=== PATIENT | male | born 1950 | race Caucasian/White ===

== ENCOUNTER → 2016-08-30 | Outpatient (CLI) | payer MEDICARE, BC ==
--- NOTE | 2016-08-30 14:46 | US ---
EXAMINATION TYPE: US carotid duplex BILAT DATE OF EXAM: 08/30/2016 2:21 PM COMPARISON: US CLINICAL HISTORY: G45.9 TIA. TIA, pt states seizures EXAM MEASUREMENTS: RIGHT: Peak Systolic Velocity (PSV) cm/sec ----- Right CCA: 63.4 ----- Right ICA: 47.5 ----- Right ECA: 84.4 ICA/CCA ratio: 0.7 RIGHT: End Diastole cm/sec ----- Right CCA: 14.5 ----- Right ICA: 8.3 ----- Right ECA: 11.7 LEFT: Peak Systolic Velocity (PSV) cm/sec ----- Left CCA: 91.2 ----- Left ICA: 30.9 ----- Left ECA: 70.4 ICA/CCA ratio: 0.3 LEFT: End Diastole cm/sec ----- Left CCA: 12.2 ----- Left ICA: 8.6 ----- Left ECA: 11.0 VERTEBRALS (direction of flow): Right Vertebral: Antegrade Left Vertebral: Antegrade Abnormally low velocities within bilat ICA's No significant stenosis seen IMPRESSION: Mild scattered plaque without hemodynamically significant stenosis. Criteria for Assigning % of Stenosis / Diameter reduction (Estimation based on the indirect measurements of the internal carotid artery velocities (ICA PSV). 1. Normal (no stenosis)=ICA PSV < 125 cm/s: ratio < 2.0: ICA EDV<40 cm/s. 2. Less than 50% stenosis=ICA PSV < 125 cm/s: ratio < 2.0: ICA EDV<40 cm/s. 3. 50 to 69% stenosis=ICA PSV of 125 to 230 cm/s: ration 2.0 ? 4.0: ICA EDV 40-100 cm/s. 4. Greater than 70% stenosis to near occlusion= ICA PSV > 230 cm/s: ratio > 4.0: ICA EDV > 100 cm/s. 5. Near occlusion= ICA PSV velocities may be low or undetectable: variable ratio and ICA EDV. 6. Total occlusion=unable to detect flow.
== END | disposition home or self-care (01) ==
LOC: RADUSWWP 13:59
PROVIDERS: ATTEND Psychiatry & Neurology Neurology
DX: I65.29 Occlusion and stenosis of unspecified carotid artery (principal)
CPT/HCPCS: 93880

== ENCOUNTER → 2016-09-11 | Outpatient (CLI) | payer MEDICARE, BC ==
--- NOTE | 2016-09-13 08:14 | MR ---
EXAMINATION TYPE: MR brain wo con DATE OF EXAM: 09/11/2016 12:48 PM COMPARISON: 09/08/2011 HISTORY: Poss TIA, some headaches and Dizzy Spells CONTRAST: Performed utilizing 0 mL intravenous MultiHance gadolinium contrast. TECHNIQUE: Multiplanar, multiecho imaging on a 3.0 Jing magnet is performed through the brain. Stud y is performed within 24 hours of arrival to the hospital. The craniovertebral junction is normal. The pituitary is normal. Diffusion-weighted imaging is performed. No abnormal hyperintensity is present to suggest an acute i ntracranial infarct or acute ischemic change. There are scattered punctate areas of hyperintensity on T2 and Inversion Recovery weighted sequences which are non-specific but can be related to microvascular ischemic changes. Ventricles and sulci are prominent for the patient age. Small amount fluid is within the right mastoid air cells. Correlate for right mastoiditis. Mild mucos al thickening is within the maxillary sinuses. IMPRESSIONS: 1. Chronic white matter changes, stable from 2011. 2. No acute ischemic area evident.
== END | disposition home or self-care (01) ==
LOC: RADMRIMAIN 08:16
PROVIDERS: ATTEND Nurse Practitioner Acute Care
DX: R51 Headache (principal); R42 Dizziness and giddiness
CPT/HCPCS: 70551

== ENCOUNTER 2017-11-25 00:42 | Emergency (ER) | payer BC, MEDICARE ==
--- NOTE | 2017-11-25 00:52 | ED ---
General Adult HPI - General Chief complaint: Fall Stated complaint: Fall Time Seen by Provider: 11/25/17 00:52 Source: patient, EMS Mode of arrival: EMS Limitations: no limitations - History of Present Illness Initial comments: Aston is a 67-year-old gentleman with a past medical history of Parkinson's disease who is brought to the emergency department today by his daughter for evaluation of generalized weakness and gait instability. Per his daughter he's been complaining of generalized weakness for the past week, he's become less active and has been sleeping more. She states that this evening he was walking out of his bedroom when he lost his balance falling to the left. He felt too weak to get up and required assistance. Daughter reports that this happened so the patient intermittently. She states that his 2 months ago and that she was the primary caregiver, she was also most up-to-date on the patient' s medical history some the daughter states that she is just learning how to care for her father. She states that she been concerned about his weakness so she brought him to the ER for evaluation. - Related Data Home Medications Medication Instructions Recorded Confirmed Albuterol Nebulized [Ventolin 2.5 mg INHALATION RT-QID PRN 06/27/14 02/20/17 Nebulized] Cholecalciferol [Vitamin D3] 2,000 unit PO DAILY 06/27/14 02/20/17 Clopidogrel Bisulfate [Plavix] 75 mg PO DAILY 06/27/14 02/20/17 Deplin 15 mg PO HS 06/27/14 02/20/17 Divalproex [Depakote] 500 mg PO TID 06/27/14 02/20/17 Levothyroxine Sodium [Synthroid] 125 mcg PO DAILY 06/27/14 02/20/17 Multivitamins, Thera [Multivitamin 1 tab PO DAILY 06/27/14 02/20/17 (formulary)] traZODone HCL [Desyrel] 50 mg PO HS 06/27/14 02/20/17 Neupro Patch 1 patch TOPICAL HS 01/01/15 02/20/17 Carbidopa-Levodopa 10-100 mg 1 tab PO TID 12/18/15 02/20/17 [Sinemet 10-100 mg] cloZAPine [Clozaril] 450 mg PO HS 12/22/15 02/20/17 Aspirin 81 mg PO DAILY 02/20/17 02/20/17 Atorvastatin Calcium [Lipitor] 40 mg PO HS 02/20/17 02/20/17 Furosemide [Lasix] 20 mg PO Q48H 02/20/17 02/20/17 Primidone [Mysoline] 50 mg PO HS 02/20/17 02/20/17 Allergies Allergy/AdvReac Type Severity Reaction Status Date / Time Iodinated Contrast- Oral and Allergy Unknown Verified 11/25/17 00:47 IV Dye iohexol Allergy Nausea & Verified 11/25/17 00:47 Vomiting levofloxacin [From Levaquin] Allergy Unknown Verified 11/25/17 00:47 morphine Allergy Confusion Verified 11/25/17 00:47 tromethamine Allergy Nausea & Verified 11/25/17 00:47 Vomiting codeine AdvReac Hallucinati Verified 11/25/17 00:47 ons Review of Systems ROS Statement: Those systems with pertinent positive or pertinent negative responses have been documented in the HPI. ROS Other: All systems not noted in ROS Statement are negative. Past Medical History Past Medical History: CVA/TIA, Deep Vein Thrombosis (DVT), Hypertension, Pneumonia, Prostate Disorder, Seizure Disorder, Thyroid Disorder Additional Past Medical History / Comment(s): Parkinson's, several tia's, past hx. of arrythmia, respiratory failure with pneumonia 8 yrs. ago. DVT years ago, Past Hx. of HEAD INJURY (WAS [employer]/PART OF BLDG COLLAPSED ON HIM, SCIATICA, DDD. ?seizure disorder, SOB w/exertion, lethargy, see Dr Loza H & P History of Any Multi-Drug Resistant Organisms: MRSA Date of last positivie culture/infection: 09/30/2014 MDRO Source:: Blood Past Surgical History: Adenoidectomy, Prostate Surgery, Tonsillectomy Additional Past Surgical History / Comment(s): BRONCHOSCOPY, SX FOR PROLAPSED RECTUM, TURP, Peg insertion & then removed, osteophytes removed from throat, RECENTLY HAD SOME TEETH EXTRACTED AND WAS ON AN ABX. 12-22-15 MIKE. Past Anesthesia/Blood Transfusion Reactions: Motion Sickness Past Psychological History: Anxiety, Depression, PTSD Smoking Status: Former smoker Past Alcohol Use History: None Reported Past Drug Use History: None Reported - Past Family History Father Family Medical History: Myocardial Infarction ([place]) Mother Family Medical History: CVA/TIA, Hypertension, Myocardial Infarction ([place]) General Exam Limitations: no limitations General appearance: alert, other (Resting comfortably but wakes to voice and is appropriately interactive) Head exam: Present: atraumatic, normocephalic Eye exam: Present: normal appearance, PERRL ENT exam: Present: mucous membranes dry Neck exam: Present: normal inspection. Absent: tenderness Respiratory exam: Present: normal lung sounds bilaterally. Absent: respiratory distress Cardiovascular Exam: Present: regular rate, normal rhythm GI/Abdominal exam: Present: soft. Absent: distended Rectal exam: Present: deferred Neurological exam: Present: alert, oriented X3, other (Tremor) Psychiatric exam: Present: normal affect Skin exam: Present: warm, dry Course Vital Signs 11/25/17 11/25/17 00:43 05:42 Temperature 97.4 F L 97.7 F Pulse Rate 91 81 Respiratory 18 16 Rate Blood Pressure 147/71 117/67 O2 Sat by Pulse 96 97 Oximetry Medical Decision Making - Medical Decision Making The patient was seen and evaluated, history was obtained from the patient and his daughter bedside with a history of Parkinson's and episodes of weakness which have been evaluated multiple times in the hospital and attributed to possible TIAs versus seizures. Patient has been feeling weak for approximately 1-2 weeks, he's had some decreased oral intake, daughter is concerned because she has not been his primary caregiver until recently after the untimely of her mother. She will have patient evaluated. Patient with no obvious signs of injury. Does appear mildly dehydrated. Labs and imaging were ordered Labs no significant abnormalities EKG sinus rhythm no acute ST elevations or depressions no evidence of acute ischemia or infarction Were discussed with the patient and daughter, daughter expresses relief and patient is eager for discharge home. Patient and daughter were advised to follow up with PCP and neurologist for re- evaluation - Lab Data Result diagrams: 11/25/17 00:47 11/25/17 00:47 Lab Results 11/25/17 11/25/17 11/25/17 Range/Units 00:47 00:47 00:47 WBC 7.6 (3.8-10.6) k/uL RBC 4.45 (4.30-5.90) m/uL Hgb 13.8 (13.0-17.5) gm/dL Hct 42.0 (39.0-53.0) % MCV 94.4 (80.0-100.0) fL MCH 30.9 (25.0-35.0) pg MCHC 32.8 (31.0-37.0) g/dL RDW 14.6 (11.5-15.5) % Plt Count 191 (150-450) k/uL Neutrophils % 60 % Lymphocytes % 28 % Monocytes % 9 % Eosinophils % 0 % Basophils % 0 % Neutrophils # 4.5 (1.3-7.7) k/uL Lymphocytes # 2.1 (1.0-4.8) k/uL Monocytes # 0.7 (0-1.0) k/uL Eosinophils # 0.0 (0-0.7) k/uL Basophils # 0.0 (0-0.2) k/uL PT 10.5 (9.0-12.0) sec INR 1.1 (<1.2) APTT 28.3 (22.0-30.0) sec Sodium 138 (137-145) mmol/L Potassium 4.0 (3.5-5.1) mmol/L Chloride 108 H (98-107) mmol/L Carbon Dioxide 23 (22-30) mmol/L Anion Gap 7 mmol/L BUN 18 (9-20) mg/dL Creatinine 0.80 (0.66-1.25) mg/dL Est GFR (CKD-EPI)AfAm >90 (>60 ml/min/1.73 sqM) Est GFR (CKD-EPI)NonAf >90 (>60 ml/min/1.73 sqM) Glucose 130 H (74-99) mg/dL Plasma Lactic Acid Catarino (0.7-2.0) mmol/L Calcium 8.6 (8.4-10.2) mg/dL Total Bilirubin 0.3 (0.2-1.3) mg/dL AST 19 (17-59) U/L ALT 22 (21-72) U/L Alkaline Phosphatase 73 (38-126) U/L Total Creatine Kinase (55-170) U/L CK-MB (CK-2) (0.0-2.4) ng/mL CK-MB (CK-2) Rel Index Troponin I (0.000-0.034) ng/mL Total Protein 5.3 L (6.3-8.2) g/dL Albumin 3.2 L (3.5-5.0) g/dL Urine Color Urine Appearance (Clear) Urine pH (5.0-8.0) Ur Specific [place] (1.001-1.035) Urine Protein (Negative) Urine Glucose (UA) (Negative) Urine Ketones (Negative) Urine Blood (Negative) Urine Nitrite (Negative) Urine Bilirubin (Negative) Urine Urobilinogen (<2.0) mg/dL Ur Leukocyte Esterase (Negative) Urine RBC (0-5) /hpf Urine WBC (0-5) /hpf Ur Squamous Epith Cells (0-4) /hpf 11/25/17 11/25/17 11/25/17 Range/Units 00:47 01:30 02:58 WBC (3.8-10.6) k/uL RBC (4.30-5.90) m/uL Hgb (13.0-17.5) gm/dL Hct (39.0-53.0) % MCV (80.0-100.0) fL MCH (25.0-35.0) pg MCHC (31.0-37.0) g/dL RDW (11.5-15.5) % Plt Count (150-450) k/uL Neutrophils % % Lymphocytes % % Monocytes % % Eosinophils % % Basophils % % Neutrophils # (1.3-7.7) k/uL Lymphocytes # (1.0-4.8) k/uL Monocytes # (0-1.0) k/uL Eosinophils # (0-0.7) k/uL Basophils # (0-0.2) k/uL PT (9.0-12.0) sec INR (<1.2) APTT (22.0-30.0) sec Sodium (137-145) mmol/L Potassium (3.5-5.1) mmol/L Chloride (98-107) mmol/L Carbon Dioxide (22-30) mmol/L Anion Gap mmol/L BUN (9-20) mg/dL Creatinine (0.66-1.25) mg/dL Est GFR (CKD-EPI)AfAm (>60 ml/min/1.73 sqM) Est GFR (CKD-EPI)NonAf (>60 ml/min/1.73 sqM) Glucose (74-99) mg/dL Plasma Lactic Acid Catarino 1.5 (0.7-2.0) mmol/L Calcium (8.4-10.2) mg/dL Total Bilirubin (0.2-1.3) mg/dL AST (17-59) U/L ALT (21-72) U/L Alkaline Phosphatase (38-126) U/L Total Creatine Kinase 38 L (55-170) U/L CK-MB (CK-2) 0.6 (0.0-2.4) ng/mL CK-MB (CK-2) Rel Index 1.6 Troponin I <0.012 (0.000-0.034) ng/mL Total Protein (6.3-8.2) g/dL Albumin (3.5-5.0) g/dL Urine Color Yellow Urine Appearance Cloudy (Clear) Urine pH 7.5 (5.0-8.0) Ur Specific [place] 1.014 (1.001-1.035) Urine Protein Negative (Negative) Urine Glucose (UA) Negative (Negative) Urine Ketones Negative (Negative) Urine Blood Moderate H (Negative) Urine Nitrite Negative (Negative) Urine Bilirubin Negative (Negative) Urine Urobilinogen 4.0 (<2.0) mg/dL Ur Leukocyte Esterase Negative (Negative) Urine RBC <1 (0-5) /hpf Urine WBC 1 (0-5) /hpf Ur Squamous Epith Cells 1 (0-4) /hpf Disposition Clinical Impression: Fall Disposition: HOME SELF-CARE Instructions: Fall Prevention for Older Adults (ED) Is patient prescribed a controlled substance at d/c from ED?: No Referrals: Cheng Kendrick DO [Primary Care Provider] - 1-2 days Time of Disposition: 04:07
[2017-11-25 01:25] LABS: Basophils % (A) 0 %; Eosinophils % (A) 0 %; HGB 13.8 gm/dL (13.0-17.5); Lymphocytes # (A) 2.1 k/uL (1.0-4.8); Lymphocytes % (A) 28 %; MCH 30.9 pg (25.0-35.0); MCHC 32.8 g/dL (31.0-37.0); MCV 94.4 fL (80.0-100.0); Mean Platelet Volume 7.1; Monocytes # (A) 0.7 k/uL (0-1.0); Monocytes % (A) 9 %; Neutrophils # (A) 4.5 k/uL (1.3-7.7); Neutrophils % (A) 60 %; Platelet Count 191 k/uL (150-450); RBC 4.45 m/uL (4.30-5.90); RDW 14.6 % (11.5-15.5); WBC 7.6 k/uL (3.8-10.6)
[2017-11-25] MEDS: SODIUM CHLORIDE 0.9% 500 ML IV SCH ×4 (01:28→04:00)
[2017-11-25 01:33] LABS: ALT 22 U/L (21-72); AST 19 U/L (17-59); Albumin 3.2 g/dL (3.5-5.0); Alkaline Phosphatase 73 U/L (38-126); Anion Gap 7 mmol/L; Blood Urea Nitrogen 18 mg/dL (9-20); Calcium 8.6 mg/dL (8.4-10.2); Carbon Dioxide 23 mmol/L (22-30); Chloride 108 mmol/L (98-107); Glucose 130 mg/dL (74-99); INR 1.1 (<1.2); Partial Thromboplastin Time 28.3 sec (22.0-30.0); Prothrombin Time 10.5 sec (9.0-12.0); Sodium 138 mmol/L (137-145); Total Bilirubin 0.3 mg/dL (0.2-1.3); Total Protein 5.3 g/dL (6.3-8.2)
[2017-11-25 01:44] LABS: Creatine Kinase 38 U/L (55-170)
--- NOTE | 2017-11-25 01:54 | XR ---
EXAMINATION TYPE: XR chest 2V DATE OF EXAM: 11/25/2017 COMPARISON: 01/12/2016 HISTORY: Weakness and fever TECHNIQUE: Frontal and lateral views of the chest are obtained. FINDINGS: Heart and mediastinum are normal. There is a mild infiltrate at the left lung base. The ot her lung pink are clear. There is no heart failure. There are chest leads. IMPRESSION: Mild chronic infiltrate at the left lung base similar to old exam. Normal heart.
[2017-11-25 01:57] LABS: Creatine Kinase MB 0.6 ng/mL (0.0-2.4); Troponin I <0.012 ng/mL (0.000-0.034)
--- NOTE | 2017-11-25 02:24 | CT ---
EXAMINATION TYPE: CT brain [place] [place] con DATE OF EXAM: 11/25/2017 COMPARISON: CT brain 12/31/2012 HISTORY: Fall;weakness CT DLP: 1342.40 mGycm Automated exposure control for dose reduction was used. TECHNIQUE: CT scan of the head and cervical spine are performed without contrast. FINDINGS: There is cerebral cortical atrophy. There is no mass effect nor midline shift. There is n o sign of intracranial hemorrhage. The calvarium is intact. The cervical vertebra show normal alignment. There is hypertrophic anterior spurring from C3 to C7. F acet joints are intact. There is mild hypertrophic facet arthropathy. Skull base is intact. IMPRESSION: Cerebral atrophy. No acute intracranial abnormality. No significant change compared to old exam. Spondylotic changes in the cervical spine. No fracture.
[2017-11-25 03:20] LABS: Appearance,Urine Cloudy (Clear); Bilirubin,Urine Negative (Negative); Blood,Urine Moderate (Negative); Color,Urine Yellow; Glucose,Urine (UA) Negative (Negative); Ketones,Urine Negative (Negative); Leukocyte Esterase,Urine Negative (Negative); Nitrite,Urine Negative (Negative); PH, Urine 7.5 (5.0-8.0); Protein,Urine Negative (Negative); RBC,Urine <1 /hpf (0-5); Specific Gravity,Urine 1.014 (1.001-1.035); Squamous Epithelial Cell,Urine 1 /hpf (0-4); WBC,Urine 1 /hpf (0-5)
[2017-11-25 05:43] VITALS: BP 117/67; PULSE 81; RESP 16; TEMP 97.7
== END 2017-11-25 04:30 | disposition home or self-care (01) ==
LOC: EC 00:42
DX: E86.0 Dehydration (principal); R53.1 Weakness; R26.89 Other abnormalities of gait and mobility; I10 Essential (primary) hypertension; G20 Parkinson's disease; E07.9 Disorder of thyroid, unspecified; G40.909 Epilepsy, unspecified, not intractable, without status epilepticus; F32.9 Major depressive disorder, single episode, unspecified; F41.9 Anxiety disorder, unspecified; Z87.891 Personal history of nicotine dependence; Z79.02 Long term (current) use of antithrombotics/antiplatelets; Z79.82 Long term (current) use of aspirin; Z79.899 Other long term (current) drug therapy; Z88.1 Allergy status to other antibiotic agents; Z88.5 Allergy status to narcotic agent; Z88.8 Allergy status to other drugs, medicaments and biological substances; Z91.041 Radiographic dye allergy status; Z86.14 Personal history of Methicillin resistant Staphylococcus aureus infection; Z86.718 Personal history of other venous thrombosis and embolism; Z86.73 Personal history of transient ischemic attack (TIA), and cerebral infarction without residual deficits; W18.09XA Striking against other object with subsequent fall, initial encounter; Y93.01 Activity, walking, marching and hiking; Y92.009 Unspecified place in unspecified non-institutional (private) residence as the place of occurrence of the external cause
CPT/HCPCS: 36415; 70450; 71046; 72125; 80053; 81001; 82550; 82553; 83605; 84484; 85025; 85610; 85730; 87040; 87086; 93005; 96360; 96361; 99285

== ENCOUNTER 2018-01-03 18:25 | Emergency (ER) | payer MEDICARE ==
--- NOTE | 2018-01-03 18:42 | ED ---
General Adult HPI - General Chief complaint: Fall Stated complaint: poss TIA Time Seen by Provider: 01/03/18 18:26 Source: patient, family, RN notes reviewed, old records reviewed - History of Present Illness Initial comments: 67-year-old male history of TIA, CVA presents by EMS status post fall. Patient is currently undergoing physical therapy for recurrent falls and recurrent TIA and CVA. His family member states he's had approximately 30 minute strokes as well as stroke with some residual left-sided deficit. Patient underwent physical therapy today which he may have overexerted himself and fall while walking with his walker. He denies any pain complaints the time my evaluation. According to EMS he did have some left-sided weakness on initial presentation , this resolved during transport. Patient denies any new focal weakness at the time my evaluation. His family member states this is very typical that he typically has these symptoms after overexertion. He has had multiple workups in the past for both TIA and CVA. Patient also has history of traumatic brain injury. Additional past medical history of Parkinson's and seizure disorder. - Related Data Home Medications Medication Instructions Recorded Confirmed Albuterol Nebulized [Ventolin 2.5 mg INHALATION RT-QID PRN 06/27/14 01/03/18 Nebulized] Clopidogrel Bisulfate [Plavix] 75 mg PO DAILY 06/27/14 01/03/18 Deplin 15 mg PO HS 06/27/14 01/03/18 Divalproex [Depakote] 500 mg PO TID 06/27/14 01/03/18 Levothyroxine Sodium [Synthroid] 125 mcg PO DAILY 06/27/14 01/03/18 traZODone HCL [Desyrel] 50 mg PO HS 06/27/14 01/03/18 Neupro Patch 1 patch TOPICAL HS 01/01/15 01/03/18 Carbidopa-Levodopa 10-100 mg 1 tab PO TID 12/18/15 01/03/18 [Sinemet 10-100 mg] cloZAPine [Clozaril] 450 mg PO HS 12/22/15 01/03/18 Atorvastatin Calcium [Lipitor] 40 mg PO HS 02/20/17 01/03/18 Primidone [Mysoline] 50 mg PO HS 02/20/17 01/03/18 Allergies Allergy/AdvReac Type Severity Reaction Status Date / Time Iodinated Contrast- Oral and Allergy Unknown Verified 01/03/18 18:59 IV Dye iohexol Allergy Nausea & Verified 01/03/18 18:59 Vomiting levofloxacin [From Levaquin] Allergy Unknown Verified 01/03/18 18:59 morphine Allergy Confusion Verified 01/03/18 18:59 tromethamine Allergy Nausea & Verified 01/03/18 18:59 Vomiting codeine AdvReac Hallucinati Verified 01/03/18 18:59 ons Review of Systems ROS Statement: Those systems with pertinent positive or pertinent negative responses have been documented in the HPI. ROS Other: All systems not noted in ROS Statement are negative. Past Medical History Past Medical History: CVA/TIA, Deep Vein Thrombosis (DVT), Hypertension, Pneumonia, Prostate Disorder, Seizure Disorder, Thyroid Disorder Additional Past Medical History / Comment(s): Parkinson's, several tia's, past hx. of arrythmia, respiratory failure with pneumonia 8 yrs. ago. DVT years ago, Past Hx. of HEAD INJURY (WAS [employer] SU[employer]/PART OF BLDG COLLAPSED ON HIM, SCIATICA, DDD. ?seizure disorder, SOB w/exertion, lethargy, see Dr Loza H & P History of Any Multi-Drug Resistant Organisms: MRSA Date of last positivie culture/infection: 09/30/2014 MDRO Source:: Blood Past Surgical History: Adenoidectomy, Prostate Surgery, Tonsillectomy Additional Past Surgical History / Comment(s): BRONCHOSCOPY, SX FOR PROLAPSED RECTUM, TURP, Peg insertion & then removed, osteophytes removed from throat, RECENTLY HAD SOME TEETH EXTRACTED AND WAS ON AN ABX. 12-22-15 MIKE. Past Anesthesia/Blood Transfusion Reactions: Motion Sickness Past Psychological History: Anxiety, Depression, PTSD Smoking Status: Former smoker Past Alcohol Use History: None Reported Past Drug Use History: None Reported - Past Family History Father Family Medical History: Myocardial Infarction ([place]) Mother Family Medical History: CVA/TIA, Hypertension, Myocardial Infarction ([place]) General Exam General appearance: alert, in no apparent distress Head exam: Present: atraumatic, normocephalic Eye exam: Present: normal appearance, PERRL, EOMI Neck exam: Present: normal inspection, full ROM. Absent: tenderness, meningismus Respiratory exam: Present: normal lung sounds bilaterally, respiratory distress Cardiovascular Exam: Present: regular rate, normal rhythm GI/Abdominal exam: Present: soft. Absent: distended, tenderness, guarding Extremities exam: Present: normal inspection, normal capillary refill. Absent: pedal edema Neurological exam: Present: alert, oriented X3, CN II-XII intact. Absent: motor sensory deficit (Bilateral upper extremities, 5 out of 5, lower extremities have 4 out of 5 strength however it is symmetric between right and left.) Psychiatric exam: Present: normal affect, normal mood Skin exam: Present: warm, dry, intact. Absent: cyanosis, diaphoretic Course Vital Signs 01/03/18 01/03/18 18:48 20:03 Temperature 97.8 F 98.0 F Pulse Rate 94 94 Respiratory 18 18 Rate Blood Pressure 121/63 110/59 O2 Sat by Pulse 100 95 Oximetry EKG Findings - EKG Comments: EKG Findings:: EKG: Normal sinus rhythm with sinus arrhythmia, right bundle branch block, rate of 98, QRS duration 1:30, W[place] interval 132, QTC 370. No ST segment elevation. Medical Decision Making - Medical Decision Making 67-year-old male presenting with fall and left-sided weakness reported by family. This is not atypical for this patient, he's had multiple episodes of this nature in the past. He does follow with neurology on a regular basis for history of CVA, TIA, and Parkinson's. At the time of my evaluation, patient has a nonfocal neurologic exam. He is moving both extremities symmetrically, no facial asymmetry. Head CT is obtained, negative for any acute intracranial hemorrhage or mass effect. Chest x-ray does show concern for left lower lobe pneumonia however this is chronic in nature. On reevaluation, patient has no pain complaints. He has unchanged neurologic exam. Initial plan is for admission for neurology evaluation. After discussion with the family it is decided that this patient will be sent home with outpatient follow-up. He does have an appointment with neurology in the next 1-2 weeks. He'll also follow up with his primary care physician. - Lab Data Result diagrams: 01/03/18 18:39 01/03/18 18:39 Lab Results 01/03/18 01/03/18 01/03/18 Range/Units 18:39 18:39 18:39 WBC 11.9 H (3.8-10.6) k/uL RBC 4.74 (4.30-5.90) m/uL Hgb 14.7 (13.0-17.5) gm/dL Hct 45.5 (39.0-53.0) % MCV 95.9 (80.0-100.0) fL MCH 31.1 (25.0-35.0) pg MCHC 32.4 (31.0-37.0) g/dL RDW 14.8 (11.5-15.5) % Plt Count 211 (150-450) k/uL Neutrophils % 84 % Lymphocytes % 7 % Monocytes % 7 % Eosinophils % 1 % Basophils % 0 % Neutrophils # 10.0 H (1.3-7.7) k/uL Lymphocytes # 0.8 L (1.0-4.8) k/uL Monocytes # 0.8 (0-1.0) k/uL Eosinophils # 0.1 (0-0.7) k/uL Basophils # 0.0 (0-0.2) k/uL PT (9.0-12.0) sec INR (<1.2) APTT (22.0-30.0) sec Sodium 138 (137-145) mmol/L Potassium 4.5 (3.5-5.1) mmol/L Chloride 108 H (98-107) mmol/L Carbon Dioxide 19 L (22-30) mmol/L Anion Gap 11 mmol/L BUN 25 H (9-20) mg/dL Creatinine 0.96 (0.66-1.25) mg/dL Est GFR (CKD-EPI)AfAm >90 (>60 ml/min/1.73 sqM) Est GFR (CKD-EPI)NonAf 82 (>60 ml/min/1.73 sqM) Glucose 122 H (74-99) mg/dL Calcium 8.7 (8.4-10.2) mg/dL Total Bilirubin 0.7 (0.2-1.3) mg/dL AST 21 (17-59) U/L ALT 27 (21-72) U/L Alkaline Phosphatase 70 (38-126) U/L Total Creatine Kinase 29 L (55-170) U/L CK-MB (CK-2) 0.9 (0.0-2.4) ng/mL CK-MB (CK-2) Rel Index 3.1 Troponin I <0.012 (0.000-0.034) ng/mL Total Protein 5.8 L (6.3-8.2) g/dL Albumin 3.3 L (3.5-5.0) g/dL 01/03/18 Range/Units 18:39 WBC (3.8-10.6) k/uL RBC (4.30-5.90) m/uL Hgb (13.0-17.5) gm/dL Hct (39.0-53.0) % MCV (80.0-100.0) fL MCH (25.0-35.0) pg MCHC (31.0-37.0) g/dL RDW (11.5-15.5) % Plt Count (150-450) k/uL Neutrophils % % Lymphocytes % % Monocytes % % Eosinophils % % Basophils % % Neutrophils # (1.3-7.7) k/uL Lymphocytes # (1.0-4.8) k/uL Monocytes # (0-1.0) k/uL Eosinophils # (0-0.7) k/uL Basophils # (0-0.2) k/uL PT 10.8 (9.0-12.0) sec INR 1.1 (<1.2) APTT 25.3 (22.0-30.0) sec Sodium (137-145) mmol/L Potassium (3.5-5.1) mmol/L Chloride (98-107) mmol/L Carbon Dioxide (22-30) mmol/L Anion Gap mmol/L BUN (9-20) mg/dL Creatinine (0.66-1.25) mg/dL Est GFR (CKD-EPI)AfAm (>60 ml/min/1.73 sqM) Est GFR (CKD-EPI)NonAf (>60 ml/min/1.73 sqM) Glucose (74-99) mg/dL Calcium (8.4-10.2) mg/dL Total Bilirubin (0.2-1.3) mg/dL AST (17-59) U/L ALT (21-72) U/L Alkaline Phosphatase (38-126) U/L Total Creatine Kinase (55-170) U/L CK-MB (CK-2) (0.0-2.4) ng/mL CK-MB (CK-2) Rel Index Troponin I (0.000-0.034) ng/mL Total Protein (6.3-8.2) g/dL Albumin (3.5-5.0) g/dL Disposition Clinical Impression: Fall, TIA (transient ischemic attack) Disposition: HOME SELF-CARE Condition: Good Is patient prescribed a controlled substance at d/c from ED?: No Referrals: Cheng Kendrick DO [Primary Care Provider] - 1-2 days Sharla Fatima MD [STAFF PHYSICIAN] - 1-2 days Time of Disposition: 20:26
[2018-01-03 18:50] LABS: Basophils % (A) 0 %; Eosinophils # (A) 0.1 k/uL (0-0.7); Eosinophils % (A) 1 %; HCT 45.5 % (39.0-53.0); HGB 14.7 gm/dL (13.0-17.5); Lymphocytes # (A) 0.8 k/uL (1.0-4.8); Lymphocytes % (A) 7 %; MCH 31.1 pg (25.0-35.0); MCHC 32.4 g/dL (31.0-37.0); MCV 95.9 fL (80.0-100.0); Monocytes # (A) 0.8 k/uL (0-1.0); Monocytes % (A) 7 %; Neutrophils % (A) 84 %; Platelet Count 211 k/uL (150-450); RBC 4.74 m/uL (4.30-5.90); RDW 14.8 % (11.5-15.5); WBC 11.9 k/uL (3.8-10.6)
[2018-01-03 18:51] VITALS: PULSE 94; RESP 18
[2018-01-03 19:18] LABS: INR 1.1 (<1.2); Partial Thromboplastin Time 25.3 sec (22.0-30.0); Prothrombin Time 10.8 sec (9.0-12.0)
[2018-01-03 19:22] LABS: ALT 27 U/L (21-72); AST 21 U/L (17-59); Albumin 3.3 g/dL (3.5-5.0); Alkaline Phosphatase 70 U/L (38-126); Anion Gap 11 mmol/L; Blood Urea Nitrogen 25 mg/dL (9-20); Calcium 8.7 mg/dL (8.4-10.2); Carbon Dioxide 19 mmol/L (22-30); Chloride 108 mmol/L (98-107); Creatine Kinase 29 U/L (55-170); Glucose 122 mg/dL (74-99); Potassium 4.5 mmol/L (3.5-5.1); Sodium 138 mmol/L (137-145); Total Bilirubin 0.7 mg/dL (0.2-1.3); Total Protein 5.8 g/dL (6.3-8.2)
[2018-01-03 19:34] LABS: Creatine Kinase MB 0.9 ng/mL (0.0-2.4); Troponin I <0.012 ng/mL (0.000-0.034)
--- NOTE | 2018-01-03 19:35 | CT ---
EXAMINATION: CT brain wo con for TPA DATE AND TIME: 01/03/2018 7:18 PM CLINICAL INDICATION: Neuro Deficits TECHNIQUE: Standard departmental protocol. COMPARISON: 11/25/2017 FINDINGS: The calvarium is intact. There is no intracranial hemorrhage. There is no intracranial mass or mass effect. No definite new intra-axial or extra-axial attenuation defect. The paranasal sinuses, middle ear cavities, and mastoid sinus air cells are clear. The orbits are unremarkable. IMPRESSION: NO ACUTE PROCESS.
--- NOTE | 2018-01-03 19:43 | XR ---
EXAMINATION: XR chest 2V DATE AND TIME: 01/03/2018 7:25 PM CLINICAL INDICATION: altered mental status TECHNIQUE: PA and lateral COMPARISON: 11/25/2017 FINDINGS: The partial left lung base added opacity is redemonstrated. Otherwise, the lungs are clear and well e xpanded bilaterally. The pleural spaces are negative. The cardiac silhouette is not enlarged. The remainder of the mediastinal silhouette is unremarkable. The skeletal structures and soft tissues are negative for acute findings. IMPRESSION: STABLE CHEST FINDINGS. PARTIAL LEFT LUNG BASE AIRLESSNESS CONSISTENT WITH ATELECTASIS VS. PNEUMONIA; CLINICAL DISTINCTION.
[2018-01-03 20:04] VITALS: BP 110/59; TEMP 98
== END 2018-01-03 20:46 | disposition home or self-care (01) ==
LOC: EC 18:25
DX: G45.9 Transient cerebral ischemic attack, unspecified (principal); I10 Essential (primary) hypertension; G20 Parkinson's disease; G40.909 Epilepsy, unspecified, not intractable, without status epilepticus; E07.9 Disorder of thyroid, unspecified; F32.9 Major depressive disorder, single episode, unspecified; F41.9 Anxiety disorder, unspecified; F43.10 Post-traumatic stress disorder, unspecified; R29.6 Repeated falls; Z86.14 Personal history of Methicillin resistant Staphylococcus aureus infection; Z86.718 Personal history of other venous thrombosis and embolism; Z87.820 Personal history of traumatic brain injury; Z87.891 Personal history of nicotine dependence; Z79.01 Long term (current) use of anticoagulants; Z79.899 Other long term (current) drug therapy; Z88.5 Allergy status to narcotic agent; Z91.041 Radiographic dye allergy status; Z88.1 Allergy status to other antibiotic agents; Z88.8 Allergy status to other drugs, medicaments and biological substances; W19.XXXA Unspecified fall, initial encounter
CPT/HCPCS: 36415; 70450; 71046; 80053; 82550; 82553; 84484; 85025; 85610; 85730; 93005; 99285

== ENCOUNTER 2018-02-18 23:53 | Inpatient (IN) | payer MEDICARE ==
[2018-02-19] MEDS ORDERED: ACETAMINOPHEN TAB 500 MG TAB PO STA (00:10)
[2018-02-19 00:25] LABS: Basophils % (A) 0 %; Eosinophils # (A) 0.2 k/uL (0-0.7); Eosinophils % (A) 1 %; HGB 13.5 gm/dL (13.0-17.5); Lymphocytes # (A) 1.3 k/uL (1.0-4.8); Lymphocytes % (A) 7 %; MCH 31.1 pg (25.0-35.0); MCHC 32.9 g/dL (31.0-37.0); MCV 94.5 fL (80.0-100.0); Monocytes # (A) 1.2 k/uL (0-1.0); Monocytes % (A) 6 %; Neutrophils % (A) 85 %; Platelet Count 185 k/uL (150-450); RBC 4.34 m/uL (4.30-5.90); RDW 14.6 % (11.5-15.5); WBC 18.8 k/uL (3.8-10.6)
--- NOTE | 2018-02-19 00:26 | ED ---
General Adult HPI - General Chief complaint: Fall Stated complaint: Fall Time Seen by Provider: 02/18/18 23:56 Source: EMS Mode of arrival: EMS - History of Present Illness Initial comments: 68-year-old male patient with past medical history significant for Parkinson's disease presents to the emergency department today via EMS for evaluation of weakness with 2 falls today. Patient denies hitting his head or losing consciousness during the falls. He denies any injuries from the falls. He denies headache, neck pain, back pain, blurred, or double vision. Daughter reports when helping him up from the second fall patient was short of breath and his breathing sounded coarse. Patient was found to have elevated temperature 100.4 axillary in EMS. Patient did see his primary care physician this morning to have an abscess to the left buttock incised and drained. He was started on Bactrim for this by mouth. Daughter reports the patient has also had a cough for the last couple of days and does frequently get pneumonia. Patient denies any sputum production with the cough. States he has been wheezing. He denies any chest pain or shortness of breath. Denies abdominal pain, nausea, vomiting, constipation, or diarrhea. Patient denies any recent rash, back pain, numbness, tingling, dizziness, weakness, hematuria, dysuria, urinary urgency, urinary frequency, headache, visual changes, or any other complaints. - Related Data Home Medications Medication Instructions Recorded Confirmed Albuterol Nebulized [Ventolin 2.5 mg INHALATION RT-QID PRN 06/27/14 01/03/18 Nebulized] Clopidogrel Bisulfate [Plavix] 75 mg PO DAILY 06/27/14 01/03/18 Deplin 15 mg PO 06/27/14 01/03/18 Divalproex [Depakote] 500 mg PO TID 06/27/14 01/03/18 Levothyroxine Sodium [Synthroid] 125 mcg PO DAILY 06/27/14 01/03/18 traZODone HCL [Desyrel] 50 mg PO 06/27/14 01/03/18 Neupro Patch 1 patch TOPICAL 01/01/15 01/03/18 Carbidopa-Levodopa 10-100 mg 1 tab PO TID 12/18/15 01/03/18 [Sinemet 10-100 mg] cloZAPine [Clozaril] 450 mg PO HS 12/22/15 01/03/18 Atorvastatin Calcium [Lipitor] 40 mg PO HS 02/20/17 01/03/18 Primidone [Mysoline] 50 mg PO HS 02/20/17 01/03/18 Allergies Allergy/AdvReac Type Severity Reaction Status Date / Time Iodinated Contrast- Oral and Allergy Unknown Verified 01/03/18 18:59 IV Dye iohexol Allergy Nausea & Verified 01/03/18 18:59 Vomiting levofloxacin [From Levaquin] Allergy Unknown Verified 01/03/18 18:59 morphine Allergy Confusion Verified 01/03/18 18:59 tromethamine Allergy Nausea & Verified 01/03/18 18:59 Vomiting codeine AdvReac Hallucinati Verified 01/03/18 18:59 ons Review of Systems ROS Statement: Those systems with pertinent positive or pertinent negative responses have been documented in the HPI. ROS Other: All systems not noted in ROS Statement are negative. Past Medical History Past Medical History: CVA/TIA, Deep Vein Thrombosis (DVT), Hypertension, Pneumonia, Prostate Disorder, Seizure Disorder, Thyroid Disorder Additional Past Medical History / Comment(s): Parkinson's, several tia's, past hx. of arrythmia, respiratory failure with pneumonia 8 yrs. ago. DVT years ago, Past Hx. 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 ?seizure disorder, SOB w/exertion, lethargy, see Dr Loza H & P History of Any Multi-Drug Resistant Organisms: MRSA Date of last positivie culture/infection: 09/30/2014 MDRO Source:: Blood Past Surgical History: Adenoidectomy, Prostate Surgery, Tonsillectomy Additional Past Surgical History / Comment(s): BRONCHOSCOPY, SX FOR PROLAPSED RECTUM, TURP, Peg insertion & then removed, osteophytes removed from throat, RECENTLY HAD SOME TEETH EXTRACTED AND WAS ON AN ABX. 12-22-15 MIKE. Past Anesthesia/Blood Transfusion Reactions: Motion Sickness Past Psychological History: Anxiety, Depression, PTSD Smoking Status: Former smoker Past Alcohol Use History: None Reported Past Drug Use History: None Reported - Past Family History Father Family Medical History: Myocardial Infarction ([place]) Mother Family Medical History: CVA/TIA, Hypertension, Myocardial Infarction ([place]) General Exam General appearance: in no apparent distress, other (This is a well-developed, thin appearing elderly male patient in no acute distress. Vital signs upon presentation are temperature 98.1F axillary, pulse 109, respirations 16, blood pressure 118/75, pulse ox 89% on room air.) Eye exam: Present: normal appearance, PERRL, EOMI, other (Pupils 1 mm). Absent : scleral icterus, conjunctival injection, periorbital swelling ENT exam: Present: normal exam, normal oropharynx, mucous membranes moist, TM's normal bilaterally Neck exam: Present: normal inspection, full ROM, other (Nontender, no step-off, no deformity to firm midline palpation of the posterior cervical spine. Full range of motion without pain or limitation.). Absent: tenderness, meningismus, lymphadenopathy Respiratory exam: Present: wheezes (scattered expiratory wheezing posteriorly). Absent: normal lung sounds bilaterally, respiratory distress, rales, rhonchi, stridor, chest wall tenderness (No rib tenderness) Cardiovascular Exam: Present: normal rhythm, tachycardia, normal heart sounds. Absent: systolic murmur, diastolic murmur, rubs, gallop, clicks GI/Abdominal exam: Present: soft, normal bowel sounds. Absent: distended, tenderness, guarding, rebound, rigid Neurological exam: Present: alert, oriented X3, CN II-XII intact Psychiatric exam: Present: normal affect, normal mood Skin exam: Present: warm, dry, intact, normal color, other (Patient has abscess to the left lower buttock. This has been incised and drained. Minimal surrounding erythema, no induration, no current drainage.). Absent: rash Course Vital Signs 02/18/18 02/19/18 02/19/18 23:57 00:06 00:36 Temperature 98.1 F Pulse Rate 109 H 106 H 101 H Respiratory 16 16 16 Rate Blood Pressure 118/75 101/73 O2 Sat by Pulse 89 L 93 L 93 L Oximetry - Reevaluation(s) Reevaluation #1: 02/19/18 01:18 Sepsis diagnosed at 0118. EKG Findings - EKG Comments: EKG Findings:: EKG obtained at 2358 shows sinus tachycardia with a right bundle branch block, ventricular rate is 105, DC interval 136, QRS duration 136, QT 382 , QTc 504. No evidence of ST elevation or depression. Medical Decision Making - Medical Decision Making 68-year-old male patient presented to the emergency department today for evaluation of weakness and shortness of breath. Physical examination did reveal coarse expiratory breath sounds with scattered expiratory wheezes. Patient oxygen saturation was 89% on room air. Patient was febrile and EMS at 100.4F axillary. Labs reviewed and did reveal white blood cell count of 18.8, neutrophil count of 16.0, lactic acid was 3.0, influenza testing negative. Urine has yet to be collected. A chest x-ray showed bilateral lower lobe infiltrates which are new compared to last exam. Patient also does have a abscess to the left buttock that has been incised and drained, there is minimal surrounding erythema and no induration. No drainage at this time. Patient will be admitted to the hospital and treated for sepsis. We'll start Rocephin and azithromycin for community-acquired pneumonia. - Lab Data Result diagrams: 02/19/18 00:05 02/19/18 00:05 Lab Results 02/19/18 02/19/18 02/19/18 Range/Units 00:05 00:05 00:05 WBC 18.8 H (3.8-10.6) k/uL RBC 4.34 (4.30-5.90) m/uL Hgb 13.5 (13.0-17.5) gm/dL Hct 41.0 (39.0-53.0) % MCV 94.5 (80.0-100.0) fL MCH 31.1 (25.0-35.0) pg MCHC 32.9 (31.0-37.0) g/dL RDW 14.6 (11.5-15.5) % Plt Count 185 (150-450) k/uL Neutrophils % 85 % Lymphocytes % 7 % Monocytes % 6 % Eosinophils % 1 % Basophils % 0 % Neutrophils # 16.0 H (1.3-7.7) k/uL Lymphocytes # 1.3 (1.0-4.8) k/uL Monocytes # 1.2 H (0-1.0) k/uL Eosinophils # 0.2 (0-0.7) k/uL Basophils # 0.0 (0-0.2) k/uL PT (9.0-12.0) sec INR (<1.2) APTT (22.0-30.0) sec Sodium 139 (137-145) mmol/L Potassium 3.8 (3.5-5.1) mmol/L Chloride 110 H (98-107) mmol/L Carbon Dioxide 19 L (22-30) mmol/L Anion Gap 10 mmol/L BUN 20 (9-20) mg/dL Creatinine 0.93 (0.66-1.25) mg/dL Est GFR (CKD-EPI)AfAm >90 (>60 ml/min/1.73 sqM) Est GFR (CKD-EPI)NonAf 84 (>60 ml/min/1.73 sqM) Glucose 123 H (74-99) mg/dL Plasma Lactic Acid Catarino (0.7-2.0) mmol/L Calcium 8.8 (8.4-10.2) mg/dL Total Bilirubin 0.6 (0.2-1.3) mg/dL AST 26 (17-59) U/L ALT 15 L (21-72) U/L Alkaline Phosphatase 61 (38-126) U/L Total Creatine Kinase 44 L (55-170) U/L CK-MB (CK-2) 0.6 (0.0-2.4) ng/mL CK-MB (CK-2) Rel Index 1.4 Troponin I <0.012 (0.000-0.034) ng/mL Total Protein 6.2 L (6.3-8.2) g/dL Albumin 3.5 (3.5-5.0) g/dL Influenza Type A RNA (Not Detectd) Influenza Type B (PCR) (Not Detectd) 02/19/18 02/19/18 02/19/18 Range/Units 00:05 00:05 00:20 WBC (3.8-10.6) k/uL RBC (4.30-5.90) m/uL Hgb (13.0-17.5) gm/dL Hct (39.0-53.0) % MCV (80.0-100.0) fL MCH (25.0-35.0) pg MCHC (31.0-37.0) g/dL RDW (11.5-15.5) % Plt Count (150-450) k/uL Neutrophils % % Lymphocytes % % Monocytes % % Eosinophils % % Basophils % % Neutrophils # (1.3-7.7) k/uL Lymphocytes # (1.0-4.8) k/uL Monocytes # (0-1.0) k/uL Eosinophils # (0-0.7) k/uL Basophils # (0-0.2) k/uL PT 10.6 (9.0-12.0) sec INR 1.1 (<1.2) APTT 24.6 (22.0-30.0) sec Sodium (137-145) mmol/L Potassium (3.5-5.1) mmol/L Chloride (98-107) mmol/L Carbon Dioxide (22-30) mmol/L Anion Gap mmol/L BUN (9-20) mg/dL Creatinine (0.66-1.25) mg/dL Est GFR (CKD-EPI)AfAm (>60 ml/min/1.73 sqM) Est GFR (CKD-EPI)NonAf (>60 ml/min/1.73 sqM) Glucose (74-99) mg/dL Plasma Lactic Acid Catarino 3.0 H* (0.7-2.0) mmol/L Calcium (8.4-10.2) mg/dL Total Bilirubin (0.2-1.3) mg/dL AST (17-59) U/L ALT (21-72) U/L Alkaline Phosphatase (38-126) U/L Total Creatine Kinase (55-170) U/L CK-MB (CK-2) (0.0-2.4) ng/mL CK-MB (CK-2) Rel Index Troponin I (0.000-0.034) ng/mL Total Protein (6.3-8.2) g/dL Albumin (3.5-5.0) g/dL Influenza Type A RNA Not Detected (Not Detectd) Influenza Type B (PCR) Not Detected (Not Detectd) - Radiology Data Radiology results: report reviewed, image reviewed Two-view x-ray of the chest is obtained. There is poor inspiration. There is bilateral lower lobe mild infiltrate and atelectasis. There is no heart failure. There are chest leads. Heart size is normal. The bony thorax appears intact. Impression by Dr. Estrella shows new bilateral lower lobe pulmonary infiltrate and atelectasis compared to last exam. Disposition Clinical Impression: Sepsis, Pneumonia of both lower lobes, Left buttock abscess Disposition: ADMITTED IP TO THIS HOSP Condition: Serious Referrals: Cheng Kendrick DO [Primary Care Provider] - 1-2 days Decision to Admit Reason: Admit from EC Decision Date: 02/19/18 Decision Time: 01:34
[2018-02-19] MEDS: SODIUM CHLORIDE 0.9% 500 ML 500 ML IV SCH ×2 (00:32→00:35)
[2018-02-19 00:34] LABS: INR 1.1 (<1.2); Partial Thromboplastin Time 24.6 sec (22.0-30.0); Prothrombin Time 10.6 sec (9.0-12.0)
[2018-02-19 00:40] LABS: Albumin 3.5 g/dL (3.5-5.0); Anion Gap 10 mmol/L; Calcium 8.8 mg/dL (8.4-10.2); Carbon Dioxide 19 mmol/L (22-30); Chloride 110 mmol/L (98-107); Glucose 123 mg/dL (74-99); Sodium 139 mmol/L (137-145); Total Bilirubin 0.6 mg/dL (0.2-1.3); Total Protein 6.2 g/dL (6.3-8.2)
[2018-02-19 00:41] LABS: ALT 15 U/L (21-72); AST 26 U/L (17-59); Alkaline Phosphatase 61 U/L (38-126); Blood Urea Nitrogen 20 mg/dL (9-20); Potassium 3.8 mmol/L (3.5-5.1)
[2018-02-19 00:43] LABS: Creatine Kinase 44 U/L (55-170)
--- NOTE | 2018-02-19 00:46 | XR ---
EXAMINATION TYPE: XR chest 2V DATE OF EXAM: 02/19/2018 COMPARISON: 01/03/2018 HISTORY: Fall. Pain. Fever TECHNIQUE: Frontal and lateral views of the chest are obtained. FINDINGS: There is poor inspiration. There is bilateral lower lobe mild infiltrate and atelectasis. There is no heart failure. There are chest leads. Heart size is normal. The bony thorax appears intac t. IMPRESSION: There is new bilateral lower lobe pulmonary infiltrate and atelectasis compared to last exam.
[2018-02-19 00:56] LABS: Creatine Kinase MB 0.6 ng/mL (0.0-2.4); Troponin I <0.012 ng/mL (0.000-0.034)
[2018-02-19] MEDS ORDERED: AZITHROMYCIN 500 MG in SODIUM CHLORIDE 0.9% 250 ML IVPB STA (01:17)
[2018-02-19] MEDS ORDERED: PNEUMONIA PROTOCOL UTILIZED 1 EACH MISC PO PRN (01:28)
[2018-02-19] MEDS ORDERED: ALBUTEROL NEBULIZED 2.5 MG/3 ML INHALATION PRN ×2 (01:28→07:52)
[2018-02-19 03:25] VITALS: BMI 25.9
[2018-02-19] MEDS: SODIUM CHLORIDE 0.9% 1,000 ML IV SCH ×3 (03:36→20:10)
[2018-02-19] MEDS: ALBUTEROL NEBULIZED 2.5 MG/3 ML INHALATION SCH ×4 (07:32→19:32)
[2018-02-19] MEDS: CARBIDOPA-LEVODOPA 10-100 MG 1 EACH TAB PO SCH ×3 (08:34→21:09)
[2018-02-19] MEDS: CLOPIDOGREL 75 MG TAB PO SCH (08:34)
[2018-02-19] MEDS: LEVOTHYROXINE 125 MCG TAB PO SCH (08:34)
[2018-02-19 09:39] LABS: Appearance,Urine Clear (Clear); Bilirubin,Urine Negative (Negative); Blood,Urine Negative (Negative); Color,Urine Yellow; Glucose,Urine (UA) Negative (Negative); Ketones,Urine Negative (Negative); Leukocyte Esterase,Urine Negative (Negative); Nitrite,Urine Negative (Negative); PH, Urine 6.5 (5.0-8.0); Protein,Urine Trace (Negative); Specific Gravity,Urine 1.021 (1.001-1.035)
--- NOTE | 2018-02-19 12:03 | P.HPIM ---
History of Present Illness This is a pleasant 68 years old male with past medical history of CVA/TIA, DVT, hypertension, seizure disorder pneumonia, Parkinson disease, who presents because of dyspnea. Patient was complaining of difficulty breathing for about 2 weeks without cough or phlegm. No chest pain. And he came because he fell yesterday while he was getting out of his. Without losing consciousness as per patient however he could not get up and he needed the help of the family will call the embolus and send him to the emergency room. On admission his chest x- ray shows bilateral lower lobe infiltrate suspicious for pneumonia. And he was sent to the medical general floors with IV antibiotics. And with IV fluids. However this morning patient has urinary retention and difficulty of urination. On admission his vital stable. WBC is high at 18.8 K. Risks of CBC and BMP were unremarkable. Creatinine is 0.9 and she is at baseline. On admission he patient has had lactic acid 3.0 came back to normal at 1.0. LFT was unremarkable. Troponin is negative. UA is negative for infection. Inflow was that is negative Review of Systems CONSTITUTIONAL: No fever, no malaise, no fatigue. HEENT: No recent visual problems or hearing problems. Denied any sore throat. CARDIOVASCULAR: No orthopnea, PND, no palpitations, no syncope. PULMONARY: No shortness of breath, no cough, no hemoptysis. GASTROINTESTINAL: No diarrhea, no nausea, no vomiting, no abdominal pain. Normoactive bowel sounds. NEUROLOGICAL: No headaches, no weakness, no numbness. HEMATOLOGICAL: Denies any bleeding or petechiae. GENITOURINARY: Denies any burning micturition, frequency, or urgency. MUSCULOSKELETAL/RHEUMATOLOGICAL: Denies any joint pain, swelling, or any muscle pain. ENDOCRINE: Denies any polyuria or polydipsia. Past Medical History Past Medical History: CVA/TIA, Deep Vein Thrombosis (DVT), Hypertension, Pneumonia, Prostate Disorder, Seizure Disorder, Thyroid Disorder Additional Past Medical History / Comment(s): Parkinson's, several tia's, past hx. of arrythmia, respiratory failure with pneumonia 8 yrs. ago. DVT years ago, Past Hx. 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 ?seizure disorder, SOB w/exertion, lethargy, see Dr Loza H & P History of Any Multi-Drug Resistant Organisms: MRSA Date of last positivie culture/infection: 09/30/2014 MDRO Source:: Blood Past Surgical History: Adenoidectomy, Prostate Surgery, Tonsillectomy Additional Past Surgical History / Comment(s): BRONCHOSCOPY, SX FOR PROLAPSED RECTUM, TURP, Peg insertion & then removed, osteophytes removed from throat, RECENTLY HAD SOME TEETH EXTRACTED AND WAS ON AN ABX. 12-22-15 MIKE. 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 PER FAMILY STATED PT WAS HEAVY DRINKER IN PAST BUT NONE X 25 YEARS. Past Drug Use History: None Reported - Past Family History Father Family Medical History: Myocardial Infarction ([place]) Mother Family Medical History: CVA/TIA, Hypertension, Myocardial Infarction ([place]) Medications and Allergies Home Medications Medication Instructions Recorded Confirmed Type Albuterol Nebulized [Ventolin 2.5 mg INHALATION RT-QID PRN 06/27/14 02/19/18 History Nebulized] Clopidogrel Bisulfate [Plavix] 75 mg PO DAILY 06/27/14 02/19/18 History Deplin 15 mg PO HS 06/27/14 02/19/18 History Levothyroxine Sodium [Synthroid] 125 mcg PO DAILY 06/27/14 02/19/18 History traZODone HCL [Desyrel] 50 mg PO HS 06/27/14 02/19/18 History Neupro Patch 1 patch TOPICAL HS 01/01/15 02/19/18 History Carbidopa-Levodopa 10-100 mg 1 tab PO TID 12/18/15 02/19/18 History [Sinemet 10-100 mg] cloZAPine [Clozaril] 450 mg PO HS 12/22/15 02/19/18 History Atorvastatin Calcium [Lipitor] 40 mg PO HS 02/20/17 02/19/18 History Primidone [Mysoline] 50 mg PO HS 02/20/17 02/19/18 History Allergies Allergy/AdvReac Type Severity Reaction Status Date / Time Iodinated Contrast- Oral and Allergy Unknown Verified 01/03/18 18:59 IV Dye iohexol Allergy Nausea & Verified 01/03/18 18:59 Vomiting levofloxacin [From Levaquin] Allergy Unknown Verified 01/03/18 18:59 morphine Allergy Confusion Verified 01/03/18 18:59 tromethamine Allergy Nausea & Verified 01/03/18 18:59 Vomiting codeine AdvReac Hallucinati Verified 01/03/18 18:59 ons Physical Exam Vitals: Vital Signs Temp Pulse Pulse Resp BP BP Pulse Ox 02/19/18 11:27 70 02/19/18 11:20 72 02/19/18 07:49 78 02/19/18 07:34 78 02/19/18 06:05 98.8 F 101 H 16 115/59 94 L 02/19/18 02:57 98.0 F 99 16 107/74 93 L 02/19/18 01:38 97.5 F L 93 16 95 02/19/18 00:36 101 H 16 101/73 93 L 02/19/18 00:06 106 H 16 93 L 02/18/18 23:57 98.1 F 109 H 16 118/75 89 L Intake and Output 02/18/18 02/19/18 02/19/18 22:59 06:59 14:59 Output Total 650 Balance -650 Output: Urine 650 Straight 650 Other: # Voids 0 Weight 75 kg GENERAL: The patient is alert and oriented x3, not in any acute distress. Well developed, well nourished. HEENT: Pupils are round and equally reacting to light. EOMI. No scleral icterus. No conjunctival pallor. Normocephalic, atraumatic. No pharyngeal erythema. No thyromegaly. CARDIOVASCULAR: S1 and S2 present. No murmurs, rubs, or gallops. -PULMONARY: Chest is clear to auscultation, no wheezing or crackles. Decreased breath sounds on the lower zone bilaterally. -ABDOMEN: Soft, nontender, nondistended, normoactive bowel sounds. No palpable organomegaly. Right buttocks abscess looks drained with the opening is patent with no discharge. No surrounding signs and symptoms of cellulitis MUSCULOSKELETAL: No joint swelling or deformity. EXTREMITIES: No cyanosis, clubbing, or pedal edema. NEUROLOGICAL: Gross neurological examination did not reveal any focal deficits. SKIN: No rashes. Results CBC & Chem 7: 02/19/18 00:05 02/19/18 00:05 Labs: Abnormal Lab Results - Last 24 Hours (Table) 02/19/18 02/19/18 02/19/18 Range/Units 00:05 00:05 00:05 WBC 18.8 H (3.8-10.6) k/uL Neutrophils # 16.0 H (1.3-7.7) k/uL Monocytes # 1.2 H (0-1.0) k/uL Chloride 110 H (98-107) mmol/L Carbon Dioxide 19 L (22-30) mmol/L Glucose 123 H (74-99) mg/dL Plasma Lactic Acid Catarino (0.7-2.0) mmol/L ALT 15 L (21-72) U/L Total Creatine Kinase 44 L (55-170) U/L Total Protein 6.2 L (6.3-8.2) g/dL Urine Protein (Negative) 02/19/18 02/19/18 Range/Units 00:05 08:51 WBC (3.8-10.6) k/uL Neutrophils # (1.3-7.7) k/uL Monocytes # (0-1.0) k/uL Chloride (98-107) mmol/L Carbon Dioxide (22-30) mmol/L Glucose (74-99) mg/dL Plasma Lactic Acid Catarino 3.0 H* (0.7-2.0) mmol/L ALT (21-72) U/L Total Creatine Kinase (55-170) U/L Total Protein (6.3-8.2) g/dL Urine Protein Trace H (Negative) Thrombosis Risk Factor Assmnt - Choose All That Apply Each Factor Represents 1 point: Obesity (BMI >25), Sepsis (< 1month) Each Risk Factor Represents 2 Points: Age 61-74 years Other congenital or acquired thrombophilia - If yes, enter type in comment: No Thrombosis Risk Factor Assessment Total Risk Factor Score: 4 Thrombosis Risk Factor Assessment Level: Moderate Risk Assessment and Plan Assessment: Community-acquired pneumonia Fall, without losing consciousness Urinary retention Right buttock upsets, opening with no discharge, with no surrounding cellulitis history of CVA/TIA Parkinson disease History of seizure disorder Essential hypertension History of deep venous thrombosis Plan: This is a pleasant 68 years old male who presents because of bilateral lower lobe pneumonia. Labs and medication resumed. Continue with antibiotics. Follow-up culture results. Continue with breathing treatment.Labs and medication were resumed. Continue same treatment. Continue with symptomatic treatment. Resume home medication. Monitor lytes and vitals. DVT and GI prophylaxis. Further recommendations is based on the clinical course of the patient DVT prophylaxis: Subcutaneous heparin GI Prophylaxis: Pepcid PT/OT: Pending Prognosis is guarded
[2018-02-19] MEDS: TAMSULOSIN 0.4 MG CAP.ER.24H PO SCH ×2 (15:10→15:11)
[2018-02-19] MEDS: HEPARIN SODIUM,PORCINE 5,000 UNIT/ML 1 ML VIAL SQ SCH (20:08)
[2018-02-19] MEDS: ATORVASTATIN 40 MG TAB PO SCH (20:08)
[2018-02-19] MEDS: traZODone HCL 50 MG TAB PO SCH (20:09)
[2018-02-19] MEDS: cloZAPine 100 MG TAB PO SCH (20:09)
[2018-02-19] MEDS: PRIMIDONE 50 MG TAB PO SCH (20:09)
[2018-02-19] MEDS: FAMOTIDINE 20 MG TAB PO SCH (20:09)
[2018-02-19] MEDS: NEUPRO 6 MG TOPICAL SCH (20:10)
[2018-02-19] MEDS ORDERED: DEPLIN 15 MG PO SCH (21:00)
[2018-02-19] MEDS ORDERED: FAMOTIDINE 20 MG/2 ML VIAL IV SCH (21:00)
[2018-02-20] MEDS: AZITHROMYCIN 500 MG in SODIUM CHLORIDE 0.9% 250 ML IVPB SCH (01:20)
[2018-02-20] MEDS: LEVOTHYROXINE 125 MCG TAB PO SCH (06:03)
[2018-02-20] MEDS: ALBUTEROL NEBULIZED 2.5 MG/3 ML INHALATION SCH ×4 (07:21→19:36)
--- NOTE | 2018-02-20 08:21 | P.PN ---
Subjective This is a pleasant 68 years old male with past medical history of CVA/TIA, DVT, hypertension, seizure disorder pneumonia, Parkinson disease, who presents because of dyspnea. Patient was complaining of difficulty breathing for about 2 weeks without cough or phlegm. No chest pain. And he came because he fell yesterday while he was getting out of his. Without losing consciousness as per patient however he could not get up and he needed the help of the family will call the embolus and send him to the emergency room. On admission his chest x- ray shows bilateral lower lobe infiltrate suspicious for pneumonia. And he was sent to the medical general floors with IV antibiotics. And with IV fluids. However this morning patient has urinary retention and difficulty of urination. On admission his vital stable. WBC is high at 18.8 K. Risks of CBC and BMP were unremarkable. Creatinine is 0.9 and she is at baseline. On admission he patient has had lactic acid 3.0 came back to normal at 1.0. LFT was unremarkable. Troponin is negative. UA is negative for infection. Inflow was that is negative 02/20/2018 Patient with mild to moderate dyspnea and generalized weakness with both are improving as per patient was slowly and gradually. No chest pain he has some mild with no phlegm. He had urinary retention and Lamb catheter was placed and he has clear urine and it urologist been consulted. He is saturating 97% on 2 L. Culture are still pending. We are following his WBC 3 physical therapy is been called to evaluate the patient. Objective - Vital Signs Vital signs: Vital Signs Temp 98.0 F 02/20/18 07:00 Pulse 74 02/20/18 07:33 Resp 18 02/20/18 07:00 BP 135/87 02/20/18 07:00 Pulse Ox 97 02/20/18 07:00 Intake & Output 02/19/18 02/20/18 02/20/18 18:59 06:59 18:59 Intake Total 700 Output Total 1750 2000 Balance -1750 -1300 Intake: Oral 700 Output: Urine 1750 2000 Straight 650 Uretheral (Lamb) 450 Other: Voiding Method Indwelling Catheter Indwelling Catheter - Exam GENERAL: The patient is alert and oriented x3, not in any acute distress. Well developed, well nourished. HEENT: Pupils are round and equally reacting to light. EOMI. No scleral icterus. No conjunctival pallor. Normocephalic, atraumatic. No pharyngeal erythema. No thyromegaly. CARDIOVASCULAR: S1 and S2 present. No murmurs, rubs, or gallops. -PULMONARY: Chest is clear to auscultation, no wheezing or crackles. Decreased breath sounds on the lower zone bilaterally. -ABDOMEN: Soft, nontender, nondistended, normoactive bowel sounds. No palpable organomegaly. Right buttocks abscess looks drained with the opening is patent with no discharge. No surrounding signs and symptoms of cellulitis MUSCULOSKELETAL: No joint swelling or deformity. EXTREMITIES: No cyanosis, clubbing, or pedal edema. NEUROLOGICAL: Gross neurological examination did not reveal any focal deficits. SKIN: No rashes. - Labs CBC & Chem 7: 02/19/18 00:05 02/19/18 00:05 Labs: Abnormal Lab Results - Last 24 Hours (Table) 02/19/18 Range/Units 08:51 Urine Protein Trace H (Negative) Microbiology - Last 24 Hours (Table) 02/19/18 00:05 Blood Culture - Preliminary Blood No Growth after 24 hours 02/19/18 08:51 Urine Culture - Preliminary Urine,Catheterized Assessment and Plan Assessment: Community-acquired pneumonia Fall, without losing consciousness Urinary retention, status post Lamb catheter Right buttock upsets, opening with no discharge, with no surrounding cellulitis history of CVA/TIA Parkinson disease History of seizure disorder Essential hypertension History of deep venous thrombosis Plan: This is a pleasant 68 years old male who presents because of bilateral lower lobe pneumonia. Labs and medication resumed. Continue with antibiotics. Follow-up culture results. Continue with breathing treatment.Labs and medication were resumed. Continue same treatment. Continue with symptomatic treatment. Resume home medication. Monitor lytes and vitals. DVT and GI prophylaxis. Further recommendations is based on the clinical course of the patient DVT prophylaxis: Subcutaneous heparin GI Prophylaxis: Pepcid PT/OT: Pending Prognosis is guarded
[2018-02-20 08:36] LABS: Basophils % (A) 0 %; Eosinophils # (A) 0.1 k/uL (0-0.7); Eosinophils % (A) 0 %; HCT 39.9 % (39.0-53.0); Lymphocytes # (A) 2.1 k/uL (1.0-4.8); Lymphocytes % (A) 15 %; MCH 31.3 pg (25.0-35.0); MCHC 32.4 g/dL (31.0-37.0); MCV 96.6 fL (80.0-100.0); Monocytes # (A) 0.9 k/uL (0-1.0); Monocytes % (A) 6 %; Neutrophils # (A) 11.1 k/uL (1.3-7.7); Neutrophils % (A) 77 %; Platelet Count 173 k/uL (150-450); RBC 4.13 m/uL (4.30-5.90); RDW 14.9 % (11.5-15.5); WBC 14.4 k/uL (3.8-10.6)
[2018-02-20] MEDS: CARBIDOPA-LEVODOPA 10-100 MG 1 EACH TAB PO SCH ×3 (08:38→20:40)
[2018-02-20] MEDS: HEPARIN SODIUM,PORCINE 5,000 UNIT/ML 1 ML VIAL SQ SCH ×2 (08:39→20:41)
[2018-02-20] MEDS: FAMOTIDINE 20 MG TAB PO SCH ×2 (08:39→20:41)
[2018-02-20] MEDS: CLOPIDOGREL 75 MG TAB PO SCH (08:39)
[2018-02-20] MEDS: SODIUM CHLORIDE 0.9% 1,000 ML IV SCH (08:41)
[2018-02-20 08:48] LABS: Anion Gap 6 mmol/L; Blood Urea Nitrogen 16 mg/dL (9-20); Calcium 8.6 mg/dL (8.4-10.2); Carbon Dioxide 24 mmol/L (22-30); Chloride 114 mmol/L (98-107); Glucose 102 mg/dL (74-99); Potassium 4.1 mmol/L (3.5-5.1); Sodium 144 mmol/L (137-145)
[2018-02-20] MEDS: TAMSULOSIN 0.4 MG CAP.ER.24H PO SCH (17:11)
[2018-02-20] MEDS: ATORVASTATIN 40 MG TAB PO SCH (20:41)
[2018-02-20] MEDS: traZODone HCL 50 MG TAB PO SCH (20:41)
[2018-02-20] MEDS: PRIMIDONE 50 MG TAB PO SCH (20:41)
[2018-02-20] MEDS: cloZAPine 100 MG TAB PO SCH (20:41)
[2018-02-20] MEDS: NEUPRO 6 MG TOPICAL SCH (20:41)
--- NOTE | 2018-02-20 21:25 | XR ---
EXAMINATION: XR chest 2V DATE AND TIME: 02/20/2018 7:24 PM CLINICAL INDICATION: pneumonia TECHNIQUE: PA and lateral COMPARISON: None. FINDINGS: The diaphragms are markedly elevated, consistent with low lung inflation at the moment of x-ray expos ure. Bibasilar partial airlessness pattern redemonstrated. Atelectasis versus bronchopneumonia can be clinically delineated. What can be seen that the upper and mid lungs are clear and well-expanded bilaterally. Pleural spaces are negative. The cardiac silhouette appears mildly enlarged. The skeletal structures and soft tissues are negative for acute findings. IMPRESSION: Similar overall lung inflation pattern. Bibasilar partial airlessness.
[2018-02-21] MEDS: SODIUM CHLORIDE 0.9% 1,000 ML IV SCH ×2 (00:10→14:13)
[2018-02-21] MEDS: AZITHROMYCIN 500 MG in SODIUM CHLORIDE 0.9% 250 ML IVPB SCH (01:04)
[2018-02-21] MEDS: LEVOTHYROXINE 125 MCG TAB PO SCH (06:19)
[2018-02-21] MEDS: ALBUTEROL NEBULIZED 2.5 MG/3 ML INHALATION SCH ×4 (07:36→19:44)
[2018-02-21] MEDS: CARBIDOPA-LEVODOPA 10-100 MG 1 EACH TAB PO SCH ×3 (07:40→20:15)
[2018-02-21] MEDS: FAMOTIDINE 20 MG TAB PO SCH ×2 (07:40→20:15)
[2018-02-21] MEDS: HEPARIN SODIUM,PORCINE 5,000 UNIT/ML 1 ML VIAL SQ SCH ×2 (07:41→20:15)
[2018-02-21] MEDS: CLOPIDOGREL 75 MG TAB PO SCH (07:41)
--- NOTE | 2018-02-21 08:54 | P.PN ---
Subjective This is a pleasant 68 years old male with past medical history of CVA/TIA, DVT, hypertension, seizure disorder pneumonia, Parkinson disease, who presents because of dyspnea. Patient was complaining of difficulty breathing for about 2 weeks without cough or phlegm. No chest pain. And he came because he fell yesterday while he was getting out of his. Without losing consciousness as per patient however he could not get up and he needed the help of the family will call the embolus and send him to the emergency room. On admission his chest x- ray shows bilateral lower lobe infiltrate suspicious for pneumonia. And he was sent to the medical general floors with IV antibiotics. And with IV fluids. However this morning patient has urinary retention and difficulty of urination. On admission his vital stable. WBC is high at 18.8 K. Risks of CBC and BMP were unremarkable. Creatinine is 0.9 and she is at baseline. On admission he patient has had lactic acid 3.0 came back to normal at 1.0. LFT was unremarkable. Troponin is negative. UA is negative for infection. Inflow was that is negative 02/20/2018 Patient with mild to moderate dyspnea and generalized weakness with both are improving as per patient was slowly and gradually. No chest pain he has some mild with no phlegm. He had urinary retention and Lamb catheter was placed and he has clear urine and it urologist been consulted. He is saturating 97% on 2 L. Culture are still pending. We are following his WBC 3 physical therapy is been called to evaluate the patient. 02/21/2018 Patient still being treated with IV antibiotics for bilateral basal pneumonia. Patient is swallowing has been checked and looks fine. He is tolerating diet well. Patient still has Lamb catheter. We will try to take it off and check bladder scan. Patient's breathing and symptoms are improving, however he still feels generally weak. Repeated labs are pending. Physical therapy evaluated and recommended home. Home care has been ordered for him. If patient continued to improve minimal consider discharge planning and 24-48 hours. Objective - Vital Signs Vital signs: Vital Signs Temp 97.9 F 02/21/18 07:41 Pulse 80 02/21/18 07:46 Resp 17 02/21/18 07:41 BP 115/78 02/21/18 07:41 Pulse Ox 92 L 02/21/18 07:41 Intake & Output 02/20/18 02/21/1818 18:59 06:59 18:59 Intake Total 240 1025 Output Total 1200 3300 Balance -960 -2275 Weight 75 kg Intake: Oral 240 1025 Output: Urine 1200 3300 Other: Voiding Method Indwelling Catheter Indwelling Catheter Indwelling Catheter # Bowel Movements 0 1 - Exam GENERAL: The patient is alert and oriented x3, not in any acute distress. Well developed, well nourished. HEENT: Pupils are round and equally reacting to light. EOMI. No scleral icterus. No conjunctival pallor. Normocephalic, atraumatic. No pharyngeal erythema. No thyromegaly. CARDIOVASCULAR: S1 and S2 present. No murmurs, rubs, or gallops. -PULMONARY: Chest is clear to auscultation, no wheezing or crackles. Decreased breath sounds on the lower zone bilaterally. -ABDOMEN: Soft, nontender, nondistended, normoactive bowel sounds. No palpable organomegaly. Right buttocks abscess looks drained with the opening is patent with no discharge. No surrounding signs and symptoms of cellulitis MUSCULOSKELETAL: No joint swelling or deformity. EXTREMITIES: No cyanosis, clubbing, or pedal edema. NEUROLOGICAL: Gross neurological examination did not reveal any focal deficits. SKIN: No rashes. - Labs CBC & Chem 7: 02/20/18 08:16 02/20/18 08:16 Labs: Microbiology - Last 24 Hours (Table) 02/19/18 00:05 Blood Culture - Preliminary Blood No Growth after 48 hours 02/19/18 08:51 Urine Culture - Final Urine,Catheterized Assessment and Plan Assessment: Community-acquired pneumonia Fall, without losing consciousness Urinary retention, status post Lamb catheter Right buttock upsets, opening with no discharge, with no surrounding cellulitis history of CVA/TIA Parkinson disease History of seizure disorder Essential hypertension History of deep venous thrombosis Plan: This is a pleasant 68 years old male who presents because of bilateral lower lobe pneumonia. Labs and medication resumed. Continue with antibiotics. Follow-up culture results. Continue with breathing treatment.Labs and medication were resumed. Continue same treatment. Continue with symptomatic treatment. Resume home medication. Monitor lytes and vitals. DVT and GI prophylaxis. Further recommendations is based on the clinical course of the patient DVT prophylaxis: Subcutaneous heparin GI Prophylaxis: Pepcid PT/OT: Pending Prognosis is guarded
[2018-02-21 10:02] LABS: Basophils % (A) 0 %; Eosinophils % (A) 0 %; HCT 39.1 % (39.0-53.0); HGB 12.8 gm/dL (13.0-17.5); Lymphocytes # (A) 2.1 k/uL (1.0-4.8); Lymphocytes % (A) 22 %; MCH 31.4 pg (25.0-35.0); MCHC 32.7 g/dL (31.0-37.0); MCV 95.9 fL (80.0-100.0); Mean Platelet Volume 7.1; Monocytes # (A) 0.8 k/uL (0-1.0); Monocytes % (A) 8 %; Neutrophils # (A) 6.5 k/uL (1.3-7.7); Neutrophils % (A) 67 %; Platelet Count 170 k/uL (150-450); RBC 4.08 m/uL (4.30-5.90); RDW 14.9 % (11.5-15.5); WBC 9.6 k/uL (3.8-10.6)
[2018-02-21 10:09] LABS: Calcium 8.6 mg/dL (8.4-10.2); Potassium 4.3 mmol/L (3.5-5.1)
--- NOTE | 2018-02-21 11:49 | P.GSCN ---
History of Present Illness Consult date: 02/21/18 Reason for Consult: Urinary retention History of present illness: The patient is a 68-year-old male admitted through the emergency room on 02/19 for evaluation of weakness and a fever. The patient had fallen 2 times the previous day. His white blood count at the time of admission was 18,800. Lactic acid was 3.0. Chest x-ray suggested bilateral lower lobe pneumonia and the patient has been treated with antibiotics with resolution of his fever. He developed urinary retention and was in and out cathed 2 times on 02/19. On both occasions over 600 mL was present in the bladder. A Lamb catheter has been left in place. The patient is a poor historian and I have been unable to contact his daughter to obtain a detailed history. He believes he is had episodes of urinary retention in the past but could not recall when these occurred. He also believes he underwent prostate surgery in the past which may have been a TURP. He says he usually voids every 1-2 hours during the day and has no nocturia. He described a moderate urinary flow and denied sensations of incomplete bladder emptying. He denied any urinary incontinence and said that his bowels had been moving normally. He says he does not have a history of recurrent urinary tract infections. Review of Systems - Constitutional Reports weakness - Cardiovascular Denies chest pain, Denies syncope - Respiratory Reports cough, Denies pain on inspiration, Denies wheezing - Gastrointestinal Denies abdominal pain, Denies constipation - Genitourinary Reports as per HPI Past Medical History Past Medical History: CVA/TIA, Deep Vein Thrombosis (DVT), Hypertension, Pneumonia, Prostate Disorder, Seizure Disorder, Thyroid Disorder Additional Past Medical History / Comment(s): Parkinson's, several tia's, past hx. of arrythmia, respiratory failure with pneumonia 8 yrs. ago. DVT years ago, Past Hx. 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 ?seizure disorder, SOB w/exertion, lethargy, see Dr Loza H & P History of Any Multi-Drug Resistant Organisms: MRSA Year Discovered:: 09/30/2014 MDRO Source:: Blood Past Surgical History: Adenoidectomy, Prostate Surgery, Tonsillectomy Additional Past Surgical History / Comment(s): BRONCHOSCOPY, SX FOR PROLAPSED RECTUM, TURP, Peg insertion & then removed, osteophytes removed from throat, RECENTLY HAD SOME TEETH EXTRACTED AND WAS ON AN ABX. 12-22-15 MIKE. 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 PER FAMILY STATED PT WAS HEAVY DRINKER IN PAST BUT NONE X 25 YEARS. Past Drug Use History: None Reported - Past Family History Father Family Medical History: Myocardial Infarction ([place]) Mother Family Medical History: CVA/TIA, Hypertension, Myocardial Infarction ([place]) Medications and Allergies Home Medications Medication Instructions Recorded Confirmed Type Albuterol Nebulized [Ventolin 2.5 mg INHALATION RT-QID PRN 06/27/14 02/19/18 History Nebulized] Clopidogrel Bisulfate [Plavix] 75 mg PO DAILY 06/27/14 02/19/18 History Deplin 15 mg PO HS 06/27/14 02/19/18 History Levothyroxine Sodium [Synthroid] 125 mcg PO DAILY 06/27/14 02/19/18 History traZODone HCL [Desyrel] 50 mg PO HS 06/27/14 02/19/18 History Neupro Patch 1 patch TOPICAL HS 01/01/15 02/19/18 History Carbidopa-Levodopa 10-100 mg 1 tab PO TID 12/18/15 02/19/18 History [Sinemet 10-100 mg] cloZAPine [Clozaril] 450 mg PO HS 12/22/15 02/19/18 History Atorvastatin Calcium [Lipitor] 40 mg PO HS 02/20/17 02/19/18 History Primidone [Mysoline] 50 mg PO HS 02/20/17 02/19/18 History Fludrocortisone [Florinef] 0.05 mg PO DAILY 02/19/18 02/19/18 History Sulfamethox-Tmp 800-160Mg [Bactrim 1 tab PO BID 02/19/18 02/19/18 History DS 800-160 mg] Allergies Allergy/AdvReac Type Severity Reaction Status Date / Time Iodinated Contrast- Oral and Allergy Unknown Verified 02/19/18 12:25 IV Dye iohexol Allergy Nausea & Verified 02/19/18 12:25 Vomiting levofloxacin [From Levaquin] Allergy Unknown Verified 02/19/18 12:25 morphine Allergy Confusion Verified 02/19/18 12:25 tromethamine Allergy Nausea & Verified 02/19/18 12:25 Vomiting codeine AdvReac Hallucinati Verified 02/19/18 12:25 ons Surgical - Exam Vital Signs Temp Pulse Resp BP Pulse Ox 98.1 F 109 H 16 118/75 89 L 02/18/18 23:57 02/18/18 23:57 02/18/18 23:57 02/18/18 23:57 02/18/18 23:57 - General well developed, well nourished, no distress - Neck no masses, no lymphadectomy - Respiratory normal respiratory effort - Abdomen Abdomen: soft, non tender, no organomegaly - Genitourinary normal penis with no external lesions, testicles non-tender (An 18-[place] Lamb catheter is in place and is draining clear urine.) - Rectum Rectum: normal sphincter tone, other (Prostate is 2+ enlarged, smooth and benign in consistency) Results - Labs 02/21/18 09:35 02/21/18 09:35 Abnormal Lab Results - Last 24 Hours (Table) 02/21/18 02/21/18 Range/Units 09:35 09:35 RBC 4.08 L (4.30-5.90) m/uL Hgb 12.8 L (13.0-17.5) gm/dL Chloride 108 H (98-107) mmol/L Glucose 113 H (74-99) mg/dL Microbiology - Last 24 Hours (Table) 02/19/18 00:05 Blood Culture - Preliminary Blood No Growth after 48 hours 02/19/18 08:51 Urine Culture - Final Urine,Catheterized Diabetes panel 02/21/18 Range/Units 09:35 Sodium 140 (137-145) mmol/L Potassium 4.3 (3.5-5.1) mmol/L Chloride 108 H (98-107) mmol/L Carbon Dioxide 26 (22-30) mmol/L BUN 18 (9-20) mg/dL Creatinine 1.00 (0.66-1.25) mg/dL Glucose 113 H (74-99) mg/dL Calcium 8.6 (8.4-10.2) mg/dL Calcium panel 02/21/18 Range/Units 09:35 Calcium 8.6 (8.4-10.2) mg/dL Pituitary panel 02/21/18 Range/Units 09:35 Sodium 140 (137-145) mmol/L Potassium 4.3 (3.5-5.1) mmol/L Chloride 108 H (98-107) mmol/L Carbon Dioxide 26 (22-30) mmol/L BUN 18 (9-20) mg/dL Creatinine 1.00 (0.66-1.25) mg/dL Glucose 113 H (74-99) mg/dL Calcium 8.6 (8.4-10.2) mg/dL Adrenal panel 02/21/18 Range/Units 09:35 Sodium 140 (137-145) mmol/L Potassium 4.3 (3.5-5.1) mmol/L Chloride 108 H (98-107) mmol/L Carbon Dioxide 26 (22-30) mmol/L BUN 18 (9-20) mg/dL Creatinine 1.00 (0.66-1.25) mg/dL Glucose 113 H (74-99) mg/dL Calcium 8.6 (8.4-10.2) mg/dL Assessment and Plan (1) Urinary retention Narrative/Plan: The source of the patient's urinary retention is not clear. It is possible this was related to general weakness at the time of admission as the patient had also fallen prior to admission. Unfortunately the patient is a poor historian and it's unclear exactly what his voiding pattern was prior to the last few days. The patient will be given a voiding trial today but if he remains unable to void within a reasonable period of time his catheter should be reinserted and he could have another voiding trial in approximately 2 weeks. Current Visit: Yes Status: Acute Code(s): R33.9 - RETENTION OF URINE, UNSPECIFIED SNOMED Code(s): 798796711
[2018-02-21] MEDS: TAMSULOSIN 0.4 MG CAP.ER.24H PO SCH (17:15)
[2018-02-21] MEDS: PRIMIDONE 50 MG TAB PO SCH (20:15)
[2018-02-21] MEDS: ATORVASTATIN 40 MG TAB PO SCH (20:15)
[2018-02-21] MEDS: NEUPRO 6 MG TOPICAL SCH (20:15)
[2018-02-21] MEDS: traZODone HCL 50 MG TAB PO SCH (20:15)
[2018-02-21] MEDS: cloZAPine 100 MG TAB PO SCH (20:16)
[2018-02-22] MEDS: SODIUM CHLORIDE 0.9% 1,000 ML IV SCH (00:12)
[2018-02-22] MEDS: AZITHROMYCIN 500 MG in SODIUM CHLORIDE 0.9% 250 ML IVPB SCH (00:54)
[2018-02-22] MEDS: ACETAMINOPHEN TAB 325 MG TAB PO PRN ×2 (05:10→13:27)
[2018-02-22] MEDS: LEVOTHYROXINE 125 MCG TAB PO SCH (05:59)
[2018-02-22] MEDS: ALBUTEROL NEBULIZED 2.5 MG/3 ML INHALATION SCH ×3 (07:04→15:09)
[2018-02-22] MEDS: FAMOTIDINE 20 MG TAB PO SCH (07:16)
[2018-02-22] MEDS: CARBIDOPA-LEVODOPA 10-100 MG 1 EACH TAB PO SCH ×2 (07:16→15:15)
[2018-02-22] MEDS: CLOPIDOGREL 75 MG TAB PO SCH (07:16)
[2018-02-22] MEDS: HEPARIN SODIUM,PORCINE 5,000 UNIT/ML 1 ML VIAL SQ SCH (07:16)
[2018-02-22 10:34] LABS: Basophils % (A) 0 %; Eosinophils % (A) 0 %; HCT 39.2 % (39.0-53.0); HGB 12.4 gm/dL (13.0-17.5); Lymphocytes # (A) 2.5 k/uL (1.0-4.8); Lymphocytes % (A) 29 %; MCH 30.6 pg (25.0-35.0); MCHC 31.6 g/dL (31.0-37.0); MCV 96.8 fL (80.0-100.0); Monocytes # (A) 0.7 k/uL (0-1.0); Monocytes % (A) 9 %; Neutrophils # (A) 5.1 k/uL (1.3-7.7); Neutrophils % (A) 59 %; Platelet Count 178 k/uL (150-450); RBC 4.05 m/uL (4.30-5.90); RDW 14.9 % (11.5-15.5); WBC 8.7 k/uL (3.8-10.6)
[2018-02-22 14:57] VITALS: RESP 16
[2018-02-22 15:13] VITALS: BP 107/66; PULSE 82; TEMP 97.3
--- NOTE | 2018-02-22 21:33 | P.DS ---
Providers Date of admission: 02/19/18 01:35 Attending physician: Harshal Zavala Consults: 02/19/18 15:52 Consult Physician Routine Consulting Provider: Ethan Marin Consult Reason/Comments: new guillen, retention, urine leaking around catheter Do you want consulting provider notified?: Yes Primary care physician: [facility] Course: This is a pleasant 68 years old male with past medical history of CVA/TIA, DVT, hypertension, seizure disorder pneumonia, Parkinson disease, who presents because of dyspnea. Patient was complaining of difficulty breathing for about 2 weeks without cough or phlegm. No chest pain. And he came because he fell yesterday while he was getting out of his. Without losing consciousness as per patient however he could not get up and he needed the help of the family who called the EMS and send him to the emergency room. On admission his chest x- ray shows bilateral lower lobe infiltrate suspicious for pneumonia. And he was sent to the medical general floors with IV antibiotics. And with IV fluids. However next morning patient has urinary retention and difficulty of urination. On admission his vital stable. WBC is high at 18.8 K. Risks of CBC and BMP were unremarkable. Creatinine is 0.9 and she is at baseline. On admission he patient has had lactic acid 3.0 came back to normal at 1.0. LFT was unremarkable. Troponin is negative. UA is negative for infection. Influenza was that is negative Patient has been evaluated by urologist. Guillen catheter was discontinued and he could pee again on the last 2 days prior to discharge. On the day of discharge patient showed interval improvement with no more chest pain. No dyspnea. Breathing is quiet and back to baseline. No nausea vomiting or change in bowel habits. No fever. No more coughing. Patient states his back to baseline and that he is ready for discharge. As well as a Therapist evaluated the patient and recommended he discharged home. Problems and management plan was discussed with the patient in details and he verbalized understanding and acceptance. Patient was found stable and can be discharged home and guarded prognosis. However he will need follow-up as an outpatient. Appointment was been made with his PCP and he agrees with it and its timing and states he will follow-up Gen: patient is a AAOx3, no distress CVS: S1-S2, RRR, no murmur Lungs: B/L CTA, no wheezing Abdomen: soft, no distention, no tenderness, positive bowel sounds Extremity: no leg edema or induration Time spent more than 35 minutes Patient Condition at Discharge: Good Plan - Discharge Summary Discharge Rx Participant: No New Discharge Prescriptions: New Amoxicillin/Potassium Clav [Augmentin 875-125 Tablet] 1 tab PO BID 5 Days # 10 tab Tamsulosin [Flomax] 0.4 mg PO PC-SUPPER 30 Days #30 cap.er.24h Continue traZODone HCL [Desyrel] 50 mg PO HS Clopidogrel Bisulfate [Plavix] 75 mg PO DAILY Albuterol Nebulized [Ventolin Nebulized] 2.5 mg INHALATION RT-QID PRN PRN Reason: Wheezing Levothyroxine Sodium [Synthroid] 125 mcg PO DAILY Deplin 15 mg PO HS Neupro Patch 1 patch TOPICAL HS Carbidopa-Levodopa 10-100 mg [Sinemet 10-100 mg] 1 tab PO TID cloZAPine [Clozaril] 450 mg PO HS Primidone [Mysoline] 50 mg PO HS Atorvastatin Calcium [Lipitor] 40 mg PO HS Fludrocortisone [Florinef] 0.05 mg PO DAILY Discontinued Sulfamethox-Tmp 800-160Mg [Bactrim DS 800-160 mg] 1 tab PO BID Discharge Medication List Albuterol Nebulized [Ventolin Nebulized] 2.5 mg INHALATION RT-QID PRN 06/27/14 [ History] Clopidogrel Bisulfate [Plavix] 75 mg PO DAILY 06/27/14 [History] Deplin 15 mg PO HS 06/27/14 [History] Levothyroxine Sodium [Synthroid] 125 mcg PO DAILY 06/27/14 [History] traZODone HCL [Desyrel] 50 mg PO HS 06/27/14 [History] Neupro Patch 1 patch TOPICAL HS 01/01/15 [History] Carbidopa-Levodopa 10-100 mg [Sinemet 10-100 mg] 1 tab PO TID 12/18/15 [History] cloZAPine [Clozaril] 450 mg PO HS 12/22/15 [History] Atorvastatin Calcium [Lipitor] 40 mg PO HS 02/20/17 [History] Primidone [Mysoline] 50 mg PO HS 02/20/17 [History] Fludrocortisone [Florinef] 0.05 mg PO DAILY 02/19/18 [History] Amoxicillin/Potassium Clav [Augmentin 875-125 Tablet] 1 tab PO BID 5 Days #10 tab 02/22/18 [Rx] Tamsulosin [Flomax] 0.4 mg PO PC-SUPPER 30 Days #30 cap.er.24h 02/22/18 [Rx] Follow up Appointment(s)/Referral(s): Ethan Marin MD [STAFF PHYSICIAN] - 2 Weeks (h/o urinary retensoin. Office will call with appointment day and time.) Cheng Kendrick DO [Primary Care Provider] - 02/28/18 3:20 pm Patient Instructions/Handouts: Pneumonia (DC) Activity/Diet/Wound Care/Special Instructions: cardiac diet activity as tolerated Discharge Disposition: HOME SELF-CARE
== END 2018-02-22 16:02 | disposition home or self-care (01) | DRG 871 ==
LOC: EC 23:53 → 4MS4W 02-19 01:35
PROVIDERS: ADMIT Hospitalist; ATTEND Hospitalist
DX: A41.9 Sepsis, unspecified organism (principal); J18.9 Pneumonia, unspecified organism; L02.31 Cutaneous abscess of buttock; E87.2 Acidosis; R65.20 Severe sepsis without septic shock; E86.0 Dehydration; F32.9 Major depressive disorder, single episode, unspecified; F43.10 Post-traumatic stress disorder, unspecified; F41.9 Anxiety disorder, unspecified; G20 Parkinson's disease; G40.909 Epilepsy, unspecified, not intractable, without status epilepticus; I10 Essential (primary) hypertension; T83.031A Leakage of indwelling urethral catheter, initial encounter; W19.XXXA Unspecified fall, initial encounter; Y73.8 Miscellaneous gastroenterology and urology devices associated with adverse incidents, not elsewhere classified; Z79.02 Long term (current) use of antithrombotics/antiplatelets; Z82.49 Family history of ischemic heart disease and other diseases of the circulatory system; Z86.718 Personal history of other venous thrombosis and embolism; Z86.73 Personal history of transient ischemic attack (TIA), and cerebral infarction without residual deficits; Z87.891 Personal history of nicotine dependence; Z86.14 Personal history of Methicillin resistant Staphylococcus aureus infection; Z88.5 Allergy status to narcotic agent; Z88.8 Allergy status to other drugs, medicaments and biological substances; Z88.1 Allergy status to other antibiotic agents; Z91.041 Radiographic dye allergy status; Z79.890 Hormone replacement therapy; Z79.899 Other long term (current) drug therapy; E07.9 Disorder of thyroid, unspecified; N42.9 Disorder of prostate, unspecified; R33.9 Retention of urine, unspecified
CPT/HCPCS: 36415; 71046; 80048; 80053; 81003; 82550; 82553; 83605; 84484; 85025; 85610; 85730; 87040; 87070; 87086; 87205; 87502; 93005; 94640; 94760; 96361; 96365; 99285

== ENCOUNTER 2018-06-19 19:01 | Emergency (ER) | payer MEDICARE ==
[2018-06-19 19:24] VITALS: BP 108/71; PULSE 99; RESP 18; TEMP 97.4
[2018-06-19] MEDS ORDERED: MORPHINE SULFATE 2 MG/ML SYRINGE IM STA ×2 (19:40→22:00)
--- NOTE | 2018-06-19 20:13 | XR ---
Right hand 3 views. History wrist pain and swelling. Fall. Comparison none. FINDINGS: There is significant soft tissue swelling on the dorsum of the hand and wrist. I see no displaced fra cture. Metacarpals are intact. There is no dislocation. There is minor spurring at the DIP joints. IMPRESSION: No fracture seen. Significant posterior soft tissue swelling. 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
--- NOTE | 2018-06-19 20:15 | XR ---
Right wrist 4 views. History pain and swelling. Comparison none. FINDINGS: There is soft tissue swelling on the dorsum of the hand and wrist. There is mild narrowing at the rad iocarpal joint space. I see no fracture. IMPRESSION: Soft tissue swelling. No fracture.
--- NOTE | 2018-06-19 20:22 | ED ---
Upper Extremity HPI - General Source: patient Mode of arrival: ambulatory Limitations: no limitations <Sharla Mckinney - Last Filed: 06/19/18 23:57> <Noemi Houston - Last Filed: 06/21/18 03:47> - General Chief Complaint: Extremity Injury, Upper Stated Complaint: Fall, L Hand injury - History of Present Illness Initial Comments: 68yo male on plavix with PMH of parkinson presenting today for cc of right hand swelling from fall. Pt fell from instability as he has parkinson and decreased balance per patient. Daughter who is accompanying patient states that today he fell forward into a heat radiator hitting his right hand and wrist. She states initially there was no soft tissue swelling or bruising. She states a few hours later there was significant swelling and bruising and she presents emergency department for evaluation. Patient states he has limited range of motion at the wrist secondary to pain. Denies any numbness tingling or loss sensation pallor or coolness of extremity. Patient does admit to bruising. Patient denies falling hitting his head injury to his neck or back. Patient denies any loss of consciousness. Remaining ROS (-), patient denies any recent fever, chills, shortness of breath, chest pain, back pain, abdominal pain, nausea or vomiting, numbness or tingling, dysuria or hematuria, constipation or diarrhea, headaches or visual changes, or any other complaints. Upon arrival pt appears well, in not acute distress, there is soft tissue swelling evidence of the right hand/wrist with bruising. (Sharla Mckinney) - Related Data Home Medications Medication Instructions Recorded Confirmed Clopidogrel Bisulfate [Plavix] 75 mg PO DAILY 06/27/14 06/20/18 Deplin 15 mg PO HS 06/27/14 06/20/18 Levothyroxine Sodium [Synthroid] 125 mcg PO DAILY 06/27/14 06/20/18 Neupro Patch 1 patch TOPICAL HS 01/01/15 06/20/18 Carbidopa-Levodopa 10-100 mg 1 tab PO TID 12/18/15 06/20/18 [Sinemet 10-100 mg] cloZAPine [Clozaril] 450 mg PO HS 12/22/15 06/20/18 Atorvastatin Calcium [Lipitor] 40 mg PO HS 02/20/17 06/20/18 Primidone [Mysoline] 50 mg PO DAILY 02/20/17 06/20/18 Fludrocortisone [Florinef] 0.05 mg PO DAILY 02/19/18 06/20/18 Valproic Acid (As Sodium Salt) 500 mg PO TID 05/14/18 06/20/18 [Valproic Acid] Albuterol Nebulized [Ventolin 2.5 mg INHALATION RT-QID 06/20/18 06/20/18 Nebulized] Aspirin EC [Ecotrin Low Dose] 81 mg PO DAILY 06/20/18 06/20/18 Cholecalciferol (Vitamin D3) 2,000 unit PO DAILY 06/20/18 06/20/18 [Vitamin D3] Meclizine [Antivert] 12.5 mg PO BID PRN 06/20/18 06/20/18 Tamsulosin [Flomax] 0.4 mg PO DAILY 06/20/18 06/20/18 Allergies Allergy/AdvReac Type Severity Reaction Status Date / Time Iodinated Contrast- Oral and Allergy Unknown Verified 06/20/18 12:30 IV Dye iohexol Allergy Nausea & Verified 06/20/18 12:30 Vomiting levofloxacin [From Levaquin] Allergy Unknown Verified 06/20/18 12:30 morphine Allergy Confusion Verified 06/20/18 12:30 tromethamine Allergy Nausea & Verified 06/20/18 12:30 Vomiting codeine AdvReac Hallucinati Verified 06/20/18 12:30 ons Review of Systems ROS Other: All systems not noted in ROS Statement are negative. <Sharla Mckinney L - Last Filed: 06/19/18 23:57> ROS Other: All systems not noted in ROS Statement are negative. <Noemi Houston P - Last Filed: 06/21/18 03:47> ROS Statement: Those systems with pertinent positive or pertinent negative responses have been documented in the HPI. Past Medical History Past Medical History: CVA/TIA, Deep Vein Thrombosis (DVT), Hypertension, Pneumonia, Prostate Disorder, Seizure Disorder, Thyroid Disorder Additional Past Medical History / Comment(s): Parkinson's, several tia's, past hx. of arrythmia, respiratory failure with pneumonia 8 yrs. ago. DVT years ago, Past Hx. of HEAD INJURY (WAS [employer]/PART OF BLDG COLLAPSED ON HIM, SCIATICA, DDD. ?seizure disorder, SOB w/exertion, lethargy, see Dr Loza H & P History of Any Multi-Drug Resistant Organisms: MRSA Date of last positivie culture/infection: 09/30/2014 MDRO Source:: Blood Past Surgical History: Adenoidectomy, Prostate Surgery, Tonsillectomy Additional Past Surgical History / Comment(s): BRONCHOSCOPY, SX FOR PROLAPSED RECTUM, TURP, Peg insertion & then removed, osteophytes removed from throat, RECENTLY HAD SOME TEETH EXTRACTED AND WAS ON AN ABX. 12-22-15 MIKE. Past Anesthesia/Blood Transfusion Reactions: Motion Sickness Past Psychological History: Anxiety, Depression, PTSD Smoking Status: Former smoker Past Alcohol Use History: None Reported Past Drug Use History: None Reported - Past Family History Father Family Medical History: Myocardial Infarction ([place]) Mother Family Medical History: CVA/TIA, Hypertension, Myocardial Infarction ([place]) <Sharla Mckinney L - Last Filed: 06/19/18 23:57> General Exam Limitations: no limitations <Sharla Mckinney L - Last Filed: 06/19/18 23:57> <Noemi Houston P - Last Filed: 06/21/18 03:47> - General Exam Comments Initial Comments: General: The patient is awake and alert, in no distress, and does not appear acutely ill. Eye: +3 mm pupils are equal, round and reactive to light, extra-ocular movements are intact. No nystagmus. There is normal conjunctiva bilaterally. No signs of icterus. Ears, nose, mouth and throat: There are moist mucous membranes and no oral lesions. Neck: The neck is supple, there is no tenderness or JVD. Cardiovascular: There is a regular rate and rhythm. No murmur, rub or gallop is appreciated. Respiratory: Lungs are clear to auscultation, respirations are non-labored, breath sounds are equal. No wheezes, stridor, rales, or rhonchi. Musculoskeletal: Right hand soft tissue swelling, and ecchymosis. Painful to palpation. Compartments are soft and compressible. Limited ROM of the right wrist secondary to pain and swelling. Pt refused to fully strength test the right wrist secondary to pain. Sensation intact both proximal and distal to injury equal in comparison b/l. Radial pulses equal bilaterally 2+. patient is able make the fingers crossed, ok, thumbs-up extend at the wrist and finger opposition of the wrist b/l. No evidence of wrist drop. Capillary refill < 2 seconds. Neurological: A&O x 3. CN II-XII intact, There are no obvious motor or sensory deficits. Coordination appears grossly intact. Speech is normal. Slight pill rolling tremor. Skin: Skin is warm and dry and no rashes or lesions are noted. Psychiatric: Cooperative, appropriate mood & affect (Sharla Mckinney) Vital Signs 06/19/18 19:20 Temperature 97.4 F L Pulse Rate 99 Respiratory 18 Rate Blood Pressure 108/71 O2 Sat by Pulse 99 Oximetry Medical Decision Making <Sharla Mckinney - Last Filed: 06/19/18 23:57> <Noemi Houston - Last Filed: 06/21/18 03:47> - Medical Decision Making 68yo male presenting for right hand swelling after injury. Patient is on Plavix. X-ray revealed soft tissue swelling no acute osseous process. CT revealed a hematoma no other osseous injuries. Patient was evaluated in person by attending provider Dr. Houston, pt is neurovscularly intact, strong pulses, capillary refill with compressible compartments and full sensation. No pallor. At this time we feel pt is stable for discharge with outpatient orthopedic follow-up and return parameters as discussed in detail with both patient and patients daughter. Patient and family is agreeable discharge, denies questions at this time. Patient was given medication for pain management. Patient requesting pain medicine for discharge. Patient was given starter pack for Tylenol 3 after educating on proper administration and risks involved including overdose, addiction and even . of note: pt discharge delayed by 2 hours due to radiology read delay of CT of wrist. (Sharla Mckinney) I personally saw and examined the patient, patient did have bruising and edema of the right hand. The compartments were soft. Full range of motion of his fingers and Refill is less than 2 seconds. The time of evaluation I do not feel the patient has any signs or symptoms of compartment syndrome. I reviewed and agree with the mid-level provider findings including all diagnostic interpretations and treatment plans as written unless otherwise stated. (Noemi Houston) Disposition Is patient prescribed a controlled substance at d/c from ED?: No <Sharla Mckinney - Last Filed: 06/19/18 23:57> <Noemi Houston P - Last Filed: 06/21/18 03:47> Clinical Impression: Swelling of right hand, Traumatic ecchymosis of right hand, Acute pain of right wrist, Right wrist injury, Hematoma Disposition: HOME SELF-CARE Instructions (If sedation given, give patient instructions): Wrist Injury (ED) , R.I.C.E. Treatment (ED) Additional Instructions: Please use medication as discussed. Please follow-up with Dr. Ibrahim tomorrow, at orthopedic surgery. Please return to emergency room if the symptoms increase or worsen or for any other concerns. Referrals: Cheng Kendrick DO [Primary Care Provider] - 1-2 days Levy Ibrahim DO [Medical Doctor] - 1-2 days
--- NOTE | 2018-06-19 23:06 | CT ---
EXAM: CT Right Upper Extremity Without Intravenous Contrast, Wrist CLINICAL HISTORY: ITS.REASON CT Reason: Pain TECHNIQUE: Axial computed tomography images of the right wrist without intravenous contrast. CTDI is 8.8 mGy and DLP is 229.30 mGy-cm. This CT exam was performed using one or more of the following dose reduction techniques: automated exposure control, adjustment of the mA and/or kV according to patient size, and/or use of iterative reconstruction technique. COMPARISON: Right wrist radiography 06/19/18. FINDINGS: No acute or healing fracture or malalignment. Joint spaces are maintained. No significant arthritic changes. Tiny calcific densities in the area of the scapholunate interosseous ligament may represent calcium hydroxyapatite crystal deposition disease. Similar focus of calcification near the radial styloid. Large heterogeneous cystic soft tissue mass within the subcutaneous tissues along the distal the dorsal aspect of the forearm extending to the wrist and hand shows ill-defined margins. The largest portion of the mass is located at the level of the hand. This roughly measures 7.7 x 2. 9 x 13.2 cm (the lateral dimension is proximal to distal). Differential would include a large hematoma in the appropriate clinical setting. If there is concern for infectious process, then the differential may also include abscess. Diffuse subcutaneous edema is nonspecific and could be related to trauma or infection. Tendons appear unremarkable as imaged. No definite muscle abnormalities are seen. No organized fluid collections. Neurovascular structures are grossly unremarkable. IMPRESSION: No acute or healing fracture or malalignment. Large soft tissue mass at the dorsal aspect of the hand may represent hematoma or less likely abscess or tumor. Correlate for any history of recent trauma.
[2018-06-19] MEDS ORDERED: ACET/COD 300 MG/30 MG STARTER PACK 6 TAB BTL PO STA (23:12)
== END 2018-06-19 23:20 | disposition home or self-care (01) ==
LOC: EC 19:01
DX: S60.221A Contusion of right hand, initial encounter (principal); I10 Essential (primary) hypertension; G40.909 Epilepsy, unspecified, not intractable, without status epilepticus; G20 Parkinson's disease; E07.9 Disorder of thyroid, unspecified; N42.9 Disorder of prostate, unspecified; Z86.14 Personal history of Methicillin resistant Staphylococcus aureus infection; Z86.73 Personal history of transient ischemic attack (TIA), and cerebral infarction without residual deficits; Z86.718 Personal history of other venous thrombosis and embolism; Z87.891 Personal history of nicotine dependence; Z79.02 Long term (current) use of antithrombotics/antiplatelets; Z79.890 Hormone replacement therapy; Z79.52 Long term (current) use of systemic steroids; Z79.82 Long term (current) use of aspirin; Z79.899 Other long term (current) drug therapy; Z91.041 Radiographic dye allergy status; Z88.1 Allergy status to other antibiotic agents; Z88.5 Allergy status to narcotic agent; Z88.8 Allergy status to other drugs, medicaments and biological substances; W19.XXXA Unspecified fall, initial encounter; Y93.01 Activity, walking, marching and hiking; Y92.009 Unspecified place in unspecified non-institutional (private) residence as the place of occurrence of the external cause
CPT/HCPCS: 73110; 73130; 73200; 99284; 96372 ×2; J2270

== ENCOUNTER → 2018-07-25 | Outpatient (CLI) | payer BC, MEDICARE ==
--- NOTE | 2018-07-26 08:46 | CT ---
EXAMINATION TYPE: CT chest wo con DATE OF EXAM: 07/25/2018 COMPARISON: 03/17/2012 HISTORY: solitary pulmonary nodule CT DLP: 564 mGycm, Automated exposure control for dose reduction was used. CONTRAST: None TECHNIQUE: Axial images were obtained at 5 mm thick sections. Reconstructed images are reviewed on [employer] computer in the coronal plane. FINDINGS: Portion of the thyroid visualized is small but normal. There is a 0.6 cm calcification adjacent to the major fissure near the left lung base measuring great er than 1000 Hounsfield units compatible with a granuloma. In retrospect this was present on 03/17/20 12. The calcification has enlarged in size. There is some mild by basilar streak opacities likely on the basis of atelectasis. No enlarged mediastinal or hilar adenopathy is evident. The ascending aorta diameter at the level o f the main pulmonary artery is 3.2 cm. The main pulmonary artery diameter at the bifurcation is 2.9 cm. Coronary artery calcification is present. Limited CT sections are obtained through the upper abdomen. Gallstone is present. Abdomen is otherwi se unremarkable. IMPRESSIONS: 1. Calcified granuloma left lung base. 2. Mild streak atelectasis is present in bilateral lung bases.
== END ==
LOC: RADCTMAIN 16:20
PROVIDERS: ATTEND Family Medicine
DX: J98.11 Atelectasis (principal); J84.10 Pulmonary fibrosis, unspecified
CPT/HCPCS: 71250

== ENCOUNTER → 2018-10-12 | Outpatient (CLI) | payer MEDICARE ==
--- NOTE | 2018-10-13 07:48 | XR ---
EXAMINATION TYPE: XR chest 2V DATE OF EXAM: 10/12/2018 COMPARISON: CT thorax dated 07/25/2018 and chest x-ray dated 06/20/2018 HISTORY: Cough TECHNIQUE: Frontal and lateral views of the chest are obtained. FINDINGS: The known granuloma in the left lung base is more ill-defined on chest x-ray. Bandlike pleu ral parenchymal scarring at the left lung base is also more pronounced on the prior CT of 07/25/2018 an d has improved. There is no focal air space opacity, pleural effusion, or pneumothorax seen. The ca rdiac silhouette size is within normal limits. The osseous structures are intact. Mild multilevel d egenerative changes of the spine are noted. IMPRESSION: Minimal chronic left basilar atelectasis otherwise no acute cardiopulmonary process.
== END | disposition home or self-care (01) ==
LOC: RADXRYALE 16:44
PROVIDERS: ATTEND Physician Assistant Medical
DX: J98.11 Atelectasis (principal)
CPT/HCPCS: 71046

== ENCOUNTER 2019-02-27 18:33 | Inpatient (IN) | payer MEDICARE ==
--- NOTE | 2019-02-27 19:10 | ED ---
General Adult HPI - General Source: patient, family Mode of arrival: EMS Limitations: no limitations <Zachary Lacey - Last Filed: 02/27/19 21:47> <Vincent Bates - Last Filed: 03/06/19 06:38> - General Chief complaint: Weakness Stated complaint: weakness Time Seen by Provider: 02/27/19 18:57 - History of Present Illness Initial comments: Patient is a 69-year-old male with history of recurrent aspiration pneumonia and Parkinson's presenting to the emergency Department with a chief complaint of weakness. Patient reports he was at [facility] for nosebleed probably was placed and patient was discharged without any further workup. The family members report the patient has been weaker to usual after he got home from the hospital. They report the patient is typically using a walker for ambulation now he cannot do today. Patient reports he is feeling slightly lightheaded but has not other complaints. Patient denies any abdominal pain, chest pain, nausea, vomiting or diarrhea. The family is concerned for aspiration pneumonia as a result of the epistaxis. (Zachary Lacey) - Related Data Home Medications Medication Instructions Recorded Confirmed Clopidogrel Bisulfate [Plavix] 75 mg PO DAILY 06/27/14 02/27/19 Levothyroxine Sodium [Synthroid] 125 mcg PO DAILY 06/27/14 02/27/19 Neupro Patch 1 patch TOPICAL HS 01/01/15 02/27/19 Carbidopa-Levodopa 10-100 mg 1 tab PO TID 12/18/15 02/27/19 [Sinemet 10-100 mg] cloZAPine [Clozaril] 450 mg PO HS 12/22/15 02/27/19 Atorvastatin Calcium [Lipitor] 40 mg PO HS 02/20/17 02/27/19 Primidone [Mysoline] 50 mg PO DAILY 02/20/17 02/27/19 Fludrocortisone [Florinef] 0.05 mg PO DAILY@1200 02/19/18 02/27/19 Valproic Acid (As Sodium Salt) 500 mg PO TID 05/14/18 02/27/19 [Valproic Acid] Albuterol Nebulized [Ventolin 2.5 mg INHALATION RT-QID 06/20/18 02/27/19 Nebulized] Tamsulosin [Flomax] 0.4 mg PO DAILY 06/20/18 02/27/19 Donepezil [Aricept] 10 mg PO HS 02/27/19 02/27/19 Glycopyrrolate [Robinul] 1 mg PO HS 02/27/19 02/27/19 traZODone HCL [Desyrel] 50 mg PO HS 02/27/19 02/27/19 Previous Rx's Medication Instructions Recorded Albuterol Nebulized [Ventolin 2.5 mg INHALATION Q6H PRN 30 Days 03/02/19 Nebulized] #120 nebu Cefuroxime Axetil [Ceftin] 500 mg PO BID 3 Days #6 tab 03/02/19 Folic Acid 1 mg PO DAILY@1200 30 Days #30 tab 03/02/19 Multivitamins, Thera [Multivitamin 1 each PO DAILY@1200 30 Days #30 03/02/19 (formulary)] tab Pantoprazole [Protonix] 40 mg PO AC-BRKFST 30 Days #30 03/02/19 tablet. Thiamine [Vitamin B-1] 100 mg PO BID-W/MEALS 30 Days #30 03/02/19 tab Allergies Allergy/AdvReac Type Severity Reaction Status Date / Time Iodinated Contrast Media Allergy Unknown Verified 02/27/19 21:24 [Iodinated Contrast- Oral and IV Dye] iohexol Allergy Nausea & Verified 02/27/19 21:24 Vomiting levofloxacin [From Levaquin] Allergy Unknown Verified 02/27/19 21:24 morphine Allergy Confusion Verified 02/27/19 21:24 tromethamine Allergy Nausea & Verified 02/27/19 21:24 Vomiting codeine AdvReac Hallucinati Verified 02/27/19 21:24 ons Review of Systems ROS Other: All systems not noted in ROS Statement are negative. <Zachary Lacey - Last Filed: 02/27/19 21:47> ROS Other: All systems not noted in ROS Statement are negative. <Vincent Bates - Last Filed: 03/06/19 06:38> ROS Statement: Those systems with pertinent positive or pertinent negative responses have been documented in the HPI. Past Medical History Past Medical History: CVA/TIA, Deep Vein Thrombosis (DVT), Hypertension, Musculoskeletal Disorder, Neurologic Disorder, Pneumonia, Prostate Disorder, Seizure Disorder, Thyroid Disorder Additional Past Medical History / Comment(s): Current R hand injury/ecchymotic/edematous, pt is a left handed person, past L hand injury with compartmental syndrome, parkinson's, dysphagia-crush meds and put in applesauce, aspiration pneumonia/has had peg tube in the past, several tia's vs seizures, respiratory failure with pneumonia 8 yrs. ago, L leg DVT years ago, Hx. of HEAD INJURY (WAS [employer]/PART OF BLDG COLLAPSED ON HIM), SCIATICA, DDD, vertigo, hypothyroid, vitamin D deficiency, BPH. History of Any Multi-Drug Resistant Organisms: MRSA Date of last positivie culture/infection: 09/30/2014 MDRO Source:: Blood Past Surgical History: Adenoidectomy, Prostate Surgery, Tonsillectomy Additional Past Surgical History / Comment(s): BRONCHOSCOPY, SX FOR PROLAPSED RECTUM, TURP, Peg insertion & then removed, osteophytes removed from throat, TEETH EXTRACTED, 12-22-15 MIKE. Past Anesthesia/Blood Transfusion Reactions: Motion Sickness Smoking Status: Former smoker - Past Family History Father Family Medical History: Myocardial Infarction ([place]) Additional Family Medical History / Comment(s): Father at the age of 62 yrs from a [place]. Mother Family Medical History: Myocardial Infarction ([place]) Additional Family Medical History / Comment(s): Mother is 97yrs old. She has a pacemaker. <Zachary Lacey Last Filed: 02/27/19 21:47> General Exam Limitations: no limitations General appearance: alert, in no apparent distress, other (Generalized tremors.) Head exam: Present: atraumatic, normocephalic, normal inspection Eye exam: Present: normal appearance, PERRL, EOMI Pupils: Present: normal accommodation ENT exam: Present: normal exam, normal oropharynx (No residual blood noted on the posterior pharynx.), mucous membranes moist, TM's normal bilaterally, normal external ear exam Neck exam: Present: normal inspection, full ROM Respiratory exam: Present: normal lung sounds bilaterally Cardiovascular Exam: Present: regular rate, normal rhythm, normal heart sounds Extremities exam: Present: normal inspection, full ROM Back exam: Present: normal inspection, full ROM Neurological exam: Present: alert, oriented X3 Psychiatric exam: Present: normal affect, normal mood Skin exam: Present: warm, intact, normal color <Zachary Lacey Last Filed: 02/27/19 21:47> Course Vital Signs 02/27/19 02/27/19 18:49 21:50 Temperature 97.6 F 98.6 F Pulse Rate 106 H 100 Respiratory 20 20 Rate Blood Pressure 113/52 127/68 O2 Sat by Pulse 96 97 Oximetry EKG Findings - EKG Comments: EKG Findings:: Sinus tachycardia, right bundle branch block. Ventricular rate 103, AL interval 134, QRS duration 128, QT/QTC 358/468 <Zachary Lacey - Last Filed: 02/27/19 21:47> Medical Decision Making - Lab Data Result diagrams: 02/27/19 19:54 02/27/19 19:54 <Zachary Lacey - Last Filed: 02/27/19 21:47> - Lab Data Result diagrams: 03/02/19 07:28 03/02/19 07:28 <Vincent Bates - Last Filed: 03/06/19 06:38> - Medical Decision Making patient is 69-year-old male presenting to the emergency room with a chief complaint of weakness. Physical examination is not indicative of any residual blood in the posterior pharynx. The rest of physical examination is unremarkable aside from a bilateral tremor although that is his baseline due to her Parkinson's. Chest x-ray is negative for an acute pathologies. CBC is indicative a mild leukocytosis. CMP is showing elevation in BUN with slight decrease in GFR. I suspect this to be secondary to the dehydration considering the patient has +1 ketones in her urine. Patient given IV fluids. EKG is s howing a right bundle branch block that appears to be there from his previous EKG. Patient has no complaints at this time. The daughter is concerned that she cannot take care of the patient home as he is not able to ambulate anymore. Patient will be admitted for observation for dehydration and weakness. Strict return parameters were thoroughly discussed with patient and daughter are understanding and agreeable. Admitting physician is Dr. Zavala. Case discussed with physician (Zachary Lacey) I saw this patient in conjunction with the physician insurance legal assistant. I performed independent history and physical exam. Agree with case management. (Vincent Bates) - Lab Data Lab Results 02/27/19 02/27/19 02/27/19 Range/Units 19:54 19:54 20:13 WBC 13.3 H (3.8-10.6) k/uL RBC 4.39 (4.30-5.90) m/uL Hgb 13.8 (13.0-17.5) gm/dL Hct 41.8 (39.0-53.0) % MCV 95.1 (80.0-100.0) fL MCH 31.4 (25.0-35.0) pg MCHC 33.0 (31.0-37.0) g/dL RDW 14.6 (11.5-15.5) % Plt Count 183 (150-450) k/uL Neutrophils % % Lymphocytes % % Monocytes % % Eosinophils % % Basophils % % Neutrophils # (1.3-7.7) k/uL Lymphocytes # (1.0-4.8) k/uL Monocytes # (0-1.0) k/uL Eosinophils # (0-0.7) k/uL Basophils # (0-0.2) k/uL Sodium 142 (137-145) mmol/L Potassium 4.4 (3.5-5.1) mmol/L Chloride 110 H (98-107) mmol/L Carbon Dioxide 27 (22-30) mmol/L Anion Gap 5 mmol/L BUN 28 H (9-20) mg/dL Creatinine 1.04 (0.66-1.25) mg/dL Est GFR (CKD-EPI)AfAm 85 (>60 ml/min/1.73 sqM) Est GFR (CKD-EPI)NonAf 73 (>60 ml/min/1.73 sqM) Glucose 113 H (74-99) mg/dL Calcium 8.9 (8.4-10.2) mg/dL Total Bilirubin 0.3 (0.2-1.3) mg/dL AST 22 (17-59) U/L ALT 26 (21-72) U/L Alkaline Phosphatase 72 (38-126) U/L Total Protein 6.1 L (6.3-8.2) g/dL Albumin 3.7 (3.5-5.0) g/dL Urine Color Yellow Urine Appearance Clear (Clear) Urine pH 7.0 (5.0-8.0) Ur Specific [place] 1.027 (1.001-1.035) Urine Protein Trace H (Negative) Urine Glucose (UA) Negative (Negative) Urine Ketones 1+ H (Negative) Urine Blood Negative (Negative) Urine Nitrite Negative (Negative) Urine Bilirubin Negative (Negative) Urine Urobilinogen 4.0 (<2.0) mg/dL Ur Leukocyte Esterase Negative (Negative) 02/28/19 03/01/19 03/01/19 Range/Units 08:45 08:21 08:21 WBC 12.3 H 12.8 H (3.8-10.6) k/uL RBC 3.80 L 4.30 (4.30-5.90) m/uL Hgb 12.3 L 13.2 (13.0-17.5) gm/dL Hct 36.6 L 41.8 (39.0-53.0) % MCV 96.3 97.2 (80.0-100.0) fL MCH 32.3 30.8 (25.0-35.0) pg MCHC 33.5 31.6 (31.0-37.0) g/dL RDW 14.8 14.7 (11.5-15.5) % Plt Count 158 159 (150-450) k/uL Neutrophils % 72 65 % Lymphocytes % 18 24 % Monocytes % 8 8 % Eosinophils % 0 0 % Basophils % 0 1 % Neutrophils # 8.8 H 8.3 H (1.3-7.7) k/uL Lymphocytes # 2.3 3.1 (1.0-4.8) k/uL Monocytes # 0.9 1.0 (0-1.0) k/uL Eosinophils # 0.0 0.0 (0-0.7) k/uL Basophils # 0.0 0.1 (0-0.2) k/uL Sodium 142 (137-145) mmol/L Potassium 3.9 (3.5-5.1) mmol/L Chloride 106 (98-107) mmol/L Carbon Dioxide 28 (22-30) mmol/L Anion Gap 8 mmol/L BUN 14 (9-20) mg/dL Creatinine 0.88 (0.66-1.25) mg/dL Est GFR (CKD-EPI)AfAm >90 (>60 ml/min/1.73 sqM) Est GFR (CKD-EPI)NonAf 88 (>60 ml/min/1.73 sqM) Glucose 124 H (74-99) mg/dL Calcium 9.0 (8.4-10.2) mg/dL Total Bilirubin (0.2-1.3) mg/dL AST (17-59) U/L ALT (21-72) U/L Alkaline Phosphatase (38-126) U/L Total Protein (6.3-8.2) g/dL Albumin (3.5-5.0) g/dL Urine Color Urine Appearance (Clear) Urine pH (5.0-8.0) Ur Specific [place] (1.001-1.035) Urine Protein (Negative) Urine Glucose (UA) (Negative) Urine Ketones (Negative) Urine Blood (Negative) Urine Nitrite (Negative) Urine Bilirubin (Negative) Urine Urobilinogen (<2.0) mg/dL Ur Leukocyte Esterase (Negative) Disposition Is patient prescribed a controlled substance at d/c from ED?: No Time of Disposition: 21:50 <Zachary Lacey - Last Filed: 02/27/19 21:47> <Vincent Bates - Last Filed: 03/06/19 06:38> Clinical Impression: Weakness, Dehydration Disposition: ADMITTED IP TO THIS HOSP Condition: Fair
--- NOTE | 2019-02-27 20:00 | XR ---
EXAMINATION TYPE: XR chest 2V DATE OF EXAM: 02/27/2019 COMPARISON: 10/12/2018 HISTORY: Cough and weakness TECHNIQUE: Frontal and lateral views of the chest are obtained. FINDINGS: Heart is normal. Lungs are clear of consolidation. There is no pleural effusion. There are no hilar masses. There is poor inspiration. IMPRESSION: No active cardiopulmonary disease. Inspiration decreased slightly compared to old exam.
[2019-02-27 20:01] LABS: HCT 41.8 % (39.0-53.0); HGB 13.8 gm/dL (13.0-17.5); MCH 31.4 pg (25.0-35.0); MCV 95.1 fL (80.0-100.0); Mean Platelet Volume 7.5; Platelet Count 183 k/uL (150-450); RBC 4.39 m/uL (4.30-5.90); RDW 14.6 % (11.5-15.5); WBC 13.3 k/uL (3.8-10.6)
[2019-02-27 20:13] LABS: Albumin 3.7 g/dL (3.5-5.0); Calcium 8.9 mg/dL (8.4-10.2); Potassium 4.4 mmol/L (3.5-5.1); Total Bilirubin 0.3 mg/dL (0.2-1.3); Total Protein 6.1 g/dL (6.3-8.2)
[2019-02-27 21:21] LABS: Appearance,Urine Clear (Clear); Bilirubin,Urine Negative (Negative); Blood,Urine Negative (Negative); Color,Urine Yellow; Glucose,Urine (UA) Negative (Negative); Ketones,Urine 1+ (Negative); Leukocyte Esterase,Urine Negative (Negative); Nitrite,Urine Negative (Negative); Protein,Urine Trace (Negative); Specific Gravity,Urine 1.027 (1.001-1.035)
[2019-02-27] MEDS ORDERED: IBUPROFEN 400 MG TAB PO PRN (21:44)
[2019-02-27] MEDS ORDERED: NALOXONE 0.4 MG/ML 1 ML VIAL IV PRN (21:44)
[2019-02-27] MEDS ORDERED: ACETAMINOPHEN TAB 325 MG TAB PO PRN (21:44)
[2019-02-27] MEDS ORDERED: SODIUM CHLORIDE 0.9% 1,000 ML IV STA (21:46)
[2019-02-27] MEDS: SODIUM CHLORIDE 0.9% 1,000 ML IV SCH (22:12)
[2019-02-28] MEDS ORDERED: cloZAPine 100 MG TAB PO SCH (01:13)
[2019-02-28] MEDS: traZODone HCL 50 MG TAB PO SCH ×2 (01:49→21:42)
[2019-02-28] MEDS: DONEPEZIL 10 MG TAB PO SCH ×2 (01:49→21:42)
[2019-02-28] MEDS: ATORVASTATIN 40 MG TAB PO SCH ×2 (01:49→21:42)
[2019-02-28] MEDS: GLYCOPYRROLATE 1 MG TAB PO SCH ×2 (01:50→21:43)
[2019-02-28] MEDS: CARBIDOPA-LEVODOPA 10-100 MG 1 EACH TAB PO SCH ×4 (01:50→22:26)
[2019-02-28] MEDS: VALPROIC ACID ORAL SOLN 250 MG/5 ML CUP PO SCH ×4 (01:50→21:44)
[2019-02-28] MEDS: LEVOTHYROXINE 125 MCG TAB PO SCH (06:18)
[2019-02-28] MEDS: SODIUM CHLORIDE 0.9% 1,000 ML IV SCH ×2 (08:38→17:09)
[2019-02-28 09:16] LABS: Basophils % (A) 0 %; Eosinophils % (A) 0 %; HCT 36.6 % (39.0-53.0); HGB 12.3 gm/dL (13.0-17.5); Lymphocytes # (A) 2.3 k/uL (1.0-4.8); Lymphocytes % (A) 18 %; MCH 32.3 pg (25.0-35.0); MCHC 33.5 g/dL (31.0-37.0); MCV 96.3 fL (80.0-100.0); Monocytes # (A) 0.9 k/uL (0-1.0); Monocytes % (A) 8 %; Neutrophils # (A) 8.8 k/uL (1.3-7.7); Neutrophils % (A) 72 %; Platelet Count 158 k/uL (150-450); RDW 14.8 % (11.5-15.5); WBC 12.3 k/uL (3.8-10.6)
--- NOTE | 2019-02-28 15:32 | CT ---
EXAMINATION TYPE: CT brain wo con DATE OF EXAM: 02/28/2019 COMPARISON: 1118 HISTORY: stroke CT DLP: [address] of the brain was performed. Ventilation is somewhat limited given patient motion. The ventricles, basal cisterns and sulci overlying the cerebral convexities demonstrate mild to moder ate enlargement. There is no evidence for intracranial hemorrhage or sulcal effacement. There is decreased attenuation about the periventricular white matter and deep white matter of both c erebral hemispheres, compatible with chronic small vessel ischemia. Differential diagnosis does inclu de demyelination. No mass effects are seen.No midline shift. Osseous calvarium is intact. If symptoms persist consider MRI. IMPRESSION: 1. Age related atrophic and chronic small vessel ischemic change without acute intracranial process s een at this time. Examination limited by patient motion.
[2019-02-28] MEDS: ALBUTEROL NEBULIZED 2.5 MG/3 ML INHALATION SCH ×2 (15:44→19:22)
--- NOTE | 2019-02-28 16:26 | HP ---
HISTORY AND PHYSICAL DATE OF SERVICE: 02/28/2019 CHIEF COMPLAINTS: Weakness and dehydration. HISTORY OF PRESENT ILLNESS: This 69-year-old gentleman with a past medical history of multiple medical problems, including lung nodules, TIA, Parkinson's, hypertension, seizures, hypothyroidism, hyperlipidemia, being followed by Dr. Kendrick in the outpatient setting, was admitted to [facility] early this year with shortness of breath, possibly with COPD, acute exacerbation. Pt also had epistaixs and nasal packing was done. The patient improved significantly. Currently the patient is complaining of tiredness and weakness. He also had difficulty in walking. The patient apparently was recently in [facility], and because of increased weakness, the patient came to [facility] and was admitted for further evaluation and treatment. There is no history of any headache, loss of consciousness, seizures. No history of chest pain, palpitations at this time. The initial evaluation showed evidence of elevated WBC. Sodium 142, potassium 4.4. UA was unremarkable. A chest x-ray was also done in the ER, which I reviewed personally. It showed some basal atelectasis; otherwise no active pneumonia was noted. Patient admitted for further evaluation and treatment. There is no history of any fever, rigor or chills, headache, loss of consciousness, seizures at this time. PAST MEDICAL HISTORY: 1. History of CVA, TIA. 2. History of DVT. 3. History of hypertension. 4. History of DJD. 5. History of seizure disorder. 6. Prostate disorder. 7. Hypothyroidism. 8. History of adenoidectomy. 9. Prostatectomy. 10.History of anxiety. 11.Depression. 12.PTSD. HOME MEDICATIONS: 1. Trazodone 50 mg p.o. at bedtime. 2. Clozaril 450 mg p.o. at bedtime. 3. Valproic acid 500 mg p.o. t.i.d. 4. Flomax 0.4 daily. 5. Mysoline 50 mg p.o. daily. 6. Neupro patch 1 patch at bedtime. 7. Synthroid 125 mcg p.o. daily. 8. Robinul 1 mg p.o. at bedtime. 9. Florinef 0.05 mg p.o. daily. 10.Aricept 10 mg at bedtime. 11.Plavix 75 mg p.o. daily. 12.Sinemet 10/100 mg p.o. t.i.d. 13.Lipitor 40 mg at bedtime. 14.Ventolin 2.5 q.i.d. ALLERGIES: 1. IODINATED CONTRAST DYES. 2. LEVAQUIN. 3. MORPHINE. 4. TROMETHAMINE. 5. CODEINE. FAMILY HISTORY: History of myocardial infarction in the family. SOCIAL HISTORY: Previous history of smoking. No current smoking or alcohol intake. REVIEW OF SYSTEMS: ENT: Diminished hearing. Diminished vision. CARDIOVASCULAR SYSTEM: As mentioned earlier. RESPIRATORY SYSTEM: As mentioned earlier. GI: As mentioned earlier. : No dysuria or retention. NERVOUS SYSTEM: As mentioned earlier. ALLERGY/IMMUNOLOGY: No asthma, hayfever. MUSCULOSKELETAL: As mentioned earlier. HEMATOLOGY/ONCOLOGY: No history of anemia. ENDOCRINE: No history of diabetes, hypothyroidism. CONSTITUTIONAL: As mentioned earlier. DERMATOLOGY: As mentioned earlier. RHEUMATOLOGY: Negative. PSYCHIATRY: As mentioned earlier. PHYSICAL EXAMINATION: Patient alert and oriented x2. Dysarthric. Pulse 75, blood pressure 108/69, respiration 16, temperature 98.4, pulse ox 93% on room air. HEENT: Conjunctivae normal. Oral mucosa moist. NECK: No jugular venous distention. No carotid bruit. No lymph node enlargement. CARDIOVASCULAR SYSTEM: S1, S2 muffled. No S3. No S4. RESPIRATORY SYSTEM: Breath sounds diminished at the bases. A few scattered rhonchi and crackles. ABDOMEN: Soft, non-tender. No mass palpable. LEGS: No edema. No swelling. NERVOUS SYSTEM: Higher functions as mentioned earlier. Moves all 4 limbs. Tone is increased. Diffuse tremors suggestive of Parkinson's. LYMPHATICS: No lymph node palpable in neck, axillae or groin. NAUSEA SKIN: No ulcer, rash, bleeding. JOINTS: No active deforming arthropathy. LABS: WBC 13.3, hemoglobin 12.3. Sodium 142, potassium 4.4. BUN is 28. ASSESSMENT: 1. Dehydration weakness for evaluation. 2. Elevated BUN. Epistaxis on nasal packing COPD 3. Increased white count. Rule out UTI. 4. Anemia of chronic disease. 5. Gait dysfunction. 6. History of deep venous thrombosis. 7. Hypertension. 8. History of degenerative joint disease. 9. History of pneumonia. 10.History of prostate disorder. 11.History of seizure disorder. 12.History of hypothyroidism. 13.History of right hand injury. 14.History of compartment syndrome. 15.Parkinson's. 16.History of dysphagia. 17.History of transient ischemic attack with seizures in the past. 18.History of left leg deep venous thrombosis. 19.History head injury. 20.History of vitamin D deficiency. 21.Benign prostatic hypertrophy. 22.History of methicillin-resistant Staphylococcus aeruginosa. 23.Anxiety, depression, post-traumatic stress disorder. RECOMMENDATIONS AND DISCUSSION: In this 69-year-old gentleman who presented with multiple medical issues, at this time I recommend to continue current medications, continue to monitor, continue symptomatic treatment. Otherwise, I would recommend empiric antibiotics. We will continue to monitor. I would also recommend a serum lactic acid and PT/OT evaluation. A CT scan of the brain was also recommended on the neurology consultation. Prognosis is guarded because of multiple complex medical issues. Further recommendations to follow. A copy of this dictation is being forwarded to Dr. Kendrick, who is the primary physician. YELITZA / СЕРГЕЙN: [id number] / MTDD
[2019-02-28] MEDS: HEPARIN SODIUM,PORCINE 5,000 UNIT/ML 1 ML VIAL SQ SCH ×2 (17:07→22:27)
[2019-02-28] MEDS: THIAMINE 100 MG TAB PO SCH (17:07)
[2019-03-01] MEDS: LEVOTHYROXINE 125 MCG TAB PO SCH (05:36)
[2019-03-01] MEDS: ALBUTEROL NEBULIZED 2.5 MG/3 ML INHALATION SCH ×4 (07:50→19:03)
[2019-03-01] MEDS: CARBIDOPA-LEVODOPA 10-100 MG 1 EACH TAB PO SCH ×3 (07:55→21:38)
[2019-03-01] MEDS: VALPROIC ACID ORAL SOLN 250 MG/5 ML CUP PO SCH ×3 (07:55→21:38)
[2019-03-01] MEDS: HEPARIN SODIUM,PORCINE 5,000 UNIT/ML 1 ML VIAL SQ SCH ×2 (07:55→21:38)
[2019-03-01] MEDS: PRIMIDONE 50 MG TAB PO SCH (07:56)
[2019-03-01] MEDS: TAMSULOSIN 0.4 MG CAP.ER.24H PO SCH (07:56)
[2019-03-01] MEDS: THIAMINE 100 MG TAB PO SCH ×2 (07:56→16:54)
[2019-03-01] MEDS: FOLIC ACID 1 MG TAB PO SCH (07:56)
[2019-03-01] MEDS: PANTOPRAZOLE 40 MG TABLET PO SCH (07:56)
[2019-03-01] MEDS: CLOPIDOGREL 75 MG TAB PO SCH (07:56)
[2019-03-01 08:54] LABS: Basophils # (A) 0.1 k/uL (0-0.2); Basophils % (A) 1 %; Eosinophils % (A) 0 %; HCT 41.8 % (39.0-53.0); HGB 13.2 gm/dL (13.0-17.5); Lymphocytes # (A) 3.1 k/uL (1.0-4.8); Lymphocytes % (A) 24 %; MCH 30.8 pg (25.0-35.0); MCHC 31.6 g/dL (31.0-37.0); MCV 97.2 fL (80.0-100.0); Mean Platelet Volume 7.2; Monocytes % (A) 8 %; Neutrophils # (A) 8.3 k/uL (1.3-7.7); Neutrophils % (A) 65 %; Platelet Count 159 k/uL (150-450); RDW 14.7 % (11.5-15.5); WBC 12.8 k/uL (3.8-10.6)
[2019-03-01] MEDS: SODIUM CHLORIDE 0.9% 1,000 ML IV SCH (08:59)
[2019-03-01 09:06] LABS: African American GFR (CKD) >90 (>60 ml/min/1.73 sqM); Anion Gap 8 mmol/L; Blood Urea Nitrogen 14 mg/dL (9-20); Carbon Dioxide 28 mmol/L (22-30); Chloride 106 mmol/L (98-107); Glucose 124 mg/dL (74-99); Potassium 3.9 mmol/L (3.5-5.1); Sodium 142 mmol/L (137-145)
[2019-03-01] MEDS ORDERED: MULTIVITAMINS, THERA 1 EACH TAB PO SCH (12:00)
[2019-03-01] MEDS ORDERED: FLUDROCORTISONE 0.1 MG TAB PO SCH (12:00)
--- NOTE | 2019-03-01 18:02 | PN ---
PROGRESS NOTE DATE OF SERVICE: 03/01/2019 This 69-year-old gentleman who was admitted after dehydration and weakness, with elevated BUN. No chest pain. No palpitations. White count is still elevated. Patient is confused. Patient also has history of Parkinson's also. CT brain did not show any acute abnormality. Age-related changes are noted. No chest pain. No palpitations. No fever. EXAM: Alert and oriented x2. Dysarthric. Pulse 100. Blood pressure 100/76. Respirations 17, temperature 98 degrees. Pulse ox 98% on room air. HEENT is conjunctivae normal. NECK: No JVD. CARDIOVASCULAR: S1, S2 muffled. RESPIRATIONS: Breath sounds diminished in the bases. No rhonchi. No crackles. ABDOMEN is soft, nontender. LEGS are no edema, no swelling. CENTRAL NERVOUS SYSTEM: No focal deficits. LABS: WBC 12.8. ASSESSMENT: 1. Dehydration, weakness for evaluation. 2. Increased BUN. 3. Elevated WBC, rule out urinary tract infection. 4. Anemia of chronic disease. 5. Epistaxis on the nasal packing on the left. 6. Gait dysfunction. 7. History of deep vein thrombosis. 8. Hypertension. 9. History of degenerative joint disease. 10.History of pneumonia. 11.History of prostate disorder. 12.History of seizure disorder. 13.Hypothyroidism. 14.History of right hand injury. 15.History of compartment syndrome. 16.History of Parkinson's. 17.History of dysphagia. 18.History of transient ischemic attack with seizures in the past. 19.History of left leg deep vein thrombosis. 21.History of vitamin D deficiency. 22.History of benign prostatic hypertrophy. 23.History of MRSA. 24.History of anxiety, depression, post-traumatic stress disorder. RECOMMENDATIONS AND DISCUSSION: Recommend to continue current medications, management and symptomatic treatment. Otherwise, at this time, I recommend continue with IV antibiotics. Repeat labs. Otherwise, guarded prognosis because of multiple complex medical issues. Further recommendations to follow. Otherwise the daughter apparently has taken evaluation by ENT as an outpatient. Further recommendations to follow. MMODL / IJN: [id number] / MTDD
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
[2019-03-01] MEDS: ATORVASTATIN 40 MG TAB PO SCH (21:38)
[2019-03-01] MEDS: GLYCOPYRROLATE 1 MG TAB PO SCH (21:38)
[2019-03-01] MEDS: DONEPEZIL 10 MG TAB PO SCH (21:38)
[2019-03-01] MEDS: traZODone HCL 50 MG TAB PO SCH (21:38)
[2019-03-02] MEDS: LEVOTHYROXINE 125 MCG TAB PO SCH (05:46)
[2019-03-02] MEDS: ALBUTEROL NEBULIZED 2.5 MG/3 ML INHALATION SCH ×2 (07:12→11:09)
[2019-03-02 07:24] VITALS: BP 131/79; RESP 18; TEMP 98.6
[2019-03-02] MEDS: PRIMIDONE 50 MG TAB PO SCH (07:24)
[2019-03-02] MEDS: TAMSULOSIN 0.4 MG CAP.ER.24H PO SCH (07:24)
[2019-03-02] MEDS: CLOPIDOGREL 75 MG TAB PO SCH (07:24)
[2019-03-02] MEDS: THIAMINE 100 MG TAB PO SCH (07:24)
[2019-03-02] MEDS: HEPARIN SODIUM,PORCINE 5,000 UNIT/ML 1 ML VIAL SQ SCH (07:25)
[2019-03-02] MEDS: PANTOPRAZOLE 40 MG TABLET PO SCH (07:25)
[2019-03-02] MEDS: FOLIC ACID 1 MG TAB PO SCH (07:26)
[2019-03-02] MEDS: VALPROIC ACID ORAL SOLN 250 MG/5 ML CUP PO SCH (07:28)
[2019-03-02] MEDS: CARBIDOPA-LEVODOPA 10-100 MG 1 EACH TAB PO SCH (07:29)
[2019-03-02 07:40] LABS: Basophils # (A) 0.2 k/uL (0-0.2); Basophils % (A) 2 %; Eosinophils # (A) 0.1 k/uL (0-0.7); Eosinophils % (A) 1 %; HCT 38.2 % (39.0-53.0); HGB 12.4 gm/dL (13.0-17.5); Lymphocytes # (A) 2.7 k/uL (1.0-4.8); Lymphocytes % (A) 28 %; MCH 31.1 pg (25.0-35.0); MCHC 32.3 g/dL (31.0-37.0); MCV 96.1 fL (80.0-100.0); Mean Platelet Volume 7.3; Monocytes # (A) 0.9 k/uL (0-1.0); Monocytes % (A) 9 %; Neutrophils # (A) 5.7 k/uL (1.3-7.7); Neutrophils % (A) 58 %; Platelet Count 149 k/uL (150-450); RBC 3.97 m/uL (4.30-5.90); RDW 14.7 % (11.5-15.5); WBC 9.8 k/uL (3.8-10.6)
[2019-03-02 07:54] LABS: Calcium 8.7 mg/dL (8.4-10.2); Potassium 3.9 mmol/L (3.5-5.1)
--- NOTE | 2019-03-02 10:15 | CDI ---
Documentation Clarification Form Date: 03/02/2019 9:34:45 AM From: Xuan Sears RN CCDS Admit Date: 03/01/2019 3:35:00 PM Patient Name: Aston Camarillo Visit Number: [id number] Discharge Date: ATTENTION: The Clinical Documentation Specialists (CDI) and [facility] Coding Staff appreciate your assistance in clarifying documentation. Please respond to the clarification below the line at the bottom and electronically sign. The CDI & [facility] Coding staff will review the response and follow-up if needed. Please note: Queries are made part of the Legal Health Record. If you have any questions, please contact the author of this message via ITS. Dr. Harshal Zavala Elevated WBC rule out urinary tract infection is documented in your H&P 02/28/2019 and subsequent Progress Note 03/01/2019 History/Risk Factors: 69-year-old male presents to the ED via EMS for weakness and tiredness with difficulty walking. Medical History Parkinsons; BPH; Clinical Indicators: Per your progress note 03/01 Recommend continue medications, management and symptomatic treatment. Otherwise, at this time, I recommend continue with IV antibiotics. Lab findings:02/27/2019 UA Leukocyte esterase negative, ketones 1+, protein trace; nitrates negative. UA Culture No growth after 24 hours. 02/27 Wbc 13.3 02/28 Wbc 12.3 03/01 Wbc 12.8 03/02 Wbc 9.8 Cl 110; Bun 28; Cr 1.04; Vital Signs: 113/52 106 97.6 20 96% ra 03/01 128/74 82 98.6 18 94% ra Other Clinical Indicators: Treatment: 02/27/2019 0.9ns 1L bolus then at 60cc/hr 02/28 Rocephin ivpb Daily 03/01 0.9ns 60cchr discontinued. In your professional opinion, can you please clarify Urinary Tract Infection? Possible UTI with elevated Wbc, POA UTI Ruled Out Other, please specify Unable to determine (Last Revision: July 2017) Possible UTI with elevated Wbc, POA MTDD
[2019-03-02 11:22] VITALS: PULSE 84
--- NOTE | 2019-03-02 14:57 | P.DS ---
Providers Date of admission: 03/01/19 15:35 Expected date of discharge: 03/02/19 Attending physician: Harshal Zavala Consults: 02/28/19 15:11 Consult Physician Routine Consulting Provider: Susan Louis Consult Reason/Comments: increased weakness, history of parkinson's Do you want consulting provider notified?: Yes Primary care physician: [facility] Course: Final diagnosis Dehydration, weakness for evaluation Increased BUN Elevated white blood count, rule out urinary tract infection Anemia of chronic disease Epistaxis with nasal packing on the left nare Gait dysfunction History of DVT Hypertension History of degenerative joint disease History of pneumonia History of prostate disorder history of seizure disorder Hypothyroidism History of right hand injury History of compartment syndrome history of Parkinson's History of dysphagia History of transient ischemic attack with seizures in the past History of left leg DVT history of vitamin deficiency history of benign prostatic Hypertrophy History of MRSA history of anxiety, depression, posttraumatic stress disorder Discharge disposition Patient is being discharged in a stable condition with guarded prognosis to home and will follow-up with ENT this afternoon at his scheduled appointment at 12:15. Patient will continue short course of oral antibiotics in the form of Ceftin in the outpatient setting and will follow-up with his primary care provider this week. Total time taken is 35 minutes. History of present illness This is a 69-year-old male who was recently admitted for dehydration and weakness and was being closely monitored. BUN as well as white blood count was elevated. During hospitalization patient was found to be confused and a CT of the brain was done which did not show any acute abnormality. Patient does have a history of Parkinson's. Patient had epistaxis with nasal packing from ENT of the left nare and will be following up with them today at 12:15 for possible nasal packing removal. On exam nasal packing was noted to be dry and intact with no active bleeding noted. During hospitalization patient's white count was slightly elevated and being closely monitored. Today's labs show white blood count is 9.8. Patient will need repeat labs in the outpatient setting to monitor this trend. Patient's BUN today was 14. Patient will continue on a short course of oral antibiotics in the form of Ceftin and will be following up with his primary care provider this week. Patient was evaluated by neurology during hospitalization for his increase in weakness and Parkinson's and has recommended to follow-up with his neurologist in the outpatient setting. Currently patient's condition is stable with much improvement and is ready for discharge today. Patient denies any chest pain, shortness of breath, or palpitations. Patient is afebrile. Patient denies any nausea or vomiting and is tolerating diet. Guarded prognosis. On exam vital signs are stable. Temp is 98.6F, pulse is 77, respirations are 18, blood pressure is 131/79, oxygen saturation is 95% on room air. Cardio S1 and S2 are muffled. Respiratory system shows diminished breath sounds at the bases with a few scattered rhonchi noted. Abdomen is soft and nontender. Nervous system shows no focal deficits. Please refer to medication reconciliation sheet for a list of medications. Patient Condition at Discharge: Fair Plan - Discharge Summary Discharge Rx Participant: No New Discharge Prescriptions: New Folic Acid 1 mg PO DAILY@1200 30 Days #30 tab Multivitamins, Thera [Multivitamin (formulary)] 1 each PO DAILY@1200 30 Days #30 tab Pantoprazole [Protonix] 40 mg PO AC-BRKFST 30 Days #30 tablet. Albuterol Nebulized [Ventolin Nebulized] 2.5 mg INHALATION Q6H PRN 30 Days #120 nebu PRN Reason: Shortness Of Breath Thiamine [Vitamin B-1] 100 mg PO BID-W/MEALS 30 Days #30 tab Cefuroxime Axetil [Ceftin] 500 mg PO BID 3 Days #6 tab Continue Clopidogrel Bisulfate [Plavix] 75 mg PO DAILY Levothyroxine Sodium [Synthroid] 125 mcg PO DAILY Neupro Patch 1 patch TOPICAL HS Carbidopa-Levodopa 10-100 mg [Sinemet 10-100 mg] 1 tab PO TID cloZAPine [Clozaril] 450 mg PO HS Primidone [Mysoline] 50 mg PO DAILY Atorvastatin Calcium [Lipitor] 40 mg PO HS Fludrocortisone [Florinef] 0.05 mg PO DAILY@1200 Valproic Acid (As Sodium Salt) [Valproic Acid] 500 mg PO TID Albuterol Nebulized [Ventolin Nebulized] 2.5 mg INHALATION RT-QID Tamsulosin [Flomax] 0.4 mg PO DAILY Donepezil [Aricept] 10 mg PO HS Glycopyrrolate [Robinul] 1 mg PO HS traZODone HCL [Desyrel] 50 mg PO HS Discharge Medication List Clopidogrel Bisulfate [Plavix] 75 mg PO DAILY 0305/15 [History] Levothyroxine Sodium [Synthroid] 125 mcg PO DAILY 06/27/14 [History] Neupro Patch 1 patch TOPICAL HS 01/01/15 [History] Carbidopa-Levodopa 10-100 mg [Sinemet 10-100 mg] 1 tab PO TID 12/18/15 [History] cloZAPine [Clozaril] 450 mg PO HS 12/22/15 [History] Atorvastatin Calcium [Lipitor] 40 mg PO HS 02/20/17 [History] Primidone [Mysoline] 50 mg PO DAILY 02/20/17 [History] Fludrocortisone [Florinef] 0.05 mg PO DAILY@1200 02/19/18 [History] Valproic Acid (As Sodium Salt) [Valproic Acid] 500 mg PO TID 05/14/18 [History] Albuterol Nebulized [Ventolin Nebulized] 2.5 mg INHALATION RT-QID 06/20/18 [History] Tamsulosin [Flomax] 0.4 mg PO DAILY 06/20/18 [History] Donepezil [Aricept] 10 mg PO HS 02/27/19 [History] Glycopyrrolate [Robinul] 1 mg PO HS 02/27/19 [History] traZODone HCL [Desyrel] 50 mg PO HS 02/27/19 [History] Albuterol Nebulized [Ventolin Nebulized] 2.5 mg INHALATION Q6H PRN 30 Days #120 nebu 03/02/19 [Rx] Cefuroxime Axetil [Ceftin] 500 mg PO BID 3 Days #6 tab 03/02/19 [Rx] Folic Acid 1 mg PO DAILY@1200 30 Days #30 tab 03/02/19 [Rx] Multivitamins, Thera [Multivitamin (formulary)] 1 each PO DAILY@1200 30 Days #30 tab 03/02/19 [Rx] Pantoprazole [Protonix] 40 mg PO AC-BRKFST 30 Days #30 03/02/19 [Rx] Thiamine [Vitamin B-1] 100 mg PO BID-W/MEALS 30 Days #30 tab 03/02/19 [Rx] Follow up Appointment(s)/Referral(s): Cheng Kendrick DO [Primary Care Provider] - 03/06/19 10:40 am Ambulatory/Diagnostic Orders: Basic Metabolic Panel [LAB.AMB] Time Frame: 2 Days, Location: None Selected Basic Metabolic Panel [LAB.AMB] Time Frame: 2 Days, Location: None Selected Complete Blood Count w/diff [LAB.AMB] Time Frame: 2 Days, Location: None Selected Complete Blood Count w/diff [LAB.AMB] Time Frame: 2 Days, Location: None Selected Patient Instructions/Handouts: Dehydration (ED) Activity/Diet/Wound Care/Special Instructions: Patient is going to ENT for 12:15 appointment today Activity Limited until follow-up Continue current diet Follow-up with PCP upon discharge Continue antibiotics until finished Repeat labs in 2-3 days Discharge Disposition: HOME SELF-CARE
== END 2019-03-02 11:40 | disposition home or self-care (01) | DRG 641 ==
LOC: EC 18:33 → 4MS4W 21:38 → OBSVTOIN 03-01 15:35
PROVIDERS: ADMIT Hospitalist; ATTEND Hospitalist
DX: E86.0 Dehydration (principal); N39.0 Urinary tract infection, site not specified; J98.11 Atelectasis; G20 Parkinson's disease; R13.10 Dysphagia, unspecified; I45.10 Unspecified right bundle-branch block; I10 Essential (primary) hypertension; D63.8 Anemia in other chronic diseases classified elsewhere; G40.909 Epilepsy, unspecified, not intractable, without status epilepticus; J44.9 Chronic obstructive pulmonary disease, unspecified; E78.5 Hyperlipidemia, unspecified; E03.9 Hypothyroidism, unspecified; N40.0 Benign prostatic hyperplasia without lower urinary tract symptoms; M19.90 Unspecified osteoarthritis, unspecified site; M54.30 Sciatica, unspecified side; F32.9 Major depressive disorder, single episode, unspecified; F43.10 Post-traumatic stress disorder, unspecified; R26.2 Difficulty in walking, not elsewhere classified; R91.8 Other nonspecific abnormal finding of lung field; R04.0 Epistaxis; H54.7 Unspecified visual loss; H91.90 Unspecified hearing loss, unspecified ear; Z79.02 Long term (current) use of antithrombotics/antiplatelets; Z79.890 Hormone replacement therapy; Z79.52 Long term (current) use of systemic steroids; Z79.899 Other long term (current) drug therapy; Z86.73 Personal history of transient ischemic attack (TIA), and cerebral infarction without residual deficits; Z87.01 Personal history of pneumonia (recurrent); Z86.718 Personal history of other venous thrombosis and embolism; Z87.828 Personal history of other (healed) physical injury and trauma; Z87.820 Personal history of traumatic brain injury; Z86.14 Personal history of Methicillin resistant Staphylococcus aureus infection; Z87.891 Personal history of nicotine dependence; Z98.890 Other specified postprocedural states; Z88.5 Allergy status to narcotic agent; Z88.6 Allergy status to analgesic agent; Z88.1 Allergy status to other antibiotic agents; Z91.041 Radiographic dye allergy status; Z82.49 Family history of ischemic heart disease and other diseases of the circulatory system
CPT/HCPCS: 36415; 70450; 71046; 80048; 80053; 81003; 85025; 85027; 87040; 93005; 94640; 99285

== ENCOUNTER 2019-09-21 07:58 | Inpatient (IN) | payer MEDICARE ==
--- NOTE | 2019-09-21 08:08 | ED ---
SOB HPI - General Chief Complaint: Shortness of Breath Stated Complaint: GRECIA Time Seen by Provider: 09/21/19 08:00 Source: patient, EMS, RN notes reviewed Mode of arrival: EMS Limitations: no limitations - History of Present Illness Initial Comments: Is a 68-year-old male with a history of a full medical issues including pneumonia and COPD who states she's been short of breath for last couple days have exertional dyspnea cough with phlegm but is not sure what color denies any overt fevers chills or sweats. He did call EMS this morning he was getting a nebulizer treatment upon their arrival he did have a saturation 95% on 4 L of oxygen after his workup to their monitor. Patient does not use home oxygen. He denies any chest pain and palpitations no other modifying factors at this time MD Complaint: shortness of breath, cough - Related Data Home Medications Medication Instructions Recorded Confirmed Clopidogrel Bisulfate [Plavix] 75 mg PO DAILY 06/27/14 02/27/19 Levothyroxine Sodium [Synthroid] 125 mcg PO DAILY 06/27/14 02/27/19 Neupro Patch 1 patch TOPICAL HS 01/01/15 02/27/19 Carbidopa-Levodopa 10-100 mg 1 tab PO TID 12/18/15 02/27/19 [Sinemet 10-100 mg] cloZAPine [Clozaril] 450 mg PO HS 12/22/15 02/27/19 Atorvastatin Calcium [Lipitor] 40 mg PO HS 02/20/17 02/27/19 Primidone [Mysoline] 50 mg PO DAILY 02/20/17 02/27/19 Fludrocortisone [Florinef] 0.05 mg PO DAILY@1200 02/19/18 02/27/19 Valproic Acid (As Sodium Salt) 500 mg PO TID 05/14/18 02/27/19 [Depakene Soln] Albuterol Nebulized [Ventolin 2.5 mg INHALATION RT-QID 06/20/18 02/27/19 Nebulized] Tamsulosin [Flomax] 0.4 mg PO DAILY 06/20/18 02/27/19 Donepezil [Aricept] 10 mg PO HS 02/27/19 02/27/19 Glycopyrrolate [Robinul] 1 mg PO HS 02/27/19 02/27/19 traZODone HCL [Desyrel] 50 mg PO HS 02/27/19 02/27/19 Previous Rx's Medication Instructions Recorded Albuterol Nebulized [Ventolin 2.5 mg INHALATION Q6H PRN 30 Days 03/02/19 Nebulized] #120 nebu Cefuroxime Axetil [Ceftin] 500 mg PO BID 3 Days #6 tab 03/02/19 Folic Acid 1 mg PO DAILY@1200 30 Days #30 tab 03/02/19 Multivitamins, Thera [Multivitamin 1 each PO DAILY@1200 30 Days #30 03/02/19 (formulary)] tab Pantoprazole [Protonix] 40 mg PO AC-BRKFST 30 Days #30 03/02/19 tablet. Thiamine [Vitamin B-1] 100 mg PO BID-W/MEALS 30 Days #30 03/02/19 tab Allergies Allergy/AdvReac Type Severity Reaction Status Date / Time Iodinated Contrast Media Allergy Unknown Verified 02/27/19 21:24 [Iodinated Contrast- Oral and IV Dye] iohexol Allergy Nausea & Verified 02/27/19 21:24 Vomiting levofloxacin [From Levaquin] Allergy Unknown Verified 02/27/19 21:24 morphine Allergy Confusion Verified 02/27/19 21:24 tromethamine Allergy Nausea & Verified 02/27/19 21:24 Vomiting codeine AdvReac Hallucinati Verified 02/27/19 21:24 ons Review of Systems ROS Statement: Those systems with pertinent positive or pertinent negative responses have been documented in the HPI. ROS Other: All systems not noted in ROS Statement are negative. Past Medical History Past Medical History: CVA/TIA, Deep Vein Thrombosis (DVT), Hypertension, Musculoskeletal Disorder, Neurologic Disorder, Pneumonia, Prostate Disorder, Seizure Disorder, Thyroid Disorder Additional Past Medical History / Comment(s): Current R hand injury/ecchymotic/edematous, pt is a left handed person, past L hand injury with compartmental syndrome, parkinson's, dysphagia-crush meds and put in applesauce, aspiration pneumonia/has had peg tube in the past, several tia's vs seizures, respiratory failure with pneumonia 8 yrs. ago, L leg DVT years ago, Hx. of HEAD INJURY (WAS [employer]INE [employer]/PART OF BLDG COLLAPSED ON HIM), SCIATICA, DDD, vertigo, hypothyroid, vitamin D deficiency, BPH. History of Any Multi-Drug Resistant Organisms: MRSA Date of last positivie culture/infection: 09/30/2014 MDRO Source:: Blood Past Surgical History: Adenoidectomy, Prostate Surgery, Tonsillectomy Additional Past Surgical History / Comment(s): BRONCHOSCOPY, SX FOR PROLAPSED RECTUM, TURP, Peg insertion & then removed, osteophytes removed from throat, TEETH EXTRACTED, 12-22-15 MIKE. Past Anesthesia/Blood Transfusion Reactions: Motion Sickness Past Psychological History: Anxiety, Depression, PTSD Smoking Status: Former smoker Past Alcohol Use History: None Reported Past Drug Use History: None Reported - Past Family History Father Family Medical History: Myocardial Infarction ([place]) Additional Family Medical History / Comment(s): Father at the age of 62 yrs from a [place]. Mother Family Medical History: Myocardial Infarction ([place]) Additional Family Medical History / Comment(s): Mother is 97yrs old. She has a pacemaker. General Exam - General Exam Comments Initial Comments: This is a well-developed well-nourished awake alert oriented 3 male Limitations: no limitations General appearance: alert, in no apparent distress Head exam: Present: atraumatic, normocephalic, normal inspection Eye exam: Present: normal appearance, PERRL, EOMI. Absent: scleral icterus, co njunctival injection, periorbital swelling ENT exam: Present: normal exam, mucous membranes moist Neck exam: Present: normal inspection. Absent: tenderness, meningismus, lymphadenopathy Respiratory exam: Present: wheezes (Especially right lower lobe some noted on the left), rhonchi (Special the right lower lobe), decreased breath sounds. Absent: respiratory distress, rales, stridor Cardiovascular Exam: Present: regular rate, normal rhythm, normal heart sounds. Absent: systolic murmur, diastolic murmur, rubs, gallop, clicks GI/Abdominal exam: Present: soft, normal bowel sounds. Absent: distended, tenderness, guarding, rebound, rigid Extremities exam: Present: normal inspection, full ROM, normal capillary refill. Absent: tenderness, pedal edema, joint swelling, calf tenderness Back exam: Present: normal inspection Neurological exam: Present: alert, oriented X3, CN II-XII intact Psychiatric exam: Present: normal affect, normal mood Skin exam: Present: warm, dry, intact, normal color. Absent: rash Course Vital Signs 09/21/19 09/21/19 09/21/19 07:59 08:03 08:47 Temperature 98.3 F Pulse Rate 90 85 Respiratory 18 20 18 Rate Blood Pressure 125/69 114/72 O2 Sat by Pulse 93 L 97 Oximetry Medical Decision Making - Medical Decision Making I did discuss the findings the patient family member. Patient is feeling slightly better. Due to the circumstances patient will be admitted for inpatient treatment of recurrent pneumonia and COPD exacerbation case is discussed with Dr. Hood - Lab Data Result diagrams: 09/21/19 08:02 09/21/19 08:02 Lab Results 09/21/19 09/21/19 09/21/19 Range/Units 08:02 08:02 08:02 WBC 16.0 H (3.8-10.6) k/uL RBC 4.45 (4.30-5.90) m/uL Hgb 13.5 (13.0-17.5) gm/dL Hct 42.3 (39.0-53.0) % MCV 94.9 (80.0-100.0) fL MCH 30.4 (25.0-35.0) pg MCHC 32.0 (31.0-37.0) g/dL RDW 15.1 (11.5-15.5) % Plt Count 146 L (150-450) k/uL Neutrophils % 79 % Lymphocytes % 12 % Monocytes % 7 % Eosinophils % 1 % Basophils % 0 % Neutrophils # 12.7 H (1.3-7.7) k/uL Lymphocytes # 1.9 (1.0-4.8) k/uL Monocytes # 1.1 H (0-1.0) k/uL Eosinophils # 0.1 (0-0.7) k/uL Basophils # 0.0 (0-0.2) k/uL Sodium 139 (137-145) mmol/L Potassium 3.9 (3.5-5.1) mmol/L Chloride 109 H (98-107) mmol/L Carbon Dioxide 24 (22-30) mmol/L Anion Gap 6 mmol/L BUN 21 H (9-20) mg/dL Creatinine 0.84 (0.66-1.25) mg/dL Est GFR (CKD-EPI)AfAm >90 (>60 ml/min/1.73 sqM) Est GFR (CKD-EPI)NonAf 89 (>60 ml/min/1.73 sqM) Glucose 99 (74-99) mg/dL Plasma Lactic Acid Catarino 0.8 (0.7-2.0) mmol/L Calcium 8.5 (8.4-10.2) mg/dL Magnesium 2.0 (1.6-2.3) mg/dL Total Bilirubin 0.8 (0.2-1.3) mg/dL AST 25 (17-59) U/L ALT 15 (4-49) U/L Alkaline Phosphatase 70 (38-126) U/L Creatine Kinase 26 L (55-170) U/L Total Protein 5.7 L (6.3-8.2) g/dL Albumin 3.1 L (3.5-5.0) g/dL - EKG Data -: EKG Interpreted by Me EKG shows normal: sinus rhythm EKG Comments: EKG shows sinus rhythm 88. Interval 136 QRS 140 QT/QTC 392/474 red bundle- branch block pattern nonspecific inferior T wave in her maladies this is compared with EKG dated 02/28/1920 very similar configuration, - Radiology Data Radiology results: report reviewed (I did review the imaging and report evidence of left lower lobe infiltrate please see complete report), image reviewed Disposition Clinical Impression: Left lower lobe pneumonia, COPD exacerbation, Leukocytosis Disposition: ADMITTED IP TO THIS HOSP Condition: Fair Referrals: Cheng Kendrick DO [Primary Care Provider] - 1-2 days
[2019-09-21 08:33] LABS: Basophils % (A) 0 %; Eosinophils # (A) 0.1 k/uL (0-0.7); Eosinophils % (A) 1 %; HCT 42.3 % (39.0-53.0); HGB 13.5 gm/dL (13.0-17.5); Lymphocytes # (A) 1.9 k/uL (1.0-4.8); Lymphocytes % (A) 12 %; MCH 30.4 pg (25.0-35.0); MCV 94.9 fL (80.0-100.0); Mean Platelet Volume 8.9; Monocytes # (A) 1.1 k/uL (0-1.0); Monocytes % (A) 7 %; Neutrophils # (A) 12.7 k/uL (1.3-7.7); Neutrophils % (A) 79 %; Platelet Count 146 k/uL (150-450); RBC 4.45 m/uL (4.30-5.90); RDW 15.1 % (11.5-15.5)
[2019-09-21 08:36] LABS: ALT 15 U/L (4-49); AST 25 U/L (17-59); African American GFR (CKD) >90 (>60 ml/min/1.73 sqM); Albumin 3.1 g/dL (3.5-5.0); Alkaline Phosphatase 70 U/L (38-126); Anion Gap 6 mmol/L; Blood Urea Nitrogen 21 mg/dL (9-20); Calcium 8.5 mg/dL (8.4-10.2); Carbon Dioxide 24 mmol/L (22-30); Chloride 109 mmol/L (98-107); Creatine Kinase 26 U/L (55-170); Glucose 99 mg/dL (74-99); Non-African American GFR(CKD) 89 (>60 ml/min/1.73 sqM); Potassium 3.9 mmol/L (3.5-5.1); Sodium 139 mmol/L (137-145); Total Bilirubin 0.8 mg/dL (0.2-1.3); Total Protein 5.7 g/dL (6.3-8.2)
--- NOTE | 2019-09-21 08:36 | XR ---
EXAMINATION TYPE: XR chest 2V DATE OF EXAM: 09/21/2019 COMPARISON: 02/27/2019 HISTORY: 69 year-old male shortness of breath, difficulty breathing TECHNIQUE: AP and lateral views FINDINGS: Low lung volumes and cardiovascular markings. Heart upper limits of normal in size. Mild patchy left basilar opacity. No pleural effusion. IMPRESSION: Hypoventilatory changes with some patchy left basilar atelectasis versus developing infiltrate. Corre late for any infectious respiratory signs/symptoms. Follow-up as indicated.
[2019-09-21 08:40] LABS: INR 1.1 (<1.2); Prothrombin Time 10.8 sec (9.0-12.0)
[2019-09-21] MEDS ORDERED: cefTRIAXone IN SWFI 1,000 MG/10 ML SYRINGE IVP STA (08:40)
[2019-09-21] MEDS ORDERED: PNEUMONIA PROTOCOL UTILIZED 1 EACH MISC PO PRN (08:48)
[2019-09-21] MEDS ORDERED: AZITHROMYCIN 500 MG in SODIUM CHLORIDE 0.9% 250 ML IVPB STA (08:48)
[2019-09-21 08:59] LABS: D-Dimer 1.16 mg/L FEU (<0.60)
[2019-09-21] MEDS ORDERED: methylPREDNISolone SOD SUCCI 125 MG/2 ML VIAL IV STA (09:05)
[2019-09-21] MEDS ORDERED: diphenhydrAMINE 50 MG/ML 1 ML VIAL IVP STA (09:07)
[2019-09-21] MEDS ORDERED: FAMOTIDINE 20 MG/2 ML VIAL IV STA (09:07)
[2019-09-21] MEDS: SODIUM CHLORIDE 0.9% 1,000 ML IV SCH (09:21)
--- NOTE | 2019-09-21 10:26 | CT ---
EXAMINATION TYPE: CT angio chest DATE OF EXAM: 09/21/2019 10:06 AM COMPARISON: 07/25/2018 HISTORY: GRECIA, SOB CT DLP: 327.8 mGycm Automated exposure control for dose reduction was used. CONTRAST: CTA scan of the thorax is performed with IV Contrast, patient injected with 75 mL of Isovue 370, pulm onary embolism protocol. . FINDINGS: Exam limited by artifact. LUNGS: There is subsegmental changes involving the lungs. Coarsened interstitium noted. No pneumothor ax. Somewhat nodular confluent area of consolidation in the right middle lobe extends toward the righ t lower lobe and infectious or inflammatory process favored over neoplasm. MEDIASTINUM: The heart is markedly enlarged. There is coronary artery calcification. There is thicken ing of the right mainstem bronchus. Aorta of normal caliber with atherosclerotic change. Assessment o f the distal pulmonary arterial branches is limited due to artifact. On axial image 66 there is a tin y filling defect within a right lower lobe pulmonary artery branch. OTHER: Liver is somewhat low in attenuation correlate for hepatic steatosis. Motion artifact limits assessment of the upper abdomen. Hypertrophic change of the vertebral column. IMPRESSION: 1. Limited exam demonstrates findings suspicious for right lower lobe small distal pulmonary embolism . 2. Bilateral infiltrates correlate for pneumonia. Lack of pleural fluid argues against CHF. Correlate clinically. 3. There is thickening of the right mainstem bronchial wall which appears new from the prior exam. A mucosal lesion would be in the differential diagnosis. Bronchoscopy is suggested.
--- NOTE | 2019-09-21 10:38 | ED ---
Medical Decision Making - Medical Decision Making Patient did have elevated d-dimer and a CAT scan does show evidence of right lower lobe emboli also bilateral infiltrates. I did also discuss case with Dr. Zavala. - Lab Data Result diagrams: 09/21/19 08:02 09/21/19 08:02 Lab Results 09/21/19 09/21/19 09/21/19 Range/Units 08:02 08:02 08:02 WBC 16.0 H (3.8-10.6) k/uL RBC 4.45 (4.30-5.90) m/uL Hgb 13.5 (13.0-17.5) gm/dL Hct 42.3 (39.0-53.0) % MCV 94.9 (80.0-100.0) fL MCH 30.4 (25.0-35.0) pg MCHC 32.0 (31.0-37.0) g/dL RDW 15.1 (11.5-15.5) % Plt Count 146 L (150-450) k/uL Neutrophils % 79 % Lymphocytes % 12 % Monocytes % 7 % Eosinophils % 1 % Basophils % 0 % Neutrophils # 12.7 H (1.3-7.7) k/uL Lymphocytes # 1.9 (1.0-4.8) k/uL Monocytes # 1.1 H (0-1.0) k/uL Eosinophils # 0.1 (0-0.7) k/uL Basophils # 0.0 (0-0.2) k/uL PT 10.8 (9.0-12.0) sec INR 1.1 (<1.2) APTT 28.0 (22.0-30.0) sec D-Dimer 1.16 H (<0.60) mg/L FEU Sodium 139 (137-145) mmol/L Potassium 3.9 (3.5-5.1) mmol/L Chloride 109 H (98-107) mmol/L Carbon Dioxide 24 (22-30) mmol/L Anion Gap 6 mmol/L BUN 21 H (9-20) mg/dL Creatinine 0.84 (0.66-1.25) mg/dL Est GFR (CKD-EPI)AfAm >90 (>60 ml/min/1.73 sqM) Est GFR (CKD-EPI)NonAf 89 (>60 ml/min/1.73 sqM) Glucose 99 (74-99) mg/dL Plasma Lactic Acid Catarino (0.7-2.0) mmol/L Calcium 8.5 (8.4-10.2) mg/dL Magnesium 2.0 (1.6-2.3) mg/dL Total Bilirubin 0.8 (0.2-1.3) mg/dL AST 25 (17-59) U/L ALT 15 (4-49) U/L Alkaline Phosphatase 70 (38-126) U/L Creatine Kinase 26 L (55-170) U/L Troponin I (0.000-0.034) ng/mL Total Protein 5.7 L (6.3-8.2) g/dL Albumin 3.1 L (3.5-5.0) g/dL 09/21/19 09/21/19 Range/Units 08:02 08:02 WBC (3.8-10.6) k/uL RBC (4.30-5.90) m/uL Hgb (13.0-17.5) gm/dL Hct (39.0-53.0) % MCV (80.0-100.0) fL MCH (25.0-35.0) pg MCHC (31.0-37.0) g/dL RDW (11.5-15.5) % Plt Count (150-450) k/uL Neutrophils % % Lymphocytes % % Monocytes % % Eosinophils % % Basophils % % Neutrophils # (1.3-7.7) k/uL Lymphocytes # (1.0-4.8) k/uL Monocytes # (0-1.0) k/uL Eosinophils # (0-0.7) k/uL Basophils # (0-0.2) k/uL PT (9.0-12.0) sec INR (<1.2) APTT (22.0-30.0) sec D-Dimer (<0.60) mg/L FEU Sodium (137-145) mmol/L Potassium (3.5-5.1) mmol/L Chloride (98-107) mmol/L Carbon Dioxide (22-30) mmol/L Anion Gap mmol/L BUN (9-20) mg/dL Creatinine (0.66-1.25) mg/dL Est GFR (CKD-EPI)AfAm (>60 ml/min/1.73 sqM) Est GFR (CKD-EPI)NonAf (>60 ml/min/1.73 sqM) Glucose (74-99) mg/dL Plasma Lactic Acid Catarino 0.8 (0.7-2.0) mmol/L Calcium (8.4-10.2) mg/dL Magnesium (1.6-2.3) mg/dL Total Bilirubin (0.2-1.3) mg/dL AST (17-59) U/L ALT (4-49) U/L Alkaline Phosphatase (38-126) U/L Creatine Kinase (55-170) U/L Troponin I <0.012 (0.000-0.034) ng/mL Total Protein (6.3-8.2) g/dL Albumin (3.5-5.0) g/dL Disposition Clinical Impression: Left lower lobe pneumonia, COPD exacerbation, Leukocytosis, Pulmonary embolism, Suspected COVID-19 virus infection Disposition: ADMITTED IP TO THIS HOSP Condition: Fair Referrals: Cheng Kendrick DO [Primary Care Provider] - 1-2 days
[2019-09-21] MEDS ORDERED: HEPARIN SODIUM,PORCINE 10,000 UNIT/ML 1 ML VIAL IV ONE (10:39)
[2019-09-21] MEDS ORDERED: HEPARIN SODIUM,PORCINE 5,000 UNIT/ML 1 ML VIAL IV PRN (10:39)
[2019-09-21] MEDS: HEPARIN SOD,PORK IN 0.45% NACL 25,000 UNIT in 0.45% NACL 1 250ML.BAG IV SCH (10:59)
[2019-09-21 11:14] LABS: Basophils % (A) 0 %; Eosinophils % (A) 0 %; HCT 43.3 % (39.0-53.0); HGB 13.5 gm/dL (13.0-17.5); Lymphocytes % (A) 7 %; MCHC 31.2 g/dL (31.0-37.0); MCV 96.1 fL (80.0-100.0); Mean Platelet Volume 8.2; Monocytes # (A) 0.6 k/uL (0-1.0); Monocytes % (A) 4 %; Neutrophils % (A) 88 %; Platelet Count 146 k/uL (150-450); RBC 4.51 m/uL (4.30-5.90); RDW 15.1 % (11.5-15.5); WBC 14.8 k/uL (3.8-10.6)
[2019-09-21] MEDS: IPRATROPIUM-ALBUTEROL 3 ML NEB INHALATION SCH ×4 (11:35→23:57)
[2019-09-21 11:36] LABS: INR 1.1 (<1.2); Prothrombin Time 10.9 sec (9.0-12.0)
[2019-09-21] MEDS: FOLIC ACID 1 MG TAB PO SCH (12:33)
[2019-09-21] MEDS: VALPROIC ACID ORAL SOLN 250 MG/5 ML CUP PO SCH ×3 (12:33→20:16)
[2019-09-21] MEDS: CARBIDOPA-LEVODOPA 10-100 MG 1 EACH TAB PO SCH ×3 (12:33→20:16)
[2019-09-21] MEDS: TAMSULOSIN 0.4 MG CAP.ER.24H PO SCH (12:33)
[2019-09-21] MEDS: CLOPIDOGREL 75 MG TAB PO SCH (12:33)
[2019-09-21] MEDS: FLUDROCORTISONE 0.1 MG TAB PO SCH (12:33)
[2019-09-21] MEDS: PRIMIDONE 50 MG TAB PO SCH (12:33)
[2019-09-21] MEDS: MULTIVITAMINS, THERA 1 EACH TAB PO SCH (12:33)
[2019-09-21] MEDS: LEVOTHYROXINE 125 MCG TAB PO SCH (12:33)
--- NOTE | 2019-09-21 13:28 | P.HPIM ---
History of Present Illness 69-year-old pleasant male came in with compensative from cough with sputum production and Lasix has been going on for one day cough has been going on for couple days shortness of breath for 2 days denied any proximal nocturnal dyspnea does have orthopnea. Patient had any fever chills patient and in flulike symptoms Covid 19 testing is pending patient had a computed tomography scan of the chest rule out to rule out pulmonary embolism showed a suspicious right lower lobe small distal pulmonary embolism although patient doesn't have any chest pain patient the does have shortness of breath but symptomatology doesn't appear to be secondary to pulmonary embolism. Bilateral pulmonary infiltrates. Patient doesn't have any JVD or pedal edema doesn't have any history of congestive heart failure does have history of COPD doesn't use any oxygen at home quit smoking years ago Review of Systems REVIEW OF SYSTEMS: CONSTITUTIONAL: No fever, no malaise, no fatigue. HEENT: No recent visual problems or hearing problems. Denied any sore throat. CARDIOVASCULAR: No chest pain, PND, no palpitations, no syncope. PULMONARY: As mentioned in HPI GASTROINTESTINAL: No diarrhea, no nausea, no vomiting, no abdominal pain. NEUROLOGICAL: No headaches, no weakness, no numbness. HEMATOLOGICAL: Denies any bleeding or petechiae. GENITOURINARY: Denies any burning micturition, frequency, or urgency. MUSCULOSKELETAL/RHEUMATOLOGICAL: Denies any joint pain, swelling, or any muscle pain. ENDOCRINE: Denies any polyuria or polydipsia. The rest of the 14-point review of systems is negative. Past Medical History Past Medical History: CVA/TIA, Deep Vein Thrombosis (DVT), Hypertension, Musculoskeletal Disorder, Neurologic Disorder, Pneumonia, Prostate Disorder, Seizure Disorder, Thyroid Disorder Additional Past Medical History / Comment(s): Current R hand injury/ecchymotic/edematous, pt is a left handed person, past L hand injury with compartmental syndrome, parkinson's, dysphagia-crush meds and put in applesauce, aspiration pneumonia/has had peg tube in the past, several tia's vs seizures, respiratory failure with pneumonia 8 yrs. ago, L leg DVT years ago, Hx. of HEAD INJURY (WAS TROMPER/PART OF BLDG COLLAPSED ON HIM), SCIATICA, DDD, vertigo, hypothyroid, vitamin D deficiency, BPH. History of Any Multi-Drug Resistant Organisms: MRSA Date of last positivie culture/infection: 09/30/2014 MDRO Source:: Blood Past Surgical History: Adenoidectomy, Prostate Surgery, Tonsillectomy Additional Past Surgical History / Comment(s): BRONCHOSCOPY, SX FOR PROLAPSED RECTUM, TURP, Peg insertion & then removed, osteophytes removed from throat, TEETH EXTRACTED, 12-22-15 MIKE. 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 He ambulates with a walker. His daughter manages his medications. He no longer drives. He gets to appts by his linda or son. His pills need to be crushed and placed in applesauce. He has dysphagia. His daughter has to leave during the day at times and pt and his mother are alone during those times. Smoking Status: Former smoker Past Alcohol Use History: None Reported Additional Past Alcohol Use History / Comment(s): STARTED SMOKING AT AGE 20, QUIT SMOKING 1988 SMOKED 1-2 PPD. PER FAMILY STATED PT WAS HEAVY DRINKER IN PAST BUT NONE X 25 YEARS. Past Drug Use History: None Reported - Past Family History Father Family Medical History: Myocardial Infarction ([place]) Additional Family Medical History / Comment(s): Father at the age of 62 yrs from a [place]. Mother Family Medical History: Myocardial Infarction ([place]) Additional Family Medical History / Comment(s): Mother is 97yrs old. She has a pacemaker. Medications and Allergies Home Medications Medication Instructions Recorded Confirmed Type Clopidogrel Bisulfate [Plavix] 75 mg PO DAILY 06/27/14 02/27/19 History Levothyroxine Sodium [Synthroid] 125 mcg PO DAILY 06/27/14 02/27/19 History Neupro Patch 1 patch TOPICAL HS 01/01/15 02/27/19 History Carbidopa-Levodopa 10-100 mg 1 tab PO TID 12/18/15 02/27/19 History [Sinemet 10-100 mg] cloZAPine [Clozaril] 450 mg PO HS 12/22/15 02/27/19 History Atorvastatin Calcium [Lipitor] 40 mg PO HS 02/20/17 02/27/19 History Primidone [Mysoline] 50 mg PO DAILY 02/20/17 02/27/19 History Fludrocortisone [Florinef] 0.05 mg PO DAILY@1200 02/19/18 02/27/19 History Valproic Acid (As Sodium Salt) 500 mg PO TID 05/14/18 02/27/19 History [Depakene Soln] Albuterol Nebulized [Ventolin 2.5 mg INHALATION RT-QID 06/20/18 02/27/19 History Nebulized] Tamsulosin [Flomax] 0.4 mg PO DAILY 06/20/18 02/27/19 History Donepezil [Aricept] 10 mg PO HS 02/27/19 02/27/19 History Glycopyrrolate [Robinul] 1 mg PO HS 02/27/19 02/27/19 History traZODone HCL [Desyrel] 50 mg PO HS 02/27/19 02/27/19 History Albuterol Nebulized [Ventolin 2.5 mg INHALATION Q6H PRN 30 Days 03/02/19 Rx Nebulized] #120 nebu Cefuroxime Axetil [Ceftin] 500 mg PO BID 3 Days #6 tab 03/02/19 Rx Folic Acid 1 mg PO DAILY@1200 30 Days #30 tab 03/02/19 Rx Multivitamins, Thera [Multivitamin 1 each PO DAILY@1200 30 Days #30 03/02/19 Rx (formulary)] tab Pantoprazole [Protonix] 40 mg PO AC-BRKFST 30 Days #30 03/02/19 Rx tablet. Thiamine [Vitamin B-1] 100 mg PO BID-W/MEALS 30 Days #30 03/02/19 Rx tab Allergies Allergy/AdvReac Type Severity Reaction Status Date / Time Iodinated Contrast Media Allergy Unknown Verified 02/27/19 21:24 [Iodinated Contrast- Oral and IV Dye] iohexol Allergy Nausea & Verified 02/27/19 21:24 Vomiting levofloxacin [From Levaquin] Allergy Unknown Verified 02/27/19 21:24 morphine Allergy Confusion Verified 02/27/19 21:24 tromethamine Allergy Nausea & Verified 02/27/19 21:24 Vomiting codeine AdvReac Hallucinati Verified 02/27/19 21:24 ons Physical Exam Vitals: Vital Signs Temp Pulse Pulse Resp BP BP Pulse Ox 09/21/19 12:07 98.7 F 77 18 112/69 94 L 09/21/19 11:41 80 09/21/19 11:37 78 09/21/19 11:30 98.3 F 77 18 117/71 97 09/21/19 11:00 79 20 117/71 98 09/21/19 10:30 76 20 124/70 98 09/21/19 10:00 77 18 98 09/21/19 09:30 78 18 120/69 97 09/21/19 09:22 82 18 120/69 98 09/21/19 09:00 85 18 114/72 97 09/21/19 08:47 85 18 114/72 97 09/21/19 08:30 85 18 125/69 95 09/21/19 08:03 20 09/21/19 07:59 98.3 F 90 18 125/69 93 L Intake and Output 09/20/19 09/21/19 09/21/19 22:59 06:59 14:59 Other: Weight 83.915 kg PHYSICAL EXAMINATION: GENERAL: The patient is alert and oriented x3, not in any acute distress. Well developed, well nourished. HEENT: Pupils are round and equally reacting to light. EOMI. No scleral icterus. No conjunctival pallor. Normocephalic, atraumatic. No pharyngeal erythema. No thyromegaly. CARDIOVASCULAR: S1 and S2 present. No murmurs, rubs, or gallops. PULMONARY: Crackles in the right lower lung bases with mild expiratory wheezing and diminished breath sounds ABDOMEN: Soft, nontender, nondistended, normoactive bowel sounds. No palpable organomegaly. MUSCULOSKELETAL: No joint swelling or deformity. EXTREMITIES: No cyanosis, clubbing, or pedal edema. NEUROLOGICAL: Gross neurological examination did not reveal any focal deficits. SKIN: No rashes. Note: Because of COVID 19 isolation, some of the history and physical exam findings or indirect and obtained from nursing staff, and other physician examinations to avoid unnecessary contact with the patient. Results CBC & Chem 7: 09/21/19 11:00 09/21/19 08:02 Labs: Abnormal Lab Results - Last 24 Hours (Table) 09/21/19 09/21/19 09/21/19 Range/Units 08:02 08:02 08:02 WBC 16.0 H (3.8-10.6) k/uL Plt Count 146 L (150-450) k/uL Neutrophils # 12.7 H (1.3-7.7) k/uL Monocytes # 1.1 H (0-1.0) k/uL D-Dimer 1.16 H (<0.60) mg/L FEU Chloride 109 H (98-107) mmol/L BUN 21 H (9-20) mg/dL Creatine Kinase 26 L (55-170) U/L Total Protein 5.7 L (6.3-8.2) g/dL Albumin 3.1 L (3.5-5.0) g/dL 09/21/19 Range/Units 11:00 WBC 14.8 H (3.8-10.6) k/uL Plt Count 146 L (150-450) k/uL Neutrophils # 13.0 H (1.3-7.7) k/uL Monocytes # (0-1.0) k/uL D-Dimer (<0.60) mg/L FEU Chloride (98-107) mmol/L BUN (9-20) mg/dL Creatine Kinase (55-170) U/L Total Protein (6.3-8.2) g/dL Albumin (3.5-5.0) g/dL Thrombosis Risk Factor Assmnt - Choose All That Apply Any of the Below Risk Factors Present?: Yes Each Risk Factor Represents 2 Points: Age 61-74 years Thrombosis Risk Factor Assessment Total Risk Factor Score: 2 Thrombosis Risk Factor Assessment Level: Low Risk Assessment and Plan Plan: -Shortness of breath cough with sputum production: Possibility of pneumonia clinically my suspicion is low for pulmonary embolism although we get the opinion of the neurologist. For now will continue with IV heparin. Sputum cultures will be obtained. Patient will be continued on and medics Rocephin and azithromycin. Continue with inhalational treatments patient will be started in his stress patient does have COPD exacerbation -COPD with acute exacerbation -Rule out pulmonary embolism -History of DVT in the past -Seizure disorder -Hypothyroidism -Hypertension -Depression GI prophylaxis with Pepcid Past rest of the above-mentioned chronic medical problems patient will be resumed and continued on appropriate home medications
[2019-09-21] MEDS: THIAMINE 100 MG TAB PO SCH (16:27)
--- NOTE | 2019-09-21 19:57 | CONS ---
CONSULTATION PULMONARY/CRITICAL CARE CONSULTATION: DATE OF SERVICE: 09/21/2019 This is a 69-year-old male who is a very poor historian. He comes into the emergency room, brought in by EMS on September 20 at 0758 hours with complaints of shortness of breath. The patient apparently has a history of multiple medical problems, including pneumonia and COPD. In addition, the patient has a history of CVA, DVT, hypertension, seizure disorder, hypothyroidism, Parkinson's disease, aspiration pneumonia, dysphagia, vertigo, hypothyroidism, closed-head injury and vitamin D deficiency, among other things. Again, the patient is a very poor historian. He apparently was brought in because of shortness of breath and cough and phlegm production. He has lots of chest congestion. He apparently does have a history of prior aspiration. He apparently had a saturation of 95% on 4 L. He apparently does not use home oxygen. Apparently, according to the ER harper, there was no nausea, vomiting, diarrhea or abdominal pain. Likewise, there was no chest pain or chest discomfort. No history as it pertains to fever and chills. It does mention in the ER harper that there were no fever or chills, but the patient really could not recollect. Again, he is a very poor historian. He was evaluated in the emergency room and admitted with a diagnosis of left lower lobe pneumonia, COPD exacerbation and leukocytosis. The patient does apparently have a prior history of tobacco use. HOME MEDICATIONS: Home medications are reviewed. He is on Plavix, Synthroid, Neupro patch, carbidopa/levodopa, Clozaril, Lipitor, Mysoline, Florinef, valproic acid, albuterol updrafts, Flomax, Aricept, glycopyrrolate, trazodone, Ceftin, folic acid, multiple vitamins, Protonix and thiamine. ALLERGIES: ALLERGIES include IVP DYE, LEVAQUIN, MORPHINE, CODEINE AND TROMETHAMINE. PAST MEDICAL HISTORY: His past medical history is reviewed. He apparently has a history of CVA, DVT, hypertension, Parkinson's disease, pneumonia, BPH, seizure disorder, hypothyroidism, previous history of compartment syndrome involving his left hand, dysphagia, chronic aspiration and aspiration pneumonia, previous history of PEG tube placement, closed- head injury, sciatic neuralgia, degenerative disc disease, vertigo, hypothyroidism, vitamin D deficiency and BPH. SURGICAL HISTORY: His surgical history includes, among other things, adenoidectomy, prostate surgery, tonsillectomy, bronchoscopy, TURP, PEG insertion and subsequent removal and dental extractions. He has also had a transesophageal echocardiogram. SOCIAL HISTORY: Positive for previous tobacco use. Denies alcohol use and illicit drug use. FAMILY HISTORY: Positive for father with myocardial infarction, mother with a history of myocardial infarction, status post pacemaker. REVIEW OF SYSTEMS: Review of systems is difficult to obtain from this patient. His speech is almost not able to be understood. He does have a wet congested cough. The ER harper states that he came in for complaints of cough, phlegm production and shortness of breath. There was no fever, chills or chest pain, according to the ER harper. I really could not get much more than that from the patient. PHYSICAL EXAMINATION: VITAL SIGNS: Current vital signs are reviewed. Temperature is 98.7, heart rate 77, respiratory rate 18, blood pressure 112/69, mean 83. Three-liter saturation 94%. GENERAL APPEARANCE: Appears in no acute distress. HEENT: Examination is grossly unremarkable. Nasal oxygen noted. He is on 3 L. Teeth are in poor repair. NECK: Supple. Full range of motion. No adenopathy. Neck veins are flat. CARDIOVASCULAR: Examination reveals regular rhythm and rate. Heart rate 77. S1, S2 normal. There is no S3, S4 or murmur. Heart sounds are distant. LUNGS: Lungs reveal diffuse coarse bilateral rhonchi. No wheezes. No crackles. He does not take deep breaths. When he coughs, it is a very wet, congested-sounding cough. ABDOMEN: Soft. Bowel sounds are heard. EXTREMITIES. Intact. Slight edema. SKIN: Without rash. NEUROLOGIC: Neurologic examination is difficult to assess. LABS: Reviewed. White count 14.8, hemoglobin 13.5, hematocrit 43.3, platelet count 146,000. PT, INR, PTT are all normal. D-dimer 1.16. Sodium 139, potassium 3.9, chloride 109, CO2 24. Anion gap is 6. BUN and creatinine were 21 and 0.84. The rest of the labs look pretty good. N-terminal proBNP was only 91. Microbiology is pending or negative. The patient had a chest x-ray which showed patchy left basilar atelectasis versus developing infiltrate. The patient had a CT angiogram which suggested a possible right lower lobe pulmonary embolism. At present it was very distal and small. Bilateral infiltrates, most consistent with pneumonia, and bronchial wall thickening on the right mainstem, which could be suggestive of a mucosal lesion. Bronchoscopy is suggested. CURRENT MEDICATIONS: Current medications are reviewed. He is on Lipitor, azithromycin, Symbicort, carbidopa, ceftriaxone, Plavix, Clozaril, Aricept, Florinef, folic acid, glycopyrrolate, IV heparin, DuoNeb, levothyroxine, multiple vitamins, Neupro patch, Protonix, Mysoline, saline IV, Flomax, thiamine, trazodone and Depakene. ASSESSMENT: 1. Possible aspiration pneumonia involving bilateral lower lobes. 2. Small very distal right lower lobe pulmonary embolism. 3. History of aspiration pneumonia. 4. Periodontal disease. 5. Hypothyroidism. 6. Parkinson's disease. 7. Hyperlipidemia. 8. Benign prostatic hypertrophy. 9. Cerebrovascular accident. 10.Deep venous thrombosis. 11.Hypertension. 12.Closed-head injury. 13.Degenerative disc disease. 14.Sciatic neuralgia. 15.Vertigo. 16.Multiple medical problems and comorbidities. PLAN: Currently the patient is on appropriate medications. He is getting treated for a community-acquired pneumonia. He remains on IV heparin. The patient is a very poor historian. We should implement aspiration precautions. Head of bed elevated at all times. He should have a swallow evaluation if he does not have one ordered ready. Additional recommendations and suggestions are forthcoming. His current medications include Zithromax, Rocephin, Symbicort, and albuterol and Atrovent updrafts. I do not believe he needs any steroids at this point. Eventually if he recovers, he will need a bronchoscopy to evaluate the right mainstem. MMODL / IJN: [id number] /
[2019-09-21] MEDS: traZODone HCL 50 MG TAB PO SCH ×2 (20:15→20:16)
[2019-09-21] MEDS: ATORVASTATIN 40 MG TAB PO SCH (20:15)
[2019-09-21] MEDS: DONEPEZIL 10 MG TAB PO SCH ×2 (20:15→20:16)
[2019-09-21] MEDS: cloZAPine 100 MG TAB PO SCH (20:15)
[2019-09-21] MEDS: GLYCOPYRROLATE 1 MG TAB PO SCH (20:16)
[2019-09-21] MEDS ORDERED: NEUPRO TOPICAL SCH (21:00)
[2019-09-21] MEDS: SYMBICORT 160-4.5 MCG INHALER INHALATION SCH (21:19)
[2019-09-22] MEDS: IPRATROPIUM-ALBUTEROL 3 ML NEB INHALATION SCH ×6 (04:28→22:59)
[2019-09-22] MEDS: THIAMINE 100 MG TAB PO SCH ×2 (06:32→17:23)
[2019-09-22] MEDS: PANTOPRAZOLE 40 MG TABLET PO SCH (06:32)
[2019-09-22] MEDS: LEVOTHYROXINE 125 MCG TAB PO SCH (06:32)
[2019-09-22] MEDS: HEPARIN SOD,PORK IN 0.45% NACL 25,000 UNIT in 0.45% NACL 1 250ML.BAG IV SCH ×2 (06:35→19:54)
--- NOTE | 2019-09-22 07:02 | XR ---
EXAMINATION TYPE: XR chest 1V DATE OF EXAM: 09/22/2019 CLINICAL HISTORY: Difficulty breathing and pneumonia progress study. TECHNIQUE: Single AP portable upright view of the chest is obtained. COMPARISON: Chest x-ray and CTA chest from one day earlier FINDINGS: Diminished inspiration on current study with worsening left basilar opacity. Upper lungs r emain clear without pneumothorax. Cardiac sludge size stable and within normal limits. Osseous struct ures are intact. IMPRESSION: Diminished inspiration with worsening left basilar acute infiltrate and/or atelectasis no justa.
[2019-09-22] MEDS: SYMBICORT 160-4.5 MCG INHALER INHALATION SCH ×2 (08:50→20:57)
[2019-09-22 09:03] LABS: Basophils % (A) 0 %; Eosinophils # (A) 0.1 k/uL (0-0.7); Eosinophils % (A) 0 %; HCT 39.4 % (39.0-53.0); HGB 12.8 gm/dL (13.0-17.5); Lymphocytes # (A) 1.7 k/uL (1.0-4.8); Lymphocytes % (A) 10 %; MCHC 32.5 g/dL (31.0-37.0); MCV 95.2 fL (80.0-100.0); Mean Platelet Volume 8.5; Monocytes # (A) 1.1 k/uL (0-1.0); Monocytes % (A) 7 %; Neutrophils # (A) 14.1 k/uL (1.3-7.7); Neutrophils % (A) 82 %; Platelet Count 146 k/uL (150-450); RBC 4.14 m/uL (4.30-5.90); RDW 15.2 % (11.5-15.5); WBC 17.2 k/uL (3.8-10.6)
[2019-09-22] MEDS: AZITHROMYCIN 500 MG TAB PO SCH (10:36)
[2019-09-22] MEDS: PRIMIDONE 50 MG TAB PO SCH (10:36)
[2019-09-22] MEDS: CARBIDOPA-LEVODOPA 10-100 MG 1 EACH TAB PO SCH ×3 (10:36→23:08)
[2019-09-22] MEDS: TAMSULOSIN 0.4 MG CAP.ER.24H PO SCH (10:36)
[2019-09-22] MEDS: CLOPIDOGREL 75 MG TAB PO SCH (10:36)
[2019-09-22] MEDS: VALPROIC ACID ORAL SOLN 250 MG/5 ML CUP PO SCH ×3 (10:37→23:08)
--- NOTE | 2019-09-22 12:48 | P.PN ---
Subjective Patient is admitted for bilateral pneumonia and possible pulmonary embolism patient continues to be on IV heparin, if insurance approves patient will be switched to Eliquis later today. Continue present diuretics patient is feeling much better today. Constitutional: Denied any fatigue denied any fever. Cardio vascular: denied any chest pain, palpitations Gastrointestinal denied any nausea vomiting Pulmonary: Denied any shortness of breath cough Neurologic denied any new focal deficits All inpatient medications were reviewed and appropriate changes in these medications as dictated in the interval history and assessment and plan. Objective - Vital Signs Vital signs: Vital Signs Temp 97.4 F L 09/22/19 08:00 Pulse 84 09/22/19 09:02 Resp 20 09/22/19 08:00 BP 115/72 09/22/19 08:00 Pulse Ox 97 09/22/19 08:00 Intake & Output 09/21/19 09/22/19 09/22/19 18:59 06:59 18:59 Intake Total 102.211 118.110 240 Output Total 400 1600 Balance -297.789 -1481.890 240 Weight 83.915 kg 84.5 kg Intake: Intake, IV Titration 102.211 118.110 Amount Heparin Sod,Pork in 0.45% 102.211 118.110 NaCl 25,000 unit In 0.45 % NaCl 1 250ml.bag @ 18 UNITS/KG/HR 15.105 mls/hr IV .[id number] [facility] Rx#: [id number] Oral 240 Output: Urine 400 1600 Uretheral (Lamb) 400 400 Other: Voiding Method Indwelling Catheter Indwelling Catheter Indwelling Catheter - Exam PHYSICAL EXAMINATION: GENERAL: The patient is alert and oriented x3, not in any acute distress. Well developed, well nourished. HEENT: Pupils are round and equally reacting to light. EOMI. No scleral icterus. No conjunctival pallor. Normocephalic, atraumatic. No pharyngeal erythema. No thyromegaly. CARDIOVASCULAR: S1 and S2 present. No murmurs, rubs, or gallops. PULMONARY: Crackles in the right lower lung bases with mild expiratory wheezing and diminished breath sounds ABDOMEN: Soft, nontender, nondistended, normoactive bowel sounds. No palpable organomegaly. MUSCULOSKELETAL: No joint swelling or deformity. EXTREMITIES: No cyanosis, clubbing, or pedal edema. NEUROLOGICAL: Gross neurological examination did not reveal any focal deficits. SKIN: No rashes. Note: Because of COVID 19 isolation, some of the history and physical exam findings or indirect and obtained from nursing staff, and other physician examinations to avoid unnecessary contact with the patient. - Labs CBC & Chem 7: 09/22/19 08:44 09/21/19 08:02 Labs: Abnormal Lab Results - Last 24 Hours (Table) 09/21/19 09/22/19 09/22/19 Range/Units 16:43 00:37 08:44 WBC 17.2 H (3.8-10.6) k/uL RBC 4.14 L (4.30-5.90) m/uL Hgb 12.8 L (13.0-17.5) gm/dL Plt Count 146 L (150-450) k/uL Neutrophils # 14.1 H (1.3-7.7) k/uL Monocytes # 1.1 H (0-1.0) k/uL APTT >200.0 H* 137.7 H* (22.0-30.0) sec 09/22/19 Range/Units 08:44 WBC (3.8-10.6) k/uL RBC (4.30-5.90) m/uL Hgb (13.0-17.5) gm/dL Plt Count (150-450) k/uL Neutrophils # (1.3-7.7) k/uL Monocytes # (0-1.0) k/uL APTT 69.3 H (22.0-30.0) sec Microbiology - Last 24 Hours (Table) 09/21/19 08:32 Blood Culture - Preliminary Blood No Growth after 24 hours Assessment and Plan Plan: -Shortness of breath cough with sputum production: Possibility of pneumonia clinically For now will continue with IV heparin. Sputum cultures will be obtained. Patient will be continued on and medics Rocephin and azithromycin. Continue with inhalational treatments patient will be started in his stress patient does have COPD exacerbation -Possibly a pulmonary embolism cannot be completely ruled out because of his history of DVT we will go ahead and continue with the anticoagulation -COPD with acute exacerbation -Rule out pulmonary embolism -History of DVT in the past -Seizure disorder -Hypothyroidism -Hypertension -Depression GI prophylaxis with Pepcid Past rest of the above-mentioned chronic medical problems patient will be resumed and continued on appropriate home medications
[2019-09-22] MEDS: SODIUM CHLORIDE 0.9% 1,000 ML IV SCH (13:47)
[2019-09-22] MEDS: MULTIVITAMINS, THERA 1 EACH TAB PO SCH (13:55)
[2019-09-22] MEDS: FOLIC ACID 1 MG TAB PO SCH (13:55)
[2019-09-22] MEDS: FLUDROCORTISONE 0.1 MG TAB PO SCH (13:55)
--- NOTE | 2019-09-22 15:04 | PN ---
PROGRESS NOTE PULMONARY/CRITICAL CARE PROGRESS NOTE DATE OF SERVICE: September 22, 2019 This is a 69-year-old male, very poor historian. He was brought into the emergency room by EMS with complaints of shortness of breath. The patient has multiple medical problems. The patient was thought to have possibly aspirated. In my assessment I point out that the patient had a possible aspiration pneumonia involving bilateral lower lobes and possible a small very distal right lower lobe pulmonary embolism. The patient does probably chronically aspirate. He has a very poor gag reflex. In addition, he suffers from significant periodontal disease. Today, he seems to be relatively stable. He is on a couple L of O2. His cough is wet and congested. He denies any chest pain or chest discomfort. There is no fever or chills. PHYSICAL EXAMINATION: VITAL SIGNS: Vital signs are reviewed. Current temperature is 97.4, heart rate is 82, respiratory rate 24, blood pressure 107/67, mean 82, 2 L saturation 97%. GENERAL: Appears in no acute distress. HEENT: Examination is grossly unremarkable. Nasal O2 noted at 2 L. NECK: Supple. Full range of motion. No adenopathy. Neck veins are flat. CARDIOVASCULAR: Examination is regular rhythm and rate. Heart sounds are distant. Heart rate 82 beats per minute. Heart sounds are obscured by his rhonchorous breath sounds. LUNGS: Coarse expiratory and inspiratory rhonchi. No wheezes or crackles. Breath sounds equal bilaterally. Cough is very wet and congested. ABDOMEN: Soft. EXTREMITIES are intact. No cyanosis or clubbing. There is slight edema. SKIN: Without rash. NEUROLOGIC: Examination is difficult to assess but appears to be nonfocal. LABS: Reviewed. White count 17.3, hemoglobin 12.8, hematocrit 39.4, platelet count 106,000. Currently remains on heparin via weight based protocol. No additional labs are noted. Microbiology is currently negative. Chest x-ray from yesterday shows left patchy left basilar atelectasis versus infiltrate. Repeat chest x-ray today on the shows worsening left basilar infiltrate. Medications are reviewed. ASSESSMENT: 1. Probable aspiration pneumonia involving primarily the left lower lobe. 2. Small very distal right lower lobe pulmonary embolism. 3. History of aspiration pneumonia. 4. Severe periodontal disease. 5. Hypothyroidism. 6. Parkinson disease. 7. Hyperlipidemia. 8. Benign prostatic hypertrophy. 9. History of cerebrovascular accident. 10.Deep venous thrombosis. 11.Hypertension. 12.Close head injury. 13.Degenerative disc disease. 14.Sciatic neuralgia. 15.Vertigo. 16.Multiple medical problems and comorbidities. PLAN: The patient is being treated for community-acquired pneumonia. He remains on IV heparin. The patient is a very poor historian. I did ask for aspiration precautions and maintain the bed at 45 degrees at all times. If he has not had a swallow evaluation, he should have one. He also should see a an oral surgeon or periodontal dentist. He remains on appropriate medications. We will continue to follow. Eventually, he may need a bronchoscopy to evaluate the right mainstem, which appears to be thickened on CT scan. MMODL / IJN: [id number] /
[2019-09-22] MEDS ORDERED: APIXABAN 5 MG TAB PO SCH (19:00)
[2019-09-22] MEDS: ATORVASTATIN 40 MG TAB PO SCH (22:32)
[2019-09-22] MEDS: GLYCOPYRROLATE 1 MG TAB PO SCH (23:08)
[2019-09-22] MEDS: cloZAPine 100 MG TAB PO SCH (23:08)
[2019-09-22] MEDS: NEUPRO TOPICAL SCH (23:11)
[2019-09-23] MEDS: IPRATROPIUM-ALBUTEROL 3 ML NEB INHALATION SCH ×5 (04:38→21:25)
[2019-09-23] MEDS: LEVOTHYROXINE 125 MCG TAB PO SCH (05:38)
[2019-09-23 07:29] LABS: Basophils % (A) 0 %; Eosinophils % (A) 0 %; HCT 38.1 % (39.0-53.0); HGB 11.8 gm/dL (13.0-17.5); Lymphocytes # (A) 2.7 k/uL (1.0-4.8); Lymphocytes % (A) 24 %; MCH 29.6 pg (25.0-35.0); MCHC 30.9 g/dL (31.0-37.0); MCV 95.7 fL (80.0-100.0); Mean Platelet Volume 8.7; Monocytes # (A) 0.7 k/uL (0-1.0); Monocytes % (A) 6 %; Neutrophils # (A) 7.7 k/uL (1.3-7.7); Neutrophils % (A) 68 %; Platelet Count 148 k/uL (150-450); RBC 3.98 m/uL (4.30-5.90); RDW 15.3 % (11.5-15.5); WBC 11.3 k/uL (3.8-10.6)
[2019-09-23 07:51] LABS: African American GFR (CKD) >90 (>60 ml/min/1.73 sqM); Anion Gap 4 mmol/L; Blood Urea Nitrogen 24 mg/dL (9-20); Calcium 8.2 mg/dL (8.4-10.2); Carbon Dioxide 28 mmol/L (22-30); Chloride 108 mmol/L (98-107); Glucose 79 mg/dL (74-99); Non-African American GFR(CKD) >90 (>60 ml/min/1.73 sqM); Potassium 3.9 mmol/L (3.5-5.1); Sodium 140 mmol/L (137-145)
[2019-09-23] MEDS: PANTOPRAZOLE 40 MG TABLET PO SCH (08:30)
[2019-09-23] MEDS: MULTIVITAMINS, THERA 1 EACH TAB PO SCH (08:31)
[2019-09-23] MEDS: THIAMINE 100 MG TAB PO SCH ×2 (08:31→16:22)
[2019-09-23] MEDS: FOLIC ACID 1 MG TAB PO SCH (08:31)
[2019-09-23] MEDS: TAMSULOSIN 0.4 MG CAP.ER.24H PO SCH (08:31)
[2019-09-23] MEDS: PRIMIDONE 50 MG TAB PO SCH (08:31)
[2019-09-23] MEDS: AZITHROMYCIN 500 MG TAB PO SCH (08:32)
[2019-09-23] MEDS: SODIUM CHLORIDE 0.9% 1,000 ML IV SCH (08:32)
[2019-09-23] MEDS: CLOPIDOGREL 75 MG TAB PO SCH (08:32)
[2019-09-23] MEDS: CARBIDOPA-LEVODOPA 10-100 MG 1 EACH TAB PO SCH ×3 (08:32→22:46)
[2019-09-23] MEDS: VALPROIC ACID ORAL SOLN 250 MG/5 ML CUP PO SCH ×3 (08:33→22:46)
[2019-09-23] MEDS: SYMBICORT 160-4.5 MCG INHALER INHALATION SCH ×2 (08:38→21:26)
[2019-09-23] MEDS: HEPARIN SOD,PORK IN 0.45% NACL 25,000 UNIT in 0.45% NACL 1 250ML.BAG IV SCH (08:40)
--- NOTE | 2019-09-23 12:36 | P.PN ---
Subjective Patient is admitted for bilateral pneumonia and possible pulmonary embolism patient continues to be on IV heparin, if insurance approves patient will be switched to Eliquis later today. Continue present diuretics patient is feeling much better today. 09/23/2019 Patient is doing much better clinically, White blood cell count is coming down. Patient doesn't have any fevers Constitutional: Denied any fatigue denied any fever. Cardio vascular: denied any chest pain, palpitations Gastrointestinal denied any nausea vomiting Pulmonary: Denied any shortness of breath cough Neurologic denied any new focal deficits All inpatient medications were reviewed and appropriate changes in these medications as dictated in the interval history and assessment and plan. Objective - Vital Signs Vital signs: Vital Signs Temp 97.6 F 09/23/19 07:38 Pulse 88 09/23/19 12:30 Resp 16 09/23/19 07:38 BP 127/86 09/23/19 07:38 Pulse Ox 97 09/23/19 07:38 Intake & Output 09/22/19 09/23/19 09/23/19 18:59 06:59 18:59 Intake Total 480 190.491 289.509 Output Total 500 950 Balance -20 -759.509 289.509 Weight 85 kg Intake: IV 230 Sodium Chloride 0.9% 1, 180 000 ml @ 20 mls/hr IV . Q24H [facility] Rx#:[id number] cefTRIAXone 1 gm In 50 Sodium Chloride 0.9% 50 ml @ 100 mls/hr IVPB Q24HR [facility] Rx#:[id number] Intake, IV Titration 190.491 59.509 Amount Heparin Sod,Pork in 0.45% 190.491 59.509 NaCl 25,000 unit In 0.45 % NaCl 1 250ml.bag @ 18 UNITS/KG/HR 15.105 mls/hr IV .[id number] [facility] Rx#: [id number] Oral 480 Output: Urine 500 950 Other: Voiding Method Indwelling Catheter Indwelling Catheter Indwelling Catheter - Exam PHYSICAL EXAMINATION: GENERAL: The patient is alert and oriented x3, not in any acute distress. Well developed, well nourished. HEENT: Pupils are round and equally reacting to light. EOMI. No scleral icterus. No conjunctival pallor. Normocephalic, atraumatic. No pharyngeal erythema. No thyromegaly. CARDIOVASCULAR: S1 and S2 present. No murmurs, rubs, or gallops. PULMONARY: Crackles in the right lower lung bases with mild expiratory wheezing and diminished breath sounds ABDOMEN: Soft, nontender, nondistended, normoactive bowel sounds. No palpable organomegaly. MUSCULOSKELETAL: No joint swelling or deformity. EXTREMITIES: No cyanosis, clubbing, or pedal edema. NEUROLOGICAL: Gross neurological examination did not reveal any focal deficits. SKIN: No rashes. Note: Because of COVID 19 isolation, some of the history and physical exam findings or indirect and obtained from nursing staff, and other physician examinations to avoid unnecessary contact with the patient. - Labs CBC & Chem 7: 09/23/19 06:26 09/23/19 06:26 Labs: Abnormal Lab Results - Last 24 Hours (Table) 09/22/19 09/23/19 09/23/19 Range/Units 23:47 06:26 06:26 WBC 11.3 H (3.8-10.6) k/uL RBC 3.98 L (4.30-5.90) m/uL Hgb 11.8 L (13.0-17.5) gm/dL Hct 38.1 L (39.0-53.0) % MCHC 30.9 L (31.0-37.0) g/dL Plt Count 148 L (150-450) k/uL APTT 51.7 H 55.2 H (22.0-30.0) sec Chloride (98-107) mmol/L BUN (9-20) mg/dL Calcium (8.4-10.2) mg/dL 09/23/19 Range/Units 06:26 WBC (3.8-10.6) k/uL RBC (4.30-5.90) m/uL Hgb (13.0-17.5) gm/dL Hct (39.0-53.0) % MCHC (31.0-37.0) g/dL Plt Count (150-450) k/uL APTT (22.0-30.0) sec Chloride 108 H (98-107) mmol/L BUN 24 H (9-20) mg/dL Calcium 8.2 L (8.4-10.2) mg/dL Microbiology - Last 24 Hours (Table) 09/21/19 08:32 Blood Culture - Preliminary Blood No Growth after 48 hours Assessment and Plan Plan: -Shortness of breath cough with sputum production: Possibility of pneumonia clinically For now will continue with IV heparin. Sputum cultures will be obtained. Patient will be continued on and medics Rocephin and azithromycin. Continue with inhalational treatments patient will be started in his stress patient does have COPD exacerbation -Possibly a pulmonary embolism cannot be completely ruled out because of his history of DVT we will go ahead and continue with the anticoagulation -COPD with acute exacerbation -Rule out pulmonary embolism -History of DVT in the past -Seizure disorder -Hypothyroidism -Hypertension -Depression GI prophylaxis with Pepcid Past rest of the above-mentioned chronic medical problems patient will be resumed and continued on appropriate home medications
[2019-09-23] MEDS: FLUDROCORTISONE 0.1 MG TAB PO SCH (13:12)
--- NOTE | 2019-09-23 15:26 | PN ---
PROGRESS NOTE DATE OF SERVICE: September 23, 2019 This is a 69-year-old male who has been seen for shortness of breath. He is doing much better today. Feeling much better. He was thought to have an aspiration pneumonia. In addition, and in the process of working him up, he was thought to have a very small very distal right lower lobe pulmonary embolism. Looking at his scans, I do not believe he actually has had a PE. Anyway, the patient is a very poor historian. He has had bad dentition. He has a very poor gag reflex. Again, he seems to be doing a bit better today than previous days. He really has no particular complaints today. PHYSICAL EXAMINATION: VITAL SIGNS: Current vital signs are reviewed. His temperature is 97.6. heart rate is 88, respiratory rate 16, blood pressure 127/86, mean 99. 2 L saturation 99%. GENERAL: Appears in no acute distress. HEENT: Examination is grossly unremarkable. NECK: Supple. Full range of motion. CARDIOVASCULAR: Examination reveals regular rhythm and rate. Heart rate 81 beats per minute. S1, S2 normal. Heart sounds distant. LUNGS: A few scattered rhonchi. No wheezes or crackles. Breath sounds are actually improved. ABDOMEN: Soft, bowel sounds are heard. EXTREMITIES are intact. Slight edema. SKIN: Without rash. NEUROLOGIC: Examination is nonfocal. LABS: Reviewed. White count down to 11.3, hemoglobin 11.8, hematocrit 38.1, platelet count 148,000. Sodium 140, potassium 3.9, chloride 108. CO2 28, anion gap is 4, BUN and creatinine were 24 and 0.79. Microbiology studies are negative. IMAGING PROCEDURES: Chest x-ray done September 21 so shows a left basilar infiltrate and/or atelectasis. Chest CT from September 20 shows a possible right lower lobe small distal pulmonary embolism. There is also evidence of bilateral infiltrate and thickening of the right mainstem bronchial wall, which would have to be evaluated at a later date. MEDICATIONS: Reviewed. He is currently on the patient is currently on Lipitor, Zithromax, Symbicort, Sinemet, ceftriaxone, Clozaril, Aricept, Florinef, folic acid, glycopyrrolate, subcu heparin, updrafts, levothyroxine, multivitamins, Neupro patch, Protonix, primidone, Flomax, thiamine, trazodone, valproic acid. ASSESSMENT: 1. Shortness of breath, likely related to aspiration pneumonia involving primarily the left lower lobe, but also to a lesser extent in the right lower lobe. 2. Possible small very distal right pulmonary embolism. 3. History of aspiration pneumonia. 4. Severe periodontal disease. 5. Hypothyroidism. 6. Parkinson disease. 7. Hyperlipidemia. 8. Benign prostatic hypertrophy. 9. History of cerebrovascular accident. 10.Deep venous thrombosis. 11.Hypertension. 12.Closed head injury. 13.Degenerative joint disease. 14.Sciatic neuralgia. 15.Vertigo. 16.Multiple medical problems and comorbidities. PLAN: The patient remains on IV heparin. Apparently Dr. Hood is going to acid changer to subcu heparin. The patient would be at high risk should he fall if he was on a blood thinner. I think the patient should continue with aspiration precautions, head of bed elevated at all times. In addition, if he has not had a swallow evaluation, he should have some. The patient will need to see a periodontal physician for his poor oral and dental care. In addition, to better elucidate whether not the patient did in fact have a pulmonary embolism, I think for safety sake we should repeat a CT angiogram. Additional recommendations and suggestions are forthcoming. MMODL / IJN: [id number] /
[2019-09-23] MEDS: HEPARIN SODIUM,PORCINE 5,000 UNIT/ML 1 ML VIAL SQ SCH ×2 (16:21→22:48)
[2019-09-23] MEDS ORDERED: predniSONE 50 MG TAB PO ONE (21:00)
[2019-09-23] MEDS: DONEPEZIL 10 MG TAB PO SCH (22:46)
[2019-09-23] MEDS: GLYCOPYRROLATE 1 MG TAB PO SCH (22:46)
[2019-09-23] MEDS: cloZAPine 100 MG TAB PO SCH (22:46)
[2019-09-23] MEDS: traZODone HCL 50 MG TAB PO SCH (22:46)
[2019-09-23] MEDS: ATORVASTATIN 40 MG TAB PO SCH (22:47)
[2019-09-23] MEDS: NEUPRO TOPICAL SCH (22:47)
[2019-09-24] MEDS: IPRATROPIUM-ALBUTEROL 3 ML NEB INHALATION SCH ×5 (00:13→20:45)
[2019-09-24] MEDS ORDERED: IPRATROPIUM-ALBUTEROL 3 ML NEB INHALATION PRN (00:13)
[2019-09-24] MEDS ORDERED: predniSONE 50 MG TAB PO ONE ×2 (03:00→09:00)
[2019-09-24] MEDS: LEVOTHYROXINE 125 MCG TAB PO SCH (05:59)
[2019-09-24] MEDS: SYMBICORT 160-4.5 MCG INHALER INHALATION SCH ×2 (07:11→20:45)
[2019-09-24 07:27] LABS: Basophils % (A) 0 %; Eosinophils % (A) 0 %; HCT 40.2 % (39.0-53.0); HGB 12.4 gm/dL (13.0-17.5); Lymphocytes % (A) 14 %; MCH 29.5 pg (25.0-35.0); MCHC 30.8 g/dL (31.0-37.0); MCV 95.9 fL (80.0-100.0); Mean Platelet Volume 8.4; Monocytes # (A) 0.2 k/uL (0-1.0); Monocytes % (A) 3 %; Neutrophils # (A) 5.6 k/uL (1.3-7.7); Neutrophils % (A) 82 %; Platelet Count 157 k/uL (150-450); RBC 4.19 m/uL (4.30-5.90); RDW 15.4 % (11.5-15.5); WBC 6.8 k/uL (3.8-10.6)
[2019-09-24 07:36] LABS: African American GFR (CKD) >90 (>60 ml/min/1.73 sqM); Anion Gap 7 mmol/L; Blood Urea Nitrogen 25 mg/dL (9-20); Calcium 8.4 mg/dL (8.4-10.2); Carbon Dioxide 26 mmol/L (22-30); Chloride 105 mmol/L (98-107); Glucose 119 mg/dL (74-99); Non-African American GFR(CKD) >90 (>60 ml/min/1.73 sqM); Potassium 4.5 mmol/L (3.5-5.1); Sodium 138 mmol/L (137-145)
[2019-09-24] MEDS: CARBIDOPA-LEVODOPA 10-100 MG 1 EACH TAB PO SCH ×3 (08:02→22:13)
[2019-09-24] MEDS: AZITHROMYCIN 500 MG TAB PO SCH (08:02)
[2019-09-24] MEDS: MULTIVITAMINS, THERA 1 EACH TAB PO SCH (08:03)
[2019-09-24] MEDS: PRIMIDONE 50 MG TAB PO SCH (08:03)
[2019-09-24] MEDS: THIAMINE 100 MG TAB PO SCH ×2 (08:03→16:25)
[2019-09-24] MEDS: TAMSULOSIN 0.4 MG CAP.ER.24H PO SCH (08:03)
[2019-09-24] MEDS: FOLIC ACID 1 MG TAB PO SCH (08:03)
[2019-09-24] MEDS: VALPROIC ACID ORAL SOLN 250 MG/5 ML CUP PO SCH ×3 (08:06→22:12)
[2019-09-24] MEDS: HEPARIN SODIUM,PORCINE 5,000 UNIT/ML 1 ML VIAL SQ SCH ×2 (08:18→16:25)
[2019-09-24] MEDS: PANTOPRAZOLE 40 MG TABLET PO SCH (08:19)
[2019-09-24] MEDS ORDERED: diphenhydrAMINE 25 MG CAP PO ONE (09:00)
--- NOTE | 2019-09-24 10:45 | CT ---
EXAMINATION TYPE: CT angio chest DATE OF EXAM: 09/24/2019 COMPARISON: CTA Chest September 21, 2019 and older studies. HISTORY: ?? PE, SOB. CT DLP: 568.2 mGycm. Automated Exposure Control for Dose Reduction was Utilized. CONTRAST: CTA scan of the thorax is performed without and with IV Contrast, patient injected with 100 ml mL of Isovue 370, pulmonary embolism protocol. MIP Images are created on CT scanner and reviewed. FINDINGS: LUNGS: Markedly suboptimal study on current study. Poor inspiration along with respiratory motion art ifact on current study makes evaluation suboptimal. New tiny right pleural effusion. Associated right basilar atelectasis and/or consolidation. More patchy left basilar atelectasis and dependent atelect asis noted. No suspicious masses. Elevated right hemidiaphragm. MEDIASTINUM: There is motion artifact but fairly satisfactory bolus. No convincing evidence for pulmo nary embolism. Better visualization of opacified right lower lobe pulmonary arteries on the current s tudy . Prior study presumed artifact. There are no greater than 1 cm hilar or mediastinal lymph nodes . No new pericardial effusion is seen. Heart size mildly enlarged and stable. Coronary artery calci fication is present which is noted marker for underlying coronary artery disease. OTHER: Probable fatty infiltration of liver. IMPRESSION: Persistent suboptimal study but no convincing CT evidence for acute pulmonary embolism. M ild cardiomegaly redemonstrated with tiny right pleural effusion on current study.
[2019-09-24] MEDS: FLUDROCORTISONE 0.1 MG TAB PO SCH (12:50)
--- NOTE | 2019-09-24 13:12 | P.PN ---
Subjective Progress Note Date: 09/24/19 On today's evaluation of 09/24/2019 the patient is being seen for a follow-up. He is not experiencing any significant shortness of breath. He was treated for pneumonia with accommodation of Rocephin and Zithromax. There was also concern of pulmonary embolism. A repeat CT angiogram was done and there is no convincing evidence of any pulmonary embolism in this patient. The lower lobe consolidation specially in the right is improving on follow-up CAT scan. He has a mild congested cough. Unable to bring up any sputum. We thought that this was an aspiration pneumonia. He is a poor historian. He has poor dentition. He is progressively getting worse over the years and his gag is also poor. No fever. No chills. No night sweats. No altered mentation. No other complaints. Is a case of Parkinson's disease and addition to several other comorbidities as discussed earlier. Objective - Vital Signs Vital signs: Vital Signs Temp 97.4 F L 09/24/19 07:48 Pulse 88 09/24/19 11:12 Resp 18 09/24/19 08:00 BP 119/73 09/24/19 07:48 Pulse Ox 93 L 09/24/19 10:42 Intake & Output 09/23/19 09/24/19 09/24/19 18:59 06:59 18:59 Intake Total 289.509 Output Total 700 700 Balance 289.509 -700 -700 Weight 88 kg Intake: IV 230 Sodium Chloride 0.9% 1, 180 000 ml @ 20 mls/hr IV . Q24H [facility] Rx#:[id number] cefTRIAXone 1 gm In 50 Sodium Chloride 0.9% 50 ml @ 100 mls/hr IVPB Q24HR [facility] Rx#:[id number] Intake, IV Titration 59.509 Amount Heparin Sod,Pork in 0.45% 59.509 NaCl 25,000 unit In 0.45 % NaCl 1 250ml.bag @ 18 UNITS/KG/HR 15.105 mls/hr IV .[id number] [facility] Rx#: [id number] Output: Urine 700 700 Other: Voiding Method Indwelling Catheter Indwelling Catheter Indwelling Catheter - Exam Gen. appearance the patient has typical poker facies related to Parkinson's and the patient has had previous closed head injury. Head exam was generally normal. There was no scleral icterus or corneal arcus. Mucous membranes were moist. Neck was supple and without jugular venous distension, thyromegaly, or carotid bruits. Carotids were easily palpable bilaterally. There was no adenopathy. Lungs sounds are diminished in lung bases bilaterally along with some limited bibasilar crackles. Cardiac exam revealed the PMI to be normally situated and sized. The rhythm was regular and no extrasystoles were noted during several minutes of auscultation. The first and second heart sounds were normal and physiologic splitting of the second heart sound was noted. There were no murmurs, rubs, clicks, or gallops. Abdominal exam revealed normal bowel sounds. The abdomen was soft, non-tender, and without masses, organomegaly, or appreciable enlargement of the abdominal aorta. Examination of the extremities revealed easily palpable radial, femoral and pedal pulses. There was no cyanosis, clubbing or edema. Examination of the skin revealed no evidence of significant rashes, suspicious appearing nevi or other concerning lesions. Neurologic the patient has some resting tremors and has cogwheel rigidity rates to Parkinson's disease. - Labs CBC & Chem 7: 09/24/19 06:33 09/24/19 06:33 Labs: Abnormal Lab Results - Last 24 Hours (Table) 09/24/19 09/24/19 Range/Units 06:33 06:33 RBC 4.19 L (4.30-5.90) m/uL Hgb 12.4 L (13.0-17.5) gm/dL MCHC 30.8 L (31.0-37.0) g/dL BUN 25 H (9-20) mg/dL Glucose 119 H (74-99) mg/dL Microbiology - Last 24 Hours (Table) 09/21/19 08:32 Blood Culture - Preliminary Blood No Growth after 72 hours Assessment and Plan Plan: 1 aspiration pneumonia with some limited bibasilar pulmonary infiltrates/consolidation, improving on today's CAT scan of the chest. CT angiogram did not prove the presence of any filling defects and there is no convincing evidence that the patient could've had a pulmonary embolism. Pneumonia is most likely the working diagnosis at this point in time. 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 Plan Clinically stable and patient is improving. Complete antibiotic course and the patient can be switched to oral antibiotics Aspiration precautions Outpatient medications but resumed No need for anticoagulants We'll continue to follow
--- NOTE | 2019-09-24 14:32 | CDI ---
Documentation Clarification Form Date: 09/24/2019 02:01:00 PM From: Xuan Sears RN CCDS Admit Date: 09/21/2019 08:49:00 AM Patient Name: Aston Camarillo Visit Number: [id number] Discharge Date: ATTENTION: The Clinical Documentation Specialists (CDI) and [facility] Coding Staff appreciate your assistance in clarifying documentation. Please respond to the clarification below the line at the bottom and electronically sign. The CDI & [facility] Coding staff will review the response and follow-up if needed. Please note: Queries are made part of the Legal Health Record. If you have any questions, please contact the author of this message via ITS. Dr. Rob Hood The COVID-19 test obtained on 09/20 was reported as Negative on 09/20 Patient had any fever chills patient and in flulike symptoms Covid 19 testing is pending documented in the H&P 09/20 69-year-old male with a medical history of COPD, HTN, Hypothyroidism and history of aspiration pneumonia. Clinical Indicators Patient reported shortness of breath, exertional dyspnea and cough. 09/20 CXR Hypo ventilatory changes with some patchy left basilar atelectasis. 09/20 VS in ED Triage: T: 98.3, P: 90, R: 18, Sat 93 % on room air 09/20 Labs: Wbc 14.8, D-dimer 1.16, Inr 1.1, Neutrophils 13.0 Treatment 09/23 Pulmonary Progress Note: Possible aspiration pneumonia. CT angiogram did not prove the presence of any filling defects and there is no convincing evidence that the patient couldve had a pulmonary embolism. 09/20 Zithromax Ivpb x1, 09/21 Zithromax 500mg po Q day d/c 09/23, 09/20 Rocephin Ivpb Q day In order to capture the severity of condition, please clarify the COVID-19 status: COVID-19 ruled out False negative, treating for COVID-19 infection Other, please specify Documented 09/[address] Hood Covid 19 ruled out testing was negative. (Last Form Revision: June 2019) MTDD
--- NOTE | 2019-09-24 16:05 | P.PN ---
Subjective Progress Note Date: 09/24/19 Principal diagnosis: Patient is admitted for bilateral pneumonia and possible pulmonary embolism patient continues to be on IV heparin, if insurance approves patient will be switched to Eliquis later today. Continue present diuretics patient is feeling much better today. 09/23/2019 Patient is doing much better clinically, White blood cell count is coming down. Patient doesn't have any fevers Had a lengthy discussion with area field person Dr. Armas the suspicion for PE is low even if he has a PE has a subsegmental PE not affecting his respiratory status patient's main issue is most probably aspiration pneumonia patient has Parkinson's had multiple [place] the past and his Plavix was discontinued with the neurologist because of his multiple falls and whenever patient falls patient has big hematomas and very high risk for bleeding because of that reason we decided not to continue anticoagulation as risk with overweighs the benefit. Patient will be started on subcutaneous heparin for DVT prophylaxishe had his Plavix is also discontinued because of his falls but it as an outpatient early this patient to his neurologist and PCP Constitutional: Denied any fatigue denied any fever. Cardio vascular: denied any chest pain, palpitations Gastrointestinal denied any nausea vomiting Pulmonary: Denied any shortness of breath cough Neurologic denied any new focal deficits All inpatient medications were reviewed and appropriate changes in these medications as dictated in the interval history and assessment and plan. 09/24/2019 Patient is seen and evaluated in follow-up awaiting to undergo repeat CTA to assess for pulmonary embolism and patient remains on 3 L of oxygen via nasal cannula although does not normally wear oxygen at home. Discussed with nursing staff about possible home O2 eval. Patient is 91% on room air. Patient is currently maintained on IV Rocephin along with Zithromax and will continue at this time. Patient did have an indwelling Lamb catheter for urinary retention which was removed and patient has not yet voided. Will monitor closely for retention and straight cath as needed. An additional dose of Flomax 0.4 mg will be given at this time. Patient was seen and evaluated by PT/OT recommending possible rehab for strength and mobility although daughter is his caregiver and would like him to return home once discharged as she does not feel rehab as necessary for him. Case management and social work to follow for any discharge planning needs. Repeat CTA shows no convincing CT evidence for acute pulmonary embolism. Anticipate discharge in the morning. Objective - Vital Signs Vital signs: Vital Signs Temp 97.4 F L 09/24/19 07:48 Pulse 88 09/24/19 11:12 Resp 18 09/24/19 08:00 BP 119/73 09/24/19 07:48 Pulse Ox 93 L 09/24/19 10:42 Intake & Output 09/23/19 09/24/19 09/24/19 18:59 06:59 18:59 Intake Total 289.509 Output Total 700 1100 Balance 289.509 -700 -1100 Weight 88 kg Intake: IV 230 Sodium Chloride 0.9% 1, 180 000 ml @ 20 mls/hr IV . Q24H [facility] Rx#:[id number] cefTRIAXone 1 gm In 50 Sodium Chloride 0.9% 50 ml @ 100 mls/hr IVPB Q24HR [facility] Rx#:[id number] Intake, IV Titration 59.509 Amount Heparin Sod,Pork in 0.45% 59.509 NaCl 25,000 unit In 0.45 % NaCl 1 250ml.bag @ 18 UNITS/KG/HR 15.105 mls/hr IV .[id number] [facility] Rx#: [id number] Output: Urine 700 1100 Other: Voiding Method Indwelling Catheter Indwelling Catheter Indwelling Catheter - Exam GENERAL: The patient is alert and oriented x3, not in any acute distress. Well developed, well nourished. HEENT: Pupils are round and equally reacting to light. EOMI. No scleral icterus. No conjunctival pallor. Normocephalic, atraumatic. No pharyngeal erythema. No thyromegaly. CARDIOVASCULAR: S1 and S2 present. No murmurs, rubs, or gallops. PULMONARY: Scattered rhonchi in the right lower lung bases with mild expiratory wheezing and diminished breath sounds ABDOMEN: Soft, nontender, nondistended, normoactive bowel sounds. No palpable organomegaly. MUSCULOSKELETAL: No joint swelling or deformity. EXTREMITIES: No cyanosis, clubbing, or pedal edema. NEUROLOGICAL: Gross neurological examination did not reveal any focal deficits. SKIN: No rashes. - Labs CBC & Chem 7: 09/24/19 06:33 09/24/19 06:33 Labs: Abnormal Lab Results - Last 24 Hours (Table) 09/24/19 09/24/19 Range/Units 06:33 06:33 RBC 4.19 L (4.30-5.90) m/uL Hgb 12.4 L (13.0-17.5) gm/dL MCHC 30.8 L (31.0-37.0) g/dL BUN 25 H (9-20) mg/dL Glucose 119 H (74-99) mg/dL Microbiology - Last 24 Hours (Table) 09/21/19 08:32 Blood Culture - Preliminary Blood No Growth after 72 hours Assessment and Plan Assessment: -Shortness of breath cough with sputum production: Possibility of pneumonia clinically For now will continue with subq heparin. Sputum cultures will be obtained. Patient is maintained on IV Rocephin along with Zithromax and will continue at this time. -Possibility of a pulmonary embolism cannot be completely ruled out because of his history of DVT although repeat CTA shows no convincing evidence of a pulmonary embolism. -COPD with acute exacerbation -Ruled out pulmonary embolism -Covid 19 ruled out, testing was negative -History of DVT in the past -Seizure disorder -Hypothyroidism -Hypertension -Depression -GI prophylaxis with Pepcid Plan: Continue current medications, management, and symptomatic treatment. Continue with antibiotics and may straight cath as needed for retention. Patient will be going home with family once stabilized for discharge. Nursing staff instructed to give an additional dose of Flomax 0.4 mg this evening. Further recommendations to follow. Anticipate discharge in 24 hours.
[2019-09-24] MEDS: SODIUM CHLORIDE 0.9% 1,000 ML IV SCH (16:28)
[2019-09-24] MEDS ORDERED: TAMSULOSIN 0.4 MG CAP.ER.24H PO STA (17:06)
[2019-09-24] MEDS: cloZAPine 100 MG TAB PO SCH (22:12)
[2019-09-24] MEDS: ATORVASTATIN 40 MG TAB PO SCH (22:12)
[2019-09-24] MEDS: traZODone HCL 50 MG TAB PO SCH (22:13)
[2019-09-24] MEDS: DONEPEZIL 10 MG TAB PO SCH (22:13)
[2019-09-24] MEDS: GLYCOPYRROLATE 1 MG TAB PO SCH (22:13)
[2019-09-24] MEDS: NEUPRO TOPICAL SCH (22:19)
[2019-09-25] MEDS: HEPARIN SODIUM,PORCINE 5,000 UNIT/ML 1 ML VIAL SQ SCH ×2 (01:42→08:16)
[2019-09-25] MEDS: IPRATROPIUM-ALBUTEROL 3 ML NEB INHALATION SCH ×2 (07:24→11:11)
[2019-09-25] MEDS: SYMBICORT 160-4.5 MCG INHALER INHALATION SCH (07:24)
[2019-09-25 07:54] LABS: African American GFR (CKD) >90 (>60 ml/min/1.73 sqM); Anion Gap 3 mmol/L; Blood Urea Nitrogen 25 mg/dL (9-20); Calcium 8.6 mg/dL (8.4-10.2); Carbon Dioxide 30 mmol/L (22-30); Chloride 105 mmol/L (98-107); Glucose 112 mg/dL (74-99); Non-African American GFR(CKD) >90 (>60 ml/min/1.73 sqM); Potassium 3.9 mmol/L (3.5-5.1); Sodium 138 mmol/L (137-145)
[2019-09-25] MEDS: LEVOTHYROXINE 125 MCG TAB PO SCH (08:16)
[2019-09-25] MEDS: PRIMIDONE 50 MG TAB PO SCH (08:16)
[2019-09-25] MEDS: PANTOPRAZOLE 40 MG TABLET PO SCH (08:16)
[2019-09-25] MEDS: THIAMINE 100 MG TAB PO SCH (08:16)
[2019-09-25] MEDS: CARBIDOPA-LEVODOPA 10-100 MG 1 EACH TAB PO SCH (08:17)
[2019-09-25] MEDS: AZITHROMYCIN 500 MG TAB PO SCH (08:17)
[2019-09-25] MEDS: SODIUM CHLORIDE 0.9% 1,000 ML IV SCH (08:18)
[2019-09-25] MEDS: TAMSULOSIN 0.4 MG CAP.ER.24H PO SCH (08:18)
[2019-09-25] MEDS: VALPROIC ACID ORAL SOLN 250 MG/5 ML CUP PO SCH (08:19)
[2019-09-25 08:31] VITALS: BP 121/75; RESP 16; TEMP 98.1
[2019-09-25 11:22] VITALS: PULSE 76
[2019-09-25] MEDS: FLUDROCORTISONE 0.1 MG TAB PO SCH (11:44)
[2019-09-25] MEDS: FOLIC ACID 1 MG TAB PO SCH (11:44)
[2019-09-25] MEDS: MULTIVITAMINS, THERA 1 EACH TAB PO SCH (11:44)
--- NOTE | 2019-09-25 13:22 | P.PN ---
Subjective Progress Note Date: 09/25/19 Principal diagnosis: Aspiration pneumonia with some limited bibasilar pulmonary infiltrates On today's evaluation of 09/24/2019 the patient is being seen for a follow-up. He is not experiencing any significant shortness of breath. He was treated for pneumonia with accommodation of Rocephin and Zithromax. There was also concern of pulmonary embolism. A repeat CT angiogram was done and there is no convincing evidence of any pulmonary embolism in this patient. The lower lobe consolidation specially in the right is improving on follow-up CAT scan. He has a mild congested cough. Unable to bring up any sputum. We thought that this was an aspiration pneumonia. He is a poor historian. He has poor dentition. He is progressively getting worse over the years and his gag is also poor. No fever. No chills. No night sweats. No altered mentation. No other complaints. Is a case of Parkinson's disease and addition to several other comorbidities as discussed earlier. On 09/25/2019 patient seen in follow-up on general medical floor, he is awake and alert, he sitting up in the chair, he walked with therapy today in the room, /he walked to the door and back, tolerated activity well, room air pulse ox is 93%, no cough or congestion, no hemoptysis, no complex of chest pain. No fever or chills. Blood cultures have been negative. Patient remains on Zithromax, he has completed a course of Rocephin. Today's labs were reviewed, BNP was done only, no CBC, electrolytes were within normal limits, BUN is 25 creatinine 0.82. No night sweats, no confusion, no altered mentation no specific complaints, tolerating diet, no nausea or vomiting, discharge planning is in progress for discharge home today Objective - Vital Signs Vital signs: Vital Signs Temp 98.1 F 09/25/19 06:42 Pulse 76 09/25/19 11:21 Resp 16 09/25/19 06:42 BP 121/75 09/25/19 06:42 Pulse Ox 93 L 09/25/19 06:42 Intake & Output 09/24/19 09/25/19 09/25/19 18:59 06:59 18:59 Output Total 2300 1375 Balance -2300 -1375 Weight 88.5 kg Output: Urine 2300 1375 Uretheral (Lamb) 400 Other: Voiding Method Indwelling Catheter # Voids 1 - Exam GENERAL EXAM: Alert, very pleasant, 69-year-old white male, on room air, with a pulse ox of 93% comfortable in no apparent distress. HEAD: Normocephalic/atraumatic. EYES: Normal reaction of pupils, equal size. Conjunctiva pink, sclera white. NOSE: Clear with pink turbinates. THROAT: No erythema or exudates. NECK: No masses, no JVD, no thyroid enlargement, no adenopathy. CHEST: No chest wall deformity. Symmetrical expansion. LUNGS: Equal air entry with no crackles, wheeze, rhonchi or dullness. CVS: Regular rate and rhythm, normal S1 and S2, no gallops, no murmurs, no rubs ABDOMEN: Soft, nontender. No hepatosplenomegaly, normal bowel sounds, no guarding or rigidity. EXTREMITIES: No clubbing, no edema, no cyanosis, 2+ pulses and upper and lower extremities. MUSCULOSKELETAL: Muscle strength and tone normal. SPINE: No scoliosis or deformity SKIN: No rashes CENTRAL NERVOUS SYSTEM: Alert and oriented -3. No focal deficits, tone is normal in all 4 extremities. PSYCHIATRIC: Alert and oriented -3. Appropriate affect. Intact judgment and insight. - Labs CBC & Chem 7: 09/24/19 06:33 09/25/19 06:49 Labs: Abnormal Lab Results - Last 24 Hours (Table) 09/25/19 Range/Units 06:49 BUN 25 H (9-20) mg/dL Glucose 112 H (74-99) mg/dL Microbiology - Last 24 Hours (Table) 09/21/19 08:32 Blood Culture - Preliminary Blood No Growth after 96 hours Assessment and Plan Plan: Assessment: 1 aspiration pneumonia with some limited bibasilar pulmonary infiltrates/consolidation, improving on today's CAT scan of the chest. CT angiogram did not prove the presence of any filling defects and there is no convincing evidence that the patient could've had a pulmonary embolism. Pneumonia is most likely the working diagnosis at this point in time. 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 Plan: Patient continues to clinically improve, no fever or chills, he has completed is a course of Rocephin, remains on Zithromax. No fever or chills, tolerating ambulation, CTA chest was completed yesterday showing no evidence of acute pulmonary embolism, and bibasilar atelectasis and/or consolidation. Vital signs are stable, patient is being discharged home today, she will need outpatient follow-up with Dr. Armas in the office in 2 weeks I performed a history & physical examination of the patient and discussed their management with my nurse practitioner, Harper Craig. I reviewed the nurse practitioner's note and agree with the documented findings and plan of care. Lung sounds are positive for diminished breath sounds throughout the lung pink. The findings and the impression was discussed with the patient. I attest to the documentation by the nurse practitioner. Time with Patient: Less than 30
--- NOTE | 2019-09-26 09:53 | P.DS ---
Providers Date of admission: 09/21/19 08:49 Expected date of discharge: 09/25/19 Attending physician: Rob Hood Consults: 09/21/19 10:39 Consult Physician Routine Consulting Provider: Demetris Armas Consult Reason/Comments: Pneumonia, PE, rule out Covid Do you want consulting provider notified?: Yes Primary care physician: [facility] Course: Final diagnosis -Shortness of breath cough with sputum production: Possibility of pneumonia low -COPD with acute exacerbation -Ruled out pulmonary embolism -Covid 19 ruled out, testing was negative -History of DVT in the past -Seizure disorder -Hypothyroidism -Hypertension -Depression -GI prophylaxis Discharge disposition Patient is being discharged in a stable condition with guarded prognosis to home. Patient will continue with home care in the outpatient setting Patient will follow-up with Dr. Butcher in the outpatient setting. Patient will continue on oral Ceftin along with Zithromax to complete the course. Patient will follow-up with Dr. Armas in the outpatient setting. Total time taken is 35 minutes. History of present illness This is a 69-year-old male who was recently admitted with right lateral pneumonia and possible pulmonary embolism and was being closely monitored. Pulmonary following. Patient underwent a CTA showing possible pulmonary embolism cannot be excluded although repeat CTA did not show any pulmonary embolisms. Patient was originally initiated on a heparin drip with initial CT findings although suspect for PE was low. Patient has a history of Parkinson's with multiple falls at very high risk of bleeding and family has opted not to continue with anti-Coagulation due to his risk of bleeding. Patient is maintained on a daily aspirin. Patient will follow-up with Dr. Armas in the outpatient setting and will have continued Homecare per family's wishes. Patient daughter lives with the patient and cares for him. Currently no reports of chest pain, palpitations, or worsening shortness of breath. Patient is afebrile. No reports of nausea or vomiting and patient is tolerating diet. On exam vital signs are stable. Temp is 98.1 F, pulse is 82, respirations are 16, blood pressure 121/75, oxygen saturation is 93% on room air. Cardio S1, S2 are present. Respiratory shows diminished breath sounds at the bases with a few scattered rhonchi noted. Abdomen is soft and non-tender. Nervous system shows no focal deficits. Please refer to medication reconciliation sheet for a list of medications. Patient Condition at Discharge: Stable Plan - Discharge Summary Discharge Rx Participant: No New Discharge Prescriptions: New Cefuroxime Axetil [Ceftin] 500 mg PO BID 5 Days #10 tab Ipratropium-Albuterol Nebulize [Duoneb 0.5 mg-3 mg/3 ml Soln] 3 ml INHALATION RT-QID 30 Days #120 ml Ipratropium-Albuterol Nebulize [Duoneb 0.5 mg-3 mg/3 ml Soln] 3 ml INHALATION RT-QID PRN ml PRN Reason: Shortness Of Breath Or Wheezing Folic Acid 1 mg PO DAILY@1200 30 Days #30 tab Multivitamins, Thera [Multivitamin (formulary)] 1 each PO DAILY@1200 30 Days #30 tab Budesonide-Formot 160-4.5 Mcg [Symbicort 160-4.5 Mcg Inhaler] 2 puff INHALATION RT-BID 30 Days #1 puff Thiamine [Vitamin B-1] 100 mg PO DAILY 30 Days #30 tab Azithromycin [Zithromax] 500 mg PO DAILY 3 Days #3 tab Continue Levothyroxine Sodium [Synthroid] 125 mcg PO DAILY Carbidopa-Levodopa 10-100 mg [Sinemet 10-100 mg] 1 tab PO TID cloZAPine [Clozaril] 450 mg PO HS Primidone [Mysoline] 50 mg PO BID Atorvastatin Calcium [Lipitor] 40 mg PO HS Fludrocortisone [Florinef] 0.05 mg PO DAILY Valproic Acid (As Sodium Salt) [Depakene Soln] 500 mg PO TID Tamsulosin [Flomax] 0.4 mg PO HS Donepezil [Aricept] 10 mg PO HS Glycopyrrolate [Robinul] 1 mg PO HS traZODone HCL [Desyrel] 50 mg PO HS Neupro Patch 6mg/24hr 1 patch TOPICAL DAILY Aspirin EC [Ecotrin Low Dose] 81 mg PO DAILY Discontinued Albuterol Nebulized [Ventolin Nebulized] 2.5 mg INHALATION RT-QID PRN PRN Reason: Shortness Of Breath Discharge Medication List Levothyroxine Sodium [Synthroid] 125 mcg PO DAILY 06/27/14 [History] Carbidopa-Levodopa 10-100 mg [Sinemet 10-100 mg] 1 tab PO TID 12/18/15 [History] cloZAPine [Clozaril] 450 mg PO HS 12/22/15 [History] Atorvastatin Calcium [Lipitor] 40 mg PO HS 02/20/17 [History] Primidone [Mysoline] 50 mg PO BID 02/20/17 [History] Fludrocortisone [Florinef] 0.05 mg PO DAILY 02/19/18 [History] Valproic Acid (As Sodium Salt) [Depakene Soln] 500 mg PO TID 05/14/18 [History] Tamsulosin [Flomax] 0.4 mg PO HS 06/20/18 [History] Donepezil [Aricept] 10 mg PO HS 02/27/19 [History] Glycopyrrolate [Robinul] 1 mg PO HS 02/27/19 [History] traZODone HCL [Desyrel] 50 mg PO HS 02/27/19 [History] Aspirin EC [Ecotrin Low Dose] 81 mg PO DAILY 09/21/19 [History] Neupro Patch 6mg/24hr 1 patch TOPICAL DAILY 09/21/19 [History] Azithromycin [Zithromax] 500 mg PO DAILY 3 Days #3 tab 09/24/19 [Rx] Budesonide-Formot 160-4.5 Mcg [Symbicort 160-4.5 Mcg Inhaler] 2 puff INHALATION RT-BID 30 Days #1 puff 09/24/19 [Rx] Cefuroxime Axetil [Ceftin] 500 mg PO BID 5 Days #10 tab 09/24/19 [Rx] Folic Acid 1 mg PO DAILY@1200 30 Days #30 tab 09/24/19 [Rx] Ipratropium-Albuterol Nebulize [Duoneb 0.5 mg-3 mg/3 ml Soln] 3 ml INHALATION RT-QID 30 Days #120 ml 09/24/19 [Rx] Ipratropium-Albuterol Nebulize [Duoneb 0.5 mg-3 mg/3 ml Soln] 3 ml INHALATION RT-QID PRN ml 09/24/19 [Rx] Multivitamins, Thera [Multivitamin (formulary)] 1 each PO DAILY@1200 30 Days #30 tab 09/24/19 [Rx] Thiamine [Vitamin B-1] 100 mg PO DAILY 30 Days #30 tab 09/24/19 [Rx] Follow up Appointment(s)/Referral(s): Demetris Armas DO [Doctor of Osteopathic Medicine] - 10/11/19 2:45 pm (With Cierra King) [facility], [NON-STAFF] - As Needed Cheng Butcher DO [Primary Care Provider] - 09/26/19 1:20 pm (At [place] office. Please call office prior to visit for protocol of office . ................................................................................ ..........................) Patient Instructions/Handouts: Pulmonary Embolism (DC), Pneumonia (DC) Activity/Diet/Wound Care/Special Instructions: Activity Limited until follow-up Continue current diet Follow-up with primary care provider upon discharge Continue antibiotics until finished Discharge Disposition: HOME WITH HOME HEALTH SERVICES
--- NOTE | 2019-09-28 06:14 | CDI ---
Documentation Clarification Form Date: 09/28/2019 06:01:39 AM From: Mckenzie Abbasi Phone: If you have a question about this query, please contact L[facility] Lin Line Therapist at [phone] between 8am and 5pm. Admit Date: 09/21/2019 08:49:00 AM Patient Name: Aston Camarillo Visit Number: [id number] Discharge Date: 09/25/2019 01:12:00 PM ATTENTION: The Clinical Documentation Specialists (CDI) and [facility] Coding Staff appreciate your assistance in clarifying documentation. Please respond to the clarification below the line at the bottom and electronically sign. The CDI & [facility] Coding staff will review the response and follow-up if needed. Please note: Queries are made part of the Legal Health Record. If you have any questions, please contact the author of this message via ITS. Dr. Rob Hood Conflicting documentation has been found in the medical record: DCS Possibility of pneumonia low. Pulmonary 6/2 PN documents patient had aspiration pneumonia. "Most likely pneumonia is the working diagnosis". Please clarify if patient had aspiration pneumonia or was this ruled out. History/Risk Factors: dysphagia Parkinsons COPD exacerbation Clinical Indicators: CTA consolidations in lungs Treatment: Rocephin and Zithromax In your opinion, what is the most clinically appropriate diagnosis for this patient? Aspiration pneumonia Aspiration pneumonia ruled out Other explanation of clinical findings Unable to determine (no explanation for clinical findings) Aspiration pneumonia MTDD
== END 2019-09-25 13:12 | disposition home health service (06) | DRG 178 ==
LOC: EC 07:58 → 3SCARD 08:49 → 4SSUR 09-22 19:34
PROVIDERS: ADMIT Internal Medicine; ATTEND Internal Medicine
DX: J69.0 Pneumonitis due to inhalation of food and vomit (principal); J44.1 Chronic obstructive pulmonary disease with (acute) exacerbation; Z20.828 Contact with and (suspected) exposure to other viral communicable diseases; G40.909 Epilepsy, unspecified, not intractable, without status epilepticus; K05.6 Periodontal disease, unspecified; M19.90 Unspecified osteoarthritis, unspecified site; M54.30 Sciatica, unspecified side; N40.0 Benign prostatic hyperplasia without lower urinary tract symptoms; R13.10 Dysphagia, unspecified; Z79.02 Long term (current) use of antithrombotics/antiplatelets; Z79.890 Hormone replacement therapy; Z79.899 Other long term (current) drug therapy; Z82.49 Family history of ischemic heart disease and other diseases of the circulatory system; Z86.718 Personal history of other venous thrombosis and embolism; Z86.73 Personal history of transient ischemic attack (TIA), and cerebral infarction without residual deficits; Z87.01 Personal history of pneumonia (recurrent); Z87.828 Personal history of other (healed) physical injury and trauma; Z87.891 Personal history of nicotine dependence; I11.0 Hypertensive heart disease with heart failure; I50.9 Heart failure, unspecified; Z91.81 History of falling; F43.10 Post-traumatic stress disorder, unspecified; F32.9 Major depressive disorder, single episode, unspecified; E78.5 Hyperlipidemia, unspecified; E03.9 Hypothyroidism, unspecified; G20 Parkinson's disease; Z88.5 Allergy status to narcotic agent; Z88.8 Allergy status to other drugs, medicaments and biological substances; Z88.1 Allergy status to other antibiotic agents; Z91.041 Radiographic dye allergy status; E55.9 Vitamin D deficiency, unspecified; F41.9 Anxiety disorder, unspecified; R42 Dizziness and giddiness
CPT/HCPCS: 36415; 71045; 71046; 71275; 80048; 80053; 82550; 83605; 83735; 83880; 84484; 85025; 85379; 85610; 85730; 87040; 87070; 87205; 93005; 94640; 96365; 96367; 96375; 96376; 99285

== ENCOUNTER → 2019-10-04 | Outpatient (CLI) | payer MEDICARE ==
--- NOTE | 2019-10-04 15:42 | XR ---
EXAMINATION TYPE: XR chest 2V DATE OF EXAM: 10/04/2019 COMPARISON: 09/22/2019 INDICATION: Bronchopneumonia short of breath TECHNIQUE: Frontal and lateral views of the chest are obtained. FINDINGS: The heart size is normal. The pulmonary vasculature is normal. The lungs are clear. There is elevation of the right diaphragm. Left lower lobe infiltrate has impro aquiles. IMPRESSION: 1. No acute pulmonary process.
== END | disposition home or self-care (01) ==
LOC: RADXRYALE 14:09
PROVIDERS: ATTEND Physician Assistant Medical
DX: J18.0 Bronchopneumonia, unspecified organism (principal); R06.02 Shortness of breath
CPT/HCPCS: 71046

== ENCOUNTER 2019-10-16 05:48 | Inpatient (IN) | payer MEDICARE ==
[2019-10-16] MEDS ORDERED: ACETAMINOPHEN TAB 500 MG TAB PO STA (06:09)
[2019-10-16] MEDS ORDERED: IPRATROPIUM-ALBUTEROL 3 ML NEB INHALATION STA (06:15)
--- NOTE | 2019-10-16 06:15 | ED ---
General Adult HPI <Demetris Machado - Last Filed: 10/16/19 07:39> - General Source: patient, EMS, RN notes reviewed, old records reviewed Mode of arrival: EMS Limitations: no limitations <RuiTelmaFlavia - Last Filed: 10/16/19 08:16> - General Chief complaint: Weakness Stated complaint: Fall Time Seen by Provider: 10/16/19 05:59 - History of Present Illness Initial comments: Patient is a 69-year-old male recently admitted for pneumonia presents emergency department today for weakness and a fall. Patient was ambulating to the bathroom and was unsteady on his feet. His daughter witnessed that he has became lightheaded, and lean against the wall and fell backward sliding down. He does complain of some bruising over his left leg and knee pain. Patient reports that he had no loss consciousness. He denies any specific chest pain. Patient arrived to the emergency department with a low-grade temperature 99.8. He does report an increasing cough however he was recently dishes antibiotic. Patient reports that he has had no chest pain. He denies any nausea or vomiting or abdominal pain. He denies any change in urination or bowel habits. (Flavia Fabian) - Related Data Home Medications Medication Instructions Recorded Confirmed Levothyroxine Sodium [Synthroid] 125 mcg PO DAILY 06/27/14 10/16/19 Carbidopa-Levodopa 10-100 mg 1 tab PO TID 12/18/15 10/16/19 [Sinemet 10-100 mg] cloZAPine [Clozaril] 450 mg PO HS 12/22/15 10/16/19 Atorvastatin Calcium [Lipitor] 40 mg PO HS 02/20/17 10/16/19 Primidone [Mysoline] 50 mg PO BID 02/20/17 10/16/19 Fludrocortisone [Florinef] 0.05 mg PO DAILY 02/19/18 10/16/19 Valproic Acid (As Sodium Salt) 500 mg PO TID 05/14/18 10/16/19 [Depakene Soln] Tamsulosin [Flomax] 0.4 mg PO HS 06/20/18 10/16/19 Donepezil [Aricept] 10 mg PO HS 02/27/19 10/16/19 Glycopyrrolate [Robinul] 1 mg PO HS 02/27/19 10/16/19 traZODone HCL [Desyrel] 50 mg PO HS 02/27/19 10/16/19 Aspirin EC [Ecotrin Low Dose] 81 mg PO DAILY 09/21/19 10/16/19 Neupro Patch 6mg/24hr 1 patch TOPICAL DAILY 09/21/19 10/16/19 Previous Rx's Medication Instructions Recorded Budesonide-Formot 160-4.5 Mcg 2 puff INHALATION RT-BID 30 Days 09/24/19 [Symbicort 160-4.5 Mcg Inhaler] #1 puff Folic Acid 1 mg PO DAILY@1200 30 Days #30 tab 09/24/19 Ipratropium-Albuterol Nebulize 3 ml INHALATION RT-QID PRN ml 09/24/19 [Duoneb 0.5 mg-3 mg/3 ml Soln] Multivitamins, Thera [Multivitamin 1 each PO DAILY@1200 30 Days #30 09/24/19 (formulary)] tab Thiamine [Vitamin B-1] 100 mg PO DAILY 30 Days #30 tab 09/24/19 Allergies Allergy/AdvReac Type Severity Reaction Status Date / Time Iodinated Contrast Media Allergy Unknown Verified 02/27/19 21:24 [Iodinated Contrast- Oral and IV Dye] iohexol Allergy Nausea & Verified 02/27/19 21:24 Vomiting levofloxacin [From Levaquin] Allergy Unknown Verified 02/27/19 21:24 morphine Allergy Confusion Verified 02/27/19 21:24 tromethamine Allergy Nausea & Verified 02/27/19 21:24 Vomiting codeine AdvReac Hallucinati Verified 02/27/19 21:24 ons Review of Systems ROS Other: All systems not noted in ROS Statement are negative. <Demetris Machado - Last Filed: 10/16/19 07:39> ROS Other: All systems not noted in ROS Statement are negative. <Flavia Fabian - Last Filed: 10/16/19 08:16> ROS Statement: Those systems with pertinent positive or pertinent negative responses have been documented in the HPI. 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 ago, L leg DVT years ago, Hx. of HEAD INJURY (WAS FILER METAL PATTERNS/PART OF BLDG COLLAPSED ON HIM), SCIATICA, DDD, vertigo, hypothyroid, vitamin D deficiency, BPH. History of Any Multi-Drug Resistant Organisms: MRSA Date of last positivie culture/infection: 09/30/2014 MDRO Source:: Blood Past Surgical History: Adenoidectomy, Prostate Surgery, Tonsillectomy Additional Past Surgical History / Comment(s): BRONCHOSCOPY, SX FOR PROLAPSED RECTUM, TURP, Peg insertion & then removed, osteophytes removed from throat, TEETH EXTRACTED, 12-22-15 MIKE. Past Anesthesia/Blood Transfusion Reactions: Motion Sickness Past Psychological History: Anxiety, Depression, PTSD Smoking Status: Former smoker Past Alcohol Use History: None Reported Past Drug Use History: None Reported - Past Family History Father Family Medical History: Myocardial Infarction (IA) Additional Family Medical History / Comment(s): Father at the age of 62 yrs from a IA. Mother Family Medical History: Myocardial Infarction (IA) Additional Family Medical History / Comment(s): Mother is 97yrs old. She has a pacemaker. <Flavia Fabian - Last Filed: 10/16/19 08:16> General Exam Limitations: no limitations General appearance: alert Head exam: Present: atraumatic, normocephalic, normal inspection Eye exam: Present: normal appearance, PERRL, EOMI. Absent: scleral icterus, conjunctival injection, periorbital swelling ENT exam: Present: normal exam, mucous membranes moist Neck exam: Present: normal inspection. Absent: tenderness, meningismus, lymphadenopathy Respiratory exam: Present: rhonchi, decreased breath sounds. Absent: normal lung sounds bilaterally, respiratory distress, wheezes, rales, stridor Cardiovascular Exam: Present: regular rate, normal rhythm, normal heart sounds. Absent: systolic murmur, diastolic murmur, rubs, gallop, clicks GI/Abdominal exam: Present: soft Extremities exam: Present: normal inspection, full ROM, normal capillary refill, other (contusion over L lower leg). Absent: tenderness, pedal edema, joint swelling, calf tenderness Back exam: Present: normal inspection Neurological exam: Present: alert, oriented X3, CN II-XII intact Psychiatric exam: Present: normal affect, normal mood Skin exam: Present: warm, dry, intact, normal color. Absent: rash <LucianaFlavia mccarty - Last Filed: 10/16/19 08:16> - General Exam Comments Initial Comments: 69 year old male, weak. (Flavia Fabian) Course <Demetris Machado - Last Filed: 10/16/19 07:39> Vital Signs 10/16/19 10/16/19 10/16/19 05:50 06:03 06:35 Temperature 99.8 F H Pulse Rate 98 93 Respiratory 24 24 Rate Blood Pressure 125/78 O2 Sat by Pulse 97 Oximetry 10/16/19 10/16/19 10/16/19 06:46 07:39 07:44 Temperature 98.1 F Pulse Rate 90 65 Respiratory 16 Rate Blood Pressure 118/64 O2 Sat by Pulse 96 Oximetry 10/16/19 08:03 Temperature Pulse Rate 86 Respiratory 16 Rate Blood Pressure 111/66 O2 Sat by Pulse 96 Oximetry - Reevaluation(s) Reevaluation #1: 10/16/19 07:39 PA supervision: I personally evaluate this case patient presented with complaints of weakness he demonstrated evidence of shortness of breath COPD type exacerbation with rhonchi and diminished breath sounds. Patient does demonstrate elevated white blood cell count with a shift to the left. He was recently admitted for pneumonia. He will be readmitted for inpatient evaluation and treatment COPD exacerbation and failure to thrive. Patient be admitted to Dr. Zavala's group (Demetris Machado) EKG Findings - EKG Comments: EKG Findings:: EKG shows normal sinus rhythm right bundle branch block. T wave abnormality consider anterolateral ischemia. Abnormal EKG. Ventricular rate of 90 bpm. IL interval is 134 ms. QRS duration 138 milliseconds. QT QTc is 396/505 ms. <Flavia Fabian - Last Filed: 10/16/19 08:16> Medical Decision Making - Lab Data Result diagrams: 10/16/19 05:59 10/16/19 05:59 <Demetris Machado - Last Filed: 10/16/19 07:39> - Lab Data Result diagrams: 10/16/19 05:59 10/16/19 05:59 - Radiology Data Radiology results: report reviewed <Flavia Fabian - Last Filed: 10/16/19 08:16> - Medical Decision Making 69-year-old male presents weren't sure today for weakness. He is ambulate into the bathroom became weak and fell down the side of the wall. There is question will hitting his head. Patient arrives to emergency department febrile 99.8, with worsening productive cough according to family. Was recently admitted and treated for pneumonia. He does have diminished lung sounds and rhonchi in lung pink with productive cough. Chest x-ray shows no evidence of focal c onsolidation at this time. He complains of no chest pain. EKG was reviewed with no significant change from prior EKG. Troponin is negative. BNP was within normal limits. Patient CT of the brain is negative for acute process. Blood cultures were completed. Patient was started on Rocephin and azithromycin this time concern for bronchopneumonia is also given steroids and DuoNeb treatment does have some improvement of aeration of lung pink on reevaluation. Patient's appears generally weak, and discussed this with Dr. Machado. Determined the Patient should be admitted for failure to thrive, weakness, falls and concern for bronchopneumonia. (Flavia Fabian) - Lab Data Lab Results 10/16/19 10/16/19 10/16/19 Range/Units 05:59 05:59 05:59 WBC 12.0 H (3.8-10.6) k/uL RBC 4.19 L (4.30-5.90) m/uL Hgb 13.4 (13.0-17.5) gm/dL Hct 40.1 (39.0-53.0) % MCV 95.6 (80.0-100.0) fL MCH 31.9 (25.0-35.0) pg MCHC 33.4 (31.0-37.0) g/dL RDW 15.3 (11.5-15.5) % Plt Count 164 (150-450) k/uL Neutrophils % 79 % Lymphocytes % 11 % Monocytes % 9 % Eosinophils % 1 % Basophils % 0 % Neutrophils # 9.4 H (1.3-7.7) k/uL Lymphocytes # 1.3 (1.0-4.8) k/uL Monocytes # 1.0 (0-1.0) k/uL Eosinophils # 0.1 (0-0.7) k/uL Basophils # 0.0 (0-0.2) k/uL PT 10.5 (9.0-12.0) sec INR 1.0 (<1.2) APTT 27.3 (22.0-30.0) sec Sodium 140 (137-145) mmol/L Potassium 3.6 (3.5-5.1) mmol/L Chloride 106 (98-107) mmol/L Carbon Dioxide 26 (22-30) mmol/L Anion Gap 8 mmol/L BUN 19 (9-20) mg/dL Creatinine 0.80 (0.66-1.25) mg/dL Est GFR (CKD-EPI)AfAm >90 (>60 ml/min/1.73 sqM) Est GFR (CKD-EPI)NonAf >90 (>60 ml/min/1.73 sqM) Glucose 99 (74-99) mg/dL Plasma Lactic Acid Catarino (0.7-2.0) mmol/L Calcium 8.5 (8.4-10.2) mg/dL Total Bilirubin 0.6 (0.2-1.3) mg/dL AST 21 (17-59) U/L ALT 11 (4-49) U/L Alkaline Phosphatase 77 (38-126) U/L Troponin I (0.000-0.034) ng/mL NT-Pro-B Natriuret Pep pg/mL Total Protein 6.2 L (6.3-8.2) g/dL Albumin 3.5 (3.5-5.0) g/dL Urine Color Urine Appearance (Clear) Urine pH (5.0-8.0) Ur Specific [place] (1.001-1.035) Urine Protein (Negative) Urine Glucose (UA) (Negative) Urine Ketones (Negative) Urine Blood (Negative) Urine Nitrite (Negative) Urine Bilirubin (Negative) Urine Urobilinogen (<2.0) mg/dL Ur Leukocyte Esterase (Negative) 10/16/19 10/16/19 10/16/19 Range/Units 05:59 05:59 05:59 WBC (3.8-10.6) k/uL RBC (4.30-5.90) m/uL Hgb (13.0-17.5) gm/dL Hct (39.0-53.0) % MCV (80.0-100.0) fL MCH (25.0-35.0) pg MCHC (31.0-37.0) g/dL RDW (11.5-15.5) % Plt Count (150-450) k/uL Neutrophils % % Lymphocytes % % Monocytes % % Eosinophils % % Basophils % % Neutrophils # (1.3-7.7) k/uL Lymphocytes # (1.0-4.8) k/uL Monocytes # (0-1.0) k/uL Eosinophils # (0-0.7) k/uL Basophils # (0-0.2) k/uL PT (9.0-12.0) sec INR (<1.2) APTT (22.0-30.0) sec Sodium (137-145) mmol/L Potassium (3.5-5.1) mmol/L Chloride (98-107) mmol/L Carbon Dioxide (22-30) mmol/L Anion Gap mmol/L BUN (9-20) mg/dL Creatinine (0.66-1.25) mg/dL Est GFR (CKD-EPI)AfAm (>60 ml/min/1.73 sqM) Est GFR (CKD-EPI)NonAf (>60 ml/min/1.73 sqM) Glucose (74-99) mg/dL Plasma Lactic Acid Catarino 1.0 (0.7-2.0) mmol/L Calcium (8.4-10.2) mg/dL Total Bilirubin (0.2-1.3) mg/dL AST (17-59) U/L ALT (4-49) U/L Alkaline Phosphatase (38-126) U/L Troponin I <0.012 (0.000-0.034) ng/mL NT-Pro-B Natriuret Pep 43 pg/mL Total Protein (6.3-8.2) g/dL Albumin (3.5-5.0) g/dL Urine Color Urine Appearance (Clear) Urine pH (5.0-8.0) Ur Specific [place] (1.001-1.035) Urine Protein (Negative) Urine Glucose (UA) (Negative) Urine Ketones (Negative) Urine Blood (Negative) Urine Nitrite (Negative) Urine Bilirubin (Negative) Urine Urobilinogen (<2.0) mg/dL Ur Leukocyte Esterase (Negative) 10/16/19 Range/Units 06:44 WBC (3.8-10.6) k/uL RBC (4.30-5.90) m/uL Hgb (13.0-17.5) gm/dL Hct (39.0-53.0) % MCV (80.0-100.0) fL MCH (25.0-35.0) pg MCHC (31.0-37.0) g/dL RDW (11.5-15.5) % Plt Count (150-450) k/uL Neutrophils % % Lymphocytes % % Monocytes % % Eosinophils % % Basophils % % Neutrophils # (1.3-7.7) k/uL Lymphocytes # (1.0-4.8) k/uL Monocytes # (0-1.0) k/uL Eosinophils # (0-0.7) k/uL Basophils # (0-0.2) k/uL PT (9.0-12.0) sec INR (<1.2) APTT (22.0-30.0) sec Sodium (137-145) mmol/L Potassium (3.5-5.1) mmol/L Chloride (98-107) mmol/L Carbon Dioxide (22-30) mmol/L Anion Gap mmol/L BUN (9-20) mg/dL Creatinine (0.66-1.25) mg/dL Est GFR (CKD-EPI)AfAm (>60 ml/min/1.73 sqM) Est GFR (CKD-EPI)NonAf (>60 ml/min/1.73 sqM) Glucose (74-99) mg/dL Plasma Lactic Acid Catarino (0.7-2.0) mmol/L Calcium (8.4-10.2) mg/dL Total Bilirubin (0.2-1.3) mg/dL AST (17-59) U/L ALT (4-49) U/L Alkaline Phosphatase (38-126) U/L Troponin I (0.000-0.034) ng/mL NT-Pro-B Natriuret Pep pg/mL Total Protein (6.3-8.2) g/dL Albumin (3.5-5.0) g/dL Urine Color [place] Urine Appearance Clear (Clear) Urine pH 6.0 (5.0-8.0) Ur Specific [place] 1.025 (1.001-1.035) Urine Protein Negative (Negative) Urine Glucose (UA) Negative (Negative) Urine Ketones 1+ (Negative) Urine Blood Negative (Negative) Urine Nitrite Negative (Negative) Urine Bilirubin Negative (Negative) Urine Urobilinogen 8.0 (<2.0) mg/dL Ur Leukocyte Esterase Negative (Negative) - Radiology Data Negative left tibia and fibula. Chest x-ray shows no acute intracranial cardiopulmonary disease. No change. CT of the brain shows cerebral atrophy, mild hydrocephalus. No acute intracranial abnormality. Mild cervical spondylitic changes. No fracture seen. (Flavia Fabian) Disposition <Demetris Machado - Last Filed: 10/16/19 07:39> Is patient prescribed a controlled substance at d/c from ED?: No Time of Disposition: 07:48 <Flavia Fabian - Last Filed: 10/16/19 08:16> Clinical Impression: Fall, Failure to thrive in adult, COPD exacerbation Disposition: ADMITTED IP TO THIS HOSP Condition: Stable Referrals: Mayra Oconnell, PAC [Primary Care Provider] - 1-2 days
[2019-10-16 06:21] LABS: Basophils % (A) 0 %; Eosinophils # (A) 0.1 k/uL (0-0.7); Eosinophils % (A) 1 %; HCT 40.1 % (39.0-53.0); HGB 13.4 gm/dL (13.0-17.5); Lymphocytes # (A) 1.3 k/uL (1.0-4.8); Lymphocytes % (A) 11 %; MCH 31.9 pg (25.0-35.0); MCHC 33.4 g/dL (31.0-37.0); MCV 95.6 fL (80.0-100.0); Mean Platelet Volume 8.7; Monocytes % (A) 9 %; Neutrophils # (A) 9.4 k/uL (1.3-7.7); Neutrophils % (A) 79 %; Platelet Count 164 k/uL (150-450); RBC 4.19 m/uL (4.30-5.90); RDW 15.3 % (11.5-15.5)
[2019-10-16 06:32] LABS: Partial Thromboplastin Time 27.3 sec (22.0-30.0); Prothrombin Time 10.5 sec (9.0-12.0)
--- NOTE | 2019-10-16 06:35 | XR ---
EXAMINATION TYPE: XR tibia fibula LT DATE OF EXAM: 10/16/2019 COMPARISON: NONE HISTORY: Fall. Pain. TECHNIQUE: 2 views FINDINGS: Tibia and fibula appear intact. I see no fracture nor dislocation. Ankle mortise is anatomi c. Knee joint appears intact. IMPRESSION: Negative left tibia and fibula exam.
--- NOTE | 2019-10-16 06:37 | XR ---
EXAMINATION TYPE: XR chest 2V DATE OF EXAM: 10/16/2019 COMPARISON: 10/04/2019 HISTORY: Short of breath fever. TECHNIQUE: FINDINGS: There is no heart failure nor confluent pneumonic infiltrate. There is slight elevated righ t diaphragm. There are no hilar masses. There are chest leads. Costophrenic angles are clear. IMPRESSION: No active cardiopulmonary disease. No change.
[2019-10-16 06:38] LABS: ALT 11 U/L (4-49); AST 21 U/L (17-59); African American GFR (CKD) >90 (>60 ml/min/1.73 sqM); Albumin 3.5 g/dL (3.5-5.0); Alkaline Phosphatase 77 U/L (38-126); Anion Gap 8 mmol/L; Blood Urea Nitrogen 19 mg/dL (9-20); Calcium 8.5 mg/dL (8.4-10.2); Carbon Dioxide 26 mmol/L (22-30); Chloride 106 mmol/L (98-107); Glucose 99 mg/dL (74-99); Non-African American GFR(CKD) >90 (>60 ml/min/1.73 sqM); Potassium 3.6 mmol/L (3.5-5.1); Sodium 140 mmol/L (137-145); Total Bilirubin 0.6 mg/dL (0.2-1.3); Total Protein 6.2 g/dL (6.3-8.2)
--- NOTE | 2019-10-16 06:44 | CT ---
EXAMINATION TYPE: CT brain dulce carcamo DATE OF EXAM: 10/16/2019 COMPARISON: 02/28/2019 CT brain HISTORY: Fall from standing, slumped into wall CT DLP: 1446.9 mGycm Automated exposure control for dose reduction was used. There is cerebral cortical atrophy. There is no mass effect nor midline shift. There is no sign of in tracranial hemorrhage. The calvarium is intact. There is enlargement of the ventricles. There is some straightening of the cervical spine. There is mild multilevel cervical disc space narro wing and spur formation. Facet joints are intact. The skull base is intact. I see no bony destructive process. The temporal bones show normal aeration. IMPRESSION: Cerebral atrophy. Mild hydrocephalus. No acute intracranial abnormality. Mild cervical spondylotic changes. No fracture seen.
[2019-10-16] MEDS: SODIUM CHLORIDE 0.9% 500 ML 500 ML IV SCH (06:56)
[2019-10-16 06:59] LABS: Color,Urine Amber
[2019-10-16 07:00] LABS: Appearance,Urine Clear (Clear); Bilirubin,Urine Negative (Negative); Blood,Urine Negative (Negative); Glucose,Urine (UA) Negative (Negative); Ketones,Urine 1+ (Negative); Leukocyte Esterase,Urine Negative (Negative); Nitrite,Urine Negative (Negative); Protein,Urine Negative (Negative); Specific Gravity,Urine 1.025 (1.001-1.035)
[2019-10-16] MEDS ORDERED: cefTRIAXone IN SWFI 1,000 MG/10 ML SYRINGE IVP STA (07:30)
[2019-10-16] MEDS ORDERED: methylPREDNISolone SOD SUCCI 125 MG/2 ML VIAL IV STA (07:30)
[2019-10-16] MEDS ORDERED: ONDANSETRON 4 MG/2 ML VIAL IVP PRN (07:43)
[2019-10-16] MEDS ORDERED: NALOXONE 0.4 MG/ML 1 ML VIAL IV PRN (07:43)
[2019-10-16] MEDS ORDERED: ACETAMINOPHEN TAB 325 MG TAB PO PRN (07:43)
[2019-10-16] MEDS ORDERED: PNEUMONIA PROTOCOL UTILIZED 1 EACH MISC PO PRN (07:45)
[2019-10-16] MEDS: SODIUM CHLORIDE 0.9% 1,000 ML IV SCH ×2 (10:05→23:11)
[2019-10-16] MEDS: PANTOPRAZOLE 40 MG/10 ML VIAL IV SCH (11:36)
[2019-10-16] MEDS ORDERED: IPRATROPIUM-ALBUTEROL 3 ML NEB INHALATION PRN (11:45)
[2019-10-16] MEDS: MULTIVITAMINS, THERA 1 EACH TAB PO SCH (13:18)
[2019-10-16] MEDS: FOLIC ACID 1 MG TAB PO SCH (13:18)
[2019-10-16] MEDS: VALPROIC ACID ORAL SOLN 250 MG/5 ML CUP PO SCH (19:19)
[2019-10-16] MEDS: CARBIDOPA-LEVODOPA 10-100 MG 1 EACH TAB PO SCH (19:20)
[2019-10-16] MEDS ORDERED: ALPRAZolam 0.25 MG TAB PO PRN (19:33)
--- NOTE | 2019-10-16 20:26 | HP ---
HISTORY AND PHYSICAL DATE OF SERVICE: 10/16/2019 CHIEF COMPLAINTS: Fall and weakness. HISTORY OF PRESENT ILLNESS: This 69-year-old gentleman with a past medical history of multiple medical problems, including COPD, CVA, DVT, hypertension, history of DJD, history of tremors, seizure disorder, was recently admitted to the hospital with COPD, acute exacerbation. Pulmonary embolism was ruled out. Patient went home, but subsequently patient was having significant tremors and weakness and the patient apparently fell. His daughter said the patient became lightheaded and was leaning against the wall and fell and had some bruising of the left leg and pain. The patient came to [facility] and was admitted for further evaluation and treatment. There is no history of any fever, rigor or chills. No history of headache. Low-grade temperature was noted. WBC is 12 at this time. PAST MEDICAL HISTORY: COPD, CVA, DVT, hypertension, DJD, history of pneumonia, history of prostate disorder, seizure disorder. HOME MEDICATIONS: Reviewed. They include: 1. Trazodone 50 mg at bedtime. 2. Clozaril 450 mg at bedtime. 3. Valproic acid 500 mg p.o. t.i.d. 4. Thiamine 100 mg p.o. daily. 5. Flomax 0.4 at bedtime. 6. Mysoline 50 mg p.o. b.i.d. 7. Multivitamins 1 p.o. daily. 8. Synthroid 125 mcg p.o. daily. 9. DuoNeb q.i.d. p.r.n. 10.Robinul 1 mg at bedtime. 11.Folic acid 1 mg p.o. daily. 12.Florinef 0.05 mg p.o. daily. 13.Aricept 10 mg at bedtime. 14.Neupro patch 1 patch daily. 15.Carbidopa L-dopa 1 tablet p.o. t.i.d. 16.Symbicort 160/4.5 two puffs b.i.d. 17.Lipitor 40 mg at bedtime. 18.Ecotrin 81 mg p.o. daily. ALLERGIES: IODINATED CONTRAST DYE, IOHEXOL, LEVAQUIN, MORPHINE, TROMETHAMINE, CODEINE. FAMILY HISTORY: History of myocardial infarction in the family. SOCIAL HISTORY: Previous history of smoking. No current smoking or alcohol. REVIEW OF SYSTEMS: ENT: No diminished hearing. No diminished vision. CARDIOVASCULAR SYSTEM: No angina, palpitations. RESPIRATORY SYSTEM: As mentioned earlier. GI: No nausea, vomiting. : No dysuria or retention. NERVOUS SYSTEM: As mentioned earlier. ALLERGY/IMMUNOLOGY: As mentioned earlier. HEMATOLOGY/ONCOLOGY: No history of anemia. ENDOCRINE: Hypothyroidism. CONSTITUTIONAL: As mentioned earlier. DERMATOLOGY: Negative. RHEUMATOLOGY: Negative. PSYCHIATRY: As mentioned earlier. PHYSICAL EXAMINATION: Patient alert and oriented x3. Pulse 87, blood pressure 120/72, respirations 16, temperature normal, pulse ox 96% on 2 L. HEENT: Conjunctivae normal. Oral mucosa moist. NECK: No jugular venous distention. No carotid bruit. No lymph node enlargement. CARDIOVASCULAR SYSTEM: S1, S2 muffled. RESPIRATORY SYSTEM: Breath sounds diminished at the bases. A few scattered rhonchi and crackles. ABDOMEN: Soft, non-tender. No mass palpable. LEGS: No edema. No swelling. NERVOUS SYSTEM: Diffusely weak. Tremors present. Tone is also increased. LABS: WBC 12, hemoglobin 13.4. Total protein 6.2. The chest x-ray, which is personally reviewed by me, showed no acute abnormality. Tibia-fibula x-ray was also reviewed which showed no evidence of any fractures. CT scan of the cervical spine and head showed cerebral atrophy, mild hydrocephalus. ASSESSMENT: 1. Generalized weakness and tremors; possibly acute parkinsonian exacerbation. 2. Chronic obstructive pulmonary disease. 3. History of recent chronic obstructive pulmonary disease exacerbation and pneumonia. 4. History of deep vein thrombosis. 5. Cerebrovascular accident, transient ischemic attack. 6. Hypertension. 7. History of degenerative joint disease. 8. History of prostate disorder. 9. History of seizure disorder. 10.History of hypothyroidism. 11.History of chronic hypoxic respiratory failure. 12.History of PEG tube in the past. 13.History of seizures. 14.History of deep venous thrombosis in the remote past. 15.History of head injury. 16.History of methicillin-resistant Staphylococcus aeruginosa. 17.History of adenoidectomy. 18.History of bronchoscopy. 19.Anxiety, depression, post-traumatic stress disorder. 20.FULL CODE. RECOMMENDATIONS AND DISCUSSION: In this 69-year-old gentleman who presented with multiple complex medical issues, we will monitor the patient closely, continue the current medications, continue with symptomatic treatment, initiate empiric antibiotics. Otherwise PT/OT evaluation. Bronchodilators. Consult Dr. Gaffney regarding the COPD. Otherwise, I would also recommend social work evaluation and possible ECF rehab. Prognosis guarded. Further recommendations to follow. MMODL / IJN: [id number] /
[2019-10-16] MEDS: IPRATROPIUM-ALBUTEROL 3 ML NEB INHALATION PRN (20:37)
[2019-10-16] MEDS: GLYCOPYRROLATE 1 MG TAB PO SCH (21:40)
[2019-10-16] MEDS: HEPARIN SODIUM,PORCINE 5,000 UNIT/ML 1 ML VIAL SQ SCH (21:40)
[2019-10-16] MEDS: cloZAPine 100 MG TAB PO SCH (21:41)
[2019-10-16] MEDS: SYMBICORT 160-4.5 MCG INHALER INHALATION SCH (21:42)
[2019-10-16] MEDS: TAMSULOSIN 0.4 MG CAP.ER.24H PO SCH (21:42)
[2019-10-16] MEDS: traZODone HCL 50 MG TAB PO SCH (21:42)
[2019-10-16] MEDS: ATORVASTATIN 40 MG TAB PO SCH (21:42)
[2019-10-16] MEDS: PRIMIDONE 50 MG TAB PO SCH (21:43)
[2019-10-16] MEDS: DONEPEZIL 10 MG TAB PO SCH (22:26)
[2019-10-17] MEDS: CARBIDOPA-LEVODOPA 10-100 MG 1 EACH TAB PO SCH ×4 (00:39→21:37)
[2019-10-17] MEDS: VALPROIC ACID ORAL SOLN 250 MG/5 ML CUP PO SCH ×4 (00:39→21:38)
[2019-10-17] MEDS: IBUPROFEN 400 MG TAB PO PRN (05:41)
[2019-10-17] MEDS: LEVOTHYROXINE 125 MCG TAB PO SCH (05:41)
[2019-10-17] MEDS: SODIUM CHLORIDE 0.9% 1,000 ML IV SCH ×3 (05:42→21:35)
[2019-10-17] MEDS ORDERED: AZITHROMYCIN 500 MG TAB PO SCH (09:00)
[2019-10-17] MEDS: SYMBICORT 160-4.5 MCG INHALER INHALATION SCH ×2 (09:06→20:24)
[2019-10-17] MEDS: PRIMIDONE 50 MG TAB PO SCH ×2 (09:26→21:27)
[2019-10-17] MEDS: PANTOPRAZOLE 40 MG/10 ML VIAL IV SCH (09:26)
[2019-10-17] MEDS: THIAMINE 100 MG TAB PO SCH (09:26)
[2019-10-17] MEDS: ASPIRIN 81 MG PO SCH (09:26)
[2019-10-17] MEDS: HEPARIN SODIUM,PORCINE 5,000 UNIT/ML 1 ML VIAL SQ SCH ×2 (09:27→21:29)
[2019-10-17 09:58] LABS: Basophils % (A) 0 %; Eosinophils % (A) 0 %; HCT 38.1 % (39.0-53.0); HGB 11.7 gm/dL (13.0-17.5); Hypochromasia Slight; Lymphocytes # (A) 1.5 k/uL (1.0-4.8); Lymphocytes % (A) 14 %; MCH 30.5 pg (25.0-35.0); MCHC 30.7 g/dL (31.0-37.0); MCV 99.3 fL (80.0-100.0); Macrocytosis Slight; Mean Platelet Volume 8.5; Monocytes # (A) 0.6 k/uL (0-1.0); Monocytes % (A) 5 %; Neutrophils # (A) 8.5 k/uL (1.3-7.7); Neutrophils % (A) 79 %; Platelet Count 159 k/uL (150-450); RBC 3.84 m/uL (4.30-5.90); RDW 15.2 % (11.5-15.5); WBC 10.7 k/uL (3.8-10.6)
[2019-10-17 10:03] LABS: African American GFR (CKD) >90 (>60 ml/min/1.73 sqM); Anion Gap 6 mmol/L; Blood Urea Nitrogen 15 mg/dL (9-20); Calcium 8.3 mg/dL (8.4-10.2); Carbon Dioxide 27 mmol/L (22-30); Chloride 108 mmol/L (98-107); Glucose 203 mg/dL (74-99); Non-African American GFR(CKD) >90 (>60 ml/min/1.73 sqM); Potassium 3.8 mmol/L (3.5-5.1); Sodium 141 mmol/L (137-145)
[2019-10-17] MEDS: FLUDROCORTISONE 0.1 MG TAB PO SCH (10:16)
[2019-10-17] MEDS: FOLIC ACID 1 MG TAB PO SCH (11:52)
[2019-10-17] MEDS: MULTIVITAMINS, THERA 1 EACH TAB PO SCH (11:52)
--- NOTE | 2019-10-17 14:49 | P.CNPUL ---
History of Present Illness Consult date: 10/17/19 Requesting physician: Harshal Zavala Reason for consult: dyspnea History of present illness: 69-year-old male patient of Dr. Kendrick, with known history of Parkinson's disorder, previous episodes of aspiration pneumonia, dysphagia, previous history of CVA/TIA, paralysis of the right hemidiaphragm, COPD, hypertension, seizure disorder, hypothyroidism, history of DVT, anxiety, PTSD, and the patient is a former smoker. Patient follows with Dr. Gaffney/Dr. King in the pulmonary clinic. Patient has an unsteady gait, and recurrent falls. Patient normally ambulates with a walker. Patient was brought into the emergency department on 10/16/2019 for evaluation of weakness and falls. Apparently patient was ambulating to the bathroom, became unsteady, lightheaded, he weaned against the wall and fell backward sliding down. This was witnessed by his daughter whom he resides with. His 90-year-old mother also resides in the same household. Patient complain of some bruising over his left leg and knee pain. Reports no loss of consciousness, denies any chest pain. Did have a low-grade temperature of 99.8F, increasing cough. Recently completed a course of antibiotics. No hemoptysis, no nausea vomiting or diarrhea. No abdominal pain. Chest x-ray in emergency department showed a slightly elevated right hemidiaphragm, but no active cardiopulmonary disease. X-ray of the left tibia and fibula was negative for any fractures. CT of the head and neck showed cerebral atrophy, mild hydrocephalus, no acute intracranial abnormality. Mild cervical spondylotic changes no fracture. EKG in the emergency department showed normal sinus rhythm with right bundle branch block and T-wave abnormality in inferolateral leads with consideration for inferolateral ischemia. Labs showed white blood cell, 12.0, hemoglobin is 13.4, CMP was negative, troponin was less than 0.012, proBNP was normal at 43, urinalysis was negative, coronavirus PCR was negative. Vital signs have been stable, patient is currently on 2 L of oxygen pulse ox 98%, hemodynamically patient is stable, he is on home O2 and normally wears 2 L. Is had no fever or chills since admission. He was started on Rocephin and Zithromax, and breathing treatments. Review of Systems All systems: negative Constitutional: Denies chills, Denies fever Eyes: denies blurred vision, denies pain Ears, nose, mouth and throat: Denies headache, Denies sore throat Cardiovascular: Denies chest pain, Denies shortness of breath Respiratory: Reports cough, Reports dyspnea Gastrointestinal: Denies abdominal pain, Denies diarrhea, Denies nausea, Denies vomiting Musculoskeletal: Denies myalgias Integumentary: Denies pruritus, Denies rash Neurological: Denies numbness, Denies weakness Psychiatric: Denies anxiety, Denies depression Endocrine: Denies fatigue, Denies weight change Past Medical History Past Medical History: COPD, CVA/TIA, Deep Vein Thrombosis (DVT), Hypertension, Musculoskeletal Disorder, Neurologic Disorder, Pneumonia, Prostate Disorder, Seizure Disorder, Thyroid Disorder Additional Past Medical History / Comment(s): Pt recently admitted to [facility] on 09/21/19 with exacerbation COPD. Other hx: Past L hand injury with compartmental syndrome, parkinson's, dysphagia at times and needs to crush meds and put in applesauce at times, pneumonia, home oxygen, aspiration pneumonia/has had peg tube in the past, several tia's vs seizures, L leg DVT years ago, Hx. of HEAD INJURY (WAS [employer]/PART OF BLDG COLLAPSED ON HIM), SCIATICA, DDD, vertigo, hypothyroid, vitamin D deficiency, BPH, anemia, DJD. History of Any Multi-Drug Resistant Organisms: MRSA Date of last positivie culture/infection: 09/30/2014 MDRO Source:: Blood Past Surgical History: Adenoidectomy, Prostate Surgery, Tonsillectomy Additional Past Surgical History / Comment(s): BRONCHOSCOPY, SX FOR PROLAPSED RECTUM, TURP, Peg insertion & then removed, osteophytes removed from throat, TEETH EXTRACTED, 12-22-15 MIKE. Past Anesthesia/Blood Transfusion Reactions: No Reported Reaction, Motion Sickness Smoking Status: Former smoker - Past Family History Father Family Medical History: Myocardial Infarction ([place]) Additional Family Medical History / Comment(s): Father at the age of 62 yrs from a [place]. Mother Family Medical History: Myocardial Infarction ([place]) Additional Family Medical History / Comment(s): Mother is 97yrs old. She has a pacemaker. Medications and Allergies Home Medications Medication Instructions Recorded Confirmed Type Levothyroxine Sodium [Synthroid] 125 mcg PO DAILY 06/27/14 10/16/19 History Carbidopa-Levodopa 10-100 mg 1 tab PO TID 12/18/15 10/16/19 History [Sinemet 10-100 mg] cloZAPine [Clozaril] 450 mg PO HS 12/22/15 10/16/19 History Atorvastatin Calcium [Lipitor] 40 mg PO HS 02/20/17 10/16/19 History Primidone [Mysoline] 50 mg PO BID 02/20/17 10/16/19 History Fludrocortisone [Florinef] 0.05 mg PO DAILY 02/19/18 10/16/19 History Valproic Acid (As Sodium Salt) 500 mg PO TID 05/14/18 10/16/19 History [Depakene Soln] Tamsulosin [Flomax] 0.4 mg PO HS 06/20/18 10/16/19 History Donepezil [Aricept] 10 mg PO HS 02/27/19 10/16/19 History Glycopyrrolate [Robinul] 1 mg PO HS 02/27/19 10/16/19 History traZODone HCL [Desyrel] 50 mg PO HS 02/27/19 10/16/19 History Aspirin EC [Ecotrin Low Dose] 81 mg PO DAILY 09/21/19 10/16/19 History Neupro Patch 6mg/24hr 1 patch TOPICAL DAILY 09/21/19 10/16/19 History Budesonide-Formot 160-4.5 Mcg 2 puff INHALATION RT-BID 30 Days 09/24/19 10/16/19 Rx [Symbicort 160-4.5 Mcg Inhaler] #1 puff Folic Acid 1 mg PO DAILY@1200 30 Days #30 tab 09/24/19 10/16/19 Rx Ipratropium-Albuterol Nebulize 3 ml INHALATION RT-QID PRN ml 09/24/19 10/16/19 Rx [Duoneb 0.5 mg-3 mg/3 ml Soln] Multivitamins, Thera [Multivitamin 1 each PO DAILY@1200 30 Days #30 09/24/19 10/16/19 Rx (formulary)] tab Thiamine [Vitamin B-1] 100 mg PO DAILY 30 Days #30 tab 09/24/19 10/16/19 Rx Allergies Allergy/AdvReac Type Severity Reaction Status Date / Time Iodinated Contrast Media Allergy Unknown Verified 02/27/19 21:24 [Iodinated Contrast- Oral and IV Dye] iohexol Allergy Nausea & Verified 02/27/19 21:24 Vomiting levofloxacin [From Levaquin] Allergy Unknown Verified 02/27/19 21:24 morphine Allergy Confusion Verified 02/27/19 21:24 tromethamine Allergy Nausea & Verified 02/27/19 21:24 Vomiting codeine AdvReac Hallucinati Verified 02/27/19 21:24 ons Physical Exam Vitals: Vital Signs Temp Pulse Pulse Resp BP BP Pulse Ox 10/17/19 07:25 97.9 F 85 16 138/83 98 10/17/19 04:00 17 10/17/19 03:24 98.0 F 88 17 122/73 94 L 10/17/19 00:00 18 10/16/19 23:11 97.9 F 92 18 129/79 93 L 10/16/19 21:53 97.9 F 87 18 130/74 97 10/16/19 20:43 84 10/16/19 20:37 84 10/16/19 19:21 87 16 128/72 96 Intake and Output 10/16/19 10/17/19 10/17/19 22:59 06:59 14:59 Output Total 500 Balance -500 Output: Urine 500 Other: Voiding Method Urinal Urinal Diaper Diaper # Voids 1 GENERAL EXAM: Alert, very pleasant, 69-year-old white male, 2 L of oxygen with a pulse ox of 98% comfortable in no apparent distress. HEAD: Normocephalic/atraumatic. EYES: Normal reaction of pupils, equal size. Conjunctiva pink, sclera white. NOSE: Clear with pink turbinates. THROAT: No erythema or exudates. NECK: No masses, no JVD, no thyroid enlargement, no adenopathy. CHEST: No chest wall deformity. Symmetrical expansion. LUNGS: Equal air entry with no crackles, wheeze, rhonchi or dullness. CVS: Regular rate and rhythm, normal S1 and S2, no gallops, no murmurs, no rubs ABDOMEN: Soft, nontender. No hepatosplenomegaly, normal bowel sounds, no guarding or rigidity. EXTREMITIES: No clubbing, no edema, no cyanosis, 2+ pulses and upper and lower extremities. MUSCULOSKELETAL: Muscle strength and tone normal. SPINE: No scoliosis or deformity SKIN: No rashes, bruising noted on bilateral upper extremities, and involving the right hand and wrist appears to be old CENTRAL NERVOUS SYSTEM: Alert and oriented -3. No focal deficits, tone is normal in all 4 extremities. PSYCHIATRIC: Alert and oriented -3. Appropriate affect. Intact judgment and insight. Results - Laboratory Findings CBC and BMP: 10/17/19 09:09 10/17/19 09:09 PT/INR, D-dimer PT 10.5 sec (9.0-12.0) 10/16/19 05:59 INR 1.0 (<1.2) 10/16/19 05:59 Abnormal lab findings: Abnormal Labs 10/16/19 10/16/19 10/17/19 05:59 05:59 09:09 WBC 12.0 H 10.7 H RBC 4.19 L 3.84 L Hgb 11.7 L Hct 38.1 L MCHC 30.7 L Neutrophils # 9.4 H 8.5 H Chloride Glucose Calcium Total Protein 6.2 L 10/17/19 09:09 WBC RBC Hgb Hct MCHC Neutrophils # Chloride 108 H Glucose 203 H Calcium 8.3 L Total Protein - Diagnostic Findings Chest x-ray: report reviewed, image reviewed Additional studies: CT of the head and cervical spine Assessment and Plan Plan: Assessment: #1. Mild cough, and dyspnea, no clear evidence of pneumonia on the chest x-ray. COVID 19 PCR was negative #2. A fall at home, without loss of consciousness, related to gait instability and some lightheadedness. Brain CT and cervical spine was negative for any acute findings, left leg x-ray was negative for any fractures or dislocations #3. Chronic right hemidiaphragm paralysis #4. Recent hospitalization for aspiration pneumonia #5. Multiple previous episodes of aspiration pneumonia #6. History of chronic dysphagia, previous PEG tube placement and subsequent removal #7. History of CVA/TIA #8. Parkinson's disease #9. Hypothyroidism #10. Hypertension #11. Anxiety, depression, posttraumatic stress disorder #12. Gait dysfunction, frequent falls at home, ambulates with a walker Plan: Chest x-ray has been reviewed with Dr. Gaffney, patient was seen and evaluated by Dr. Gaffney, no clear evidence of pneumonia on the chest x-ray, vital signs are stable, Covid 19 testing was negative. No fever or chills. Maintain aspiration precautions, we'll discontinue the antibiotics, continue closely monitoring, encourage breathing and coughing. Continue breathing treatments. We'll continue to follow I performed a history & physical examination of the patient and discussed their management with my nurse practitioner, Harper Craig. I reviewed the nurse practitioner's note and agree with the documented findings and plan of care. Lung sounds are positive for diffuse wheezes throughout the lung pink. The findings and the impression was discussed with the patient. I attest to the documentation by the nurse practitioner. Time with Patient: Greater than 30
--- NOTE | 2019-10-17 21:10 | PN ---
PROGRESS NOTE DATE OF SERVICE: 10/17/2019 This 69-year-old gentleman who was admitted with generalized weakness and tremors with possibly acute parkinsonian exacerbation also had COPD. Patient had multiple falls. Patient was recently admitted. Patient is also mildly confused. Multiple consultants are following the patient, including Dr. Gaffney, who saw the patient and recommended continuing current medications. Right diaphragmatic paralysis noted. Recent admission for aspiration pneumonia was noted. Also reviewed the chest x-ray, which showed some minimal infiltrates. Past medical history reviewed. REVIEW OF SYSTEMS: CARDIOVASCULAR SYSTEM: No angina, palpitations. RESPIRATORY SYSTEM: As mentioned earlier. GI: As mentioned earlier. NERVOUS SYSTEM: Diffusely weak. CURRENT MEDICATIONS: Reviewed. They include: Tylenol, DuoNeb q.i.d. p.r.n., Xanax, aspirin, Lipitor, Symbicort, Clozaril, Aricept, Florinef, folic acid, Robinul, heparin, Motrin, Synthroid, multivitamins, Narcan, Zofran, Mysoline, vitamin B1, depakene. Doses are reviewed. PHYSICAL EXAMINATION: Patient is alert, oriented x3. Pulse 87, blood pressure 120/71, respirations 16, temperature 97.4, pulse ox 97% on 2 L. HEENT: Conjunctivae normal. NECK: No jugular venous distention. CARDIOVASCULAR SYSTEM: S1, S2 muffled. RESPIRATORY SYSTEM: Breath sounds diminished at the bases. Bilateral scattered rhonchi and crackles. ABDOMEN: Soft, non-tender. LEGS: No edema. No swelling. NERVOUS SYSTEM: Diffusely weak. Tremors and increased tone also present. LABS: WBC 10.7, hemoglobin 11.7. ASSESSMENT: 1. Generalized weakness and tremors with possible acute parkinsonian exacerbation. 2. Chronic obstructive pulmonary disease. 3. History of recent chronic obstructive pulmonary disease, acute exacerbation, as well as aspiration pneumonia. 4. History of deep vein thrombosis. 5. History of cerebrovascular accident, transient ischemic attack. 6. Hypertension. 7. History of degenerative joint disease. 8. Gait dysfunction. 9. History of prostate disorder. 10.History of seizure disorder. 11.History of hypothyroidism. 12.History of chronic hypoxic respiratory failure. 13.History of PEG tube in the past. 14.History of seizures. 15.History of deep venous thrombosis in the remote past. 16.History of head injury. 17.History of methicillin-resistant Staphylococcus aeruginosa. 18.History of adenoidectomy. 19.History of bronchoscopy. 20.Anxiety, depression, post-traumatic stress disorder. 21.FULL CODE. RECOMMENDATIONS AND DISCUSSION: I recommend to continue current medications, continue with the monitoring, symptomatic treatment. I recommend continue with PT/OT evaluation. I would also continue with empiric antibiotics. I would also recommend neurology consultation. Once again the prognosis is extremely guarded because of the multiple complex medical issues. Further recommendations to follow. MMODL / IJN: [id number] /
[2019-10-17] MEDS: TAMSULOSIN 0.4 MG CAP.ER.24H PO SCH (21:30)
[2019-10-17] MEDS: traZODone HCL 50 MG TAB PO SCH (21:31)
[2019-10-17] MEDS: DONEPEZIL 10 MG TAB PO SCH (21:31)
[2019-10-17] MEDS: ATORVASTATIN 40 MG TAB PO SCH (21:32)
[2019-10-17] MEDS: GLYCOPYRROLATE 1 MG TAB PO SCH (21:33)
[2019-10-17] MEDS: cloZAPine 100 MG TAB PO SCH (21:33)
[2019-10-17] MEDS: IPRATROPIUM-ALBUTEROL 3 ML NEB INHALATION PRN (21:57)
[2019-10-18] MEDS: LEVOTHYROXINE 125 MCG TAB PO SCH (05:47)
[2019-10-18] MEDS: IBUPROFEN 400 MG TAB PO PRN (05:48)
[2019-10-18] MEDS: PANTOPRAZOLE 40 MG/10 ML VIAL IV SCH (08:42)
[2019-10-18] MEDS: ASPIRIN 81 MG PO SCH (08:42)
[2019-10-18] MEDS: PRIMIDONE 50 MG TAB PO SCH ×2 (08:42→21:23)
[2019-10-18] MEDS: CARBIDOPA-LEVODOPA 10-100 MG 1 EACH TAB PO SCH ×3 (08:42→21:23)
[2019-10-18] MEDS: THIAMINE 100 MG TAB PO SCH (08:42)
[2019-10-18] MEDS: HEPARIN SODIUM,PORCINE 5,000 UNIT/ML 1 ML VIAL SQ SCH ×2 (08:42→21:23)
[2019-10-18] MEDS: IPRATROPIUM-ALBUTEROL 3 ML NEB INHALATION PRN ×4 (08:47→19:30)
[2019-10-18] MEDS: SYMBICORT 160-4.5 MCG INHALER INHALATION SCH ×2 (08:47→19:30)
[2019-10-18] MEDS: FLUDROCORTISONE 0.1 MG TAB PO SCH (08:49)
[2019-10-18] MEDS: VALPROIC ACID ORAL SOLN 250 MG/5 ML CUP PO SCH ×3 (08:49→21:23)
[2019-10-18 10:19] LABS: Basophils % (A) 0 %; Eosinophils % (A) 1 %; HCT 36.9 % (39.0-53.0); HGB 11.7 gm/dL (13.0-17.5); Lymphocytes # (A) 2.4 k/uL (1.0-4.8); Lymphocytes % (A) 31 %; MCH 31.5 pg (25.0-35.0); MCHC 31.9 g/dL (31.0-37.0); MCV 98.8 fL (80.0-100.0); Macrocytosis Slight; Mean Platelet Volume 8.5; Monocytes # (A) 0.5 k/uL (0-1.0); Monocytes % (A) 7 %; Neutrophils # (A) 4.8 k/uL (1.3-7.7); Neutrophils % (A) 60 %; Platelet Count 168 k/uL (150-450); RBC 3.73 m/uL (4.30-5.90); RDW 15.5 % (11.5-15.5); WBC 7.9 k/uL (3.8-10.6)
[2019-10-18 10:44] LABS: African American GFR (CKD) >90 (>60 ml/min/1.73 sqM); Anion Gap 4 mmol/L; Blood Urea Nitrogen 19 mg/dL (9-20); Calcium 8.1 mg/dL (8.4-10.2); Carbon Dioxide 29 mmol/L (22-30); Chloride 106 mmol/L (98-107); Glucose 115 mg/dL (74-99); Non-African American GFR(CKD) >90 (>60 ml/min/1.73 sqM); Sodium 139 mmol/L (137-145)
[2019-10-18] MEDS: MULTIVITAMINS, THERA 1 EACH TAB PO SCH (12:36)
[2019-10-18] MEDS: FOLIC ACID 1 MG TAB PO SCH (12:36)
--- NOTE | 2019-10-18 14:58 | P.PN ---
Subjective Progress Note Date: 10/18/19 Principal diagnosis: Mild cough and dyspnea, no clear evidence of pneumonia 69-year-old male patient of Dr. Kendrick, with known history of Parkinson's disorder, previous episodes of aspiration pneumonia, dysphagia, previous history of CVA/TIA, paralysis of the right hemidiaphragm, COPD, hypertension, seizure disorder, hypothyroidism, history of DVT, anxiety, PTSD, and the patient is a former smoker. Patient follows with Dr. Gaffney/Dr. King in the pulmonary clinic. Patient has an unsteady gait, and recurrent falls. Patient normally ambulates with a walker. Patient was brought into the emergency department on 10/16/2019 for evaluation of weakness and falls. Apparently patient was ambulating to the bathroom, became unsteady, lightheaded, he weaned against the wall and fell backward sliding down. This was witnessed by his daughter whom he resides with. His 90-year-old mother also resides in the same household. Patient complain of some bruising over his left leg and knee pain. Reports no loss of consciousness, denies any chest pain. Did have a low-grade temperature of 99.8F, increasing cough. Recently completed a course of antibiotics. No hemoptysis, no nausea vomiting or diarrhea. No abdominal pain. Chest x-ray in emergency department showed a slightly elevated right hemidiaphragm, but no active cardiopulmonary disease. X-ray of the left tibia and fibula was negative for any fractures. CT of the head and neck showed cerebral atrophy, mild hydrocephalus, no acute intracranial abnormality. Mild cervical spondylotic changes no fracture. EKG in the emergency department showed normal sinus rhythm with right bundle branch block and T-wave abnormality in inferolateral leads with consideration for inferolateral ischemia. Labs showed white blood cell, 12.0, hemoglobin is 13.4, CMP was negative, troponin was less than 0.012, proBNP was normal at 43, urinalysis was negative, coronavirus PCR was negative. Vital signs have been stable, patient is currently on 2 L of oxygen pulse ox 98%, hemodynamically patient is stable, he is on home O2 and normally wears 2 L. Is had no fever or chills since admission. He was started on Rocephin and Zithromax, and breathing treatments. On 10/18/2019 patient seen in follow-up on general medical floor, he is resting comfortably in bed, in no acute distress. Room air pulse ox is 98%, hemodyna armiday patient is stable, no fever or chills. No specific complaints, no cough or congestion, lung sounds are clear, diminished at the bases, occasional congested cough, no phlegm production. Patient is on room air, no altered mentation, he is drowsy but easily arousable. Remains on Rocephin for antibiotic coverage, 0.9 normal saline at a rate of 50 ML per hour. Breathing treatments. Blood cultures are negative, white blood cell count 7.9, hemoglobin is 11.7, electrolytes and renal profile within normal limits Objective - Vital Signs Vital signs: Vital Signs Temp 97.3 F L 10/18/19 14:40 Pulse 81 10/18/19 14:40 Resp 16 10/18/19 14:40 BP 109/65 10/18/19 14:40 Pulse Ox 98 10/18/19 14:40 Intake & Output 10/17/19 10/18/19 10/18/19 18:59 06:59 18:59 Intake Total 20 Output Total 287 444 4838 Balance -400 -280 -1200 Intake: Oral 20 Output: Urine 713 [id number] Other: Voiding Method Urinal Incontinent Diaper - Exam GENERAL EXAM: Alert, very pleasant, 69-year-old white male, with room air pulse ox of 98% comfortable in no apparent distress. HEAD: Normocephalic/atraumatic. EYES: Normal reaction of pupils, equal size. Conjunctiva pink, sclera white. NOSE: Clear with pink turbinates. THROAT: No erythema or exudates. NECK: No masses, no JVD, no thyroid enlargement, no adenopathy. CHEST: No chest wall deformity. Symmetrical expansion. LUNGS: Equal air entry with no crackles, wheeze, rhonchi or dullness. CVS: Regular rate and rhythm, normal S1 and S2, no gallops, no murmurs, no rubs ABDOMEN: Soft, nontender. No hepatosplenomegaly, normal bowel sounds, no guarding or rigidity. EXTREMITIES: No clubbing, no edema, no cyanosis, 2+ pulses and upper and lower extremities. MUSCULOSKELETAL: Muscle strength and tone normal. SPINE: No scoliosis or deformity SKIN: No rashes, bruising noted on bilateral upper extremities, and involving the right hand and wrist appears to be old CENTRAL NERVOUS SYSTEM: Alert and oriented -3. No focal deficits, tone is normal in all 4 extremities. PSYCHIATRIC: Alert and oriented -3. Appropriate affect. Intact judgment and insight. - Labs CBC & Chem 7: 10/18/19 09:31 10/18/19 09:31 Labs: Abnormal Lab Results - Last 24 Hours (Table) 10/18/19 10/18/19 Range/Units 09:31 09:31 RBC 3.73 L (4.30-5.90) m/uL Hgb 11.7 L (13.0-17.5) gm/dL Hct 36.9 L (39.0-53.0) % Glucose 115 H (74-99) mg/dL Calcium 8.1 L (8.4-10.2) mg/dL Microbiology - Last 24 Hours (Table) 10/16/19 06:40 Blood Culture - Preliminary Blood No Growth after 48 hours Assessment and Plan Plan: Assessment: #1. Mild cough, and dyspnea, no clear evidence of pneumonia on the chest x-ray. COVID 19 PCR was negative #2. A fall at home, without loss of consciousness, related to gait instability and some lightheadedness. Brain CT and cervical spine was negative for any acute findings, left leg x-ray was negative for any fractures or dislocations #3. Chronic right hemidiaphragm paralysis #4. Recent hospitalization for aspiration pneumonia #5. Multiple previous episodes of aspiration pneumonia #6. History of chronic dysphagia, previous PEG tube placement and subsequent removal #7. History of CVA/TIA #8. Parkinson's disease #9. Hypothyroidism #10. Hypertension #11. Anxiety, depression, posttraumatic stress disorder #12. Gait dysfunction, frequent falls at home, ambulates with a walker Plan: Patient remains stable, no specific complaints, room air pulse ox of 90%, continues on Rocephin for antibiotic coverage, blood cultures have shown no growth so far, COVID 19 testing was negative. No fever or chills, monocytes are stable, increase activity as tolerated, continue bronchodilators, continue Symbicort. From pulmonary perspective patient can be considered for discharge home today. I performed a history & physical examination of the patient and discussed their management with my nurse practitioner, Harper Craig. I reviewed the nurse practitioner's note and agree with the documented findings and plan of care. Lung sounds are positive for diffuse wheezes throughout the lung pink. The findings and the impression was discussed with the patient. I attest to the documentation by the nurse practitioner. Time with Patient: Less than 30
--- NOTE | 2019-10-18 15:22 | P.PN ---
Subjective Progress Note Date: 10/18/19 Principal diagnosis: This 69-year-old male who was recently admitted with generalized weakness and tremors with possible acute parkinsonian exacerbation and also acute exacerbation of chronic obstructive pulmonary disease. Pulmonary following. Patient is maintained on breathing treatments and will continue at this time. Patient states that his shortness of breath has improved and is currently on 2-3 L via nasal cannula. Patient states that he wears this in the outpatient setting as well. Patient continues to have mild tremors along with weakness and recent history of multiple falls and was evaluated by PT/OT therapy recommending subacute rehab for continued PT/OT therapy for strength and mobility. Case management and social work following and [facility] once stabilized and discharged. Review of systems: Constitutional: Reports weakness, no reports of fevers or chills Cardiovascular: No reports of chest pain or palpitations Respiratory: No reports of shortness of breath or cough GI: No reports of nausea, vomiting, or diarrhea : No reports of dysuria or retention Neurovascular: Reports generalized weakness, no reports of numbness Active Medications Acetaminophen (Tylenol Tab) 650 mg PO Q6HR PRN PRN Reason: Mild Pain or Fever > 100.5 Albuterol/Ipratropium (Duoneb 0.5 Mg-3 Mg/3 Ml Soln) 3 ml INHALATION RT-Q4H PRN PRN Reason: shortness of breath Last Admin: 10/17/19 21:57 Dose: 3 ml Documented by: Albuterol/Ipratropium (Duoneb 0.5 Mg-3 Mg/3 Ml Soln) 3 ml INHALATION RT-QID PRN PRN Reason: Shortness Of Breath Or Wheezing Last Admin: 10/18/19 11:16 Dose: 3 ml Documented by: Alprazolam (Xanax) 0.25 mg PO TID PRN PRN Reason: Anxiety Aspirin (Aspirin) 81 mg PO DAILY [facility] Last Admin: 10/18/19 08:42 Dose: 81 mg Documented by: Atorvastatin Calcium (Lipitor) 40 mg PO HS [facility] Last Admin: 10/17/19 21:32 Dose: 40 mg Documented by: Budesonide/Formoterol Fumarate (Symbicort 160-4.5 Mcg Inhaler) 2 puff INHALATION RT-BID [facility] Last Admin: 10/18/19 08:47 Dose: 2 puff Documented by: Carbidopa/Levodopa (Sinemet 10-100) 1 each PO TID [facility] Last Admin: 10/18/19 08:42 Dose: 1 each Documented by: Clozapine (Clozaril) 450 mg PO [facility] Stop: 10/24/19 23:00 Last Admin: 10/17/19 21:33 Dose: 450 mg Documented by: Donepezil HCl (Aricept) 10 mg PO [facility] Last Admin: 10/17/19 21:31 Dose: 10 mg Documented by: Fludrocortisone Acetate (Florinef) 0.05 mg PO DAILY [facility] Last Admin: 10/18/19 08:49 Dose: 0.05 mg Documented by: Folic Acid (Folic Acid) 1 mg PO DAILY@1200 [facility] Last Admin: 10/18/19 12:36 Dose: 1 mg Documented by: Glycopyrrolate (Robinul) 1 mg PO [facility] Last Admin: 10/17/19 21:33 Dose: 1 mg Documented by: Heparin Sodium (Porcine) (Heparin) 5,000 unit SQ Q12HR [facility] Last Admin: 10/18/19 08:42 Dose: 5,000 unit Documented by: Sodium Chloride (Saline 0.9%) 1,000 mls @ 50 mls/hr IV .Q20H [facility] Last Admin: 10/17/19 21:35 Dose: 50 mls/hr Documented by: Ceftriaxone Sodium 1 gm/ (Sodium Chloride) 50 mls @ 100 mls/hr IVPB Q24HR [facility] Last Admin: 10/18/19 08:41 Dose: 100 mls/hr Documented by: Ibuprofen (Motrin) 400 mg PO Q6HR PRN PRN Reason: Mild Pain or Fever > 100.5 Last Admin: 10/18/19 05:48 Dose: 400 mg Documented by: Levothyroxine Sodium (Synthroid) 125 mcg PO DAILY@0630 [facility] Last Admin: 10/18/19 05:47 Dose: 125 mcg Documented by: Miscellaneous Information (Pneumonia Protocol Utilized) 1 each PO ONCE PRN PRN Reason: Per Protocol Multivitamins (Theragran) 1 each PO DAILY@1200 [facility] Last Admin: 10/18/19 12:36 Dose: 1 each Documented by: Naloxone HCl (Narcan) 0.2 mg IV Q2M PRN PRN Reason: Opioid Reversal Ondansetron HCl (Zofran) 4 mg IVP Q8HR PRN PRN Reason: Nausea And Vomiting Pantoprazole Sodium (Protonix) 40 mg PO AC-BRKFST [facility] Primidone (Mysoline) 50 mg PO BID [facility] Last Admin: 10/18/19 08:42 Dose: 50 mg Documented by: Tamsulosin HCl (Flomax) 0.4 mg PO [facility] Last Admin: 10/17/19 21:30 Dose: 0.4 mg Documented by: Thiamine HCl (Vitamin B-1) 100 mg PO DAILY [facility] Last Admin: 10/18/19 08:42 Dose: 100 mg Documented by: Trazodone HCl (Desyrel) 50 mg PO [facility] Last Admin: 10/17/19 21:31 Dose: 50 mg Documented by: Valproic Acid (Depakene Syrup) 500 mg PO TID [facility] Last Admin: 10/18/19 08:49 Dose: 500 mg Documented by: Objective - Vital Signs Vital signs: Vital Signs Temp 97.3 F L 10/18/19 14:40 Pulse 81 10/18/19 14:40 Resp 16 10/18/19 14:40 BP 109/65 10/18/19 14:40 Pulse Ox 98 10/18/19 14:40 Intake & Output 10/17/19 10/18/19 10/18/19 18:59 06:59 18:59 Intake Total 20 Output Total 393 903 6599 Balance -400 -280 -1200 Intake: Oral 20 Output: Urine 705 768 9307 Other: Voiding Method Urinal Incontinent Diaper - Exam Gen: This is a 69-year-old male sitting up in the chair, awake, alert and oriented 3, well-developed, well-nourished. Temp is 97.5F, pulse is 77, respirations are 18, blood pressure is 120/72, oxygen saturation is 98% on 2 L nasal cannula HEENT: Head is atraumatic, normocephalic. Pupils equal, round. Sclerae is anicteric. NECK: Supple. No JVD. No lymphadenopathy. No thyromegaly. LUNGS: Manage breath sounds at the bases with no wheezing or rhonchi noted. No intercostal retractions. HEART: S1, S2 are muffled ABDOMEN: Soft. Bowel sounds are present. No masses. No tenderness. EXTREMITIES: No pedal edema. No calf tenderness. NEUROLOGICAL: Patient is awake, alert and oriented x3. Diffuse weakness noted with tremors and increased tone. - Labs CBC & Chem 7: 10/18/19 09:31 10/18/19 09:31 Labs: Abnormal Lab Results - Last 24 Hours (Table) 10/18/19 10/18/19 Range/Units 09:31 09:31 RBC 3.73 L (4.30-5.90) m/uL Hgb 11.7 L (13.0-17.5) gm/dL Hct 36.9 L (39.0-53.0) % Glucose 115 H (74-99) mg/dL Calcium 8.1 L (8.4-10.2) mg/dL Microbiology - Last 24 Hours (Table) 10/16/19 06:40 Blood Culture - Preliminary Blood No Growth after 48 hours Assessment and Plan Assessment: Generalized weakness and tremors with possible acute parkinsonian exacerbation chronic obstructive pulmonary disease History of recent chronic obstructive pulmonary disease, acute exacerbation, as well as aspiration pneumonia History of deep vein thrombosis history of cerebrovascular accident, TIA Hypertension History of degenerative joint disease Gait dysfunction history of prostate disorder history of seizure disorder History of hypothyroidism History of chronic hypoxic respiratory failure History of PEG tube in the past History of seizures History of head injury History of MRSA History of adenoidectomy History of bronchoscopy Anxiety, depression, post-traumatic stress disorder Full code Reccommodations and discussion: Recommend continue current medications, management, and symptomatic treatment. PT/OT following recommending rehab for continued strength and mobility. Case management and social work following and working on placement at an ECF for continued PT/OT therapy. Patient is continued on IV antibiotics empirically and will continue at this time. Due to multiple complex medical issues, prognosis is guarded. Further recommendations to follow. Possible discharge in 24-48 hours.
[2019-10-18] MEDS: SODIUM CHLORIDE 0.9% 1,000 ML IV SCH (16:03)
[2019-10-18] MEDS: cloZAPine 100 MG TAB PO SCH (21:22)
[2019-10-18] MEDS: TAMSULOSIN 0.4 MG CAP.ER.24H PO SCH (21:23)
[2019-10-18] MEDS: DONEPEZIL 10 MG TAB PO SCH (21:23)
[2019-10-18] MEDS: ATORVASTATIN 40 MG TAB PO SCH (21:23)
[2019-10-18] MEDS: GLYCOPYRROLATE 1 MG TAB PO SCH (21:23)
[2019-10-18] MEDS: traZODone HCL 50 MG TAB PO SCH (21:23)
[2019-10-19] MEDS: SODIUM CHLORIDE 0.9% 1,000 ML IV SCH (05:14)
[2019-10-19] MEDS: LEVOTHYROXINE 125 MCG TAB PO SCH (05:18)
[2019-10-19] MEDS: PANTOPRAZOLE 40 MG TABLET PO SCH (07:25)
[2019-10-19] MEDS: ASPIRIN 81 MG PO SCH (07:25)
[2019-10-19] MEDS: HEPARIN SODIUM,PORCINE 5,000 UNIT/ML 1 ML VIAL SQ SCH ×2 (07:25→20:36)
[2019-10-19] MEDS: PRIMIDONE 50 MG TAB PO SCH ×2 (07:25→20:37)
[2019-10-19] MEDS: THIAMINE 100 MG TAB PO SCH (07:26)
[2019-10-19] MEDS: IBUPROFEN 400 MG TAB PO PRN (07:26)
[2019-10-19] MEDS: CARBIDOPA-LEVODOPA 10-100 MG 1 EACH TAB PO SCH ×3 (07:27→20:37)
[2019-10-19] MEDS: VALPROIC ACID ORAL SOLN 250 MG/5 ML CUP PO SCH ×3 (07:27→20:37)
[2019-10-19] MEDS: FLUDROCORTISONE 0.1 MG TAB PO SCH (07:27)
[2019-10-19] MEDS: IPRATROPIUM-ALBUTEROL 3 ML NEB INHALATION PRN ×4 (08:03→20:22)
[2019-10-19] MEDS: SYMBICORT 160-4.5 MCG INHALER INHALATION SCH ×2 (08:03→20:22)
[2019-10-19 11:55] LABS: Basophils % (A) 0 %; Eosinophils % (A) 0 %; HCT 37.2 % (39.0-53.0); HGB 11.8 gm/dL (13.0-17.5); Lymphocytes # (A) 1.9 k/uL (1.0-4.8); Lymphocytes % (A) 31 %; MCH 30.6 pg (25.0-35.0); MCHC 31.8 g/dL (31.0-37.0); MCV 96.3 fL (80.0-100.0); Monocytes # (A) 0.5 k/uL (0-1.0); Monocytes % (A) 8 %; Neutrophils # (A) 3.6 k/uL (1.3-7.7); Neutrophils % (A) 58 %; Platelet Count 164 k/uL (150-450); RBC 3.87 m/uL (4.30-5.90); RDW 15.4 % (11.5-15.5); WBC 6.2 k/uL (3.8-10.6)
[2019-10-19 12:14] LABS: African American GFR (CKD) >90 (>60 ml/min/1.73 sqM); Anion Gap 4 mmol/L; Blood Urea Nitrogen 20 mg/dL (9-20); Calcium 8.2 mg/dL (8.4-10.2); Carbon Dioxide 30 mmol/L (22-30); Chloride 106 mmol/L (98-107); Glucose 88 mg/dL (74-99); Non-African American GFR(CKD) >90 (>60 ml/min/1.73 sqM); Potassium 4.3 mmol/L (3.5-5.1); Sodium 140 mmol/L (137-145)
[2019-10-19] MEDS: FOLIC ACID 1 MG TAB PO SCH (12:28)
[2019-10-19] MEDS: MULTIVITAMINS, THERA 1 EACH TAB PO SCH (12:28)
--- NOTE | 2019-10-19 13:26 | P.PN ---
Subjective Progress Note Date: 10/19/19 Principal diagnosis: Mild cough and dyspnea, no clear evidence of pneumonia 69-year-old male patient of Dr. Kendrick, with known history of Parkinson's disorder, previous episodes of aspiration pneumonia, dysphagia, previous history of CVA/TIA, paralysis of the right hemidiaphragm, COPD, hypertension, seizure disorder, hypothyroidism, history of DVT, anxiety, PTSD, and the patient is a former smoker. Patient follows with Dr. Gaffney/Dr. King in the pulmonary clinic. Patient has an unsteady gait, and recurrent falls. Patient normally ambulates with a walker. Patient was brought into the emergency department on 10/16/2019 for evaluation of weakness and falls. Apparently patient was ambulating to the bathroom, became unsteady, lightheaded, he weaned against the wall and fell backward sliding down. This was witnessed by his daughter whom he resides with. His 90-year-old mother also resides in the same household. Patient complain of some bruising over his left leg and knee pain. Reports no loss of consciousness, denies any chest pain. Did have a low-grade temperature of 99.8F, increasing cough. Recently completed a course of antibiotics. No hemoptysis, no nausea vomiting or diarrhea. No abdominal pain. Chest x-ray in emergency department showed a slightly elevated right hemidiaphragm, but no active cardiopulmonary disease. X-ray of the left tibia and fibula was negative for any fractures. CT of the head and neck showed cerebral atrophy, mild hydrocephalus, no acute intracranial abnormality. Mild cervical spondylotic changes no fracture. EKG in the emergency department showed normal sinus rhythm with right bundle branch block and T-wave abnormality in inferolateral leads with consideration for inferolateral ischemia. Labs showed white blood cell, 12.0, hemoglobin is 13.4, CMP was negative, troponin was less than 0.012, proBNP was normal at 43, urinalysis was negative, coronavirus PCR was negative. Vital signs have been stable, patient is currently on 2 L of oxygen pulse ox 98%, hemodynamically patient is stable, he is on home O2 and normally wears 2 L. Is had no fever or chills since admission. He was started on Rocephin and Zithromax, and breathing treatments. On 10/18/2019 patient seen in follow-up on general medical floor, he is resting comfortably in bed, in no acute distress. Room air pulse ox is 98%, hemodyna mically patient is stable, no fever or chills. No specific complaints, no cough or congestion, lung sounds are clear, diminished at the bases, occasional congested cough, no phlegm production. Patient is on room air, no altered mentation, he is drowsy but easily arousable. Remains on Rocephin for antibiotic coverage, 0.9 normal saline at a rate of 50 ML per hour. Breathing treatments. Blood cultures are negative, white blood cell count 7.9, hemoglobin is 11.7, electrolytes and renal profile within normal limits On 10/19/2019 patient seen in follow-up on a general medical floor, he is res ting comfortably in bed, denies any acute distress, remains on 2 L of oxygen pulse ox is 96%, no fever or chills, vital signs are stable, denies any worsening dyspnea, no cough or congestion, today's labs have been reviewed, showing normal white count of 6.2, hemoglobin is 11.8, electrolytes and renal profile were within normal limits. Remains on Rocephin for empiric antibiotic coverage, blood culture showed no growth, no new chest x-ray, no hemoptysis or chest pain, no specific complaints, increase activity as tolerated. Patient can be considered for discharge home today Objective - Vital Signs Vital signs: Vital Signs Temp 97.7 F 10/19/19 07:00 Pulse 72 10/19/19 11:36 Resp 16 10/19/19 07:00 BP 125/74 10/19/19 07:00 Pulse Ox 96 10/19/19 07:00 Intake & Output 10/18/19 10/19/19 10/19/19 18:59 06:59 18:59 Intake Total 200 Output Total 1950 350 900 Balance -1949 -350 -700 Intake: Oral 200 Output: Urine 1949 350 900 Other: Voiding Method Incontinent Incontinent # Voids 1 - Exam GENERAL EXAM: Alert, very pleasant, 69-year-old white male, with room air pulse ox of 98% comfortable in no apparent distress. HEAD: Normocephalic/atraumatic. EYES: Normal reaction of pupils, equal size. Conjunctiva pink, sclera white. NOSE: Clear with pink turbinates. THROAT: No erythema or exudates. NECK: No masses, no JVD, no thyroid enlargement, no adenopathy. CHEST: No chest wall deformity. Symmetrical expansion. LUNGS: Equal air entry with no crackles, wheeze, rhonchi or dullness. CVS: Regular rate and rhythm, normal S1 and S2, no gallops, no murmurs, no rubs ABDOMEN: Soft, nontender. No hepatosplenomegaly, normal bowel sounds, no guarding or rigidity. EXTREMITIES: No clubbing, no edema, no cyanosis, 2+ pulses and upper and lower extremities. MUSCULOSKELETAL: Muscle strength and tone normal. SPINE: No scoliosis or deformity SKIN: No rashes, bruising noted on bilateral upper extremities, and involving the right hand and wrist appears to be old CENTRAL NERVOUS SYSTEM: Alert and oriented -3. No focal deficits, tone is normal in all 4 extremities. PSYCHIATRIC: Alert and oriented -3. Appropriate affect. Intact judgment and insight. - Labs CBC & Chem 7: 10/19/19 11:20 10/19/19 11:20 Labs: Abnormal Lab Results - Last 24 Hours (Table) 10/19/19 10/19/19 Range/Units 11:20 11:20 RBC 3.87 L (4.30-5.90) m/uL Hgb 11.8 L (13.0-17.5) gm/dL Hct 37.2 L (39.0-53.0) % Calcium 8.2 L (8.4-10.2) mg/dL Microbiology - Last 24 Hours (Table) 10/16/19 06:40 Blood Culture - Preliminary Blood No Growth after 72 hours Assessment and Plan Plan: Assessment: #1. Mild cough, and dyspnea, no clear evidence of pneumonia on the chest x-ray. COVID 19 PCR was negative #2. A fall at home, without loss of consciousness, related to gait instability and some lightheadedness. Brain CT and cervical spine was negative for any acute findings, left leg x-ray was negative for any fractures or dislocations #3. Chronic right hemidiaphragm paralysis #4. Recent hospitalization for aspiration pneumonia #5. Multiple previous episodes of aspiration pneumonia #6. History of chronic dysphagia, previous PEG tube placement and subsequent r emoval #7. History of CVA/TIA #8. Parkinson's disease #9. Hypothyroidism #10. Hypertension #11. Anxiety, depression, posttraumatic stress disorder #12. Gait dysfunction, frequent falls at home, ambulates with a walker Plan: Patient is stable, no fever or chills, no worsening dyspnea, no cough or congestion, no acute events overnight, increase activity as tolerated. From pulmonary perspective patient can be considered for discharge home today, he can follow up with Dr. Gaffney in 1 week I performed a history & physical examination of the patient and discussed their management with my nurse practitioner, Harper Craig. I reviewed the nurse practitioner's note and agree with the documented findings and plan of care. Lung sounds are positive for diffuse wheezes throughout the lung pink. The findings and the impression was discussed with the patient. I attest to the do cumentation by the nurse practitioner. Time with Patient: Less than 30
--- NOTE | 2019-10-19 14:36 | P.PN ---
Subjective Progress Note Date: 10/19/19 Principal diagnosis: This 69-year-old male who was recently admitted with generalized weakness and tremors with possible acute parkinsonian exacerbation and also acute exacerbation of chronic obstructive pulmonary disease. Pulmonary following. Patient is maintained on breathing treatments and will continue at this time. Patient states that his shortness of breath has improved and is currently on 2-3 L via nasal cannula. Patient states that he wears this in the outpatient setting as well. Patient continues to have mild tremors along with weakness and recent history of multiple falls and was evaluated by PT/OT therapy recommending subacute rehab for continued PT/OT therapy for strength and mobility. Case management and social work following and working on placement at an ECF once stabilized and discharged. Review of systems: Constitutional: Reports weakness, no reports of fevers or chills Cardiovascular: No reports of chest pain or palpitations Respiratory: No reports of shortness of breath or cough GI: No reports of nausea, vomiting, or diarrhea : No reports of dysuria or retention Neurovascular: Reports generalized weakness, no reports of numbness 10/19/2019 Patient is seen and evaluated and follow-up and states his breathing is much improved. Patient is currently maintained on 2 L via nasal cannula which is his baseline. Patient is maintained on bronchodilators and will continue at this time. Pulmonary is following. Patient continues to be quite weak requiring assistance with walking and case management and social work are following and wo rking on placement at an ECF. Patient is currently awaiting authorization for insurance. Patient is maintained on IV ceftriaxone and will continue at this time. Currently no reports of chest pain, shortness of breath, or palpitations. Patient is afebrile. No reports of nausea or vomiting and patient is tolerating diet. Objective - Vital Signs Vital signs: Vital Signs Temp 97.7 F 10/19/19 07:00 Pulse 72 10/19/19 11:36 Resp 16 10/19/19 07:00 BP 125/74 10/19/19 07:00 Pulse Ox 96 10/19/19 07:00 Intake & Output 10/18/19 10/19/19 10/19/19 18:59 06:59 18:59 Intake Total 200 Output Total 1950 350 900 Balance -1949 -350 700 Intake: Oral 200 Output: Urine 1949 350 900 Other: Voiding Method Incontinent Incontinent # Voids 1 - Exam Gen: This is a 69-year-old male sitting up in the chair, awake, alert and oriented 3, well-developed, well-nourished. Temp is 97.7F, pulse is 76, respirations are 16, blood pressure is 125/74, oxygen saturation is 96% on 2 L nasal cannula HEENT: Head is atraumatic, normocephalic. Pupils equal, round. Sclerae is anicteric. NECK: Supple. No JVD. No lymphadenopathy. No thyromegaly. LUNGS: Manage breath sounds at the bases with no wheezing or rhonchi noted. No intercostal retractions. HEART: S1, S2 are muffled ABDOMEN: Soft. Bowel sounds are present. No masses. No tenderness. EXTREMITIES: No pedal edema. No calf tenderness. NEUROLOGICAL: Patient is awake, alert and oriented x3. Diffuse weakness noted with tremors and increased tone. - Labs CBC & Chem 7: 10/19/19 11:20 10/19/19 11:20 Labs: Abnormal Lab Results - Last 24 Hours (Table) 10/19/19 10/19/19 Range/Units 11:20 11:20 RBC 3.87 L (4.30-5.90) m/uL Hgb 11.8 L (13.0-17.5) gm/dL Hct 37.2 L (39.0-53.0) % Calcium 8.2 L (8.4-10.2) mg/dL Microbiology - Last 24 Hours (Table) 10/16/19 06:40 Blood Culture - Preliminary Blood No Growth after 72 hours Assessment and Plan Assessment: Generalized weakness and tremors with possible acute parkinsonian exacerbation chronic obstructive pulmonary disease History of recent chronic obstructive pulmonary disease, acute exacerbation, as well as aspiration pneumonia History of deep vein thrombosis history of cerebrovascular accident, TIA Hypertension History of degenerative joint disease Gait dysfunction history of prostate disorder history of seizure disorder History of hypothyroidism History of chronic hypoxic respiratory failure History of PEG tube in the past History of seizures History of head injury History of MRSA History of adenoidectomy History of bronchoscopy Anxiety, depression, post-traumatic stress disorder Full code Reccommodations and discussion: Recommend continue current medications, management, and symptomatic treatment. Pulmonary following. Continue with bronchodilators at this time. PT/OT following. Case management and social work following and working on placement at an [facility] for continued PT/OT therapy. Awaiting insurance authorization at this time. Patient is continued on IV antibiotics empirically and will continue at this time. Due to multiple complex medical issues, prognosis is guarded. Further recommendations to follow.
[2019-10-19] MEDS: GLYCOPYRROLATE 1 MG TAB PO SCH (20:36)
[2019-10-19] MEDS: DONEPEZIL 10 MG TAB PO SCH (20:36)
[2019-10-19] MEDS: cloZAPine 100 MG TAB PO SCH (20:36)
[2019-10-19] MEDS: ATORVASTATIN 40 MG TAB PO SCH (20:36)
[2019-10-19] MEDS: TAMSULOSIN 0.4 MG CAP.ER.24H PO SCH (20:37)
[2019-10-19] MEDS: traZODone HCL 50 MG TAB PO SCH (20:37)
[2019-10-20] MEDS: LEVOTHYROXINE 125 MCG TAB PO SCH (05:59)
[2019-10-20] MEDS: PANTOPRAZOLE 40 MG TABLET PO SCH (08:19)
[2019-10-20] MEDS: THIAMINE 100 MG TAB PO SCH (08:19)
[2019-10-20] MEDS: HEPARIN SODIUM,PORCINE 5,000 UNIT/ML 1 ML VIAL SQ SCH ×2 (08:19→20:10)
[2019-10-20] MEDS: FLUDROCORTISONE 0.1 MG TAB PO SCH (08:19)
[2019-10-20] MEDS: CARBIDOPA-LEVODOPA 10-100 MG 1 EACH TAB PO SCH ×3 (08:19→20:10)
[2019-10-20] MEDS: VALPROIC ACID ORAL SOLN 250 MG/5 ML CUP PO SCH ×3 (08:19→20:11)
[2019-10-20] MEDS: PRIMIDONE 50 MG TAB PO SCH ×2 (08:19→20:11)
[2019-10-20] MEDS: MULTIVITAMINS, THERA 1 EACH TAB PO SCH (08:19)
[2019-10-20] MEDS: ASPIRIN 81 MG PO SCH (08:19)
[2019-10-20] MEDS: FOLIC ACID 1 MG TAB PO SCH (08:19)
[2019-10-20] MEDS: SYMBICORT 160-4.5 MCG INHALER INHALATION SCH ×2 (08:30→19:51)
[2019-10-20] MEDS: IPRATROPIUM-ALBUTEROL 3 ML NEB INHALATION PRN ×4 (08:30→19:51)
[2019-10-20] MEDS: SODIUM CHLORIDE 0.9% 1,000 ML IV SCH ×2 (08:40→21:43)
--- NOTE | 2019-10-20 19:47 | PN ---
PROGRESS NOTE DATE OF SERVICE: 10/20/2019 This 69-year-old gentleman who was admitted with generalized weakness and tremors with possible acute Parkinson's exacerbation is being closely monitored. ECF rehab is being considered. No chest pain. No palpitations. No fever. PHYSICAL EXAMINATION: Alert and oriented x2. Pulse 80, blood pressure 105/60, respiration 20, temperature 98.7, pulse ox 98% on 2 L. HEENT: Conjunctivae normal. Oral mucosa moist. NECK: No jugular venous distention. No lymph node enlargement. CARDIOVASCULAR: S1, S2, muffled. No S3, no S4, RESPIRATORY: Diminished breath sounds at the bases. A few scattered rhonchi, no crackles. ABDOMEN: Soft, nontender. LEGS: No edema, no swelling. NERVOUS SYSTEM: No focal deficits. LAB: WBC 6.2, hemoglobin 11.8, sodium 140, potassium 4.3. ASSESSMENT: 1. Generalized weakness and tremors, possible acute parkinsonian exacerbation. 2. Chronic obstructive pulmonary disease. 3. History of recent chronic obstructive pulmonary disease acute exacerbation as well as aspiration pneumonia. 4. History of deep vein thrombosis. 5. History of cerebrovascular accident/transient ischemic attack. 6. Hypertension. 7. History of degenerative joint disease. 8. History of gait dysfunction. 9. History of prostate disorder. 10.History of prostate disorder. 11.History of seizure disorder. 12.History of hypothyroidism. 13.History of chronic hypoxic respiratory failure. 14.History of PEG tube in the past. 15.History of seizures. 16.History of head injury. 17.History of MRSA. 18.History of adenoidectomy. 19.History of bronchoscopy. 20.History of anxiety, depression, posttraumatic stress disorder. 21.FULL CODE. RECOMMENDATIONS AND DISCUSSION: Recommend to continue current medications, continue to monitor, continue symptomatic treatment. Otherwise, at this time I recommend continue with current medications, PT/OT evaluation, possible ECF rehab. Guarded prognosis. Further recommendations to follow. MMODL / IJN: [id number] /
[2019-10-20] MEDS: cloZAPine 100 MG TAB PO SCH (20:10)
[2019-10-20] MEDS: GLYCOPYRROLATE 1 MG TAB PO SCH (20:10)
[2019-10-20] MEDS: DONEPEZIL 10 MG TAB PO SCH (20:11)
[2019-10-20] MEDS: TAMSULOSIN 0.4 MG CAP.ER.24H PO SCH (20:11)
[2019-10-20] MEDS: ATORVASTATIN 40 MG TAB PO SCH (20:11)
[2019-10-20] MEDS: traZODone HCL 50 MG TAB PO SCH (20:11)
[2019-10-21] MEDS: LEVOTHYROXINE 125 MCG TAB PO SCH (05:26)
[2019-10-21] MEDS: SYMBICORT 160-4.5 MCG INHALER INHALATION SCH ×2 (08:20→21:04)
[2019-10-21] MEDS: IPRATROPIUM-ALBUTEROL 3 ML NEB INHALATION PRN ×4 (08:20→21:06)
[2019-10-21] MEDS: FLUDROCORTISONE 0.1 MG TAB PO SCH (08:21)
[2019-10-21] MEDS: ASPIRIN 81 MG PO SCH (08:21)
[2019-10-21] MEDS: PANTOPRAZOLE 40 MG TABLET PO SCH (08:21)
[2019-10-21] MEDS: THIAMINE 100 MG TAB PO SCH (08:21)
[2019-10-21] MEDS: HEPARIN SODIUM,PORCINE 5,000 UNIT/ML 1 ML VIAL SQ SCH ×2 (08:21→21:50)
[2019-10-21] MEDS: VALPROIC ACID ORAL SOLN 250 MG/5 ML CUP PO SCH ×3 (08:21→21:51)
[2019-10-21] MEDS: CARBIDOPA-LEVODOPA 10-100 MG 1 EACH TAB PO SCH ×3 (08:21→21:51)
[2019-10-21] MEDS: MULTIVITAMINS, THERA 1 EACH TAB PO SCH (08:21)
[2019-10-21] MEDS: PRIMIDONE 50 MG TAB PO SCH ×2 (08:21→21:50)
[2019-10-21] MEDS: FOLIC ACID 1 MG TAB PO SCH (08:21)
[2019-10-21] MEDS: DONEPEZIL 10 MG TAB PO SCH (21:50)
[2019-10-21] MEDS: traZODone HCL 50 MG TAB PO SCH (21:50)
[2019-10-21] MEDS: ATORVASTATIN 40 MG TAB PO SCH (21:50)
[2019-10-21] MEDS: TAMSULOSIN 0.4 MG CAP.ER.24H PO SCH (21:50)
[2019-10-21] MEDS: GLYCOPYRROLATE 1 MG TAB PO SCH (21:51)
[2019-10-21] MEDS: cloZAPine 100 MG TAB PO SCH (21:51)
[2019-10-22] MEDS: SODIUM CHLORIDE 0.9% 1,000 ML IV SCH (00:06)
--- NOTE | 2019-10-22 01:46 | PN ---
PROGRESS NOTE DATE OF SERVICE: 10/21/2019 This 69-year-old gentleman admitted with generalized weakness and tremors probably Parkinson's acute exacerbation. Patient is being closely monitored. ECF rehab is being considered. No chest pain. No palpitations. No fever. PHYSICAL EXAMINATION: On exam, alert and oriented x2. Pulse 80, blood pressure 108/67, respiration 17, temperature 97.5, pulse ox 97% on 3 L. HEENT: Conjunctivae normal. NECK: No jugular venous distention. CARDIOVASCULAR: S1, S2 muffled. RESPIRATORY: Breath sounds diminished at the bases. A few scattered rhonchi and crackles. ABDOMEN: Soft, nontender. NERVOUS SYSTEM: Diffusely weak, tremors. LABS: WBC 6.2, hemoglobin 11.8. Otherwise cultures are negative. ASSESSMENT: 1. Generalized weakness and tremors, possible acute parkinsonian exacerbation. 2. Chronic obstructive pulmonary disease. 3. History of recent chronic obstructive pulmonary disease acute exacerbation as well as aspiration pneumonia. 4. History of deep vein thrombosis. 5. History of cerebrovascular accident, transient ischemic attack. 6. Hypertension. 7. History of degenerative joint disease. 8. History of gait dysfunction. 9. History of prostate disorder. 10.History of seizure disorder. 11.History of hypothyroidism. 12.History of chronic hypoxic respiratory failure. 13.History of PEG tube in the past. 14.History of seizures. 15.History of head injury. 16.History of MRSA. 17.History of adenoidectomy. 18.History of bronchoscopy. 19.History of anxiety, depression, posttraumatic stress disorder. 20.FULL CODE. RECOMMENDATIONS AND DISCUSSION: Recommend to continue current medications, continue symptomatic treatment. Otherwise, PT, OT evaluation, possible ECF rehab. Guarded prognosis. Medications reviewed. Further recommendations to follow. MMODL / IJN: [id number] /
[2019-10-22] MEDS: LEVOTHYROXINE 125 MCG TAB PO SCH (05:20)
[2019-10-22] MEDS: ASPIRIN 81 MG PO SCH (07:25)
[2019-10-22] MEDS: HEPARIN SODIUM,PORCINE 5,000 UNIT/ML 1 ML VIAL SQ SCH (07:25)
[2019-10-22] MEDS: THIAMINE 100 MG TAB PO SCH (07:25)
[2019-10-22] MEDS: PANTOPRAZOLE 40 MG TABLET PO SCH (07:25)
[2019-10-22] MEDS: MULTIVITAMINS, THERA 1 EACH TAB PO SCH (07:25)
[2019-10-22] MEDS: PRIMIDONE 50 MG TAB PO SCH (07:25)
[2019-10-22] MEDS: FOLIC ACID 1 MG TAB PO SCH (07:25)
[2019-10-22] MEDS: FLUDROCORTISONE 0.1 MG TAB PO SCH (07:26)
[2019-10-22] MEDS: CARBIDOPA-LEVODOPA 10-100 MG 1 EACH TAB PO SCH (07:26)
[2019-10-22] MEDS: VALPROIC ACID ORAL SOLN 250 MG/5 ML CUP PO SCH (07:27)
[2019-10-22] MEDS: SYMBICORT 160-4.5 MCG INHALER INHALATION SCH (08:58)
[2019-10-22] MEDS: IPRATROPIUM-ALBUTEROL 3 ML NEB INHALATION PRN ×2 (08:59→11:36)
[2019-10-22 15:14] VITALS: BP 118/72; PULSE 78; RESP 20; TEMP 97.7
--- NOTE | 2019-10-23 08:55 | P.DS ---
Providers Date of admission: 10/16/19 07:29 Expected date of discharge: 10/22/19 Attending physician: Harshal Zavala Consults: 10/16/19 19:32 Consult Physician Routine Consulting Provider: Stephani Gaffney Consult Reason/Comments: copd Do you want consulting provider notified?: Yes 10/21/19 13:53 Consult Physician Routine Consulting Provider: Andre Duran Consult Reason/Comments: boil on bottom Do you want consulting provider notified?: Yes Primary care physician: Mayra Oconnell [facility] Course: Final diagnosis Generalized weakness and tremors with possible acute parkinsonian exacerbation chronic obstructive pulmonary disease History of recent chronic obstructive pulmonary disease, acute exacerbation, as well as aspiration pneumonia History of deep vein thrombosis history of cerebrovascular accident, TIA Hypertension History of degenerative joint disease Gait dysfunction history of prostate disorder history of seizure disorder History of hypothyroidism History of chronic hypoxic respiratory failure History of PEG tube in the past History of seizures History of head injury History of MRSA History of adenoidectomy History of bronchoscopy Anxiety, depression, post-traumatic stress disorder Full code Discharge disposition Patient is being discharged in a stable condition with guarded prognosis to home. Patient will follow-up with Dr. Oconnell upon discharge. Patient will also follow-up with Dr. Gaffney pulmonary in the outpatient setting. Patient will continue with a short course of oral antibiotics in the form of Ceftin 500 mg twice daily for the next 3 days to complete the course. Total time taken is greater than 35 minutes. History of present illness This is an 69-year-old male who was recently admitted with generalized weakness and tremors most likely Parkinson's acute exacerbation and was being closely monitored. Patient was recently admitted and discharged although continue to be weak and unsteady gait and has been falling. Patient was seen and evaluated by physical therapy recommending possible rehab for continued PT/OT therapy for strength and mobility. Insurance authorization was denied for acute rehab for PT/OT and appear review was attempted. Insurance company recommending long-term care facility. This was discussed in detail with case management and daughter and they are refusing any long-term treatment and will be taking the patient home today. Daughter also refusing Homecare at this time. Currently no reports of chest pain, worsening shortness of breath, or palpitations. Patient is afebrile. No reports of nausea or vomiting and patient is tolerating diet. Guarded prognosis. On exam vital signs are stable. Temp is 97.7F, pulse is 78, respirations are 20, blood pressure is 118/72, oxygen saturation is 98 % on 2 L via nasal cannula. Cardio S1, S2 are muffled. Respiratory shows diminished breath sounds at the bases with a few scattered rhonchi noted. Abdomen is soft and nontender. Nervous system shows mild diffuse weakness. Please refer to medication reconciliation sheet for a list of medications. Patient Condition at Discharge: Fair Plan - Discharge Summary Discharge Rx Participant: No New Discharge Prescriptions: New Pantoprazole [Protonix] 40 mg PO AC-BRKFST tablet. Acetaminophen Tab [Tylenol] 650 mg PO Q6HR PRN tab PRN Reason: Mild Pain Or Fever > 100.5 Cefuroxime Axetil [Ceftin] 500 mg PO BID 3 Days #6 tab Cefuroxime Axetil [Ceftin] 500 mg PO BID 3 Days #6 tab Continue Levothyroxine Sodium [Synthroid] 125 mcg PO DAILY Carbidopa-Levodopa 10-100 mg [Sinemet 10-100 mg] 1 tab PO TID Primidone [Mysoline] 50 mg PO BID Atorvastatin Calcium [Lipitor] 40 mg PO HS Fludrocortisone [Florinef] 0.05 mg PO DAILY Valproic Acid (As Sodium Salt) [Depakene Soln] 500 mg PO TID Tamsulosin [Flomax] 0.4 mg PO HS Donepezil [Aricept] 10 mg PO HS traZODone HCL [Desyrel] 50 mg PO HS Neupro Patch 6mg/24hr 1 patch TOPICAL DAILY Aspirin EC [Ecotrin Low Dose] 81 mg PO DAILY Ipratropium-Albuterol Nebulize [Duoneb 0.5 mg-3 mg/3 ml Soln] 3 ml INHALATION RT-QID PRN ml PRN Reason: Shortness Of Breath Or Wheezing Folic Acid 1 mg PO DAILY@1200 30 Days #30 tab Multivitamins, Thera [Multivitamin (formulary)] 1 each PO DAILY@1200 30 Days #30 tab Budesonide-Formot 160-4.5 Mcg [Symbicort 160-4.5 Mcg Inhaler] 2 puff INHALATION RT-BID 30 Days #1 puff Thiamine [Vitamin B-1] 100 mg PO DAILY 30 Days #30 tab cloZAPine [Clozaril] 450 mg PO HS #3 tab Glycopyrrolate [Robinul] 1 mg PO HS #3 tab Discharge Medication List Levothyroxine Sodium [Synthroid] 125 mcg PO DAILY 06/27/14 [History] Carbidopa-Levodopa 10-100 mg [Sinemet 10-100 mg] 1 tab PO TID 12/18/15 [History] Atorvastatin Calcium [Lipitor] 40 mg PO HS 02/20/17 [History] Primidone [Mysoline] 50 mg PO BID 02/20/17 [History] Fludrocortisone [Florinef] 0.05 mg PO DAILY 02/19/18 [History] Valproic Acid (As Sodium Salt) [Depakene Soln] 500 mg PO TID 05/14/18 [History] Tamsulosin [Flomax] 0.4 mg PO HS 06/20/18 [History] Donepezil [Aricept] 10 mg PO HS 02/27/19 [History] traZODone HCL [Desyrel] 50 mg PO HS 02/27/19 [History] Aspirin EC [Ecotrin Low Dose] 81 mg PO DAILY 09/21/19 [History] Neupro Patch 6mg/24hr 1 patch TOPICAL DAILY 09/21/19 [History] Budesonide-Formot 160-4.5 Mcg [Symbicort 160-4.5 Mcg Inhaler] 2 puff INHALATION RT-BID 30 Days #1 puff 09/24/19 [Rx] Folic Acid 1 mg PO DAILY@1200 30 Days #30 tab 09/24/19 [Rx] Ipratropium-Albuterol Nebulize [Duoneb 0.5 mg-3 mg/3 ml Soln] 3 ml INHALATION RT-QID PRN ml 09/24/19 [Rx] Multivitamins, Thera [Multivitamin (formulary)] 1 each PO DAILY@1200 30 Days #30 tab 09/24/19 [Rx] Thiamine [Vitamin B-1] 100 mg PO DAILY 30 Days #30 tab 09/24/19 [Rx] Acetaminophen Tab [Tylenol] 650 mg PO Q6HR PRN tab 10/22/19 [Rx] Cefuroxime Axetil [Ceftin] 500 mg PO BID 3 Days #6 tab 10/22/19 [Rx] Cefuroxime Axetil [Ceftin] 500 mg PO BID 3 Days #6 tab 06/29/20 [Rx] Glycopyrrolate [Robinul] 1 mg PO HS #3 tab 10/22/19 [Rx] Pantoprazole [Protonix] 40 mg PO AC-BRKFST tablet. 10/22/19 [Rx] cloZAPine [Clozaril] 450 mg PO HS #3 tab 10/22/19 [Rx] Follow up Appointment(s)/Referral(s): Mayra Oconnell PAC [Primary Care Provider] - 1-2 days Stephani Gaffney MD [STAFF PHYSICIAN] - 1 Week Patient Instructions/Handouts: Fall Prevention for Older Adults (DC), COPD (Chronic Obstructive Pulmonary Disease) (DC) Activity/Diet/Wound Care/Special Instructions: PATIENTS PARKINSONS PATCHES FROM HOME IN MEDICATION TRAY IN OMNI-CELL Activity as tolerated Continue current diet Follow-up with primary care provider upon discharge Continue with antibiotics for 3 days then discontinue Discharge Disposition: TRANSFER TO SNF/ECF
== END 2019-10-22 16:10 | DRG 57 ==
LOC: EC 05:48 → 6NMEDSUR 07:29 → 4SSUR 17:05
PROVIDERS: ADMIT Hospitalist; ATTEND Hospitalist
DX: G20 Parkinson's disease (principal); G91.9 Hydrocephalus, unspecified; J96.11 Chronic respiratory failure with hypoxia; G40.909 Epilepsy, unspecified, not intractable, without status epilepticus; E03.9 Hypothyroidism, unspecified; F32.9 Major depressive disorder, single episode, unspecified; F43.10 Post-traumatic stress disorder, unspecified; F41.9 Anxiety disorder, unspecified; I10 Essential (primary) hypertension; I45.10 Unspecified right bundle-branch block; Z11.59 Encounter for screening for other viral diseases; Z86.73 Personal history of transient ischemic attack (TIA), and cerebral infarction without residual deficits; J44.9 Chronic obstructive pulmonary disease, unspecified; J98.6 Disorders of diaphragm; N40.0 Benign prostatic hyperplasia without lower urinary tract symptoms; R29.6 Repeated falls; R62.7 Adult failure to thrive; S80.12XA Contusion of left lower leg, initial encounter; W19.XXXA Unspecified fall, initial encounter; Y92.009 Unspecified place in unspecified non-institutional (private) residence as the place of occurrence of the external cause; Z79.51 Long term (current) use of inhaled steroids; Z79.82 Long term (current) use of aspirin; Z79.890 Hormone replacement therapy; Z79.899 Other long term (current) drug therapy; Z82.49 Family history of ischemic heart disease and other diseases of the circulatory system; Z86.14 Personal history of Methicillin resistant Staphylococcus aureus infection; Z86.718 Personal history of other venous thrombosis and embolism; Z87.01 Personal history of pneumonia (recurrent); Z87.828 Personal history of other (healed) physical injury and trauma; Z87.891 Personal history of nicotine dependence; Z91.81 History of falling; Z88.5 Allergy status to narcotic agent; Z88.8 Allergy status to other drugs, medicaments and biological substances; Z88.1 Allergy status to other antibiotic agents; Z91.041 Radiographic dye allergy status; M47.812 Spondylosis without myelopathy or radiculopathy, cervical region; M19.90 Unspecified osteoarthritis, unspecified site; M54.30 Sciatica, unspecified side; Z90.79 Acquired absence of other genital organ(s); R26.81 Unsteadiness on feet; E55.9 Vitamin D deficiency, unspecified
CPT/HCPCS: 36415; 70450; 71046; 72125; 80048; 80053; 81003; 83605; 83880; 84484; 85025; 85610; 85730; 87040; 93005; 94640; 94760; 96361; 96372; 96374; 96375; 99285

== ENCOUNTER 2020-01-23 18:17 | Inpatient (IN) | payer MEDICARE ==
--- NOTE | 2020-01-23 18:49 | ED ---
Skin/Abscess/FB HPI - General Chief complaint: Skin/Abscess/Foreign Body Stated complaint: ABSCESS Time Seen by Provider: 01/23/20 18:46 Source: patient, EMS Mode of arrival: EMS Limitations: no limitations - History of Present Illness Initial comments: Patient is 69-year-old male with history of COPD, recurrent pneumonia, pressure ulcers, Parkinson's presenting to the emergency department with multiple chief complaints. Daughter is also present in the room. She is taking care of the patient states today she's noticed the patient developed another abscess on his left buttock. States it is larger his typical abscesses and she could not come to the primary care so he came to the ED instead. States the patient's COPD is also worsening and he sounds like he is developing pneumonia. Patient states he is also having increased sputum Production along with worsening cough. States the shortness of breath as a baseline but does report some chest discomfort since his coughing is worsening. Patient denies any fevers but does report chills. Generalized tremors at baseline. He is not oxygen dependent at home. - Related Data Home Medications Medication Instructions Recorded Confirmed Levothyroxine Sodium [Synthroid] 125 mcg PO DAILY 06/27/14 10/16/19 Carbidopa-Levodopa 10-100 mg 1 tab PO TID 12/18/15 10/16/19 [Sinemet 10-100 mg] Atorvastatin Calcium [Lipitor] 40 mg PO HS 02/20/17 10/16/19 Primidone [Mysoline] 50 mg PO BID 02/20/17 10/16/19 Fludrocortisone [Florinef] 0.05 mg PO DAILY 02/19/18 10/16/19 Valproic Acid (As Sodium Salt) 500 mg PO TID 05/14/18 10/16/19 [Depakene Soln] Tamsulosin [Flomax] 0.4 mg PO HS 06/20/18 10/16/19 Donepezil [Aricept] 10 mg PO HS 02/27/19 10/16/19 traZODone HCL [Desyrel] 50 mg PO HS 02/27/19 10/16/19 Aspirin EC [Ecotrin Low Dose] 81 mg PO DAILY 09/21/19 10/16/19 Neupro Patch 6mg/24hr 1 patch TOPICAL DAILY 09/21/19 10/16/19 Previous Rx's Medication Instructions Recorded Budesonide-Formot 160-4.5 Mcg 2 puff INHALATION RT-BID 30 Days 09/24/19 [Symbicort 160-4.5 Mcg Inhaler] #1 puff Folic Acid 1 mg PO DAILY@1200 30 Days #30 tab 09/24/19 Ipratropium-Albuterol Nebulize 3 ml INHALATION RT-QID PRN ml 09/24/19 [Duoneb 0.5 mg-3 mg/3 ml Soln] Multivitamins, Thera [Multivitamin 1 each PO DAILY@1200 30 Days #30 09/24/19 (formulary)] tab Thiamine [Vitamin B-1] 100 mg PO DAILY 30 Days #30 tab 09/24/19 Acetaminophen Tab [Tylenol] 650 mg PO Q6HR PRN tab 10/22/19 Cefuroxime Axetil [Ceftin] 500 mg PO BID 3 Days #6 tab 10/22/19 Cefuroxime Axetil [Ceftin] 500 mg PO BID 3 Days #6 tab 10/22/19 Glycopyrrolate [Robinul] 1 mg PO HS #3 tab 10/22/19 Pantoprazole [Protonix] 40 mg PO AC-BRKFST tablet. 10/22/19 cloZAPine [Clozaril] 450 mg PO HS #3 tab 10/22/19 Allergies Allergy/AdvReac Type Severity Reaction Status Date / Time Iodinated Contrast Media Allergy Unknown Verified 02/27/19 21:24 [Iodinated Contrast- Oral and IV Dye] iohexol Allergy Nausea & Verified 02/27/19 21:24 Vomiting levofloxacin [From Levaquin] Allergy Unknown Verified 02/27/19 21:24 morphine Allergy Confusion Verified 02/27/19 21:24 tromethamine Allergy Nausea & Verified 02/27/19 21:24 Vomiting codeine AdvReac Hallucinati Verified 02/27/19 21:24 ons Review of Systems ROS Statement: Those systems with pertinent positive or pertinent negative responses have been documented in the HPI. ROS Other: All systems not noted in ROS Statement are negative. Past Medical History Past Medical History: COPD, CVA/TIA, Deep Vein Thrombosis (DVT), Hypertension, Musculoskeletal Disorder, Neurologic Disorder, Pneumonia, Prostate Disorder, Seizure Disorder, Thyroid Disorder Additional Past Medical History / Comment(s): Pt recently admitted to [facility] on 09/21/19 with exacerbation COPD. Other hx: Past L hand injury with compartmental syndrome, parkinson's, dysphagia at times and needs to crush meds and put in applesauce at times, pneumonia, home oxygen, aspiration pneumonia/has had peg tube in the past, several tia's vs seizures, L leg DVT years ago, Hx. of HEAD INJURY (WAS ELECTRIC RELAY TESTER/PART OF BLDG COLLAPSED ON HIM), SCIATICA, DDD, vertigo, hypothyroid, vitamin D deficiency, BPH, anemia, DJD. History of Any Multi-Drug Resistant Organisms: MRSA Date of last positivie culture/infection: 09/30/2014 MDRO Source:: Blood Past Surgical History: Adenoidectomy, Prostate Surgery, Tonsillectomy Additional Past Surgical History / Comment(s): BRONCHOSCOPY, SX FOR PROLAPSED RECTUM, TURP, Peg insertion & then removed, osteophytes removed from throat, TEETH EXTRACTED, 12-22-15 MIKE. Past Anesthesia/Blood Transfusion Reactions: No Reported Reaction, Motion Sickness Past Psychological History: Anxiety, Depression, PTSD Smoking Status: Never smoker Past Alcohol Use History: None Reported Past Drug Use History: None Reported - Past Family History Father Family Medical History: Myocardial Infarction (RI) Additional Family Medical History / Comment(s): Father at the age of 62 yrs from a RI. Mother Family Medical History: Myocardial Infarction (RI) Additional Family Medical History / Comment(s): Mother is 97yrs old. She has a pacemaker. General Exam Limitations: no limitations General appearance: alert, in no apparent distress, other (Generalized tremors) Head exam: Present: atraumatic, normocephalic, other Eye exam: Present: normal appearance, PERRL, EOMI ENT exam: Present: normal exam, normal oropharynx, mucous membranes dry. Absent: mucous membranes moist Neck exam: Present: normal inspection, full ROM Respiratory exam: Present: rhonchi (right lung base rhonchi), decreased breath sounds Cardiovascular Exam: Present: regular rate, normal rhythm, normal heart sounds GI/Abdominal exam: Present: soft. Absent: distended, tenderness, guarding, rebound Rectal exam: Present: other (Cutaneous infection with a region of erythema measuring approximately 10 cm in diameter with a small region of induration in the middle. No active drainage noted at this time.) Extremities exam: Present: normal inspection, full ROM, normal capillary refill. Absent: tenderness Back exam: Present: normal inspection, full ROM. Absent: tenderness, CVA tenderness (R), CVA tenderness (L) Neurological exam: Present: alert, oriented X3 Psychiatric exam: Present: normal affect, normal mood Skin exam: Present: warm, dry, intact, normal color Course Vital Signs 01/23/20 01/23/20 18:23 18:27 Temperature 98.7 F Pulse Rate 98 Respiratory 18 Rate Blood Pressure 89/74 119/81 O2 Sat by Pulse 95 Oximetry Procedures - Incision & Drainage Consent Obtained: verbal consent Indication: Abscess Site: buttock, other (Left buttock) Size (cm): 3 Anesthetic Used: lidocaine 1% Amount (mLs): 5 I&D Cleaning Method: Chloroprep Sterile Field Used?: No Scalpel Used: #11 Needle Aspiration Performed?: No Irrigation Performed?: No I&D Drainage Obtained: Pus, Blood Culture Obtained?: No Complications: pain, bleeding Patient Tolerated Procedure: well, no complications Medical Decision Making - Medical Decision Making Patient is 69-year-old male with history of CAD, COPD, Parkinson's, pressure ulcers presenting to the emergency department with multiple chief complaint. On physical examination, patient does appear to have a draining lesion on his left buttock. Incision and drainage was performed and I was able to get small amounts of pus but it was mostly blood. On auscultation, patient was rhonchus at the right lung base. He does have increased cough and sputum production that was not present yesterday. Also reported chest discomfort after coughing fits. He saturating well at 95 on 2 L of oxygen but drops below 90s on room air.CBC shows leukocytosis of 13 K with left shift. Initial troponin is negative. EKG shows a sinus rhythm with right bundle branch block. X-ray reveals an elevated right hemidiaphragm with minimal atelectasis at the right lung base. No heart failure or Bib consolidation. Patient was given a breathing treatment in the ED. Patient will be admitted for further medical management. Case discussed with Dr Elder Admitting is Dr Moran - Lab Data Result diagrams: 01/23/20 19:15 01/23/20 19:15 Lab Results 01/23/20 01/23/20 01/23/20 Range/Units 19:15 19:15 19:15 WBC 12.9 H (3.8-10.6) k/uL RBC 4.79 (4.30-5.90) m/uL Hgb 14.6 (13.0-17.5) gm/dL Hct 45.8 (39.0-53.0) % MCV 95.5 (80.0-100.0) fL MCH 30.4 (25.0-35.0) pg MCHC 31.9 (31.0-37.0) g/dL RDW 14.7 (11.5-15.5) % Plt Count 186 (150-450) k/uL Neutrophils % 76 % Lymphocytes % 14 % Monocytes % 9 % Eosinophils % 0 % Basophils % 0 % Neutrophils # 9.8 H (1.3-7.7) k/uL Lymphocytes # 1.7 (1.0-4.8) k/uL Monocytes # 1.1 H (0-1.0) k/uL Eosinophils # 0.0 (0-0.7) k/uL Basophils # 0.0 (0-0.2) k/uL PT 10.2 (9.0-12.0) sec INR 1.0 (<1.2) APTT 27.9 (22.0-30.0) sec Sodium 136 L (137-145) mmol/L Potassium 4.0 (3.5-5.1) mmol/L Chloride 100 (98-107) mmol/L Carbon Dioxide 31 H (22-30) mmol/L Anion Gap 5 mmol/L BUN 19 (9-20) mg/dL Creatinine 0.92 (0.66-1.25) mg/dL Est GFR (CKD-EPI)AfAm >90 (>60 ml/min/1.73 sqM) Est GFR (CKD-EPI)NonAf 85 (>60 ml/min/1.73 sqM) Glucose 146 H (74-99) mg/dL Plasma Lactic Acid Catarino (0.7-2.0) mmol/L Calcium 9.3 (8.4-10.2) mg/dL Magnesium 2.0 (1.6-2.3) mg/dL Total Bilirubin 0.8 (0.2-1.3) mg/dL AST 24 (17-59) U/L ALT 9 (4-49) U/L Alkaline Phosphatase 93 (38-126) U/L Troponin I (0.000-0.034) ng/mL Total Protein 6.2 L (6.3-8.2) g/dL Albumin 3.7 (3.5-5.0) g/dL 01/23/20 01/23/20 Range/Units 19:15 19:15 WBC (3.8-10.6) k/uL RBC (4.30-5.90) m/uL Hgb (13.0-17.5) gm/dL Hct (39.0-53.0) % MCV (80.0-100.0) fL MCH (25.0-35.0) pg MCHC (31.0-37.0) g/dL RDW (11.5-15.5) % Plt Count (150-450) k/uL Neutrophils % % Lymphocytes % % Monocytes % % Eosinophils % % Basophils % % Neutrophils # (1.3-7.7) k/uL Lymphocytes # (1.0-4.8) k/uL Monocytes # (0-1.0) k/uL Eosinophils # (0-0.7) k/uL Basophils # (0-0.2) k/uL PT (9.0-12.0) sec INR (<1.2) APTT (22.0-30.0) sec Sodium (137-145) mmol/L Potassium (3.5-5.1) mmol/L Chloride (98-107) mmol/L Carbon Dioxide (22-30) mmol/L Anion Gap mmol/L BUN (9-20) mg/dL Creatinine (0.66-1.25) mg/dL Est GFR (CKD-EPI)AfAm (>60 ml/min/1.73 sqM) Est GFR (CKD-EPI)NonAf (>60 ml/min/1.73 sqM) Glucose (74-99) mg/dL Plasma Lactic Acid Catarino 1.4 (0.7-2.0) mmol/L Calcium (8.4-10.2) mg/dL Magnesium (1.6-2.3) mg/dL Total Bilirubin (0.2-1.3) mg/dL AST (17-59) U/L ALT (4-49) U/L Alkaline Phosphatase (38-126) U/L Troponin I <0.012 (0.000-0.034) ng/mL Total Protein (6.3-8.2) g/dL Albumin (3.5-5.0) g/dL - EKG Data EKG Comments: Normal sinus rhythm. Right bundle branch block. Q wave in lead 3. Similar EKG to most recent. Ventricular rate 95, NE 130, QRS 138, QTC 487. Disposition Clinical Impression: COPD exacerbation, Left buttock abscess Disposition: ADMITTED IP TO THIS HOSP Condition: Good Instructions (If sedation given, give patient instructions): Abscess (ED) Additional Instructions: Patient will be admitted Is patient prescribed a controlled substance at d/c from ED?: No Referrals: Cheng Kendrick DO [Primary Care Provider] - 1-2 days Time of Disposition: 21:38
[2020-01-23 19:25] LABS: Basophils % (A) 0 %; Eosinophils % (A) 0 %; HCT 45.8 % (39.0-53.0); HGB 14.6 gm/dL (13.0-17.5); Lymphocytes # (A) 1.7 k/uL (1.0-4.8); Lymphocytes % (A) 14 %; MCH 30.4 pg (25.0-35.0); MCHC 31.9 g/dL (31.0-37.0); MCV 95.5 fL (80.0-100.0); Mean Platelet Volume 8.2; Monocytes # (A) 1.1 k/uL (0-1.0); Monocytes % (A) 9 %; Neutrophils # (A) 9.8 k/uL (1.3-7.7); Neutrophils % (A) 76 %; Platelet Count 186 k/uL (150-450); RBC 4.79 m/uL (4.30-5.90); RDW 14.7 % (11.5-15.5); WBC 12.9 k/uL (3.8-10.6)
[2020-01-23 19:35] LABS: ALT 9 U/L (4-49); AST 24 U/L (17-59); African American GFR (CKD) >90 (>60 ml/min/1.73 sqM); Albumin 3.7 g/dL (3.5-5.0); Alkaline Phosphatase 93 U/L (38-126); Anion Gap 5 mmol/L; Blood Urea Nitrogen 19 mg/dL (9-20); Calcium 9.3 mg/dL (8.4-10.2); Carbon Dioxide 31 mmol/L (22-30); Chloride 100 mmol/L (98-107); Glucose 146 mg/dL (74-99); Non-African American GFR(CKD) 85 (>60 ml/min/1.73 sqM); Sodium 136 mmol/L (137-145); Total Bilirubin 0.8 mg/dL (0.2-1.3); Total Protein 6.2 g/dL (6.3-8.2)
[2020-01-23 19:49] LABS: Partial Thromboplastin Time 27.9 sec (22.0-30.0); Prothrombin Time 10.2 sec (9.0-12.0)
--- NOTE | 2020-01-23 20:14 | XR ---
EXAMINATION TYPE: XR chest 2V DATE OF EXAM: 01/23/2020 COMPARISON: 10/16/2019 HISTORY: Fall. Fever. TECHNIQUE: 2 views FINDINGS: There is elevated right diaphragm. There is no heart failure. Heart size is fairly normal. There are chest leads. Bony thorax is intact. There is some linear density at the right lung base. IMPRESSION: Elevated right diaphragm with minimal atelectasis right lung base. No heart failure or pu lmonary consolidation. No significant change.
[2020-01-23] MEDS ORDERED: LIDOCAINE 1% INJ 10MG/ML (20 ML MDV) SQ ONE (20:43)
[2020-01-23] MEDS ORDERED: NALOXONE 0.4 MG/ML 1 ML VIAL IV PRN (21:05)
[2020-01-23] MEDS ORDERED: LORazepam 2 MG/ML INJ IV PRN (21:11)
[2020-01-23] MEDS ORDERED: ONDANSETRON 4 MG/2 ML VIAL IVP PRN (21:11)
[2020-01-23] MEDS ORDERED: cefTRIAXone IN SWFI 1,000 MG/10 ML SYRINGE IVP STA (21:33)
[2020-01-23] MEDS ORDERED: IPRATROPIUM-ALBUTEROL 3 ML NEB INHALATION STA (21:39)
[2020-01-23] MEDS: SODIUM CHLORIDE 0.9% 1,000 ML IV SCH (22:11)
[2020-01-23] MEDS: ACETAMINOPHEN TAB 325 MG TAB PO PRN (23:56)
[2020-01-24] MEDS ORDERED: NALOXONE 0.4 MG/ML 1 ML VIAL IV PRN (01:18)
[2020-01-24] MEDS ORDERED: ONDANSETRON 4 MG/2 ML VIAL IVP PRN (01:19)
[2020-01-24] MEDS: ACETAMINOPHEN TAB 325 MG TAB PO PRN ×2 (07:33→15:06)
[2020-01-24] MEDS ORDERED: IPRATROPIUM-ALBUTEROL 3 ML NEB INHALATION PRN (09:58)
--- NOTE | 2020-01-24 11:31 | US ---
EXAMINATION TYPE: US mass soft tissue chest/back DATE OF EXAM: 01/24/2020 COMPARISON: NONE CLINICAL HISTORY: soft tissue us of left buttock abcess. Boil on left buttock x couple days Left buttock: 4.5 x 0.9 x 4.2cm superficial irregular hypoechoic vascular area seen IMPRESSION: Cellulitis left buttock region. Small focal lead developing abscess is difficult to excl ude
[2020-01-24] MEDS: IPRATROPIUM-ALBUTEROL 3 ML NEB INHALATION SCH ×2 (11:51→19:52)
[2020-01-24] MEDS: FOLIC ACID 1 MG TAB PO SCH (12:03)
[2020-01-24] MEDS: FLUDROCORTISONE 0.1 MG TAB PO SCH (12:03)
[2020-01-24] MEDS: CARBIDOPA-LEVODOPA 25-100 MG 1 EACH TAB PO SCH ×3 (12:04→21:24)
--- NOTE | 2020-01-24 12:36 | P.HPIM ---
History of Present Illness This is a pleasant 69 years old male with past medical history of COPD, CVA/TIA, deep venous thrombosis, hypertension, seizure disorder, hypothyroidism,Parkinson disease, dysphagia at times BPH. He has history of anxiety and depression and PTSD and follow-up with psychiatrist as an outpatient. This patient of Dr. Kendrick. He presents because he fell at home without losing consciousness. He denies chest pain, no coughing. Patient also was noted to be tachypneic He noticed he has wanted his left buttock for the last 2 days with pain in the area patient denies other symptoms, no chest pain, no abdominal pain, no nausea vomiting, no change in her bowel habits. No fever. He feels little depressed but he denies suicidal or homicidal ideation, no visual or auditory hallucinations Patient denies smoking, alcohol or illicit drugs. Vital signs stable and patient is afebrile. Labs showing mild leukocytosis of 12.9 K, unremarkable rest of the CBC, INR, BMP, liver enzymes and troponin. EKG showing normal sinus rhythm at [address]-T changes. Chest x-ray, elevated right hemidiaphragm with minimal atelectasis no heart failure or consolidation. Soft tissue ultrasound showing 4.5 x 0.9 x 4.2 cm superficial irregular hypoechoic Vascular area seen suspicious for cellulitis of the left buttock region. Small focal developing abscess is difficult to exclude Review of Systems CONSTITUTIONAL: No fever, no malaise, no fatigue. HEENT: No recent visual problems or hearing problems. Denied any sore throat. CARDIOVASCULAR: No orthopnea, PND, no palpitations, no syncope. PULMONARY: No shortness of breath, no cough, no hemoptysis. GASTROINTESTINAL: No diarrhea, no nausea, no vomiting, no abdominal pain. Normoactive bowel sounds. NEUROLOGICAL: No headaches, no weakness, no numbness. HEMATOLOGICAL: Denies any bleeding or petechiae. GENITOURINARY: Denies any burning micturition, frequency, or urgency. MUSCULOSKELETAL/RHEUMATOLOGICAL: Denies any joint pain, swelling, or any muscle pain. ENDOCRINE: Denies any polyuria or polydipsia. Past Medical History Past Medical History: COPD, CVA/TIA, Deep Vein Thrombosis (DVT), Hypertension, Musculoskeletal Disorder, Neurologic Disorder, Pneumonia, Prostate Disorder, Seizure Disorder, Thyroid Disorder Additional Past Medical History / Comment(s): Pt recently admitted to [facility] on 09/21/19 with exacerbation COPD. 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 History of Any Multi-Drug Resistant Organisms: MRSA Date of last positivie culture/infection: 09/30/2014 MDRO Source:: Blood Past Surgical History: Adenoidectomy, Prostate Surgery, Tonsillectomy Additional Past Surgical History / Comment(s): BRONCHOSCOPY, SX FOR PROLAPSED RECTUM, TURP, Peg insertion & then removed, osteophytes removed from throat, TEETH EXTRACTED, 12-22-15 MIKE. 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 He ambulates with a walker. His daughter manages his medications. He no longer drives. He gets to appts by his linda or son. His pills need to be crushed and placed in applesauce at times. He has dysphagia at times. His daughter has to leave during the day at times and pt and his mother are alone during those times. Pt currently receiving home care thru [facility]. Pt has home oxygen and a nebulizer. Smoking Status: Never smoker Past Alcohol Use History: None Reported Additional Past Alcohol Use History / Comment(s): STARTED SMOKING AT AGE 20, QUIT SMOKING 1988 SMOKED 1-2 PPD. PT WAS HEAVY DRINKER IN PAST BUT NONE X 25 PLUS YEARS. Past Drug Use History: None Reported - Past Family History Father Family Medical History: Myocardial Infarction ([place]) Additional Family Medical History / Comment(s): Father at the age of 62 yrs from a [place]. Mother Family Medical History: Myocardial Infarction (MD) Additional Family Medical History / Comment(s): Mother is 97yrs old. She has a pacemaker. Medications and Allergies Home Medications Medication Instructions Recorded Confirmed Type Levothyroxine Sodium [Synthroid] 125 mcg PO DAILY 06/27/14 01/23/20 History Atorvastatin Calcium [Lipitor] 40 mg PO HS 02/20/17 01/23/20 History Primidone [Mysoline] 50 mg PO BID 02/20/17 01/23/20 History Fludrocortisone [Florinef] 0.1 mg PO DAILY 02/19/18 01/23/20 History Valproic Acid (As Sodium Salt) 500 mg PO TID 05/14/18 01/23/20 History [Depakene Soln] Tamsulosin [Flomax] 0.4 mg PO HS 06/20/18 01/23/20 History Donepezil [Aricept] 10 mg PO HS 02/27/19 01/23/20 History traZODone HCL [Desyrel] 50 mg PO HS 02/27/19 01/23/20 History Neupro Patch 6mg/24hr 1 patch TOPICAL DAILY 09/21/19 01/23/20 History Budesonide-Formot 160-4.5 Mcg 2 puff INHALATION RT-BID 30 Days 09/24/19 01/23/20 Rx [Symbicort 160-4.5 Mcg Inhaler] #1 puff Folic Acid 1 mg PO DAILY@1200 30 Days #30 tab 09/24/19 01/23/20 Rx Thiamine [Vitamin B-1] 100 mg PO DAILY 30 Days #30 tab 09/24/19 01/23/20 Rx Glycopyrrolate [Robinul] 1 mg PO HS #3 tab 10/22/19 01/23/20 Rx cloZAPine [Clozaril] 450 mg PO HS #3 tab 10/22/19 01/23/20 Rx Albuterol Nebulized [Ventolin 2.5 mg INHALATION RT-QID PRN 01/23/20 01/23/20 History Nebulized] Carbidopa-Levodopa 25-100 mg 1 tab PO QID 01/23/20 01/23/20 History [Sinemet 25-100] Multivitamins, Thera [Multivitamin 1 tab PO DAILY 01/23/20 01/23/20 History (formulary)] Allergies Allergy/AdvReac Type Severity Reaction Status Date / Time Iodinated Contrast Media Allergy Unknown Verified 01/23/20 22:17 [Iodinated Contrast- Oral and IV Dye] iohexol Allergy Nausea & Verified 01/23/20 22:17 Vomiting levofloxacin [From Levaquin] Allergy Unknown Verified 01/23/20 22:17 morphine Allergy Confusion Verified 01/23/20 22:17 tromethamine Allergy Nausea & Verified 01/23/20 22:17 Vomiting codeine AdvReac Hallucinati Verified 01/23/20 22:17 ons Physical Exam Vitals: Vital Signs Temp Pulse Pulse Resp BP BP Pulse Ox 01/24/20 09:30 98 F 82 12 119/71 95 01/24/20 00:00 97.9 F 80 18 103/80 97 01/23/20 23:19 97.7 F 01/23/20 22:03 87 01/23/20 21:59 89 01/23/20 18:27 119/81 01/23/20 18:23 98.7 F 98 18 89/74 95 Intake and Output 01/23/20 01/24/20 01/24/20 22:59 06:59 14:59 Intake Total 75 Output Total 850 Balance -775 Intake: IV 75 Sodium Chloride 0.9% 1, 75 000 ml @ 75 mls/hr IV . [id number] [facility] Rx#:[id number] Output: Urine 850 Other: Weight 88.451 kg 90.3 kg GENERAL: The patient is alert and oriented x3, not in any acute distress. Well developed, well nourished. HEENT: Pupils are round and equally reacting to light. EOMI. No scleral icterus. No conjunctival pallor. Normocephalic, atraumatic. No pharyngeal erythema. No thyromegaly. CARDIOVASCULAR: S1 and S2 present. No murmurs, rubs, or gallops. PULMONARY: Chest is clear to auscultation, no wheezing or crackles. ABDOMEN: Soft, nontender, nondistended, normoactive bowel sounds. No palpable organomegaly. MUSCULOSKELETAL: No joint swelling or deformity. EXTREMITIES: No cyanosis, clubbing, or pedal edema. NEUROLOGICAL: Gross neurological examination did not reveal any focal deficits. SKIN: No rashes. No petechiae Results CBC & Chem 7: 01/23/20 19:15 01/23/20 19:15 Labs: Abnormal Lab Results - Last 24 Hours (Table) 01/23/20 01/23/20 Range/Units 19:15 19:15 WBC 12.9 H (3.8-10.6) k/uL Neutrophils # 9.8 H (1.3-7.7) k/uL Monocytes # 1.1 H (0-1.0) k/uL Sodium 136 L (137-145) mmol/L Carbon Dioxide 31 H (22-30) mmol/L Glucose 146 H (74-99) mg/dL Total Protein 6.2 L (6.3-8.2) g/dL Thrombosis Risk Factor Assmnt - Choose All That Apply Each Factor Represents 1 point: Abnormal pulmonary function (COPD), Serious lung disease incl. pneumonia (< 1month) Other Risk Factors: Yes Each Risk Factor Represents 2 Points: Age 61-74 years Each Risk Factor Represents 3 Points: History of DVT/PE Thrombosis Risk Factor Assessment Total Risk Factor Score: 7 Thrombosis Risk Factor Assessment Level: High Risk Assessment and Plan Assessment: Left buttock cellulitis , with possible small abscess, opened spontaneously with discharge fall at home without losing consciousness COPD, not in acute exacerbation History of CVA/TIA History of DVT thromboses Hypertension Seizure disorder Hypothyroidism Parkinson disease Benign prostatic hypertrophy History of depression, anxiety and PTSD, not active tissue Plan: this is a pleasant 69 years old male who presents with left buttock cellulitis and full. Continue with antibiotics as per infectious disease team were consu lted. Follow-up recommendation by [place]/critical care team. Follow-up culture results. We'll ask physical therapy evaluation Labs and medication were reviewed.. Continue same treatment. Continue with symptomatic treatment. Resume home medication. Monitor lytes and vitals. DVT and GI prophylaxis. Further recommendations depends on the clinical course of the patient DVT prophylaxis: Subcutaneous heparin GI Prophylaxis: Pepcid PT/OT: Pending Prognosis is guarded
[2020-01-24] MEDS: HEPARIN SODIUM,PORCINE 5,000 UNIT/ML 1 ML VIAL SQ SCH ×2 (12:54→21:24)
[2020-01-24] MEDS: VALPROIC ACID ORAL SOLN 250 MG/5 ML CUP PO SCH ×2 (15:05→21:24)
[2020-01-24] MEDS: NEUPRO 6 MG/24 HR PO SCH (17:11)
--- NOTE | 2020-01-24 18:12 | CONS ---
CONSULTATION PULMONARY/CRITICAL CARE CONSULTATION: DATE OF SERVICE: 01/24/2020 HISTORY OF PRESENT ILLNESS: This is a 69-year-old male who presented to the emergency room via EMS apparently having fallen at home. He apparently comes here with a left buttock abscess, questionable pneumonia, and COPD exacerbation. The patient is a very poor historian. He is oriented x3, but he is really not able to give much history as to his current illness. The patient also apparently has a history of Parkinson's disease. Apparently his daughter was with the patient in the room. Again, he is quite confused. He apparently fell and injured his left buttock and was found to have an abscess on the left buttock. In addition, the patient apparently was thought to have a COPD exacerbation and possible pneumonia. I think his COPD is pretty much at baseline and I do not believe he has a pneumonia. He does have an elevated right hemidiaphragm which is chronic. The patient was seen by myself in August and also I think Dr. Gaffney in September. The patient will need ID to see the patient for the left buttock abscess. It was apparently incised and drained in the emergency room by Dr. Elder. The patient will need a swallow evaluation as well as social work consult, as it appears the patient is having all sorts of issues with his gait, multiple falls and may not be able to return home in the near future. Currently, he is on 3 L nasal cannula and saline at 75 mL an hour. MEDICATIONS: Home medications reviewed. He is on Synthroid, Sinemet, Lipitor, Mysoline, Florinef, Depakene, Flomax, Aricept, Desyrel, aspirin, Neupro patch, Symbicort, folic acid, DuoNeb, multivitamins, thiamine, Tylenol, Ceftin, Robinul, Protonix and Clozaril. ALLERGIES: Multiple and include IVP DYE, LEVAQUIN, MORPHINE, TROMETHAMINE, AND CODEINE. MEDICAL HISTORY: COPD, CVA, DVT, hypertension, pneumonia, seizure disorder, hypothyroidism, Parkinson's disease, dysphagia, chronic hypoxemic respiratory failure, aspiration pneumonia, previous PEG tube placement, seizures, left lower extremity DVT, degenerative disk disease, sciatic neuralgia, vertigo, vitamin D deficiency, BPH, and DJD. SURGICAL HISTORY: Includes adenoidectomy, prostate surgery, tonsillectomy, bronchoscopy, surgery for prolapsed rectum, TURP, PEG tube insertion and subsequent removal, cervical surgery, and dental extractions. The patient has also had a transesophageal echocardiogram. SOCIAL HISTORY: Negative for current tobacco use. He did smoke in the past. He appears to be a heavy smoker in the past. No illicit drug use and no alcohol use. FAMILY HISTORY: Positive for a father with MT and mother with a history of myocardial infarction and pacemaker. REVIEW OF SYSTEMS: CONSTITUTIONAL: Weakness. NEUROLOGIC: Confusion, memory impairment. HEENT: Negative. CARDIOVASCULAR: Negative. PULMONARY: Negative. GI: Negative. : Negative. RHEUMATOLOGIC: Negative. IMMUNOLOGIC: Negative. ENDOCRINOLOGIC: Negative. DERMATOLOGIC: Left buttock abscess. PHYSICAL EXAMINATION: VITAL SIGNS: Current vital signs are reviewed. Temperature is 97.9, heart rate 80, respiratory rate 18, blood pressure 103/80, mean 87, 3 L saturation 97%. Appears in no acute distress. HEENT: Examination is grossly unremarkable. Nasal O2 noted. NECK: Supple. Full range of motion. No adenopathy. Neck veins are flat. CARDIOVASCULAR: Examination reveals regular rhythm and rate. Heart rate about 80 beats per minute. S1, S2 normal. LUNGS: Reveal mostly clear breath sounds. A few scattered mild rhonchi. No wheezes or crackles. ABDOMEN: Soft. EXTREMITIES: Are intact. No edema. SKIN: Without rash. NEUROLOGIC: Examination is difficult to assess. He is oriented x3. Does move all 4 extremities. He does seem somewhat confused about additional information such as family doctor, medical history, etc. Evaluation of the left buttock reveals a small incision, but apparently the surrounding area is quite erythematous and fluctuant. LABS: Reviewed. White count 12.9, hemoglobin 14.6, hematocrit 45.8, platelet count 186,000. PT/INR, PTT normal. Sodium 136, potassium 4, chloride 100, CO2 31, anion gap is 5. BUN and creatinine were 19 and 0.92. Microbiology is pending or negative. IMAGING: Chest x-ray shows a chronically elevated right diaphragm. There are some minimal atelectatic changes at the bases. MEDICATIONS: Reviewed. They were quite extensive. Currently, he is on Tylenol, Lipitor, Symbicort, Sinemet, Aricept, Florinef, folic acid, levothyroxine, Ativan, Narcan, Zofran, Mysoline, Flomax thiamine, trazodone, and Depakene syrup. ASSESSMENT: 1. Recent frequent falls at home, without obvious or apparent injury. 2. Left buttock abscess, which will need antibiotics, status post incision and drainage in the emergency room. 3. History of recent admissions to the hospital in August and September for pneumonia. 4. Previous history of aspiration pneumonia involving bilateral lower lobes. 5. Chronically elevated right diaphragm. 6. History of distal right lower lobe pulmonary emboli. 7. History of periodontal disease. 8. Hypothyroidism. 9. Parkinson's disease. 10.History of hyperlipidemia. 11.Benign prostatic hypertrophy. 12.CVA. 13.DVT. 14.History of hypertension. 15.History of closed head injury. 16.Degenerative joint disease. 17.Sciatic neuralgia. 18.Vertigo. 19.Multiple other medical problems and comorbidities. PLAN: I will add back some updrafts q.i.d. and p.r.n. The patient is currently on Symbicort. Additional recommendations and suggestions are forthcoming. We will get a swallow evaluation to rule out aspiration. The patient will need evaluation by Infectious Disease for the left buttock abscess. The patient will also need a social work consult, as he may be discharged to assisted living or extended care facility. We will continue to follow. Prognosis is guarded. MMODL / IJN: [id number] /
[2020-01-24] MEDS: SYMBICORT 160-4.5 MCG INHALER INHALATION SCH (19:51)
[2020-01-24] MEDS: SODIUM CHLORIDE 0.9% 1,000 ML IV SCH (20:18)
[2020-01-24] MEDS: TAMSULOSIN 0.4 MG CAP.ER.24H PO SCH (21:24)
[2020-01-24] MEDS: PRIMIDONE 50 MG TAB PO SCH (21:24)
[2020-01-24] MEDS: traZODone HCL 50 MG TAB PO SCH (21:24)
[2020-01-24] MEDS: ATORVASTATIN 40 MG TAB PO SCH (21:24)
[2020-01-24] MEDS: DONEPEZIL 10 MG TAB PO SCH (21:24)
[2020-01-24] MEDS: FAMOTIDINE 20 MG/2 ML VIAL IV SCH (21:24)
[2020-01-25] MEDS: SODIUM CHLORIDE 0.9% 1,000 ML IV SCH (00:09)
[2020-01-25 05:08] LABS: Basophils % (A) 0 %; Eosinophils % (A) 0 %; HGB 12.3 gm/dL (13.0-17.5); Lymphocytes % (A) 28 %; MCH 30.2 pg (25.0-35.0); MCHC 31.6 g/dL (31.0-37.0); MCV 95.4 fL (80.0-100.0); Mean Platelet Volume 7.7; Monocytes # (A) 0.5 k/uL (0-1.0); Monocytes % (A) 7 %; Neutrophils # (A) 4.3 k/uL (1.3-7.7); Neutrophils % (A) 61 %; Platelet Count 171 k/uL (150-450); RBC 4.08 m/uL (4.30-5.90); RDW 14.6 % (11.5-15.5); WBC 7.1 k/uL (3.8-10.6)
[2020-01-25 05:20] LABS: African American GFR (CKD) >90 (>60 ml/min/1.73 sqM); Anion Gap 4 mmol/L; Blood Urea Nitrogen 22 mg/dL (9-20); Calcium 7.9 mg/dL (8.4-10.2); Carbon Dioxide 28 mmol/L (22-30); Chloride 104 mmol/L (98-107); Glucose 95 mg/dL (74-99); Non-African American GFR(CKD) >90 (>60 ml/min/1.73 sqM); Sodium 136 mmol/L (137-145)
[2020-01-25] MEDS: LEVOTHYROXINE 125 MCG TAB PO SCH (06:47)
[2020-01-25] MEDS: IPRATROPIUM-ALBUTEROL 3 ML NEB INHALATION SCH ×3 (08:57→18:56)
[2020-01-25] MEDS: SYMBICORT 160-4.5 MCG INHALER INHALATION SCH ×2 (08:57→18:56)
--- NOTE | 2020-01-25 09:08 | P.CONS ---
History of Present Illness - Reason for Consult Consult date: 01/24/20 Left gluteal abscess and cellulitis Requesting physician: Milton E Sheet - Chief Complaint Left gluteal pain x 2 days - History of Present Illness Patient is a 69 year old male with a past medical history significant for COPD CVA and TIA the patient has been brought into the hospital after pending the patient did have a fall at home patient denies having loss of consciousness or hitting his head, patient to the did have a sore on his the left buttock area that has been progressively getting worse for the last few days patient denies having any history of any trauma he describing pain into the left gluteal area to be more of a throbbing intensity is about 5-6 out of 10 and no radiation denies any drainage from it or any foul-smelling with the symptoms and the patient was evaluated by the ER physician on arrival to the ER the patient was if he did have mildly elevated white count of 12.8, patient did have ultrasound of the left gluteal area which was pending at the time of my evaluation infectious disease was consulted for further management of antibiotic therapy for possible left acute cellulitis/abscess Review of Systems Positive point has been mentioned in the HPI rest of the systems are negative Past Medical History Past Medical History: COPD, CVA/TIA, Deep Vein Thrombosis (DVT), Hypertension, Musculoskeletal Disorder, Neurologic Disorder, Pneumonia, Prostate Disorder, Seizure Disorder, Thyroid Disorder Additional Past Medical History / Comment(s): Pt recently admitted to [facility] on 09/21/19 with exacerbation COPD. 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 History of Any Multi-Drug Resistant Organisms: MRSA Year Discovered:: 09/30/2014 MDRO Source:: Blood Past Surgical History: Adenoidectomy, Prostate Surgery, Tonsillectomy Additional Past Surgical History / Comment(s): BRONCHOSCOPY, SX FOR PROLAPSED RECTUM, TURP, Peg insertion & then removed, osteophytes removed from throat, TEETH EXTRACTED, 12-22-15 MIKE. 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 He ambulates with a walker. His daughter manages his medications. He no longer drives. He gets to [facility] by his linda or son. His pills need to be crush ed and placed in applesauce at times. He has dysphagia at times. His daughter has to leave during the day at times and pt and his mother are alone during those times. Pt currently receiving home care thru [facility]. Pt has home oxygen and a nebulizer. Smoking Status: Never smoker Past Alcohol Use History: None Reported Additional Past Alcohol Use History / Comment(s): STARTED SMOKING AT AGE 20, QUIT SMOKING 1988 SMOKED 1-2 PPD. PT WAS HEAVY DRINKER IN PAST BUT NONE X 25 PLUS YEARS. Past Drug Use History: None Reported - Past Family History Father Family Medical History: Myocardial Infarction ([place]) Additional Family Medical History / Comment(s): Father at the age of 62 yrs from a [place]. Mother Family Medical History: Myocardial Infarction ([place]) Additional Family Medical History / Comment(s): Mother is 97yrs old. She has a pacemaker. Medications and Allergies Home Medications Medication Instructions Recorded Confirmed Type Levothyroxine Sodium [Synthroid] 125 mcg PO DAILY 06/27/14 01/23/20 History Atorvastatin Calcium [Lipitor] 40 mg PO HS 02/20/17 01/23/20 History Primidone [Mysoline] 50 mg PO BID 02/20/17 01/23/20 History Fludrocortisone [Florinef] 0.1 mg PO DAILY 02/19/18 01/23/20 History Valproic Acid (As Sodium Salt) 500 mg PO TID 05/14/18 01/23/20 History [Depakene Soln] Tamsulosin [Flomax] 0.4 mg PO HS 06/20/18 01/23/20 History Donepezil [Aricept] 10 mg PO HS 02/27/19 01/23/20 History traZODone HCL [Desyrel] 50 mg PO HS 02/27/19 01/23/20 History Neupro Patch 6mg/24hr 1 patch TOPICAL DAILY 09/21/19 01/23/20 History Budesonide-Formot 160-4.5 Mcg 2 puff INHALATION RT-BID 30 Days 09/24/19 01/23/20 Rx [Symbicort 160-4.5 Mcg Inhaler] #1 puff Folic Acid 1 mg PO DAILY@1200 30 Days #30 tab 09/24/19 01/23/20 Rx Thiamine [Vitamin B-1] 100 mg PO DAILY 30 Days #30 tab 09/24/19 01/23/20 Rx Glycopyrrolate [Robinul] 1 mg PO HS #3 tab 10/22/19 01/23/20 Rx cloZAPine [Clozaril] 450 mg PO HS #3 tab 10/22/19 01/23/20 Rx Albuterol Nebulized [Ventolin 2.5 mg INHALATION RT-QID PRN 01/23/20 01/23/20 History Nebulized] Carbidopa-Levodopa 25-100 mg 1 tab PO QID 01/23/20 01/23/20 History [Sinemet 25-100] Multivitamins, Thera [Multivitamin 1 tab PO DAILY 01/23/20 01/23/20 History (formulary)] Allergies Allergy/AdvReac Type Severity Reaction Status Date / Time Iodinated Contrast Media Allergy Unknown Verified 01/23/20 22:17 [Iodinated Contrast- Oral and IV Dye] iohexol Allergy Nausea & Verified 01/23/20 22:17 Vomiting levofloxacin [From Levaquin] Allergy Unknown Verified 01/23/20 22:17 morphine Allergy Confusion Verified 01/23/20 22:17 tromethamine Allergy Nausea & Verified 01/23/20 22:17 Vomiting codeine AdvReac Hallucinati Verified 01/23/20 22:17 ons Physical Exam Vitals: Vital Signs Temp Pulse Pulse Resp BP BP Pulse Ox 01/24/20 20:08 78 01/24/20 19:52 76 01/24/20 18:30 79 22 104/68 95 01/24/20 16:30 98.2 F 79 22 101/73 95 01/24/20 15:30 82 20 01/24/20 15:25 95 01/24/20 12:30 88 28 H 112/74 94 L 01/24/20 12:05 86 01/24/20 11:53 94 L 01/24/20 11:51 83 01/24/20 09:30 98 F 82 12 119/71 95 01/24/20 08:20 82 12 01/24/20 00:00 97.9 F 80 18 103/80 97 01/23/20 23:19 97.7 F 01/23/20 22:03 87 01/23/20 21:59 89 Intake and Output 01/24/20 01/24/20 01/24/20 06:59 14:59 22:59 Intake Total 75 75 75 Output Total 850 1200 525 Balance -775 -1125 -450 Intake: IV 75 75 75 Sodium Chloride 0.9% 1, 75 75 75 000 ml @ 75 mls/hr IV . [id number] [facility] Rx#:[id number] Output: Urine 850 1200 525 Other: Voiding Method Toilet Toilet # Voids 1 Weight 90.3 kg GENERAL DESCRIPTION: An elderly male lying in bed, no distress. No tachypnea or accessory muscle of respiration use. HEENT: Shows Pallor , no scleral icterus. Oral mucous membrane is dry. No pharyngeal erythema or thrush NECK: Trachea central, no thyromegaly. LUNGS: Unlabored breathing. Decreased present at the base. No wheeze or crackle. HEART: S1, S2, regular rate and rhythm. No loud murmur ABDOMEN: Soft, no tenderness , guarding or rigidity, no organomegaly EXTREMITIES: No edema of feet. SKIN: No rash, no masses palpable. Left gluteal area did have a need of induration and some blood stained drainage area was cultured NEUROLOGICAL: The patient is awake, alert, oriented x3, mood and affect normal. Results CBC & Chem 7: 01/25/20 04:33 01/25/20 04:33 Labs: Microbiology - Last 24 Hours (Table) 01/24/20 11:45 Wound Culture - Preliminary Buttock Assessment and Plan Assessment: 1- patient is 69 -year-old male presenting to the hospital with fall and weakness in this patient who did have left gluteal abscess and cellulitis likely from gram-positive skin ranjith less likely gram-negative 2- Patient with multiple antibiotic ALLERGIES that would limit the number of antibiotic safe to use (1) Abscess, gluteal, left Current Visit: Yes Status: Acute Code(s): L02.31 - CUTANEOUS ABSCESS OF BUTTOCK SNOMED Code(s): 99241302 Plan: 1- cefazolin 2 g every 8 hours to continue for now 2- local cultures have been obtained to guide further antibiotic therapy We will follow on clinical condition and cultures to further adjust medication if needed Thank you for this consultation will follow this patient with you Time with Patient: Greater than 30
[2020-01-25] MEDS: FAMOTIDINE 20 MG/2 ML VIAL IV SCH (09:11)
[2020-01-25] MEDS: CARBIDOPA-LEVODOPA 25-100 MG 1 EACH TAB PO SCH ×4 (09:11→20:26)
[2020-01-25] MEDS: FLUDROCORTISONE 0.1 MG TAB PO SCH (09:12)
[2020-01-25] MEDS: PRIMIDONE 50 MG TAB PO SCH ×2 (09:12→20:25)
[2020-01-25] MEDS: HEPARIN SODIUM,PORCINE 5,000 UNIT/ML 1 ML VIAL SQ SCH ×2 (09:12→20:23)
[2020-01-25] MEDS: VALPROIC ACID ORAL SOLN 250 MG/5 ML CUP PO SCH ×3 (09:13→20:26)
[2020-01-25] MEDS: THIAMINE 100 MG TAB PO SCH (09:13)
[2020-01-25] MEDS: ACETAMINOPHEN TAB 325 MG TAB PO PRN (09:26)
[2020-01-25 11:29] VITALS: BMI 31.1
[2020-01-25] MEDS: FOLIC ACID 1 MG TAB PO SCH (12:18)
--- NOTE | 2020-01-25 12:44 | PN ---
PROGRESS NOTE PULMONARY/CRITICAL CARE PROGRESS NOTE: DATE OF SERVICE: 01/25/2020 This is a 69-year-old gentleman who we saw in consultation yesterday. He apparently presented to the emergency room with having fallen at home. He apparently does have a poor gait and has fallen multiple times in the past. He apparently sustained an injury to his left buttock and was discovered to have a left buttock abscess. There is also a questionable diagnosis of pneumonia and COPD exacerbation. The patient was not a particularly good historian. The patient does also have a history of Parkinson's disease. Currently, he is doing reasonably well. He is currently on room air. He is getting saline at 75 mL an hour. The patient is currently on Ancef. He was seen by the Infectious Disease specialist. Cultures of the wound on the left buttock were done. Those are pending. Currently, the patient is a bit confused. He will likely have to be discharged either to a halfway or neuro rehab facility. I do not believe he can go home in his current condition. PHYSICAL EXAMINATION: VITAL SIGNS: Current vital signs are reviewed. Temperature is 97.9, heart rate 75, respiratory rate 21, blood pressure 120/75, mean 90, 2 L saturation 93%. Room air he is about 90%. Appears in no acute distress. HEENT: Examination is grossly unremarkable. Nasal O2 noted. NECK: Supple. Full range of motion. No adenopathy. Neck veins are flat. CARDIOVASCULAR: Examination reveals regular rhythm and rate. Heart rate currently 77 beats per minute. S1, S2 normal. Heart sounds are distant. LUNGS: Reveal a few scattered rhonchi. No wheezes or crackles. Breath sounds equal but diminished throughout. ABDOMEN: Soft. Bowel sounds are heard. EXTREMITIES are intact. No cyanosis, clubbing, or edema. SKIN: Without rash. NEUROLOGIC: Examination is brief but nonfocal. The patient's left buttock abscess was evaluated yesterday. White count 7.1, hemoglobin 12.3, hematocrit 39.0, platelet count 171,000. Sodium 136, potassium 4, chloride 104, CO2 28, anion gap is 4. BUN and creatinine 22 and 0.8. The rest of the labs are normal. Microbiologic studies are pending or negative. The patient's chest x-ray done on January 22 shows elevated right diaphragm and some basilar atelectasis. X-ray is essentially unchanged. A soft tissue ultrasound of the left buttock shows cellulitis in the left buttock with a small area of developing abscess. Current medications are reviewed. Antibiotic-keith, the patient is on Ancef. ASSESSMENT: 1. Recent frequent falls at home without obvious or apparent injury. 2. Left buttock abscess status post incision and drainage in the emergency room, now on Ancef. 3. History of recent admissions to the hospital in August and September for pneumonia. 4. Prior history of aspiration pneumonia involving bilateral lower lobes. 5. Chronically elevated right diaphragm, unchanged. 6. History of distal right lower lobe pulmonary emboli. 7. History of severe periodontal disease. 8. Hypothyroidism. 9. Parkinson's disease. 10.History of hyperlipidemia. 11.Benign prostatic hypertrophy. 12.Cerebrovascular accident. 13.History of deep venous thrombosis. 14.History of hypertension. 15.History of closed head injury. 16.Degenerative joint disease. 17.Sciatic neuralgia. 18.Vertigo. 19.Multiple other medical problems and comorbidities. PLAN: The patient could be transferred out to the general medical floor with telemetry. He is currently on Ancef. Cultures are pending. Respiratory status and hemodynamic status are stable. The patient will need to be evaluated by social work and discharge planning. He likely will need either rehab facility or halfway. Additional recommendations and suggestions are forthcoming. PT should see the patient also to improve his overall ambulation and gait. YELITZA / ANTHONY: [id number] /
[2020-01-25] MEDS: DOCUSATE 100 MG CAP PO SCH ×2 (16:15→20:25)
[2020-01-25] MEDS: polyethylene glycoL 3350 17 GM POWD.PACK PO SCH (16:17)
--- NOTE | 2020-01-25 18:26 | P.PN ---
Subjective Progress Note Date: 01/25/20 Principal diagnosis: Left gluteal abscess/sepsis 69 year old male with a past medical history significant for COPD CVA and TIA the patient has been brought into the hospital after pending the patient did have a fall at home patient denies having loss of consciousness or hitting his head, patient to the did have a sore on his the left buttock area that has been progressively getting worse for the last few days patient denies having any history of any trauma he describing pain into the left gluteal area to be more of a throbbing intensity is about 5-6 out of 10 and no radiation denies any drainage from it or any foul-smelling with the symptoms and the patient was evaluated by the ER physician on arrival to the ER the patient was if he did have mildly elevated white count of 12.8, patient did have ultrasound of the left gluteal area which was pending at the time of my evaluation infectious disease was consulted for further management of antibiotic therapy for possible left acute cellulitis/abscess 01/25/2020 Patient is seen and evaluated in room at bedside; reports constipation with last bowel movement being on 01/20 Patient is currently in ICU and is being followed by ID and critical care; currently on Ancef; patient is stable to be transferred to general medical floor with social work consult for discharge planning Objective - Vital Signs Vital signs: Vital Signs Temp 97.9 F 01/25/20 12:00 Pulse 74 01/25/20 12:00 Resp 22 01/25/20 12:00 BP 137/75 01/25/20 12:00 Pulse Ox 88 L 01/25/20 12:00 Intake & Output 01/24/20 01/25/20 01/25/20 18:59 06:59 18:59 Intake Total 150 600 500 Output Total 1725 600 300 Balance -1575 0 200 Weight 90.4 kg 90.4 kg Intake: IV 150 600 150 Sodium Chloride 0.9% 1, 150 600 150 000 ml @ 75 mls/hr IV . [id number] [facility] Rx#:[id number] Oral 350 Output: Urine 1725 600 300 Other: Voiding Method Toilet Toilet Toilet # Voids 1 1 - Exam PHYSICAL EXAMINATION: GENERAL: The patient is alert and oriented x3, not in any acute distress. Well developed, well nourished. HEENT: Pupils are round and equally reacting to light. EOMI. No scleral icterus. No conjunctival pallor. Normocephalic, atraumatic. No pharyngeal erythema. No thyromegaly. CARDIOVASCULAR: S1 and S2 present. No murmurs, rubs, or gallops. PULMONARY: Chest is clear to auscultation, no wheezing or crackles. ABDOMEN: Soft, nontender, nondistended, normoactive bowel sounds. No palpable organomegaly. MUSCULOSKELETAL: No joint swelling or deformity. EXTREMITIES: No cyanosis, clubbing, or pedal edema. NEUROLOGICAL: Gross neurological examination did not reveal any focal deficits. SKIN: No rashes. - Labs CBC & Chem 7: 01/25/20 04:33 01/25/20 04:33 Labs: Abnormal Lab Results - Last 24 Hours (Table) 01/25/20 01/25/20 Range/Units 04:33 04:33 RBC 4.08 L (4.30-5.90) m/uL Hgb 12.3 L (13.0-17.5) gm/dL Sodium 136 L (137-145) mmol/L BUN 22 H (9-20) mg/dL Calcium 7.9 L (8.4-10.2) mg/dL Microbiology - Last 24 Hours (Table) 01/24/20 11:45 Gram Stain - Preliminary Buttock Wound Culture - Preliminary Assessment and Plan Assessment: Left buttock cellulitis , with possible small abscess, opened spontaneously with discharge fall at home without losing consciousness COPD, not in acute exacerbation History of CVA/TIA History of DVT thromboses Hypertension Seizure disorder Hypothyroidism Parkinson disease Benign prostatic hypertrophy History of depression, anxiety and PTSD, not active tissue Plan: this is a pleasant 69 years old male who presents with left buttock cellulitis and full. Continue with antibiotics as per infectious disease team were consulted. Follow-up recommendation by [place]/critical care team. Follow-up culture results. We'll ask physical therapy evaluation Labs and medication were reviewed.. Continue same treatment. Continue with symptomatic treatment. Resume home medication. Monitor lytes and vitals. DVT and GI prophylaxis. Further recommendations depends on the clinical course of the patient DVT prophylaxis: Subcutaneous heparin GI Prophylaxis: Pepcid PT/OT: Pending
--- NOTE | 2020-01-25 18:47 | PN ---
PROGRESS NOTE DATE OF SERVICE: 01/25/2020 REASON FOR FOLLOWUP: Left gluteal abscess and cellulitis. INTERVAL HISTORY: The patient is currently afebrile. The patient is breathing comfortably. Denies having any chest pain or shortness of breath. Occasional cough. No abdominal pain. Overall pain and discomfort to the left lower leg has decreased. PHYSICAL EXAMINATION: Blood pressure 118/70 with a pulse of 74. Temperature is 97.7. He is 94% on 2 L nasal cannula. GENERAL DESCRIPTION: The patient is an elderly male lying in bed in no distress. RESPIRATORY SYSTEM: Unlabored breathing, clear to auscultation anteriorly. HEART S1, S2. Regular rate and rhythm. ABDOMEN: Soft, no tenderness. LABS: Hemoglobin is 12.8, white count 7.1. BUN of 22, creatinine 0.80. DIAGNOSTIC IMPRESSION AND PLAN: Patient with left gluteal abscess and cellulitis with spontaneous drainage. Cultures currently pending. Patient to continue cefazolin as white count has normalized and adjust antibiotic further based on the culture report. MMODL / IJN: [id number] /
[2020-01-25] MEDS: NEUPRO 6 MG/24 HR PO SCH (18:52)
[2020-01-25] MEDS: TAMSULOSIN 0.4 MG CAP.ER.24H PO SCH (20:25)
[2020-01-25] MEDS: DONEPEZIL 10 MG TAB PO SCH (20:25)
[2020-01-25] MEDS: FAMOTIDINE 20 MG TAB PO SCH (20:25)
[2020-01-25] MEDS: ATORVASTATIN 40 MG TAB PO SCH (20:26)
[2020-01-25] MEDS: traZODone HCL 50 MG TAB PO SCH (20:26)
[2020-01-25] MEDS ORDERED: MELATONIN 3 MG TABLET PO SCH (23:30)
[2020-01-26 04:51] LABS: Basophils % (A) 0 %; Eosinophils % (A) 0 %; HGB 12.7 gm/dL (13.0-17.5); Lymphocytes % (A) 25 %; MCH 30.1 pg (25.0-35.0); MCHC 31.9 g/dL (31.0-37.0); MCV 94.4 fL (80.0-100.0); Mean Platelet Volume 7.8; Monocytes # (A) 0.6 k/uL (0-1.0); Monocytes % (A) 8 %; Neutrophils # (A) 5.4 k/uL (1.3-7.7); Neutrophils % (A) 66 %; Platelet Count 195 k/uL (150-450); RBC 4.23 m/uL (4.30-5.90); RDW 14.7 % (11.5-15.5); WBC 8.3 k/uL (3.8-10.6)
[2020-01-26 05:05] LABS: African American GFR (CKD) >90 (>60 ml/min/1.73 sqM); Anion Gap 4 mmol/L; Blood Urea Nitrogen 22 mg/dL (9-20); Calcium 8.3 mg/dL (8.4-10.2); Carbon Dioxide 26 mmol/L (22-30); Chloride 104 mmol/L (98-107); Glucose 103 mg/dL (74-99); Non-African American GFR(CKD) >90 (>60 ml/min/1.73 sqM); Potassium 3.9 mmol/L (3.5-5.1); Sodium 134 mmol/L (137-145)
[2020-01-26] MEDS: LEVOTHYROXINE 125 MCG TAB PO SCH (06:23)
[2020-01-26 07:07] VITALS: RESP 16
[2020-01-26] MEDS: IPRATROPIUM-ALBUTEROL 3 ML NEB INHALATION SCH ×3 (08:00→20:18)
[2020-01-26] MEDS: SYMBICORT 160-4.5 MCG INHALER INHALATION SCH ×2 (08:00→20:18)
[2020-01-26] MEDS: HEPARIN SODIUM,PORCINE 5,000 UNIT/ML 1 ML VIAL SQ SCH ×2 (08:21→20:04)
[2020-01-26] MEDS: VALPROIC ACID ORAL SOLN 250 MG/5 ML CUP PO SCH ×3 (08:21→22:22)
[2020-01-26] MEDS: FLUDROCORTISONE 0.1 MG TAB PO SCH (08:21)
[2020-01-26] MEDS: THIAMINE 100 MG TAB PO SCH (08:22)
[2020-01-26] MEDS: polyethylene glycoL 3350 17 GM POWD.PACK PO SCH (08:22)
[2020-01-26] MEDS: FAMOTIDINE 20 MG TAB PO SCH ×2 (08:22→20:04)
[2020-01-26] MEDS: CARBIDOPA-LEVODOPA 25-100 MG 1 EACH TAB PO SCH ×4 (08:22→22:22)
[2020-01-26] MEDS: DOCUSATE 100 MG CAP PO SCH ×2 (08:22→20:04)
[2020-01-26] MEDS: PRIMIDONE 50 MG TAB PO SCH ×2 (08:22→20:04)
--- NOTE | 2020-01-26 11:37 | PN ---
PROGRESS NOTE PULMONARY/CRITICAL CARE PROGRESS NOTE: DATE OF SERVICE: 01/26/2020 This is a 69-year-old gentleman who we saw in consultation a couple days ago. He presented to the emergency room with having had multiple falls at home. Apparently, the patient sustained injury to his left buttock and it was discovered that he had a left buttock abscess. There is also a questionable diagnosis of pneumonia and COPD exacerbation. Currently, the patient is on room air. He is not receiving any IV fluids. He is on IV Ancef for his left buttock abscess. Dr. Elder in the emergency room attempted an incision and drainage of the abscess when he was in the ER. The patient is stable for general medical floor without telemetry in my opinion. Cultures are thus far negative. He is not complaining of any chest pain, chest discomfort, cough, wheezing, shortness of breath, phlegm production, or any other complaints for that matter. The patient will likely need eventual transfer to a senior living or a rehab facility in my opinion. PHYSICAL EXAMINATION: VITAL SIGNS: Current vital signs reviewed. Temperature 97.8, heart rate 76, respiratory rate 16, blood pressure 128/90 mean 102, room air saturation 95%. Appears in no acute distress. HEENT: Examination is grossly unremarkable. NECK: Supple full range of motion. CARDIOVASCULAR: Examination reveals regular rhythm and rate. S1, S2 normal. There is no murmur. LUNGS: Reveal mostly clear breath sounds. A few scattered rhonchi. No wheezes or crackles. ABDOMEN: Soft. Bowel sounds are heard. EXTREMITIES are intact. No cyanosis, clubbing, or significant edema. SKIN: Without rash. NEUROLOGIC: Examination is nonfocal. LABS: Reviewed. White count 8.3, hemoglobin 12.7, hematocrit 40, platelet count normal. Sodium 134, potassium 3.9, chloride 104, CO2 26, anion gap is 4. BUN and creatinine were 22 and 0.71. Microbiology is reviewed. Labs are reviewed. No recent x-rays to report. CURRENT MEDICATIONS: Include Tylenol, Lipitor, Symbicort, Sinemet, Kefzol, Colace, Aricept, Pepcid, Florinef, folic acid, subcu heparin, DuoNeb, levothyroxine, Narcan, Zofran, MiraLAX, Mysoline, Flomax vitamin B1, Desyrel, and Depakene syrup. ASSESSMENT: 1. Recent frequent falls at home without obvious or apparent injury say for left buttock abscess, status post incision and drainage in the emergency room, now on Ancef. 2. History of recent admissions to the hospital in August and September for pneumonia. 3. Prior history of aspiration pneumonia involving bilateral lower lobes. 4. Chronically elevated right hemidiaphragm, unchanged. 5. Remote history of distal right lower lobe pulmonary emboli. 6. History of severe periodontal disease. 7. History of hypothyroidism. 8. Parkinson's disease. 9. History of hyperlipidemia. 10.Benign prostatic hypertrophy. 11.History of cerebrovascular accident. 12.History of deep venous thrombosis. 13.History of essential hypertension. 14.History of closed head injury. 15.Degenerative joint disease. 16.Sciatic neuralgia. 17.Vertigo. 18.Multiple other medical problems and comorbidities. PLAN: Currently, the patient is resting relatively comfortably. He is not receiving any supplemental oxygen. He is not requiring any IV fluids. He is currently on IV Ancef. The patient could be transferred to the general medical floor without telemetry. Additional recommendations and suggestions are forthcoming. Medications are reviewed. MMODL / IJN: [id number] /
[2020-01-26] MEDS: FOLIC ACID 1 MG TAB PO SCH (12:54)
[2020-01-26] MEDS: NEUPRO 6 MG/24 HR PO SCH (17:18)
--- NOTE | 2020-01-26 18:04 | P.PN ---
Subjective Progress Note Date: 01/26/20 Principal diagnosis: Left gluteal abscess/sepsis 69 year old male with a past medical history significant for COPD CVA and TIA the patient has been brought into the hospital after pending the patient did have a fall at home patient denies having loss of consciousness or hitting his head, patient to the did have a sore on his the left buttock area that has been progressively getting worse for the last few days patient denies having any history of any trauma he describing pain into the left gluteal area to be more of a throbbing intensity is about 5-6 out of 10 and no radiation denies any drainage from it or any foul-smelling with the symptoms and the patient was evaluated by the ER physician on arrival to the ER the patient was if he did have mildly elevated white count of 12.8, patient did have ultrasound of the left gluteal area which was pending at the time of my evaluation infectious disease was consulted for further management of antibiotic therapy for possible left acute cellulitis/abscess 01/25/2020 Patient is seen and evaluated in room at bedside; reports constipation with last bowel movement being on 01/20 Patient is currently in ICU and is being followed by ID and critical care; currently on Ancef; patient is stable to be transferred to general medical floor with social work consult for discharge planning 01/26/2020 Patient had seen and evaluated in ICU; appears to be in no acute distress Vital signs are stable with a temperature of 97.8, pulse 76, respirations 16 and blood pressure 128/90 Lab review shows a white blood count of 8.3, hemoglobin 12.7, sodium 134, potassium 3.9, BUN/creatinine of 22/0.71 Patient remains on IV Ancef; stable to be transferred to general medical floor Objective - Vital Signs Vital signs: Vital Signs Temp 97.8 F 01/26/20 07:00 Pulse 76 01/26/20 08:13 Resp 16 01/26/20 07:00 BP 128/90 01/26/20 07:00 Pulse Ox 95 01/26/20 07:00 Intake & Output 01/25/20 01/26/20 01/26/20 18:59 06:59 18:59 Intake Total 550 50 Output Total 300 Balance 250 50 Weight 90.4 kg 89.8 kg Intake: IV 150 Sodium Chloride 0.9% 1, 150 000 ml @ 75 mls/hr IV . [id number] [facility] Rx#:[id number] Intake, IV Titration 50 50 Amount ceFAZolin 2 gm In Sodium 50 50 Chloride 0.9% 50 ml @ 100 mls/hr IVPB Q8HR [facility] Rx# :[id number] Oral 350 Output: Urine 300 Other: Voiding Method Toilet Toilet # Voids 1 2 # Bowel Movements 1 - Exam PHYSICAL EXAMINATION: GENERAL: The patient is alert and oriented x3, not in any acute distress. Well developed, well nourished. HEENT: Pupils are round and equally reacting to light. EOMI. No scleral icterus. No conjunctival pallor. Normocephalic, atraumatic. No pharyngeal erythema. No thyromegaly. CARDIOVASCULAR: S1 and S2 present. No murmurs, rubs, or gallops. PULMONARY: Chest is clear to auscultation, no wheezing or crackles. ABDOMEN: Soft, nontender, nondistended, normoactive bowel sounds. No palpable organomegaly. MUSCULOSKELETAL: No joint swelling or deformity. EXTREMITIES: No cyanosis, clubbing, or pedal edema. NEUROLOGICAL: Gross neurological examination did not reveal any focal deficits. SKIN: No rashes. - Labs CBC & Chem 7: 01/26/20 04:33 01/26/20 04:33 Labs: Abnormal Lab Results - Last 24 Hours (Table) 01/26/20 01/26/20 Range/Units 04:33 04:33 RBC 4.23 L (4.30-5.90) m/uL Hgb 12.7 L (13.0-17.5) gm/dL Sodium 134 L (137-145) mmol/L BUN 22 H (9-20) mg/dL Glucose 103 H (74-99) mg/dL Calcium 8.3 L (8.4-10.2) mg/dL Assessment and Plan Assessment: Left buttock cellulitis , with possible small abscess, opened spontaneously with discharge fall at home without losing consciousness COPD, not in acute exacerbation History of CVA/TIA History of DVT thromboses Hypertension Seizure disorder Hypothyroidism Parkinson disease Benign prostatic hypertrophy History of depression, anxiety and PTSD, not active tissue Plan: this is a pleasant 69 years old male who presents with left buttock cellulitis and full. Continue with antibiotics as per infectious disease team were consulted. Follow-up recommendation by [place]/critical care team. Follow-up culture results. We'll ask physical therapy evaluation Labs and medication were reviewed.. Continue same treatment. Continue with symptomatic treatment. Resume home medication. Monitor lytes and vitals. DVT and GI prophylaxis. Further recommendations depends on the clinical course of the patient DVT prophylaxis: Subcutaneous heparin GI Prophylaxis: Pepcid PT/OT: Pending
[2020-01-26] MEDS: traZODone HCL 50 MG TAB PO SCH (20:03)
[2020-01-26] MEDS: TAMSULOSIN 0.4 MG CAP.ER.24H PO SCH (20:03)
[2020-01-26] MEDS: DONEPEZIL 10 MG TAB PO SCH (20:04)
[2020-01-26] MEDS: ATORVASTATIN 40 MG TAB PO SCH (20:04)
[2020-01-26] MEDS ORDERED: MELATONIN 3 MG TABLET PO SCH (22:30)
--- NOTE | 2020-01-26 22:49 | PN ---
PROGRESS NOTE DATE OF SERVICE: 01/26/2020 REASON FOR FOLLOWUP: Left gluteal abscess and cellulitis. INTERVAL HISTORY: Patient is currently afebrile. The patient is breathing comfortably. Overall pain and discomfort to the left gluteal area has improved. No chest pain, no cough. No abdominal pain, no diarrhea. PHYSICAL EXAMINATION: Blood pressure 124/82 with a pulse of 73, temperature 97.8. He is 98% on room air. General description is an elderly male lying in bed in no distress. Respiratory system: Unlabored breathing, clear to auscultation anteriorly. Heart S1, S2. Regular rate and rhythm. Abdomen soft, no tenderness. LABS: Hemoglobin is 12.7, white count 8.2, BUN of 22, creatinine 0.71. Cultures have been negative. DIAGNOSTIC IMPRESSION AND PLAN: Patient with left gluteal abscess and cellulitis. Culture has been usual skin ranjith. The patient is covered with cefazolin to continue, finish therapy with oral Keflex and monitor clinical course closely. MMODL / IJN: [id number] /
[2020-01-27 04:44] LABS: Basophils # (A) 0.1 k/uL (0-0.2); Basophils % (A) 1 %; Eosinophils % (A) 0 %; HCT 43.7 % (39.0-53.0); HGB 13.5 gm/dL (13.0-17.5); Lymphocytes # (A) 2.6 k/uL (1.0-4.8); Lymphocytes % (A) 31 %; MCH 29.6 pg (25.0-35.0); MCHC 30.8 g/dL (31.0-37.0); MCV 95.9 fL (80.0-100.0); Mean Platelet Volume 7.9; Monocytes # (A) 0.7 k/uL (0-1.0); Monocytes % (A) 9 %; Neutrophils # (A) 4.9 k/uL (1.3-7.7); Neutrophils % (A) 58 %; Platelet Count 241 k/uL (150-450); RBC 4.56 m/uL (4.30-5.90); RDW 14.5 % (11.5-15.5); WBC 8.5 k/uL (3.8-10.6)
[2020-01-27 05:14] LABS: African American GFR (CKD) >90 (>60 ml/min/1.73 sqM); Anion Gap 3 mmol/L; Blood Urea Nitrogen 16 mg/dL (9-20); Calcium 8.8 mg/dL (8.4-10.2); Carbon Dioxide 29 mmol/L (22-30); Chloride 105 mmol/L (98-107); Glucose 89 mg/dL (74-99); Non-African American GFR(CKD) >90 (>60 ml/min/1.73 sqM); Potassium 4.3 mmol/L (3.5-5.1); Sodium 137 mmol/L (137-145)
[2020-01-27] MEDS: LEVOTHYROXINE 125 MCG TAB PO SCH (06:39)
[2020-01-27] MEDS: SYMBICORT 160-4.5 MCG INHALER INHALATION SCH (08:14)
[2020-01-27] MEDS: IPRATROPIUM-ALBUTEROL 3 ML NEB INHALATION SCH ×2 (08:14→13:18)
[2020-01-27] MEDS: VALPROIC ACID ORAL SOLN 250 MG/5 ML CUP PO SCH (08:37)
[2020-01-27] MEDS: DOCUSATE 100 MG CAP PO SCH (08:37)
[2020-01-27] MEDS: HEPARIN SODIUM,PORCINE 5,000 UNIT/ML 1 ML VIAL SQ SCH (08:37)
[2020-01-27] MEDS: CARBIDOPA-LEVODOPA 25-100 MG 1 EACH TAB PO SCH ×2 (08:37→12:28)
[2020-01-27] MEDS: PRIMIDONE 50 MG TAB PO SCH (08:37)
[2020-01-27] MEDS: FLUDROCORTISONE 0.1 MG TAB PO SCH (08:37)
[2020-01-27] MEDS: FAMOTIDINE 20 MG TAB PO SCH (08:37)
[2020-01-27] MEDS: THIAMINE 100 MG TAB PO SCH (08:37)
[2020-01-27] MEDS: polyethylene glycoL 3350 17 GM POWD.PACK PO SCH (08:38)
[2020-01-27 08:40] VITALS: BP 99/78; TEMP 97.9
--- NOTE | 2020-01-27 11:45 | P.PN ---
Subjective Progress Note Date: 01/27/20 Principal diagnosis: Frequent falls without injury, abscess of the left buttock The patient is seen today, 01/27/2020 in follow-up in the intensive care unit. He has a history of recent frequent falls at home without obvious or apparent injury. He was found to have a left buttock abscess that had undergone incision and drainage in the emergency room and is currently on Ancef. He's had recent admissions for pneumonia. He has most likely history of aspiration pneumonia, chronically elevated right hemidiaphragm, unchanged. Currently, he is sitting up in a chair at the bedside. Awake and alert in no acute distress. He is currently maintaining good O2 saturations in the 90s on room air. No IV fluids. Wound culture revealed no growth. White count 8.5. Hemoglobin 13.5. Sodium 137. Potassium 4.3. Creatinine 0.79. DO NOT RESUSCITATE and Symbicort, DuoNeb inhalations. Objective - Vital Signs Vital signs: Vital Signs Temp 97.9 F 01/27/20 08:39 Pulse 74 01/27/20 08:39 Resp 16 01/27/20 08:39 BP 99/78 01/27/20 08:39 Pulse Ox 96 01/27/20 08:39 Intake & Output 01/26/20 01/27/20 01/27/20 18:59 06:59 18:59 Intake Total 50 50 Output Total 1200 Balance 50 -1200 50 Weight 89.2 kg Intake: Intake, IV Titration 50 50 Amount ceFAZolin 2 gm In Sodium 50 50 Chloride 0.9% 50 ml @ 100 mls/hr IVPB Q8HR [facility] Rx# :[id number] Output: Urine 1200 Other: Voiding Method Toilet Toilet # Voids 1 4 1 # Bowel Movements 1 - Exam GENERAL EXAM: Alert, active, unkempt appearing 69-year-old gentleman, on room air, comfortable in no apparent distress. HEAD: Normocephalic. EYES: Normal reaction of pupils, equal size. NOSE: Clear with pink turbinates. THROAT: No erythema or exudates. NECK: No masses, no JVD. CHEST: No chest wall deformity. LUNGS: Equal air entry with no crackles, wheeze, rhonchi or dullness. Diminished in the right base CVS: S1 and S2 normal with no audible murmur, regular rhythm. ABDOMEN: No hepatosplenomegaly, normal bowel sounds, no guarding or rigidity. SPINE: No scoliosis or deformity SKIN: Wound on the left buttock, no drainage CENTRAL NERVOUS SYSTEM: No focal deficits, tone is normal in all 4 extremities. EXTREMITIES: There is no peripheral edema. No clubbing, no cyanosis. Peripheral pulses are intact. - Labs CBC & Chem 7: 01/27/20 03:59 01/27/20 03:59 Labs: Abnormal Lab Results - Last 24 Hours (Table) 01/27/20 Range/Units 03:59 MCHC 30.8 L (31.0-37.0) g/dL Microbiology - Last 24 Hours (Table) 01/24/20 11:45 Gram Stain - Final Buttock Wound Culture - Final Assessment and Plan Assessment: 1. Recent frequent falls at home without obvious injury. 2. Abscess of the left buttock, status post incision and drainage, currently on Ancef. 3. Prior history of aspiration pneumonia involving bilateral lower lobes. 4. Chronically elevated right hemidiaphragm, unchanged. 5. History of distal right lower lobe pulmonary emboli, remote. 6. History of severe. Dental disease. 7. Hypothyroidism. 8. Parkinson's disease. 9. Hyperlipidemia. 10. Benign prostatic hypertrophy. 11. History of CVA 12. History of essential hypertension 13 History of closed head injury. 14. General joint disease. 15. History of vertigo. 16. Poor overall functional performance based on the above-mentioned multiple comorbidities Plan: The patient was seen and evaluated by Dr. Armas He is stable from the pulmonary and critical care standpoint Discontinue Ancef initiate Augmentin Cleared for discharge to home. He resides with his mother and his daughter I, the cosigning physician, performed a history & physical examination of the patient. Lungs sounds are clear, diminished in the right base. Maintaining good O2 saturations in the 90s on room air. I discussed the assessment and plan of care with my nurse practitioner, Cierra King. I attest to the above note as dictated by her.
[2020-01-27] MEDS: FOLIC ACID 1 MG TAB PO SCH (12:28)
[2020-01-27 13:19] VITALS: PULSE 76
[2020-01-27] MEDS ORDERED: AMOXIC-POT CLAV 875-125MG 1 EACH TAB PO SCH (21:00)
--- NOTE | 2020-01-29 11:11 | CDI ---
Documentation Clarification Form Date: 01/29/20 From: Zeina Velez Phone: If you have a question about this query, please contact Lilo Lin, [employer] at [phone] between 8am and 5pm. Admit Date: 01/23/20 Discharge Date: 01/27/20 Patient Name: RENETTA LÓPEZ Visit Number: [id number] ATTENTION: The Clinical Documentation Specialists (CDI) and [facility] Coding Staff appreciate your assistance in clarifying documentation. Please respond to the clarification below the line at the bottom and electronically sign. The CDI & [facility] Coding staff will review the response and follow-up if needed. Please note: Queries are made part of the Legal Health Record. If you have any questions, please contact the author of this message via ITS. Dear Dr. Sindhu Lanier, The diagnosis of sepsis was documented in PNs 01/24 & 01/25, but is not noted in subsequent documentation. History/Risk Factors: abscess and cellulitis of buttock, AECOPD, chronic hypoxic respiratory failure, Parkinson's, epilepsy, hypothyroidism, HLD, HTN, CAD, BPH Clinical Indicators: T-98./, P-98, R-18, BP-89/74, O2 sat-95 (RA), WBC-12.9, Neutrophils-9.8, Lactic acid-1.4 Treatment: IV fliuds, IV Rocephin Please clarify if the sepsis was Present/active/treated this admission Sepsis ruled out Other, please specify Clinically unable to determine Present/active/treated this admission MTDD
== END 2020-01-27 15:12 | disposition home or self-care (01) | DRG 872 ==
LOC: EC 18:17 → 2SICU 21:07
PROVIDERS: ADMIT Internal Medicine; ATTEND Internal Medicine
PROC: 0H98XZX Drainage of Buttock Skin, External Approach, Diagnostic (ICD-10-PCS; principal; 2020-01-23)
DX: A41.9 Sepsis, unspecified organism (principal); L02.31 Cutaneous abscess of buttock; J44.1 Chronic obstructive pulmonary disease with (acute) exacerbation; J96.11 Chronic respiratory failure with hypoxia; L03.317 Cellulitis of buttock; G20 Parkinson's disease; G40.909 Epilepsy, unspecified, not intractable, without status epilepticus; Z66 Do not resuscitate; E03.9 Hypothyroidism, unspecified; E55.9 Vitamin D deficiency, unspecified; I10 Essential (primary) hypertension; I45.10 Unspecified right bundle-branch block; E78.5 Hyperlipidemia, unspecified; I25.10 Atherosclerotic heart disease of native coronary artery without angina pectoris; N40.0 Benign prostatic hyperplasia without lower urinary tract symptoms; K59.00 Constipation, unspecified; R13.10 Dysphagia, unspecified; M54.30 Sciatica, unspecified side; K05.6 Periodontal disease, unspecified; R29.6 Repeated falls; D64.9 Anemia, unspecified; F43.10 Post-traumatic stress disorder, unspecified; M19.90 Unspecified osteoarthritis, unspecified site; Z99.81 Dependence on supplemental oxygen; Z79.51 Long term (current) use of inhaled steroids; Z79.890 Hormone replacement therapy; Z79.52 Long term (current) use of systemic steroids; Z79.899 Other long term (current) drug therapy; Z87.891 Personal history of nicotine dependence; Z86.718 Personal history of other venous thrombosis and embolism; Z86.711 Personal history of pulmonary embolism; Z86.73 Personal history of transient ischemic attack (TIA), and cerebral infarction without residual deficits; Z86.14 Personal history of Methicillin resistant Staphylococcus aureus infection; Z87.820 Personal history of traumatic brain injury; Z90.89 Acquired absence of other organs; Z90.79 Acquired absence of other genital organ(s); Z98.818 Other dental procedure status; Z86.59 Personal history of other mental and behavioral disorders; Z87.39 Personal history of other diseases of the musculoskeletal system and connective tissue; Z87.828 Personal history of other (healed) physical injury and trauma; Z98.890 Other specified postprocedural states; Z87.01 Personal history of pneumonia (recurrent); Z87.19 Personal history of other diseases of the digestive system; Z88.5 Allergy status to narcotic agent; Z88.6 Allergy status to analgesic agent; Z88.1 Allergy status to other antibiotic agents; Z91.041 Radiographic dye allergy status; W19.XXXA Unspecified fall, initial encounter; Y92.009 Unspecified place in unspecified non-institutional (private) residence as the place of occurrence of the external cause; Z82.49 Family history of ischemic heart disease and other diseases of the circulatory system
CPT/HCPCS: 10060; 36415; 71046; 80048; 80053; 83605; 83735; 84484; 85025; 85610; 85730; 87070; 87205; 93005; 94640; 96374; 99285

== ENCOUNTER 2020-03-04 09:14 | Inpatient (IN) | payer MEDICARE ==
[2020-03-04] MEDS ORDERED: IPRATROPIUM-ALBUTEROL 3 ML NEB INHALATION STA (09:40)
--- NOTE | 2020-03-04 09:42 | ED ---
General Adult HPI - General Chief complaint: ENT Stated complaint: cough Time Seen by Provider: 03/04/20 09:18 Source: patient, family, EMS, RN notes reviewed Mode of arrival: EMS Limitations: no limitations - History of Present Illness Initial comments: Patient is a pleasant 70-year-old male presenting to the emergency department with family following choking and difficulty in breathing episode yesterday. Patient was choking when trying to swallow his pill. Patient does have Parkinson's and does do that at times. Patient has had some difficulty in breathing since that time, may be slightly improved at this time. Patient is having difficulty with choking with taking water today. No fevers. Cough is nonproductive. Patient does have COPD history. - Related Data Home Medications Medication Instructions Recorded Confirmed Levothyroxine Sodium [Synthroid] 125 mcg PO DAILY 06/27/14 01/23/20 Atorvastatin Calcium [Lipitor] 40 mg PO HS 02/20/17 01/23/20 Primidone [Mysoline] 50 mg PO BID 02/20/17 01/23/20 Fludrocortisone [Florinef] 0.1 mg PO DAILY 02/19/18 01/23/20 Valproic Acid (As Sodium Salt) 500 mg PO TID 05/14/18 01/23/20 [Depakene Soln] Tamsulosin [Flomax] 0.4 mg PO HS 06/20/18 01/23/20 Donepezil [Aricept] 10 mg PO HS 02/27/19 01/23/20 traZODone HCL [Desyrel] 50 mg PO HS 02/27/19 01/23/20 Neupro Patch 6mg/24hr 1 patch TOPICAL DAILY 09/21/19 01/23/20 Albuterol Nebulized [Ventolin 2.5 mg INHALATION RT-QID PRN 01/23/20 01/23/20 Nebulized] Carbidopa-Levodopa 25-100 mg 1 tab PO QID 01/23/20 01/23/20 [Sinemet 25-100 mg] Multivitamins, Thera [Multivitamin 1 tab PO DAILY 01/23/20 01/23/20 (formulary)] Previous Rx's Medication Instructions Recorded Budesonide-Formot 160-4.5 Mcg 2 puff INHALATION RT-BID 30 Days 09/24/19 [Symbicort 160-4.5 Mcg Inhaler] #1 puff Folic Acid 1 mg PO DAILY@1200 30 Days #30 tab 09/24/19 Thiamine [Vitamin B-1] 100 mg PO DAILY 30 Days #30 tab 09/24/19 Glycopyrrolate [Robinul] 1 mg PO HS #3 tab 10/22/19 cloZAPine [Clozaril] 450 mg PO HS #3 tab 10/22/19 Amoxic-Pot Clav 875-125Mg 1 each PO Q12HR #20 tab 01/27/20 [Augmentin 875-125] Docusate [Colace] 100 mg PO BID cap 01/27/20 Famotidine [Pepcid] 20 mg PO Q12HR tab 01/27/20 polyethylene glycoL 3350 [Miralax] 17 gm PO DAILY powd.pack 01/27/20 Allergies Allergy/AdvReac Type Severity Reaction Status Date / Time Iodinated Contrast Media Allergy Unknown Verified 03/04/20 09:24 [Iodinated Contrast- Oral and IV Dye] iohexol Allergy Nausea & Verified 03/04/20 09:24 Vomiting levofloxacin [From Levaquin] Allergy Unknown Verified 03/04/20 09:24 morphine Allergy Confusion Verified 03/04/20 09:24 tromethamine Allergy Nausea & Verified 03/04/20 09:24 Vomiting codeine AdvReac Hallucinati Verified 03/04/20 09:24 ons Review of Systems ROS Statement: Those systems with pertinent positive or pertinent negative responses have been documented in the HPI. ROS Other: All systems not noted in ROS Statement are negative. Constitutional: Denies: fever, chills Eyes: Denies: eye pain ENT: Denies: ear pain Respiratory: Reports: as per HPI, cough, dyspnea Cardiovascular: Denies: chest pain Endocrine: Denies: fatigue Gastrointestinal: Denies: abdominal pain Genitourinary: Denies: dysuria Musculoskeletal: Denies: back pain Skin: Denies: rash Neurological: Denies: weakness Past Medical History Past Medical History: COPD, CVA/TIA, Deep Vein Thrombosis (DVT), Hypertension, Musculoskeletal Disorder, Neurologic Disorder, Pneumonia, Prostate Disorder, Seizure Disorder, Thyroid Disorder Additional Past Medical History / Comment(s): Pt recently admitted to [facility] on 09/21/19 with exacerbation COPD. Other hx: Past L hand injury with compartm ental syndrome, parkinson's, dysphagia at times and needs to crush meds and put in applesauce at times, pneumonia, home oxygen, aspiration pneumonia/has had peg tube in the past, several tia's vs seizures, L leg DVT years ago, Hx. of HEAD INJURY (WAS [employer]/PART OF BLDG COLLAPSED ON HIM), SCIATICA, DDD, vertigo, hypothyroid, vitamin D deficiency, BPH, anemia, DJD. History of Any Multi-Drug Resistant Organisms: MRSA Date of last positivie culture/infection: 09/30/2014 MDRO Source:: Blood Past Surgical History: Adenoidectomy, Prostate Surgery, Tonsillectomy Additional Past Surgical History / Comment(s): BRONCHOSCOPY, SX FOR PROLAPSED RECTUM, TURP, Peg insertion & then removed, osteophytes removed from throat, TEETH EXTRACTED, 12-22-15 MIKE. Past Anesthesia/Blood Transfusion Reactions: No Reported Reaction, Motion Sickness Past Psychological History: Anxiety, Depression, PTSD Smoking Status: Never smoker Past Alcohol Use History: None Reported Past Drug Use History: None Reported - Past Family History Father Family Medical History: Myocardial Infarction (ID) Additional Family Medical History / Comment(s): Father at the age of 62 yrs from a ID. Mother Family Medical History: Myocardial Infarction (ID) Additional Family Medical History / Comment(s): Mother is 97yrs old. She has a pacemaker. General Exam Limitations: no limitations General appearance: alert, in no apparent distress Head exam: Present: normocephalic Eye exam: Present: normal appearance ENT exam: Present: normal oropharynx Neck exam: Present: normal inspection Respiratory exam: Present: wheezes, rales Cardiovascular Exam: Present: regular rate, normal rhythm GI/Abdominal exam: Present: soft. Absent: tenderness Extremities exam: Present: normal inspection. Absent: pedal edema, calf tenderness Neurological exam: Present: alert Psychiatric exam: Present: flat affect Skin exam: Present: normal color Course Vital Signs 03/04/20 03/04/20 03/04/20 09:19 11:14 11:24 Temperature 97.6 F Pulse Rate 87 80 80 Respiratory 18 Rate Blood Pressure 103/69 O2 Sat by Pulse 92 L Oximetry EKG Findings - EKG Comments: EKG Findings:: Normal sinus rhythm 85. [place] 136. QRS 144. QT 410. QTc 47. Right axis. Right bundle branch block. No acute ST change. Medical Decision Making - Medical Decision Making Patient reevaluated and slightly improved following nebulizer. Patient still appears slightly short of breath. Patient and family updated. Case was discussed in detail Dr. Hood, who will admit covering for Dr. Asher Kruse. Ulnar will be placed on consult. - Lab Data Result diagrams: 03/04/20 10:18 03/04/20 10:18 Lab Results 03/04/20 03/04/20 03/04/20 Range/Units 10:18 10:18 10:18 WBC 8.5 (3.8-10.6) k/uL RBC 4.65 (4.30-5.90) m/uL Hgb 14.2 (13.0-17.5) gm/dL Hct 44.1 (39.0-53.0) % MCV 94.9 (80.0-100.0) fL MCH 30.5 (25.0-35.0) pg MCHC 32.1 (31.0-37.0) g/dL RDW 15.1 (11.5-15.5) % Plt Count 173 (150-450) k/uL MPV 7.6 Neutrophils % 71 % Lymphocytes % 20 % Monocytes % 7 % Eosinophils % 1 % Basophils % 1 % Neutrophils # 6.0 (1.3-7.7) k/uL Lymphocytes # 1.7 (1.0-4.8) k/uL Monocytes # 0.6 (0-1.0) k/uL Eosinophils # 0.0 (0-0.7) k/uL Basophils # 0.1 (0-0.2) k/uL PT 10.6 (9.0-12.0) sec INR 1.0 (<1.2) APTT 28.2 (22.0-30.0) sec Sodium 140 (137-145) mmol/L Potassium 4.1 (3.5-5.1) mmol/L Chloride 107 (98-107) mmol/L Carbon Dioxide 28 (22-30) mmol/L Anion Gap 5 mmol/L BUN 20 (9-20) mg/dL Creatinine 0.88 (0.66-1.25) mg/dL Est GFR (CKD-EPI)AfAm >90 (>60 ml/min/1.73 sqM) Est GFR (CKD-EPI)NonAf 87 (>60 ml/min/1.73 sqM) Glucose 104 H (74-99) mg/dL Plasma Lactic Acid Catarino (0.7-2.0) mmol/L Calcium 8.4 (8.4-10.2) mg/dL Total Bilirubin 0.6 (0.2-1.3) mg/dL AST 31 (17-59) U/L ALT 12 (4-49) U/L Alkaline Phosphatase 80 (38-126) U/L Troponin I (0.000-0.034) ng/mL NT-Pro-B Natriuret Pep pg/mL Total Protein 5.9 L (6.3-8.2) g/dL Albumin 3.4 L (3.5-5.0) g/dL 03/04/20 03/04/20 03/04/20 Range/Units 10:18 10:18 10:18 WBC (3.8-10.6) k/uL RBC (4.30-5.90) m/uL Hgb (13.0-17.5) gm/dL Hct (39.0-53.0) % MCV (80.0-100.0) fL MCH (25.0-35.0) pg MCHC (31.0-37.0) g/dL RDW (11.5-15.5) % Plt Count (150-450) k/uL MPV Neutrophils % % Lymphocytes % % Monocytes % % Eosinophils % % Basophils % % Neutrophils # (1.3-7.7) k/uL Lymphocytes # (1.0-4.8) k/uL Monocytes # (0-1.0) k/uL Eosinophils # (0-0.7) k/uL Basophils # (0-0.2) k/uL PT (9.0-12.0) sec INR (<1.2) APTT (22.0-30.0) sec Sodium (137-145) mmol/L Potassium (3.5-5.1) mmol/L Chloride (98-107) mmol/L Carbon Dioxide (22-30) mmol/L Anion Gap mmol/L BUN (9-20) mg/dL Creatinine (0.66-1.25) mg/dL Est GFR (CKD-EPI)AfAm (>60 ml/min/1.73 sqM) Est GFR (CKD-EPI)NonAf (>60 ml/min/1.73 sqM) Glucose (74-99) mg/dL Plasma Lactic Acid Catarino 1.0 (0.7-2.0) mmol/L Calcium (8.4-10.2) mg/dL Total Bilirubin (0.2-1.3) mg/dL AST (17-59) U/L ALT (4-49) U/L Alkaline Phosphatase (38-126) U/L Troponin I <0.012 (0.000-0.034) ng/mL NT-Pro-B Natriuret Pep 38 pg/mL Total Protein (6.3-8.2) g/dL Albumin (3.5-5.0) g/dL - Radiology Data Radiology results: image reviewed (Chest x-ray and soft tissue neck x-ray revealed no acute process) Disposition Clinical Impression: COPD exacerbation, Aspiration into airway Disposition: ADMITTED IP TO THIS HOSP Is patient prescribed a controlled substance at d/c from ED?: No Referrals: Cheng Kendrick DO [Primary Care Provider] - 1-2 days Decision Time: 11:55
[2020-03-04 10:32] LABS: Basophils # (A) 0.1 k/uL (0-0.2); Basophils % (A) 1 %; Eosinophils % (A) 1 %; HCT 44.1 % (39.0-53.0); HGB 14.2 gm/dL (13.0-17.5); Lymphocytes # (A) 1.7 k/uL (1.0-4.8); Lymphocytes % (A) 20 %; MCH 30.5 pg (25.0-35.0); MCHC 32.1 g/dL (31.0-37.0); MCV 94.9 fL (80.0-100.0); Mean Platelet Volume 7.6; Monocytes # (A) 0.6 k/uL (0-1.0); Monocytes % (A) 7 %; Neutrophils % (A) 71 %; Platelet Count 173 k/uL (150-450); RBC 4.65 m/uL (4.30-5.90); RDW 15.1 % (11.5-15.5); WBC 8.5 k/uL (3.8-10.6)
[2020-03-04 10:40] LABS: ALT 12 U/L (4-49); AST 31 U/L (17-59); African American GFR (CKD) >90 (>60 ml/min/1.73 sqM); Albumin 3.4 g/dL (3.5-5.0); Alkaline Phosphatase 80 U/L (38-126); Anion Gap 5 mmol/L; Blood Urea Nitrogen 20 mg/dL (9-20); Calcium 8.4 mg/dL (8.4-10.2); Carbon Dioxide 28 mmol/L (22-30); Chloride 107 mmol/L (98-107); Glucose 104 mg/dL (74-99); Non-African American GFR(CKD) 87 (>60 ml/min/1.73 sqM); Potassium 4.1 mmol/L (3.5-5.1); Sodium 140 mmol/L (137-145); Total Bilirubin 0.6 mg/dL (0.2-1.3); Total Protein 5.9 g/dL (6.3-8.2)
[2020-03-04 10:42] LABS: Partial Thromboplastin Time 28.2 sec (22.0-30.0); Prothrombin Time 10.6 sec (9.0-12.0)
--- NOTE | 2020-03-04 11:23 | XR ---
EXAMINATION TYPE: XR chest 2V DATE OF EXAM: 03/04/2020 COMPARISON: 01/23/2020 HISTORY: Shortness of breath TECHNIQUE: Frontal and lateral views of the chest are obtained. FINDINGS: Scattered senescent parenchymal changes noted. Hyperinflation compatible with COPD. No evidence for infiltrate. No evidence for atelectasis. Heart size is stable. Mediastinal structures are stable and grossly unremarkable. No evidence for hilar prominence. Degenerative changes dorsal spine. IMPRESSION: 1. No evidence for acute pulmonary disease.
--- NOTE | 2020-03-04 11:24 | XR ---
EXAMINATION TYPE: XR soft tissue neck DATE OF EXAM: 03/04/2020 COMPARISON: NONE HISTORY: Choking episode TECHNIQUE: 2 views of the soft tissues of the neck are submitted. FINDINGS: The airway is patent. Normal appearing epiglottis. Retropharyngeal soft tissues are withi n normal limits. No evidence for radiopaque foreign body. IMPRESSION: No distinct abnormality seen with certainty.
[2020-03-04] MEDS ORDERED: AZITHROMYCIN 500 MG in SODIUM CHLORIDE 0.9% 250 ML IVPB STA (11:57)
[2020-03-04] MEDS ORDERED: PNEUMONIA PROTOCOL UTILIZED 1 EACH MISC PO PRN (11:57)
[2020-03-04] MEDS ORDERED: IPRATROPIUM-ALBUTEROL 3 ML NEB INHALATION PRN (11:57)
[2020-03-04] MEDS ORDERED: PIPERACILLIN-TAZOBACTAM 3.375 GM in SODIUM CHLORIDE 0.9% 100 ML IVPB STA (11:57)
[2020-03-04] MEDS ORDERED: methylPREDNISolone SOD SUCCI 125 MG/2 ML VIAL IV STA (11:57)
[2020-03-04] MEDS: IPRATROPIUM-ALBUTEROL 3 ML NEB INHALATION SCH ×3 (13:03→19:45)
--- NOTE | 2020-03-04 13:37 | P.HPIM ---
History of Present Illness 70-year-old male came in after choking on pills. Patient has significant gurgling. Patient does have Parkinson's. Patient the assays he always has his gurgling patient is unable to provide good history to me. Patient denied any fever chills. Chest x-ray did not show any aspiration. Patient was started on systemic steroids. Patient is already on Lovenox for secretions. Patient apparently had a multiple aspirations in the past and speech therapy will be consulted. Patient does have history of Parkinson's. Patient is on Zosyn presently. Review of Systems All other review of systems are negative. Review of systems is limited by his inability to provide history because of his Parkinson's and significant gurgling Past Medical History Past Medical History: COPD, CVA/TIA, Deep Vein Thrombosis (DVT), Hypertension, Musculoskeletal Disorder, Neurologic Disorder, Pneumonia, Prostate Disorder, Seizure Disorder, Thyroid Disorder Additional Past Medical History / Comment(s): Pt recently admitted to [facility] on 09/21/19 with exacerbation COPD. Other hx: Past L hand injury with compartmental syndrome, parkinson's, dysphagia at times and needs to crush meds and put in applesauce at times, pneumonia, home oxygen, aspiration pneumonia/has had peg tube in the past, several tia's vs seizures, L leg DVT years ago, Hx. of HEAD INJURY (WAS [employer]/PART OF BLDG COLLAPSED ON HIM), SCIATICA, DDD, vertigo, hypothyroid, vitamin D deficiency, BPH, anemia, DJD. History of Any Multi-Drug Resistant Organisms: MRSA Date of last positivie culture/infection: 09/30/2014 MDRO Source:: Blood Past Surgical History: Adenoidectomy, Prostate Surgery, Tonsillectomy Additional Past Surgical History / Comment(s): BRONCHOSCOPY, SX FOR PROLAPSED RECTUM, TURP, Peg insertion & then removed, osteophytes removed from throat, TEETH EXTRACTED, 12-22-15 MIKE. Past Anesthesia/Blood Transfusion Reactions: No Reported Reaction, Motion Sickness Past Psychological History: Anxiety, Depression, PTSD Smoking Status: Never smoker Past Alcohol Use History: None Reported Past Drug Use History: None Reported - Past Family History Father Family Medical History: Myocardial Infarction (OR) Additional Family Medical History / Comment(s): Father at the age of 62 yrs from a OR. Mother Family Medical History: Myocardial Infarction (OR) Additional Family Medical History / Comment(s): Mother is 97yrs old. She has a pacemaker. Medications and Allergies Home Medications Medication Instructions Recorded Confirmed Type Levothyroxine Sodium [Synthroid] 125 mcg PO DAILY 06/27/14 03/04/20 History Atorvastatin Calcium [Lipitor] 40 mg PO HS 02/20/17 03/04/20 History Primidone [Mysoline] 50 mg PO BID 02/20/17 03/04/20 History Fludrocortisone [Florinef] 0.1 mg PO DAILY 02/19/18 03/04/20 History Valproic Acid (As Sodium Salt) 500 mg PO TID 05/14/18 03/04/20 History [Depakene Soln] Tamsulosin [Flomax] 0.4 mg PO HS 06/20/18 03/04/20 History Donepezil [Aricept] 10 mg PO HS 02/27/19 03/04/20 History traZODone HCL [Desyrel] 50 mg PO HS 02/27/19 03/04/20 History Neupro Patch 6mg/24hr 1 patch TOPICAL DAILY 09/21/19 03/04/20 History Budesonide-Formot 160-4.5 Mcg 2 puff INHALATION RT-BID 30 Days 09/24/19 03/04/20 Rx [Symbicort 160-4.5 Mcg Inhaler] #1 puff Folic Acid 1 mg PO DAILY@1200 30 Days #30 tab 09/24/19 03/04/20 Rx Thiamine [Vitamin B-1] 100 mg PO DAILY 30 Days #30 tab 09/24/19 03/04/20 Rx Glycopyrrolate [Robinul] 1 mg PO HS #3 tab 10/22/19 03/04/20 Rx cloZAPine [Clozaril] 450 mg PO HS #3 tab 10/22/19 03/04/20 Rx Albuterol Nebulized [Ventolin 2.5 mg INHALATION RT-QID PRN 01/23/20 03/04/20 History Nebulized] Carbidopa-Levodopa 25-100 mg 1 tab PO TID 01/23/20 03/04/20 History [Sinemet 25-100 mg] Multivitamins, Thera [Multivitamin 1 tab PO DAILY 01/23/20 03/04/20 History (formulary)] Doxycycline Monohydrate [Monodox] 100 mg PO BID 03/04/20 03/04/20 History Allergies Allergy/AdvReac Type Severity Reaction Status Date / Time Iodinated Contrast Media Allergy Unknown Verified 03/04/20 13:04 [Iodinated Contrast- Oral and IV Dye] iohexol Allergy Nausea & Verified 03/04/20 13:04 Vomiting levofloxacin [From Levaquin] Allergy Unknown Verified 03/04/20 13:04 morphine Allergy Confusion Verified 03/04/20 13:04 tromethamine Allergy Nausea & Verified 03/04/20 13:04 Vomiting codeine AdvReac Hallucinati Verified 03/04/20 13:04 ons Physical Exam Vitals: Vital Signs Temp Pulse Resp BP Pulse Ox 03/04/20 11:24 80 03/04/20 11:14 80 03/04/20 09:19 97.6 F 87 18 103/69 92 L Intake and Output 03/03/20 03/04/20 03/04/20 22:59 06:59 14:59 Other: Weight 86.636 kg PHYSICAL EXAMINATION: GENERAL: The patient is alert and oriented x3, not in any acute distress. Well developed, well nourished. HEENT: Pupils are round and equally reacting to light. EOMI. No scleral icterus. No conjunctival pallor. Normocephalic, atraumatic. No pharyngeal erythema. No thyromegaly. CARDIOVASCULAR: S1 and S2 present. No murmurs, rubs, or gallops. PULMONARY: Diffuse bilateral rhonchi with a significant gurgling sounds. ABDOMEN: Soft, nontender, nondistended, normoactive bowel sounds. No palpable organomegaly. MUSCULOSKELETAL: No joint swelling or deformity. EXTREMITIES: No cyanosis, clubbing, or pedal edema. NEUROLOGICAL: Gross neurological examination did not reveal any focal deficits. SKIN: No rashes. Results CBC & Chem 7: 03/04/20 10:18 03/04/20 10:18 Labs: Abnormal Lab Results - Last 24 Hours (Table) 03/04/20 Range/Units 10: Glucose 104 H (74-99) mg/dL Total Protein 5.9 L (6.3-8.2) g/dL Albumin 3.4 L (3.5-5.0) g/dL Assessment and Plan Plan: Aspiration with possible pneumonitis: Patient will be continued with respiratory support as needed speech therapy will be consulted continue with antibiotics. -History of Parkinson's: Continue with carbidopa levodopa -COPD without any acute exacerbation -History of dysphagia with multiple aspirations in the past -Hypothyroidism -Hyperlipidemia -History of CVA in the past -Essential hypertension -DVT prophylaxis with Lovenox and GI prophylaxis with Pepcid
[2020-03-04] MEDS: VALPROIC ACID ORAL SOLN 250 MG/5 ML CUP PO SCH ×2 (17:15→22:54)
[2020-03-04] MEDS: CARBIDOPA-LEVODOPA 25-100 MG 1 EACH TAB PO SCH ×2 (17:15→22:54)
[2020-03-04] MEDS ORDERED: methylPREDNISolone SOD SUCCI 125 MG/2 ML VIAL IV SCH (18:00)
[2020-03-04] MEDS: SYMBICORT 160-4.5 MCG INHALER INHALATION SCH (19:45)
[2020-03-04] MEDS: PIPERACILLIN-TAZOBACTAM 3.375 GM in SODIUM CHLORIDE 0.9% 100 ML IVPB SCH (20:45)
[2020-03-04] MEDS: ATORVASTATIN 40 MG TAB PO SCH (22:54)
[2020-03-04] MEDS: GLYCOPYRROLATE 1 MG TAB PO SCH (22:55)
[2020-03-04] MEDS: TAMSULOSIN 0.4 MG CAP.ER.24H PO SCH (22:55)
[2020-03-04] MEDS: traZODone HCL 50 MG TAB PO SCH (22:55)
[2020-03-04] MEDS: DONEPEZIL 10 MG TAB PO SCH (22:55)
[2020-03-04] MEDS: cloZAPine 100 MG TAB PO SCH (22:55)
[2020-03-04] MEDS: PRIMIDONE 50 MG TAB PO SCH (22:55)
[2020-03-05] MEDS ORDERED: KETOROLAC 15 MG/ML 1 ML VIAL ONE (00:13)
[2020-03-05] MEDS: FAMOTIDINE 20 MG/2 ML VIAL IV SCH ×3 (00:14→20:53)
[2020-03-05] MEDS: KETOROLAC 15 MG/ML 1 ML VIAL IVP PRN ×4 (00:16→17:17)
[2020-03-05] MEDS: methylPREDNISolone SOD SUCCI 40 MG/ML 1 ML VIAL IV SCH ×3 (00:17→20:53)
[2020-03-05] MEDS: PIPERACILLIN-TAZOBACTAM 3.375 GM in SODIUM CHLORIDE 0.9% 100 ML IVPB SCH ×3 (04:47→20:53)
[2020-03-05] MEDS: ALBUTEROL NEBULIZED 2.5 MG/3 ML INHALATION PRN ×2 (05:11→08:19)
[2020-03-05] MEDS ORDERED: IPRATROPIUM-ALBUTEROL 3 ML NEB INHALATION STA (05:48)
--- NOTE | 2020-03-05 07:36 | XR ---
EXAMINATION TYPE: XR chest 2V DATE OF EXAM: 03/05/2020 COMPARISON: 03/04/2020 HISTORY: 70-year-old male with pneumonia TECHNIQUE: AP and lateral views FINDINGS: Heart upper limits of normal in size. Likely accentuated due to AP technique and low lung volumes. Vo lumes are very low with crowded vascular markings. Patchy retrocardiac opacity is increased. No pleur al effusion. Ossific densities at the left coracoclavicular interval suggesting sequela of prior inju ry. IMPRESSION: Limited exam due to very low lung volumes and hypoventilatory changes. Increasing retrocardiac densit y could reflect atelectasis or infiltrate. On the patient's follow-up, a strong inspiratory effort sh ould be encouraged.
[2020-03-05] MEDS: LEVOTHYROXINE 125 MCG TAB PO SCH ×2 (07:45→10:14)
[2020-03-05 07:57] LABS: HCT 42.9 % (39.0-53.0); HGB 13.8 gm/dL (13.0-17.5); MCH 30.7 pg (25.0-35.0); MCHC 32.2 g/dL (31.0-37.0); MCV 95.3 fL (80.0-100.0); Mean Platelet Volume 7.6; Platelet Count 176 k/uL (150-450); RDW 14.9 % (11.5-15.5); WBC 13.2 k/uL (3.8-10.6)
[2020-03-05] MEDS: SYMBICORT 160-4.5 MCG INHALER INHALATION SCH ×2 (08:18→20:30)
[2020-03-05] MEDS: IPRATROPIUM-ALBUTEROL 3 ML NEB INHALATION SCH ×4 (08:19→20:30)
--- NOTE | 2020-03-05 08:32 | P.CNPUL ---
History of Present Illness Consult date: 03/05/20 Requesting physician: Rob Hood Reason for consult: dyspnea, cough Chief complaint: Cough, dyspnea, choking History of present illness: 70-year-old white male patient of Dr. Cheng Choudhary with a history of Parkinson's disease, COPD, his history of CVA/TIA, DVT, hypertension, esophageal disorder, hypothyroidism, anxiety/depression, chronic dysphasia, previously hospitalized for aspiration pneumonia, who comes into the emergency department on 03/04/2020 following a choking episode while trying to take his pill. Developed shortness of breath, coughing, which has improved since he came in, his cough is nonproductive. Patient was also noted to have difficulty with thin liquids while drinking water. Admission chest x-ray showed no evidence for acute pulmonary disease. X-ray of the soft tissue of the neck was obtained and the airway was patent, there was normal-appearing epiglottis, retropharyngeal soft tissues were within normal limits, and there was no evidence of radiopaque foreign body. EKG showed normal sinus rhythm with a right bundle-branch block pattern. Lab work showed CBC within normal limits, no white count, with little, as a 0.5, hemoglobin is 14.2, with duration profile was within normal limits, electrolytes and renal profile were within normal limits, lactic acid was 1.0, LFTs were within normal limits, troponin was less than 0.012, proBNP was negativ e at 38. Patient is seen in the emergency department, resting comfortably in bed, he is awaiting speech evaluation, he is nothing by mouth, he is on room air. Of note patient had previous PEG tube placement for multiple episodes of aspiration pneumonia which was subsequently removed. His last eye 5 barium swallow was done on 2018 and showed vallecular residuals during the exam, aspiration was noted on nectar thick and thin liquids which was silent. The patient is comfortable, denies any shortness of breath, his coughing has resolved, then 2 L of oxygen pulse ox of 98%, hemodynamically stable, no fever or chills Review of Systems All systems: negative Constitutional: Denies chills, Denies fever Eyes: denies blurred vision, denies pain Ears, nose, mouth and throat: Denies headache, Denies sore throat Cardiovascular: Denies chest pain, Denies shortness of breath Respiratory: Reports cough, Reports dyspnea Gastrointestinal: Denies abdominal pain, Denies diarrhea, Denies nausea, Denies vomiting Musculoskeletal: Denies myalgias Integumentary: Denies pruritus, Denies rash Neurological: Denies numbness, Denies weakness Psychiatric: Denies anxiety, Denies depression Endocrine: Denies fatigue, Denies weight change Past Medical History Past Medical History: COPD, CVA/TIA, Deep Vein Thrombosis (DVT), Hypertension, Musculoskeletal Disorder, Neurologic Disorder, Pneumonia, Prostate Disorder, Seizure Disorder, Thyroid Disorder Additional Past Medical History / Comment(s): Pt recently admitted to [facility] on 09/21/19 with exacerbation COPD. 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 History of Any Multi-Drug Resistant Organisms: MRSA Date of last positivie culture/infection: 09/30/2014 MDRO Source:: Blood Past Surgical History: Adenoidectomy, Prostate Surgery, Tonsillectomy Additional Past Surgical History / Comment(s): BRONCHOSCOPY, SX FOR PROLAPSED RECTUM, TURP, Peg insertion & then removed, osteophytes removed from throat, TEETH EXTRACTED, 12-22-15 MIKE. Past Anesthesia/Blood Transfusion Reactions: No Reported Reaction, Motion Sickness Past Psychological History: Anxiety, Depression, PTSD Smoking Status: Never smoker Past Alcohol Use History: None Reported Past Drug Use History: None Reported - Past Family History Father Family Medical History: Myocardial Infarction ([place]) Additional Family Medical History / Comment(s): Father at the age of 62 yrs from a [place]. Mother Family Medical History: Myocardial Infarction ([place]) Additional Family Medical History / Comment(s): Mother is 97yrs old. She has a pacemaker. Medications and Allergies Home Medications Medication Instructions Recorded Confirmed Type Levothyroxine Sodium [Synthroid] 125 mcg PO DAILY 06/27/14 03/04/20 History Atorvastatin Calcium [Lipitor] 40 mg PO HS 02/20/17 03/04/20 History Primidone [Mysoline] 50 mg PO BID 02/20/17 03/04/20 History Fludrocortisone [Florinef] 0.1 mg PO DAILY 02/19/18 03/04/20 History Valproic Acid (As Sodium Salt) 500 mg PO TID 05/14/18 03/04/20 History [Depakene Soln] Tamsulosin [Flomax] 0.4 mg PO HS 06/20/18 03/04/20 History Donepezil [Aricept] 10 mg PO HS 02/27/19 03/04/20 History traZODone HCL [Desyrel] 50 mg PO HS 02/27/19 03/04/20 History Neupro Patch 6mg/24hr 1 patch TOPICAL DAILY 09/21/19 03/04/20 History Budesonide-Formot 160-4.5 Mcg 2 puff INHALATION RT-BID 30 Days 09/24/19 03/04/20 Rx [Symbicort 160-4.5 Mcg Inhaler] #1 puff Folic Acid 1 mg PO DAILY@1200 30 Days #30 tab 09/24/19 03/04/20 Rx Thiamine [Vitamin B-1] 100 mg PO DAILY 30 Days #30 tab 09/24/19 03/04/20 Rx Glycopyrrolate [Robinul] 1 mg PO HS #3 tab 10/22/19 03/04/20 Rx cloZAPine [Clozaril] 450 mg PO HS #3 tab 10/22/19 03/04/20 Rx Albuterol Nebulized [Ventolin 2.5 mg INHALATION RT-QID PRN 01/23/20 03/04/20 History Nebulized] Carbidopa-Levodopa 25-100 mg 1 tab PO TID 01/23/20 03/04/20 History [Sinemet 25-100 mg] Multivitamins, Thera [Multivitamin 1 tab PO DAILY 01/23/20 03/04/20 History (formulary)] Doxycycline Monohydrate [Monodox] 100 mg PO BID 03/04/20 03/04/20 History Allergies Allergy/AdvReac Type Severity Reaction Status Date / Time Iodinated Contrast Media Allergy Unknown Verified 03/04/20 13:04 [Iodinated Contrast- Oral and IV Dye] iohexol Allergy Nausea & Verified 03/04/20 13:04 Vomiting levofloxacin [From Levaquin] Allergy Unknown Verified 03/04/20 13:04 morphine Allergy Confusion Verified 03/04/20 13:04 tromethamine Allergy Nausea & Verified 03/04/20 13:04 Vomiting codeine AdvReac Hallucinati Verified 03/04/20 13:04 ons Physical Exam Vitals: Vital Signs Temp Pulse Resp BP Pulse Ox 03/05/20 06:00 97.3 F L 79 18 115/73 93 L 03/05/20 05:22 74 03/05/20 05:12 74 95 03/04/20 19:51 80 03/04/20 19:46 80 03/04/20 19:44 84 17 110/60 95 03/04/20 15:30 80 03/04/20 15:20 80 03/04/20 14:15 97.9 F 95 22 123/70 95 03/04/20 11:24 80 03/04/20 11:14 80 03/04/20 09:19 97.6 F 87 18 103/69 92 L GENERAL EXAM: Alert, very pleasant, 70-year-old white male, with room air pulse ox of 97% comfortable in no apparent distress. HEAD: Normocephalic/atraumatic. EYES: Normal reaction of pupils, equal size. Conjunctiva pink, sclera white. NOSE: Clear with pink turbinates. THROAT: No erythema or exudates. NECK: No masses, no JVD, no thyroid enlargement, no adenopathy. CHEST: No chest wall deformity. Symmetrical expansion. LUNGS: Equal air entry with no crackles, wheeze, rhonchi or dullness. CVS: Regular rate and rhythm, normal S1 and S2, no gallops, no murmurs, no rubs ABDOMEN: Soft, nontender. No hepatosplenomegaly, normal bowel sounds, no guarding or rigidity. EXTREMITIES: No clubbing, no edema, no cyanosis, 2+ pulses and upper and lower extremities. MUSCULOSKELETAL: Muscle strength and tone normal. SPINE: No scoliosis or deformity SKIN: No rashes, bruising noted on bilateral upper extremities, and involving the right hand and wrist appears to be old CENTRAL NERVOUS SYSTEM: Alert and oriented -3. No focal deficits, tone is normal in all 4 extremities. PSYCHIATRIC: Alert and oriented -3. Appropriate affect. Intact judgment and insight. Results - Laboratory Findings CBC and BMP: 03/05/20 07:26 03/04/20 10:18 PT/INR, D-dimer PT 10.6 sec (9.0-12.0) 03/04/20 10:18 INR 1.0 (<1.2) 03/04/20 10:18 Abnormal lab findings: Abnormal Labs 03/04/20 03/05/20 10:18 07:26 WBC 13.2 H Glucose 104 H Total Protein 5.9 L Albumin 3.4 L - Diagnostic Findings Chest x-ray: report reviewed, image reviewed Additional studies: X-ray of the soft tissues of the neck reviewed, EKG reviewed Assessment and Plan Plan: Assessment: #1. Acute aspiration while swallowing a pill, with subsequent coughing and difficulty breathing, initial chest x-ray shows no acute process, x-ray of the soft tissues of the neck showed a patent airway, with no radiopaque foreign body noted #2. Increasing retrocardiac density possibly related to atelectasis or infiltrate on follow-up chest x-ray, related to aspiration #3. Chronic right hemidiaphragm paralysis #4. Previous hospitalizations for aspiration pneumonia #5. History of chronic dysphagia, previous PEG tube placement and subsequent removal #6. Silent aspiration on nectar thick liquids noted on last modified barium swallow on 06/14/2018 #7. History of CVA/TIA #8. Parkinson's disease #9. Hypothyroidism #10. Hypertension #11. Anxiety, depression, PTSD #12. Gait dysfunction, frequent falls at home, ambulates with a walker Plan: Continue current antibiotics, he has been started on Zosyn, vital signs are stable, he is afebrile, follow-up chest x-ray is showing retrocardiac density possibly related to atelectasis or infiltrate, no worsening shortness of breath, patient looks pretty comfortable, he is awaiting swallow evaluation, remains nothing by mouth, tinea nebulized bronchodilators, and IV steroids. We'll continue to follow I performed a history & physical examination of the patient and discussed their management with my nurse practitioner, Harper Craig. I reviewed the nurse practitioner's note and agree with the documented findings and plan of care. Lung sounds are positive for diminished breath sounds. The findings and the impression was discussed with the patient. I attest to the documentation by the nurse practitioner. Time with Patient: Greater than 30
[2020-03-05] MEDS: ENOXAPARIN 40 MG/0.4 ML SYRINGE SQ SCH ×2 (08:48→08:49)
[2020-03-05] MEDS ORDERED: AZITHROMYCIN 500 MG in SODIUM CHLORIDE 0.9% 250 ML IVPB SCH (09:00)
[2020-03-05] MEDS ORDERED: INFLUENZA VACCINE (6 MOS+) 60 MCG/0.5 ML SYRINGE IM ONE (09:59)
[2020-03-05] MEDS: FOLIC ACID 1 MG TAB PO SCH (10:11)
[2020-03-05] MEDS: CARBIDOPA-LEVODOPA 25-100 MG 1 EACH TAB PO SCH ×4 (10:11→23:12)
[2020-03-05] MEDS: PRIMIDONE 50 MG TAB PO SCH ×2 (10:11→20:54)
[2020-03-05] MEDS: VALPROIC ACID ORAL SOLN 250 MG/5 ML CUP PO SCH ×2 (10:12→17:18)
[2020-03-05] MEDS: MULTIVITAMINS, THERA 1 EACH TAB PO SCH (10:12)
[2020-03-05] MEDS: THIAMINE 100 MG TAB PO SCH (11:06)
[2020-03-05] MEDS: FLUDROCORTISONE 0.1 MG TAB PO SCH (11:08)
[2020-03-05 11:20] LABS: Anion Gap 9.7 mmol/L (4.00-12.00); Calcium 9.1 mg/dL (8.7-10.3); Carbon Dioxide 26.3 mmol/L (21.6-31.8); Non-African American GFR(CKD) 75.9 (60.0-200.0); Potassium 3.9 mmol/L (3.5-5.5)
--- NOTE | 2020-03-05 13:26 | FL ---
EXAMINATION TYPE: FL barium swallow w video DATE OF EXAM: 03/05/2020 CLINICAL HISTORY: 70 year-old male history of Parkinson's disease, traumatic brain injury, prior stro ke, prior surgery to remove a large anterior cervical osteophyte, aspiration. TECHNIQUE: Deglutition study is performed utilizing thin liquid barium, honey and nectar thick liqui d barium, barium thick applesauce, and barium coated cracker. Total fluoroscopy time: 2 minutes 37 seconds. Total images: None. Real-time fluoroscopy support was provided to speech pathology. COMPARISON: None. FINDINGS: Moderate piriform sinus residuals are noted. There is aspiration after the swallow of both pureed and nectar consistencies. [id number] aspiration of pureed consistency and mild of nectar liquid co nsistency. Deep penetration is seen with honey thickened liquid consistency. Findings improved with c hin tuck maneuver. IMPRESSION: Moderate piriform sinus residuals with aspiration of nectar liquid and pureed consistencies after the swallow. Moderate piriform sinus residuals. Findings remediated with chin tuck maneuver. Please refer to speech therapist notes for further details if necessary.
--- NOTE | 2020-03-05 15:18 | P.PN ---
Subjective Patient is admitted for aspiration pneumonia patient had multiple similar episodes in the past. Patient was pretty status did improve his guardian did improve. Patient was evaluated by speech therapy at the recommending PEG tube placement. Discussed with the patient patient doesn't want PEG tube patient does understand patient can have multiple aspirations which can lead to his demise of . In spite of which patient doesn't want the PEG tube placement. The patient doesn't want try to switch therapies recommending neck to thick liquids with regular diet. Patient will be started on the diet will physical therapy and outpatient therapy will evaluate the patient, for now will continue with the IV antibiotics. Depending on physical therapy evaluation will decide in the placement and patient most probably will be discharged tomorrow on Augmentin. Constitutional: Denied any fatigue denied any fever. Cardio vascular: denied any chest pain, palpitations Gastrointestinal denied any nausea vomiting Pulmonary: Denied any shortness of breath cough Neurologic denied any new focal deficits All inpatient medications were reviewed and appropriate changes in these medications as dictated in the interval history and assessment and plan. Objective - Vital Signs Vital signs: Vital Signs Temp 97.1 F L 03/05/20 08:00 Pulse 82 03/05/20 12:08 Resp 17 03/05/20 08:00 BP 117/66 03/05/20 08:00 Pulse Ox 98 03/05/20 08:00 Intake & Output 03/04/20 03/05/20 03/05/20 18:59 06:59 18:59 Weight 86.636 kg 86.636 kg Other: # Voids 2 - Exam PHYSICAL EXAMINATION: GENERAL: The patient is alert and oriented x3, not in any acute distress. Well developed, well nourished. HEENT: Pupils are round and equally reacting to light. EOMI. No scleral icterus. No conjunctival pallor. Normocephalic, atraumatic. No pharyngeal erythema. No thyromegaly. CARDIOVASCULAR: S1 and S2 present. No murmurs, rubs, or gallops. PULMONARY: Chest is clear to auscultation, no wheezing or crackles. ABDOMEN: Soft, nontender, nondistended, normoactive bowel sounds. No palpable organomegaly. MUSCULOSKELETAL: No joint swelling or deformity. EXTREMITIES: No cyanosis, clubbing, or pedal edema. NEUROLOGICAL: Gross neurological examination did not reveal any focal deficits. SKIN: No rashes. - Labs CBC & Chem 7: 03/05/20 07:26 03/05/20 07:26 Labs: Abnormal Lab Results - Last 24 Hours (Table) 03/05/20 03/05/20 Range/Units 07:26 07:26 WBC 13.2 H (3.8-10.6) k/uL BUN 29.0 H (9.0-27.0) mg/dL BUN/Creatinine Ratio 29.00 H (12.00-20.00) Ratio Glucose 137 H (70-110) mg/dL Assessment and Plan Plan: Aspiration pneumonia: Patient will be continued with respiratory support as needed speech therapy will be consulted continue with antibiotics. -History of Parkinson's: Continue with carbidopa levodopa. Speech therapy is requesting a/recommending evaluation by neurology and neurology will be consulted although I do not have any clinical evidence of brainstem stroke speech therapy is concerned about that further evaluation regarding that as per neurology. -COPD without any acute exacerbation -History of dysphagia with multiple aspirations in the past -Hypothyroidism -Hyperlipidemia -History of CVA in the past -Essential hypertension -DVT prophylaxis with Lovenox and GI prophylaxis with Pepcid
--- NOTE | 2020-03-05 17:48 | P.CNNES ---
History of Present Illness Consult date: 03/05/20 Requesting physician: Rob Hood Reason for Consult: Concern for possible brain stem stroke, possible adjustment of medications History of Present Illness: Patient is a 70-year-old male with history of Parkinson's disease came to the hospital yesterday at 9:14 AM following choking and difficulty in breathing epi sode. I spoke to patient's daughter on the phone, who provided the history. 2 days ago patient while swallowing a pill started choking, and he continued to have coughing nonstop for 2 days. Patient does have Parkinson's disease and does have sometimes choking episodes. Patient was having difficulty with breathing therefore came to the ER. No fever or chills. Patient underwent swallow studies today, which revealed moderate pyriform sinus residuals with aspiration of nectar liquid and pured consistencies after the swallow. Moderate pyriform sinus residuals. Findings remediated with the chin tuck maneuver. It appears patient has history of PEG placement in the past but now he was depending on oral diet. Patient's daughter states that he had a PEG tube placed about 6 years ago, when he was diagnosed with bone spurs in the spine. After those bone spur was removed the PEG tube was removed. Overall it was on for about 6-7 months at that time. Patient has Parkinson's disease, follows up with a nurse practitioner with Dr. Gordon. Patient has swallowing issues off and on in the past. He has tried physical therapy as well. Patient is currently on Sinemet and Neupro patch 6 mg daily. He is also on Depakote, for severe depression and anxiety. Patient has history of closed head injury in the past. As his past history mentions about seizure, I asked patient's daughter about it. She states that patient has history of "spells", which his neurologist does not know if it is seizure versus TIA, as his one limb goes limp but by the time he gets evaluated in the ER, symptoms resolved. No history of tobacco or alcohol use. He has severe depression and anxiety. No diabetes. Patient's vital signs on arrival showed blood pressure 103/69, pulse rate 87 temperature 97.6. Chest x-ray showed no acute cardiopulmonary disease. EKG shows normal sinus rhythm. Review of Systems Patient denies headache, double vision, loss of vision, he is very hard of hearing. Denies any sore throat. He has dysphagia. Patient does have some cough, some shortness of breath. Denies any chest pain. Denies abdominal pain nausea vomiting diarrhea. Past Medical History Past Medical History: COPD, CVA/TIA, Deep Vein Thrombosis (DVT), Hypertension, Musculoskeletal Disorder, Neurologic Disorder, Pneumonia, Prostate Disorder, Seizure Disorder, Thyroid Disorder Additional Past Medical History / Comment(s): Pt recently admitted to [facility] on 01/23/20 with fall/L gluteal pain/abscess. 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 History of Any Multi-Drug Resistant Organisms: MRSA Date of last positivie culture/infection: 09/30/2014 MDRO Source:: Blood Past Surgical History: Adenoidectomy, Prostate Surgery, Tonsillectomy Additional Past Surgical History / Comment(s): L buttock abscess I&D, BRONCHOSCOPY, SX FOR PROLAPSED RECTUM, TURP, Peg insertion & then removed, osteophytes removed from throat, TEETH EXTRACTED, 12-22-15 MIKE. Past Anesthesia/Blood Transfusion Reactions: No Reported Reaction, Motion Sickne ss Smoking Status: Former smoker - Past Family History Father Family Medical History: Myocardial Infarction ([place]) Additional Family Medical History / Comment(s): Father at the age of 62 yrs from a [place]. Mother Family Medical History: Myocardial Infarction ([place]) Additional Family Medical History / Comment(s): Mother is 97yrs old. She has a pacemaker. Medications and Allergies Home Medications Medication Instructions Recorded Confirmed Type Levothyroxine Sodium [Synthroid] 125 mcg PO DAILY 06/27/14 03/04/20 History Atorvastatin Calcium [Lipitor] 40 mg PO HS 02/20/17 03/04/20 History Primidone [Mysoline] 50 mg PO BID 02/20/17 03/04/20 History Fludrocortisone [Florinef] 0.1 mg PO DAILY 02/19/18 03/04/20 History Valproic Acid (As Sodium Salt) 500 mg PO TID 05/14/18 03/04/20 History [Depakene Soln] Tamsulosin [Flomax] 0.4 mg PO HS 06/20/18 03/04/20 History Donepezil [Aricept] 10 mg PO HS 02/27/19 03/04/20 History traZODone HCL [Desyrel] 50 mg PO HS 02/27/19 03/04/20 History Neupro Patch 6mg/24hr 1 patch TOPICAL DAILY 09/21/19 03/04/20 History Budesonide-Formot 160-4.5 Mcg 2 puff INHALATION RT-BID 30 Days 09/24/19 03/04/20 Rx [Symbicort 160-4.5 Mcg Inhaler] #1 puff Folic Acid 1 mg PO DAILY@1200 30 Days #30 tab 09/24/19 03/04/20 Rx Thiamine [Vitamin B-1] 100 mg PO DAILY 30 Days #30 tab 09/24/19 03/04/20 Rx Glycopyrrolate [Robinul] 1 mg PO HS #3 tab 10/22/19 03/04/20 Rx cloZAPine [Clozaril] 450 mg PO HS #3 tab 10/22/19 03/04/20 Rx Albuterol Nebulized [Ventolin 2.5 mg INHALATION RT-QID PRN 01/23/20 03/04/20 History Nebulized] Carbidopa-Levodopa 25-100 mg 1 tab PO TID 01/23/20 03/04/20 History [Sinemet 25-100 mg] Multivitamins, Thera [Multivitamin 1 tab PO DAILY 01/23/20 03/04/20 History (formulary)] Doxycycline Monohydrate [Monodox] 100 mg PO BID 03/04/20 03/04/20 History Allergies Allergy/AdvReac Type Severity Reaction Status Date / Time Iodinated Contrast Media Allergy Unknown Verified 03/04/20 13:04 [Iodinated Contrast- Oral and IV Dye] iohexol Allergy Nausea & Verified 03/04/20 13:04 Vomiting levofloxacin [From Levaquin] Allergy Unknown Verified 03/04/20 13:04 morphine Allergy Confusion Verified 03/04/20 13:04 tromethamine Allergy Nausea & Verified 03/04/20 13:04 Vomiting codeine AdvReac Hallucinati Verified 03/04/20 13:04 ons Physical Examination - Vital Signs Vital Signs: Vital Signs Temp Pulse Pulse Resp BP BP Pulse Ox 03/05/20 12:08 82 03/05/20 11:59 82 03/05/20 08:32 82 03/05/20 08:20 80 03/05/20 08:00 97.1 F L 78 17 117/66 98 03/05/20 06:00 97.3 F L 79 18 115/73 93 L 03/05/20 05:22 74 03/05/20 05:12 74 95 03/04/20 19:51 80 03/04/20 19:46 80 03/04/20 19:44 84 17 110/60 95 03/04/20 15:30 80 03/04/20 15:20 80 Intake and Output 03/04/20 03/05/20 03/05/20 22:59 06:59 14:59 Other: Weight 86.636 kg On examination patient is an elderly male, in no acute distress. He is alert and awake. Speech and language functions appears normal. On cranial nerve examination pupils are round and reactive to light, visual pink are full on confrontation, extraocular muscles are intact with no nystagmus. Face is symmetric, tongue protrudes to midline. Palatal elevation and sensation normal, hearing is decreased, shoulder shrug normal. On muscle strength testing, the strength is normal in the arms and legs distally and proximally. Reflexes are 2 at the biceps, 1 brachioradialis, 2 at the knees, 1 at ankles and plantars are downgoing. Sensory to touch is equal. Tone is mildly increased bilaterally. Patient has moderate tremors at rest, mild tremors with posture and [id number] tremors with intention for [id number] testing. Bulk of muscles normal. Gait deferred. On general examination, there is no obvious carotid bruit, S1 and S2 audible, patient has mild peripheral edema. Chest is clear, abdominal soft nontender. Results - Laboratory Findings CBC and BMP: 03/05/20 07:26 03/05/20 07:26 Abnormal Lab Findings: Abnormal Labs 03/04/20 03/05/20 03/05/20 10:18 07:26 07:26 WBC 13.2 H BUN 29.0 H BUN/Creatinine Ratio 29.00 H Glucose 104 H 137 H Total Protein 5.9 L Albumin 3.4 L Assessment and Plan Assessment: * Dysphagia, probably due to Parkinson's disease. Examination is completely nonfocal with no evidence of CVA. Patient also on multiple psychoactive medications, which may be also be contributing factors, as mentioned below. * Parkinson's disease, moderate degree. * Cognitive impairment Plan: * Patient has at least moderate tremors at rest and posture. Tremors are parkinsonian, but Depakote can make tremors worse. We will check Depakote level. If the levels are high, would suggest decreasing dose of Depakote to 500 mg twice a day. Patient currently on very high-dose of Depakote 500 mg 3 times a day. * Patient is also on clozapine 450 mg daily, which can also has some parkinsonian side effects. We will check clozapine level. If the levels are at higher end of reference range, would suggest cutting back on Clozaril as well, if possible. * We will increase Sinemet to 25/104 times a day. Continue same dose of neupro patch 6 mg daily. * We will check B12 level. Folate and thyroid functions are normal. * Continue swallow evaluation. Hopefully with the above measures, swallow may improve. Patient completely declining PEG placement. * Consider ENT consult to assess for dysphagia, rule out any structural abnormality in the pharyngeal region. * Discussed with patient's daughter in detail.
[2020-03-05] MEDS: ATORVASTATIN 40 MG TAB PO SCH (20:54)
[2020-03-05] MEDS: DONEPEZIL 10 MG TAB PO SCH (20:54)
[2020-03-05] MEDS: TAMSULOSIN 0.4 MG CAP.ER.24H PO SCH (20:54)
[2020-03-05] MEDS: traZODone HCL 50 MG TAB PO SCH (20:54)
[2020-03-05] MEDS: GLYCOPYRROLATE 1 MG TAB PO SCH (20:54)
[2020-03-05] MEDS: cloZAPine 100 MG TAB PO SCH (23:11)
[2020-03-05] MEDS: DIVALPROEX SPRINKLE 125 MG CAP.SPRINK PO SCH (23:12)
[2020-03-06] MEDS: PIPERACILLIN-TAZOBACTAM 3.375 GM in SODIUM CHLORIDE 0.9% 100 ML IVPB SCH ×3 (06:35→20:55)
[2020-03-06] MEDS: LEVOTHYROXINE 125 MCG TAB PO SCH (06:36)
[2020-03-06] MEDS: SYMBICORT 160-4.5 MCG INHALER INHALATION SCH ×2 (07:33→19:16)
[2020-03-06] MEDS: IPRATROPIUM-ALBUTEROL 3 ML NEB INHALATION SCH ×4 (07:33→19:16)
[2020-03-06] MEDS: ENOXAPARIN 40 MG/0.4 ML SYRINGE SQ SCH (08:59)
[2020-03-06] MEDS: KETOROLAC 15 MG/ML 1 ML VIAL IVP PRN ×3 (08:59→21:05)
[2020-03-06] MEDS: FLUDROCORTISONE 0.1 MG TAB PO SCH (09:00)
[2020-03-06] MEDS: FOLIC ACID 1 MG TAB PO SCH (09:00)
[2020-03-06] MEDS: PRIMIDONE 50 MG TAB PO SCH ×2 (09:00→20:56)
[2020-03-06] MEDS: THIAMINE 100 MG TAB PO SCH (09:00)
[2020-03-06] MEDS: MULTIVITAMINS, THERA 1 EACH TAB PO SCH (09:00)
[2020-03-06] MEDS: methylPREDNISolone SOD SUCCI 40 MG/ML 1 ML VIAL IV SCH (09:00)
[2020-03-06] MEDS: CARBIDOPA-LEVODOPA 25-100 MG 1 EACH TAB PO SCH ×4 (09:00→20:57)
[2020-03-06] MEDS: FAMOTIDINE 20 MG/2 ML VIAL IV SCH (09:01)
[2020-03-06] MEDS: DIVALPROEX SPRINKLE 125 MG CAP.SPRINK PO SCH ×2 (09:01→20:56)
--- NOTE | 2020-03-06 10:40 | P.PN ---
Subjective Patient is admitted for aspiration pneumonia patient had multiple similar episodes in the past. Patient was pretty status did improve his guardian did improve. Patient was evaluated by speech therapy at the recommending PEG tube placement. Discussed with the patient patient doesn't want PEG tube patient does understand patient can have multiple aspirations which can lead to his demise of . In spite of which patient doesn't want the PEG tube placement. The patient doesn't want try to switch therapies recommending neck to thick liquids with regular diet. Patient will be started on the diet will physical therapy and outpatient therapy will evaluate the patient, for now will continue with the IV antibiotics. Depending on physical therapy evaluation will decide in the placement and patient most probably will be discharged tomorrow on Augmentin. Number 04/13/2020 Patient was a valid by neurology, patient is on Depakote for bipolar disorder and patient is on a very high-dose for that because of which Depakote dose was reduced and patient Depakote levels are low but his Depakote is being used for bipolar rather than seizures. Patient is also on clozipine is a concern that this may be making the extrapyramidal side effects worse, clozipine levels were ordered, patient did today has diffuse rhonchi although feels well and wanted to go home. Patient's sats is on 3 L of oxygen which we'll try to wean off. PT and OT at evaluated the patient. Sinemet dose was increased by neurology. Constitutional: Denied any fatigue denied any fever. Cardio vascular: denied any chest pain, palpitations Gastrointestinal denied any nausea vomiting Pulmonary: Denied any shortness of breath cough Neurologic denied any new focal deficits All inpatient medications were reviewed and appropriate changes in these medications as dictated in the interval history and assessment and plan. Objective - Vital Signs Vital signs: Vital Signs Temp 98.3 F 03/06/20 07:00 Pulse 96 03/06/20 07:45 Resp 16 03/06/20 07:00 BP 120/75 03/06/20 07:00 Pulse Ox 96 03/06/20 07:00 Intake & Output 03/05/20 03/06/20 03/06/20 18:59 06:59 18:59 Weight 86.636 kg Other: Voiding Method Bedside Commode Bedside Commode # Voids 2 1 - Exam PHYSICAL EXAMINATION: GENERAL: The patient is alert and oriented x3, not in any acute distress. Well developed, well nourished. HEENT: Pupils are round and equally reacting to light. EOMI. No scleral icterus. No conjunctival pallor. Normocephalic, atraumatic. No pharyngeal erythema. No thyromegaly. CARDIOVASCULAR: S1 and S2 present. No murmurs, rubs, or gallops. PULMONARY: Diffuse bilateral rhonchi today ABDOMEN: Soft, nontender, nondistended, normoactive bowel sounds. No palpable organomegaly. MUSCULOSKELETAL: No joint swelling or deformity. EXTREMITIES: No cyanosis, clubbing, or pedal edema. NEUROLOGICAL: Gross neurological examination did not reveal any focal deficits. SKIN: No rashes. - Labs CBC & Chem 7: 03/05/20 07:26 03/05/20 07:26 Labs: Abnormal Lab Results - Last 24 Hours (Table) 03/05/20 03/05/20 Range/Units 07:26 07:26 BUN 29.0 H (9.0-27.0) mg/dL BUN/Creatinine Ratio 29.00 H (12.00-20.00) Ratio Glucose 137 H (70-110) mg/dL Valproic Acid 23.6 L (50.0-100.0) ug/mL Microbiology - Last 24 Hours (Table) 03/04/20 14:08 Blood Culture - Preliminary Blood No Growth after 24 hours Assessment and Plan Plan: Aspiration pneumonia: Patient will be continued with respiratory support as needed speech therapy will be consulted continue with antibiotics. Patient is declining PEG tube placement. Patient will be on the nectar thick liquids and pured diet -History of Parkinson's: Continue with carbidopa levodopa, dose was increased, Depakote dose was decreased. Neurology evaluated the patient. -COPD without any acute exacerbation -History of dysphagia with multiple aspirations in the past -Hypothyroidism -Hyperlipidemia -History of CVA in the past -Essential hypertension -DVT prophylaxis with Lovenox and GI prophylaxis with Pepcid
--- NOTE | 2020-03-06 13:14 | P.PN ---
Subjective Progress Note Date: 03/06/20 Patient is laying comfortably in the bed. Offers no complaints. Patient's speech appears more clear. Objective - Vital Signs Vital signs: Vital Signs Temp 98.3 F 03/06/20 07:00 Pulse 80 03/06/20 11:14 Resp 16 03/06/20 07:00 BP 120/75 03/06/20 07:00 Pulse Ox 96 03/06/20 07:00 Intake & Output 03/05/20 03/06/20 03/06/20 18:59 06:59 18:59 Weight 86.636 kg Other: Voiding Method Bedside Commode Bedside Commode # Voids 2 1 - Exam Patient is alert and awake in no distress. Tone is normal in the arms. Patient has mild tremor at rest. Appears better than yesterday. - Labs CBC & Chem 7: 03/05/20 07:26 03/05/20 07:26 Labs: Abnormal Lab Results - Last 24 Hours (Table) 03/05/20 Range/Units 07:26 Valproic Acid 23.6 L (50.0-100.0) ug/mL Microbiology - Last 24 Hours (Table) 03/04/20 14:08 Blood Culture - Preliminary Blood No Growth after 24 hours Assessment and Plan Assessment: * Dysphagia, probably due to Parkinson's disease. Examination is completely nonfocal with no evidence of CVA. Patient also on multiple psychoactive medications, which may be also be contributing factors, as mentioned below. * Parkinson's disease, moderate degree. * Cognitive impairment Plan: * Patient's parkinsonian symptoms appears to be much better today. Less tremulous, tone has improved. Continue Sinemet 25/100, 1 tablet 4 times a day. Depakote decreased to 500 mg twice a day. Depakote level 23.6, uncertain if patient was actually taking medication regularly. * Patient is also on clozapine 450 mg daily, which can also has some parkinsonian side effects. Await clozapine level. If the levels are at higher end of reference range, would suggest cutting back on Clozaril as well, if possible. * We will increase Sinemet to 25/104 times a day. Continue same dose of neupro patch 6 mg daily. * B12 level 588. Folate and thyroid functions are normal. * Continue swallow evaluation. Hopefully with the above measures, swallow may improve. * Consider ENT consult to assess for dysphagia, rule out any structural abnormality in the pharyngeal region. * Discussed with Dr Hood and the speech therapist in detail.
--- NOTE | 2020-03-06 15:27 | P.PN ---
Subjective Progress Note Date: 03/06/20 Principal diagnosis: Acute aspiration with swallowing a pill 70-year-old white male patient of Dr. Cheng Choudhary with a history of Parkinson's disease, COPD, his history of CVA/TIA, DVT, hypertension, esophageal disorder, hypothyroidism, anxiety/depression, chronic dysphasia, previously hospitalized for aspiration pneumonia, who comes into the emergency department on 03/04/2020 following a choking episode while trying to take his pill. Developed shortness of breath, coughing, which has improved since he came in, his cough is nonproductive. Patient was also noted to have difficulty with thin liquids while drinking water. Admission chest x-ray showed no evidence for a cute pulmonary disease. X-ray of the soft tissue of the neck was obtained and the airway was patent, there was normal-appearing epiglottis, retropharyngeal soft tissues were within normal limits, and there was no evidence of radiopaque foreign body. EKG showed normal sinus rhythm with a right bundle-branch block pattern. Lab work showed CBC within normal limits, no white count, with little, as a 0.5, hemoglobin is 14.2, with duration profile was within normal limits, electrolytes and renal profile were within normal limits, lactic acid was 1.0, LFTs were within normal limits, troponin was less than 0.012, proBNP was negative at 38. Patient is seen in the emergency department, resting com fortably in bed, he is awaiting speech evaluation, he is nothing by mouth, he is on room air. Of note patient had previous PEG tube placement for multiple episodes of aspiration pneumonia which was subsequently removed. His last eye 5 barium swallow was done on 2018 and showed vallecular residuals during the exam, aspiration was noted on nectar thick and thin liquids which was silent. The patient is comfortable, denies any shortness of breath, his coughing has resolved, then 2 L of oxygen pulse ox of 98%, hemodynamically stable, no fever or chills The patient is seen today 03/06/2020 in follow-up on the regular medical floor. He is currently resting quite comfortably in bed. Awake and alert in no acute distress. Maintaining O2 saturation in the 90s on 3 L/m per nasal cannula. He is afebrile. Hemodynamically stable. Blood culture reveals no growth. He remains on Symbicort, DuoNeb inhalations, prednisone, Zosyn. Objective - Vital Signs Vital signs: Vital Signs Temp 98.3 F 03/06/20 07:00 Pulse 80 03/06/20 11:14 Resp 16 03/06/20 07:00 BP 120/75 03/06/20 07:00 Pulse Ox 96 03/06/20 07:00 Intake & Output 03/05/20 03/06/20 03/06/20 18:59 06:59 18:59 Intake Total 100 Balance 100 Weight 86.636 kg Intake: IV 100 Piperacillin-Tazobactam 3 100 .375 gm In Sodium Chloride 0.9% 100 ml @ 25 mls/hr IVPB Q8H [facility] Rx#: [id number] Other: Voiding Method Bedside Commode Bedside Commode # Voids 2 1 - Exam GENERAL EXAM: Alert, very pleasant, 70-year-old male patient, with oxygen at 3 L/m per nasal cannula with a pulse ox of 96%, comfortable in no apparent distress. HEAD: Normocephalic/atraumatic. EYES: Normal reaction of pupils, equal size. Conjunctiva pink, sclera white. NOSE: Clear with pink turbinates. THROAT: No erythema or exudates. NECK: No masses, no JVD, no thyroid enlargement, no adenopathy. CHEST: No chest wall deformity. Symmetrical expansion. LUNGS: Equal air entry with no crackles, wheeze, rhonchi or dullness. CVS: Regular rate and rhythm, normal S1 and S2, no gallops, no murmurs, no rubs ABDOMEN: Soft, nontender. No hepatosplenomegaly, normal bowel sounds, no guarding or rigidity. EXTREMITIES: No clubbing, no edema, no cyanosis, 2+ pulses and upper and lower extremities. MUSCULOSKELETAL: Muscle strength and tone normal. SPINE: No scoliosis or deformity SKIN: No rashes, bruising noted on bilateral upper extremities, and involving the right hand and wrist appears to be old CENTRAL NERVOUS SYSTEM: No focal deficits, tone is normal in all 4 extremities. PSYCHIATRIC: Alert and oriented -3. Appropriate affect. Intact judgment and insight. - Labs CBC & Chem 7: 03/05/20 07:26 03/05/20 07:26 Labs: Abnormal Lab Results - Last 24 Hours (Table) 03/05/20 Range/Units 07:26 Valproic Acid 23.6 L (50.0-100.0) ug/mL Microbiology - Last 24 Hours (Table) 03/04/20 14:08 Blood Culture - Preliminary Blood No Growth after 24 hours Assessment and Plan Assessment: #1. Acute aspiration while swallowing a pill, with subsequent coughing and difficulty breathing, initial chest x-ray shows no acute process, x-ray of the soft tissues of the neck showed a patent airway, with no radiopaque foreign body noted #2. Increasing retrocardiac density possibly related to atelectasis or infil trate on follow-up chest x-ray, related to aspiration #3. Chronic right hemidiaphragm paralysis #4. Previous hospitalizations for aspiration pneumonia #5. History of chronic dysphagia, previous PEG tube placement and subsequent removal #6. Silent aspiration on nectar thick liquids noted on last modified barium swallow on 06/14/2018 #7. History of CVA/TIA #8. Parkinson's disease #9. Hypothyroidism #10. Hypertension #11. Anxiety, depression, PTSD #12. Gait dysfunction, frequent falls at home, ambulates with a walker Plan: The patient was seen and evaluated by Dr. Armas Currently stable from the pulmonary standpoint Remains on bronchodilators and Zosyn Will continue to follow I, the cosigning physician, performed a history & physical examination of the patient. Lungs sounds are clear., Diminished Maintaining good O2 saturations in the 90s on 3 L/m per nasal cannula. I discussed the assessment and plan of care with my nurse practitioner, Cierra King. I attest to the above note as dictated by her.
[2020-03-06] MEDS: ATORVASTATIN 40 MG TAB PO SCH (20:55)
[2020-03-06] MEDS: cloZAPine 100 MG TAB PO SCH (20:55)
[2020-03-06] MEDS: DONEPEZIL 10 MG TAB PO SCH (20:56)
[2020-03-06] MEDS: FAMOTIDINE 20 MG TAB PO SCH (20:56)
[2020-03-06] MEDS: TAMSULOSIN 0.4 MG CAP.ER.24H PO SCH (20:56)
[2020-03-06] MEDS: GLYCOPYRROLATE 1 MG TAB PO SCH (20:56)
[2020-03-06] MEDS: traZODone HCL 50 MG TAB PO SCH (20:57)
[2020-03-07] MEDS: PIPERACILLIN-TAZOBACTAM 3.375 GM in SODIUM CHLORIDE 0.9% 100 ML IVPB SCH ×2 (04:58→12:12)
[2020-03-07] MEDS: LEVOTHYROXINE 125 MCG TAB PO SCH (04:58)
[2020-03-07] MEDS: KETOROLAC 15 MG/ML 1 ML VIAL IVP PRN ×2 (05:38→12:15)
[2020-03-07 07:03] LABS: HCT 39.5 % (39.0-53.0); HGB 13.1 gm/dL (13.0-17.5); MCH 31.8 pg (25.0-35.0); MCHC 33.2 g/dL (31.0-37.0); MCV 95.8 fL (80.0-100.0); Mean Platelet Volume 7.7; Platelet Count 168 k/uL (150-450); RBC 4.12 m/uL (4.30-5.90); RDW 14.9 % (11.5-15.5)
[2020-03-07 07:25] VITALS: RESP 18
[2020-03-07] MEDS: IPRATROPIUM-ALBUTEROL 3 ML NEB INHALATION SCH ×2 (07:27→11:02)
[2020-03-07] MEDS: SYMBICORT 160-4.5 MCG INHALER INHALATION SCH (07:27)
[2020-03-07] MEDS: ENOXAPARIN 40 MG/0.4 ML SYRINGE SQ SCH (08:28)
[2020-03-07] MEDS: FAMOTIDINE 20 MG TAB PO SCH (08:28)
[2020-03-07] MEDS: MULTIVITAMINS, THERA 1 EACH TAB PO SCH (08:29)
[2020-03-07] MEDS: FLUDROCORTISONE 0.1 MG TAB PO SCH (08:29)
[2020-03-07] MEDS: THIAMINE 100 MG TAB PO SCH (08:29)
[2020-03-07] MEDS: FOLIC ACID 1 MG TAB PO SCH (08:29)
[2020-03-07] MEDS: CARBIDOPA-LEVODOPA 25-100 MG 1 EACH TAB PO SCH ×2 (08:29→12:15)
[2020-03-07] MEDS: PRIMIDONE 50 MG TAB PO SCH (08:30)
[2020-03-07] MEDS: DIVALPROEX SPRINKLE 125 MG CAP.SPRINK PO SCH (08:30)
[2020-03-07 08:38] LABS: Clozapine (Clozaril) 300 ng/mL (200-700); Norclozapine 149 ng/mL (200-700)
[2020-03-07] MEDS ORDERED: predniSONE 20 MG TAB PO SCH ×2 (09:00)
[2020-03-07 09:40] LABS: Anion Gap 5.9 mmol/L (4.00-12.00); Calcium 8.3 mg/dL (8.7-10.3); Carbon Dioxide 28.1 mmol/L (21.6-31.8); Non-African American GFR(CKD) 75.9 (60.0-200.0)
[2020-03-07 14:19] VITALS: BP 113/67; PULSE 78; TEMP 98
--- NOTE | 2020-03-07 14:45 | P.DS ---
Providers Date of admission: 03/04/20 11:57 Attending physician: Rob Hood Consults: 03/04/20 11:59 Consult Physician Urgent Consulting Provider: Demetris Armas Consult Reason/Comments: Dyspnea, suspected aspiration, Possible bronchoscopy Do you want consulting provider notified?: Yes 03/05/20 14:04 Consult Physician Urgent Consulting Provider: Red Urena Consult Reason/Comments: CONCERN FOR POSSIBLE BRAIN STEM STROKE; POSS ADJUSTMENT OF MEDICATIONS Do you want consulting provider notified?: Yes Primary care physician: [facility] Course: Patient is admitted for aspiration pneumonia patient had multiple similar episodes in the past. Patient was pretty status did improve his guardian did improve. Patient was evaluated by speech therapy at the recommending PEG tube placement. Discussed with the patient patient doesn't want PEG tube patient does understand patient can have multiple aspirations which can lead to his d emise of . In spite of which patient doesn't want the PEG tube placement. The patient doesn't want try to switch therapies recommending neck to thick liquids with regular diet. Patient will be started on the diet will physical therapy and outpatient therapy will evaluate the patient, for now will continue with the IV antibiotics. Depending on physical therapy evaluation will decide in the placement and patient most probably will be discharged tomorrow on Augmentin. 03/06/2020 Patient was a valid by neurology, patient is on Depakote for bipolar disorder and patient is on a very high-dose for that because of which Depakote dose was reduced and patient Depakote levels are low but his Depakote is being used for bipolar rather than seizures. Patient is also on clozipine is a concern that this may be making the extrapyramidal side effects worse, clozipine levels were ordered, patient did today has diffuse rhonchi although feels well and wanted to go home. Patient's sats is on 3 L of oxygen which we'll try to wean off. PT and OT at evaluated the patient. Sinemet dose was increased by neurology. 03/07 2020 patient is pretty status improved is not requiring any oxygen as have the mild bilateral rhonchi and crackles in the right lower lung bases. Patient is being discharged today and modified diet along with nectar thick liquids. Patient is high risk for readmission patient declined PEG tube placement multiple times in the past as well as now.physical therapy and occupational therapy evaluated the patient the recommending home with home care. PHYSICAL EXAMINATION: GENERAL: The patient is alert and oriented x3, not in any acute distress. Well developed, well nourished. HEENT: Pupils are round and equally reacting to light. EOMI. No scleral icterus. No conjunctival pallor. Normocephalic, atraumatic. No pharyngeal erythema. No thyromegaly. CARDIOVASCULAR: S1 and S2 present. No murmurs, rubs, or gallops. PULMONARY: Diffuse bilateral rhonchi today ABDOMEN: Soft, nontender, nondistended, normoactive bowel sounds. No palpable organomegaly. MUSCULOSKELETAL: No joint swelling or deformity. EXTREMITIES: No cyanosis, clubbing, or pedal edema. NEUROLOGICAL: Gross neurological examination did not reveal any focal deficits. SKIN: No rashes. Assessment and Plan Plan: Aspiration pneumonia: Patient will be continued with respiratory support as needed speech therapy will be consulted continue with antibiotics. Patient is declining PEG tube placement. Patient will be on the nectar thick liquids and pured diet -History of Parkinson's: Continue with carbidopa levodopa, dose was increased, Depakote dose was decreased. Neurology evaluated the patient. -COPD without any acute exacerbation -History of dysphagia with multiple aspirations in the past -Hypothyroidism -Hyperlipidemia -History of CVA in the past -Essential hypertension -DVT prophylaxis with Lovenox and GI prophylaxis with Pepcid Plan - Discharge Summary Discharge Rx Participant: No New Discharge Prescriptions: New Amoxic-Pot Clav 875-125Mg [Augmentin 875-125] 1 tab PO Q12HR 5 Days #10 tab Divalproex Sprinkle [Depakote Sprinkle] 500 mg PO BID #60 cap.[email or web address] Carbidopa-Levodopa 25-100 mg [Sinemet 25-100 mg] 1 each PO QID tab predniSONE 10 mg PO DAILY #10 tab Continue Levothyroxine Sodium [Synthroid] 125 mcg PO DAILY Primidone [Mysoline] 50 mg PO BID Atorvastatin Calcium [Lipitor] 40 mg PO HS Fludrocortisone [Florinef] 0.1 mg PO DAILY Tamsulosin [Flomax] 0.4 mg PO HS Donepezil [Aricept] 10 mg PO HS traZODone HCL [Desyrel] 50 mg PO HS Neupro Patch 6mg/24hr 1 patch TOPICAL DAILY Folic Acid 1 mg PO DAILY@1200 30 Days #30 tab Budesonide-Formot 160-4.5 Mcg [Symbicort 160-4.5 Mcg Inhaler] 2 puff INHALATION RT-BID 30 Days #1 puff Thiamine [Vitamin B-1] 100 mg PO DAILY 30 Days #30 tab cloZAPine [Clozaril] 450 mg PO HS #3 tab Glycopyrrolate [Robinul] 1 mg PO HS #3 tab Albuterol Nebulized [Ventolin Nebulized] 2.5 mg INHALATION RT-QID PRN PRN Reason: Shortness Of Breath Multivitamins, Thera [Multivitamin (formulary)] 1 tab PO DAILY Discontinued Valproic Acid (As Sodium Salt) [Depakene Soln] 500 mg PO TID Carbidopa-Levodopa 25-100 mg [Sinemet 25-100 mg] 1 tab PO TID Doxycycline Monohydrate [Monodox] 100 mg PO BID Discharge Medication List Levothyroxine Sodium [Synthroid] 125 mcg PO DAILY 06/27/14 [History] Atorvastatin Calcium [Lipitor] 40 mg PO HS 02/20/17 [History] Primidone [Mysoline] 50 mg PO BID 02/20/17 [History] Fludrocortisone [Florinef] 0.1 mg PO DAILY 02/19/18 [History] Tamsulosin [Flomax] 0.4 mg PO HS 06/20/18 [History] Donepezil [Aricept] 10 mg PO HS 02/27/19 [History] traZODone HCL [Desyrel] 50 mg PO HS 02/27/19 [History] Neupro Patch 6mg/24hr 1 patch TOPICAL DAILY 09/21/19 [History] Budesonide-Formot 160-4.5 Mcg [Symbicort 160-4.5 Mcg Inhaler] 2 puff INHALATION RT-BID 30 Days #1 puff 09/24/19 [Rx] Folic Acid 1 mg PO DAILY@1200 30 Days #30 tab 09/24/19 [Rx] Thiamine [Vitamin B-1] 100 mg PO DAILY 30 Days #30 tab 09/24/19 [Rx] Glycopyrrolate [Robinul] 1 mg PO HS #3 tab 10/22/19 [Rx] cloZAPine [Clozaril] 450 mg PO HS #3 tab 10/22/19 [Rx] Albuterol Nebulized [Ventolin Nebulized] 2.5 mg INHALATION RT-QID PRN 01/23/20 [History] Multivitamins, Thera [Multivitamin (formulary)] 1 tab PO DAILY 01/23/20 [History] Amoxic-Pot Clav 875-125Mg [Augmentin 875-125] 1 tab PO Q12HR 5 Days #10 tab 03/07/20 [Rx] Carbidopa-Levodopa 25-100 mg [Sinemet 25-100 mg] 1 each PO QID tab 03/07/20 [Rx] Divalproex Sprinkle [Depakote Sprinkle] 500 mg PO BID #60 cap.sprink 03/07/20 [Rx] predniSONE 10 mg PO DAILY #10 tab 03/07/20 [Rx] Follow up Appointment(s)/Referral(s): Cheng Kendrick DO [Primary Care Provider] - 3 Days Discharge Disposition: HOME WITH HOME HEALTH SERVICES
--- NOTE | 2020-03-07 14:58 | P.PN ---
Subjective Progress Note Date: 03/07/20 Patient is laying comfortably in the bed. Offers no complaints. Patient's speech appears more clear. Denies dizziness. Patient's tremors appear much better. Objective - Vital Signs Vital signs: Vital Signs Temp 98.0 F 03/07/20 14:18 Pulse 78 03/07/20 14:18 Resp 18 03/07/20 14:18 BP 113/67 03/07/20 14:18 Pulse Ox 94 L 03/07/20 14:18 Intake & Output 03/06/20 03/07/20 03/07/20 18:59 06:59 18:59 Intake Total 100 200 Balance 100 200 Intake: IV 100 200 Piperacillin-Tazobactam 3 100 200 .375 gm In Sodium Chloride 0.9% 100 ml @ 25 mls/hr IVPB Q8H [facility] Rx#: [id number] Other: Voiding Method Bedside Commode Bedside Commode # Voids 2 3 - Exam Patient is alert and awake in no distress. Tone is normal in the arms. Patient has very mild tremor at rest. Appears even better than yesterday. Denies dizziness. Strength appears normal. - Labs CBC & Chem 7: 03/07/20 06:35 03/07/20 06:35 Labs: Abnormal Lab Results - Last 24 Hours (Table) 03/05/20 03/07/20 03/07/20 Range/Units 07:26 06:35 06:35 WBC 11.0 H (3.8-10.6) k/uL RBC 4.12 L (4.30-5.90) m/uL BUN 35.0 H (9.0-27.0) mg/dL BUN/Creatinine Ratio 35.00 H (12.00-20.00) Ratio Calcium 8.3 L (8.7-10.3) mg/dL Norclozapine 149 L (200-700) ng/mL Microbiology - Last 24 Hours (Table) 03/04/20 14:08 Blood Culture - Preliminary Blood No Growth after 48 hours Assessment and Plan Assessment: * Dysphagia, probably due to Parkinson's disease. Examination is completely nonfocal with no evidence of CVA. Patient also on multiple psychoactive medications, which may be also be contributing factors, as mentioned below. * Parkinson's disease, moderate degree. * Cognitive impairment Plan: * Patient's parkinsonism has improved with higher dose of Sinemet and decrease in the dose of Depakote. Continue Sinemet 25/100, 1 tablet 4 times a day. Depakote decreased to 500 mg twice a day. Depakote level 23.6, uncertain if patient was actually taking medication regularly. Continue Neupro patch 6 mg daily. * Patient is also on clozapine 450 mg daily, which can also has some parkinsonian side effects. Await clozapine level. If the levels are at higher end of reference range, would suggest cutting back on Clozaril as well, if possible. Continue same dose of * B12 level 588. Folate and thyroid functions are normal. * Continue swallow evaluation. Hopefully with the above measures, swallow may improve. * Consider ENT consult to assess for dysphagia, rule out any structural abnormality in the pharyngeal region. * Neurologically clear, if cleared by speech pathologist.
--- NOTE | 2020-03-07 15:03 | P.PN ---
Subjective Progress Note Date: 03/07/20 Principal diagnosis: Acute aspiration with swallowing a pill 70-year-old white male patient of Dr. Cheng Kendrick with a history of Parkinson's disease, COPD, his history of CVA/TIA, DVT, hypertension, esophageal disorder, hypothyroidism, anxiety/depression, chronic dysphasia, previously hospitalized for aspiration pneumonia, who comes into the emergency department on 03/04/2020 following a choking episode while trying to take his pill. Developed shortness of breath, coughing, which has improved since he came in, his cough is nonproductive. Patient was also noted to have difficulty with thin liquids while drinking water. Admission chest x-ray showed no evidence for a cute pulmonary disease. X-ray of the soft tissue of the neck was obtained and the airway was patent, there was normal-appearing epiglottis, retropharyngeal soft tissues were within normal limits, and there was no evidence of radiopaque foreign body. EKG showed normal sinus rhythm with a right bundle-branch block pattern. Lab work showed CBC within normal limits, no white count, with little, as a 0.5, hemoglobin is 14.2, with duration profile was within normal limits, electrolytes and renal profile were within normal limits, lactic acid was 1.0, LFTs were within normal limits, troponin was less than 0.012, proBNP was negative at 38. Patient is seen in the emergency department, resting com fortably in bed, he is awaiting speech evaluation, he is nothing by mouth, he is on room air. Of note patient had previous PEG tube placement for multiple episodes of aspiration pneumonia which was subsequently removed. His last eye 5 barium swallow was done on 2018 and showed vallecular residuals during the exam, aspiration was noted on nectar thick and thin liquids which was silent. The patient is comfortable, denies any shortness of breath, his coughing has resolved, then 2 L of oxygen pulse ox of 98%, hemodynamically stable, no fever or chills The patient is seen today 03/06/2020 in follow-up on the regular medical floor. He is currently resting quite comfortably in bed. Awake and alert in no acute distress. Maintaining O2 saturation in the 90s on 3 L/m per nasal cannula. He is afebrile. Hemodynamically stable. Blood culture reveals no growth. He remains on Symbicort, DuoNeb inhalations, prednisone, Zosyn. On 03/07/2020 patient seen in follow-up on the general medical surgical floor, he is resting comfortably in bed, completely asymptomatic, he is on room air wi th pulse ox of 94%, denies any dyspnea, no cough, no congestion, lung sounds reveal some scattered rhonchi, no wheezing, his been afebrile, hemodynamically has been stable, no altered mentation. He had a modified barium swallow yesterday, which showed moderate piriform sinus residual with aspiration of nectar liquid and pure consistencies after the swallow, findings were remains deviated with a chin tuck maneuver. Denies any chest pain, his been on Zosyn for empiric antibiotic coverage. Apparently he declined a PEG tube placement, speech recommended nothing by mouth status with the consideration for alternative feeding method. Patient demonstrated moderately impaired oropharyngeal swallow. He declined a PEG tube, he agreed to thickeners. Diet recommendation was dysphagia level III chopped with honey thick liquids. Objective - Vital Signs Vital signs: Vital Signs Temp 98.0 F 03/07/20 14:18 Pulse 78 03/07/20 14:18 Resp 18 03/07/20 14:18 BP 113/67 03/07/20 14:18 Pulse Ox 94 L 03/07/20 14:18 Intake & Output 03/06/20 03/07/20 03/07/20 18:59 06:59 18:59 Intake Total 100 200 Balance 100 200 Intake: IV 100 200 Piperacillin-Tazobactam 3 100 200 .375 gm In Sodium Chloride 0.9% 100 ml @ 25 mls/hr IVPB Q8H [facility] Rx#: [id number] Other: Voiding Method Bedside Commode Bedside Commode # Voids 2 3 - Exam GENERAL EXAM: Alert, very pleasant, 70-year-old white male, with room air pulse ox of 97% comfortable in no apparent distress. HEAD: Normocephalic/atraumatic. EYES: Normal reaction of pupils, equal size. Conjunctiva pink, sclera white. NOSE: Clear with pink turbinates. THROAT: No erythema or exudates. NECK: No masses, no JVD, no thyroid enlargement, no adenopathy. CHEST: No chest wall deformity. Symmetrical expansion. LUNGS: Equal air entry with no crackles, wheeze, rhonchi or dullness. CVS: Regular rate and rhythm, normal S1 and S2, no gallops, no murmurs, no rubs ABDOMEN: Soft, nontender. No hepatosplenomegaly, normal bowel sounds, no guarding or rigidity. EXTREMITIES: No clubbing, no edema, no cyanosis, 2+ pulses and upper and lower extremities. MUSCULOSKELETAL: Muscle strength and tone normal. SPINE: No scoliosis or deformity SKIN: No rashes, bruising noted on bilateral upper extremities, and involving the right hand and wrist appears to be old CENTRAL NERVOUS SYSTEM: Alert and oriented -3. No focal deficits, tone is normal in all 4 extremities. PSYCHIATRIC: Alert and oriented -3. Appropriate affect. Intact judgment and insight. - Labs CBC & Chem 7: 03/07/20 06:35 03/07/20 06:35 Labs: Abnormal Lab Results - Last 24 Hours (Table) 03/05/20 03/07/20 03/07/20 Range/Units 07:26 06:35 06:35 WBC 11.0 H (3.8-10.6) k/uL RBC 4.12 L (4.30-5.90) m/uL BUN 35.0 H (9.0-27.0) mg/dL BUN/Creatinine Ratio 35.00 H (12.00-20.00) Ratio Calcium 8.3 L (8.7-10.3) mg/dL Norclozapine 149 L (200-700) ng/mL Microbiology - Last 24 Hours (Table) 03/04/20 14:08 Blood Culture - Preliminary Blood No Growth after 48 hours Assessment and Plan Plan: Assessment: #1. Acute aspiration while swallowing a pill, with subsequent coughing and difficulty breathing, initial chest x-ray shows no acute process, x-ray of the soft tissues of the neck showed a patent airway, with no radiopaque foreign body noted #2. Increasing retrocardiac density possibly related to atelectasis or infiltrate on follow-up chest x-ray, related to aspiration #3. Chronic right hemidiaphragm paralysis #4. Previous hospitalizations for aspiration pneumonia #5. History of chronic dysphagia, previous PEG tube placement and subsequent removal #6. Silent aspiration on nectar thick liquids noted on last modified barium swallow on 06/14/2018 #7. History of CVA/TIA #8. Parkinson's disease #9. Hypothyroidism #10. Hypertension #11. Anxiety, depression, PTSD #12. Gait dysfunction, frequent falls at home, ambulates with a walker Plan: Vital signs have been stable, patient has been afebrile, no dyspnea, room air pulse ox is 94%, modified barium swallow findings were noted, patient was noted to aspirate on nectar thick liquids and pured consistencies after swallow. Speech therapy recommended nothing by mouth status with alternative feeding method (PEG tube placement) which the patient declined and agree to modified diet. Maintain aspiration precautions, patient can finish a total of 7 day course of antibiotics including which he received in the hospital. Clinically stable, he stable for discharge home from pulmonary perspective. I performed a history & physical examination of the patient and discussed their management with my nurse practitioner, Harper Craig. I reviewed the nurse practitioner's note and agree with the documented findings and plan of care. L selina sounds are positive for diminished breath sounds. The findings and the impression was discussed with the patient. I attest to the documentation by the nurse practitioner. Time with Patient: Less than 30
== END 2020-03-07 15:47 | disposition home or self-care (01) | DRG 179 ==
LOC: EC 09:14 → 6NMEDSUR 11:57 → 4SSUR 03-05 17:51
PROVIDERS: ADMIT Internal Medicine; ATTEND Internal Medicine
DX: J69.0 Pneumonitis due to inhalation of food and vomit (principal); J98.6 Disorders of diaphragm; G20 Parkinson's disease; Z99.81 Dependence on supplemental oxygen; F31.9 Bipolar disorder, unspecified; J44.9 Chronic obstructive pulmonary disease, unspecified; E03.9 Hypothyroidism, unspecified; E78.5 Hyperlipidemia, unspecified; F43.10 Post-traumatic stress disorder, unspecified; I10 Essential (primary) hypertension; I45.10 Unspecified right bundle-branch block; N40.0 Benign prostatic hyperplasia without lower urinary tract symptoms; R13.10 Dysphagia, unspecified; R29.6 Repeated falls; E55.9 Vitamin D deficiency, unspecified; M19.90 Unspecified osteoarthritis, unspecified site; M54.30 Sciatica, unspecified side; R26.9 Unspecified abnormalities of gait and mobility; R41.89 Other symptoms and signs involving cognitive functions and awareness; F41.9 Anxiety disorder, unspecified; Z79.51 Long term (current) use of inhaled steroids; Z79.52 Long term (current) use of systemic steroids; Z79.890 Hormone replacement therapy; Z79.899 Other long term (current) drug therapy; Z86.718 Personal history of other venous thrombosis and embolism; Z86.73 Personal history of transient ischemic attack (TIA), and cerebral infarction without residual deficits; Z87.828 Personal history of other (healed) physical injury and trauma; Z87.891 Personal history of nicotine dependence; Z88.5 Allergy status to narcotic agent; Z88.8 Allergy status to other drugs, medicaments and biological substances; Z88.1 Allergy status to other antibiotic agents; Z91.041 Radiographic dye allergy status; Z87.01 Personal history of pneumonia (recurrent); Z86.14 Personal history of Methicillin resistant Staphylococcus aureus infection; Z87.39 Personal history of other diseases of the musculoskeletal system and connective tissue; Z98.890 Other specified postprocedural states; Z90.89 Acquired absence of other organs; Z82.49 Family history of ischemic heart disease and other diseases of the circulatory system
CPT/HCPCS: 36415; 70360; 71046; 74230; 80048; 80053; 80159; 80164; 82607; 83605; 83880; 84484; 85025; 85027; 85610; 85730; 87040; 87070; 87205; 93005; 94640; 94760; 96365; 96366; 96367; 96368; 96372; 96375; 96376; 99285

== ENCOUNTER 2020-03-16 14:37 | Observation (INO) | payer MEDICARE ==
[2020-03-16] MEDS ORDERED: SODIUM CHLORIDE 0.9% 1,000 ML IV STA (14:51)
--- NOTE | 2020-03-16 15:04 | ED ---
General Adult HPI - General Chief complaint: Weakness Stated complaint: Weakness Time Seen by Provider: 03/16/20 14:40 Source: patient, EMS, RN notes reviewed, old records reviewed Mode of arrival: EMS Limitations: no limitations - History of Present Illness Initial comments: This is a 70-year-old male who presents emergency Department because he has been getting weaker and weaker and having multiple falls. Patient did not injure himself any falls. He states he just weaker in general. He was in the hospital 2 weeks ago for COPD and pneumonia. Patient has a very wet sounding cough. Daughter states that this cough is chronic for him as does the patient. Patient denies any shortness of breath difficulty breathing or chest pain. Patient denies any palpitations. Patient denies any fever chills per patient denies any dysuria hematuria urinary frequency. Patient denies abdominal pain patient denies nausea vomiting diarrhea. Patient denies headache patient denies numbness weakness. - Related Data Home Medications Medication Instructions Recorded Confirmed Levothyroxine Sodium [Synthroid] 125 mcg PO DAILY 06/27/14 03/04/20 Atorvastatin Calcium [Lipitor] 40 mg PO HS 02/20/17 03/04/20 Primidone [Mysoline] 50 mg PO BID 02/20/17 03/04/20 Fludrocortisone [Florinef] 0.1 mg PO DAILY 02/19/18 03/04/20 Tamsulosin [Flomax] 0.4 mg PO HS 06/20/18 03/04/20 Donepezil [Aricept] 10 mg PO HS 02/27/19 03/04/20 traZODone HCL [Desyrel] 50 mg PO HS 02/27/19 03/04/20 Neupro Patch 6mg/24hr 1 patch TOPICAL DAILY 09/21/19 03/04/20 Albuterol Nebulized [Ventolin 2.5 mg INHALATION RT-QID PRN 01/23/20 03/04/20 Nebulized] Multivitamins, Thera [Multivitamin 1 tab PO DAILY 01/23/20 03/04/20 (formulary)] Previous Rx's Medication Instructions Recorded Budesonide-Formot 160-4.5 Mcg 2 puff INHALATION RT-BID 30 Days 09/24/19 [Symbicort 160-4.5 Mcg Inhaler] #1 puff Folic Acid 1 mg PO DAILY@1200 30 Days #30 tab 09/24/19 Thiamine [Vitamin B-1] 100 mg PO DAILY 30 Days #30 tab 09/24/19 Glycopyrrolate [Robinul] 1 mg PO HS #3 tab 10/22/19 cloZAPine [Clozaril] 450 mg PO HS #3 tab 10/22/19 Amoxic-Pot Clav 875-125Mg 1 tab PO Q12HR 5 Days #10 tab 03/07/20 [Augmentin 875-125] Carbidopa-Levodopa 25-100 mg 1 each PO QID tab 03/07/20 [Sinemet 25-100 mg] Divalproex Sprinkle [Depakote 500 mg PO BID #60 cap.sprink 03/07/20 Sprinkle] predniSONE 10 mg PO DAILY #10 tab 03/07/20 Allergies Allergy/AdvReac Type Severity Reaction Status Date / Time Iodinated Contrast Media Allergy Unknown Verified 03/16/20 14:38 [Iodinated Contrast- Oral and IV Dye] iohexol Allergy Nausea & Verified 03/16/20 14:38 Vomiting levofloxacin [From Levaquin] Allergy Unknown Verified 03/16/20 14:38 morphine Allergy Confusion Verified 03/16/20 14:38 tromethamine Allergy Nausea & Verified 03/16/20 14:38 Vomiting codeine AdvReac Hallucinati Verified 03/16/20 14:38 ons Review of Systems ROS Statement: Those systems with pertinent positive or pertinent negative responses have been documented in the HPI. ROS Other: All systems not noted in ROS Statement are negative. Past Medical History Past Medical History: COPD, CVA/TIA, Deep Vein Thrombosis (DVT), Hypertension, Musculoskeletal Disorder, Neurologic Disorder, Pneumonia, Prostate Disorder, Seizure Disorder, Thyroid Disorder Additional Past Medical History / Comment(s): Pt recently admitted to [facility] on 01/23/20 with fall/L gluteal pain/abscess. Other hx: Past L hand injury with compartmental syndrome, parkinson's, dysphagia at times and needs to crush meds and put in applesauce at times, aspiration pneumonia/has had peg tube in the past, home oxygen until recently-no longer wearing, chronic elevated R hemidiaphram, several tia's vs seizures, L leg DVT years ago, Hx. of HEAD INJURY (WAS [employer]/PART OF BLDG COLLAPSED ON HIM), SCIATICA, DDD, vertigo, hypothyroid, vitamin D deficiency, BPH, anemia, DJD. History of Any Multi-Drug Resistant Organisms: MRSA Date of last positivie culture/infection: 09/30/2014 MDRO Source:: Blood Past Surgical History: Adenoidectomy, Prostate Surgery, Tonsillectomy Additional Past Surgical History / Comment(s): L buttock abscess I&D, BRONCHOSCOPY, SX FOR PROLAPSED RECTUM, TURP, Peg insertion & then removed, osteophytes removed from throat, TEETH EXTRACTED, 8-16 MIKE. Past Anesthesia/Blood Transfusion Reactions: No Reported Reaction, Motion Sickness Past Psychological History: Anxiety, Depression, PTSD Smoking Status: Former smoker Past Alcohol Use History: None Reported Past Drug Use History: None Reported - Past Family History Father Family Medical History: Myocardial Infarction ([place]) Additional Family Medical History / Comment(s): Father at the age of 62 yrs from a [place]. Mother Family Medical History: Myocardial Infarction ([place]) Additional Family Medical History / Comment(s): Mother is 97yrs old. She has a pacemaker. General Exam - General Exam Comments Initial Comments: GENERAL: Patient is well-developed and well-nourished. Patient is nontoxic and well-hydrated and is in mild distress. ENT: Neck is soft and supple. No significant lymphadenopathy is noted. Oropharynx is clear. Moist mucous membranes. Neck has full range of motion without eliciting any pain. EYES: The sclera were anicteric and conjunctiva were pink and moist. Extraocular movements were intact and pupils were equal round and reactive to light. Eyelids were unremarkable. PULMONARY: Patient has rhonchi bilaterally CARDIOVASCULAR: There is a regular rate and rhythm without any murmurs gallops or rubs. ABDOMEN: Soft and nontender with normal bowel sounds. SKIN: Skin is clear with no lesions or rashes and otherwise unremarkable. NEUROLOGIC: Patient is alert and oriented x3. Cranial nerves II through XII are grossly intact. Motor and sensory are also intact. Normal speech, volume and content. Symmetrical smile. MUSCULOSKELETAL: Normal extremities with adequate strength and full range of motion. LYMPHATICS: No significant lymphadenopathy is noted PSYCHIATRIC: Normal psychiatric evaluation. Limitations: no limitations Course Vital Signs 03/16/20 03/16/20 03/16/20 14:38 14:53 16:38 Temperature 98.3 F Pulse Rate 96 95 Respiratory 20 18 18 Rate Blood Pressure 136/74 143/75 O2 Sat by Pulse 97 96 Oximetry Medical Decision Making - Medical Decision Making EKG shows normal sinus rhythm at 97 bpm TX interval 230 QRS is under 40 QT interval 386 QTC is 490. Patient's EKG shows no ST segment elevation or de pression Chest x-ray shows infiltrates that are unchanged from the previous x-ray. However patient has no other source of fever at this time are going to assume that his pneumonia. Patient has a high white count. I started the patient [facility] emergency department. I spoke with Dr. Sepulveda he agreed to admit the patient admitted the patient I wrote admitting orders. - Lab Data Result diagrams: 03/16/20 14:56 03/16/20 14:56 Lab Results 03/16/20 03/16/20 03/16/20 Range/Units 14:56 14:56 14:56 WBC 23.4 H (3.8-10.6) k/uL RBC 4.65 (4.30-5.90) m/uL Hgb 14.2 (13.0-17.5) gm/dL Hct 43.8 (39.0-53.0) % MCV 94.3 (80.0-100.0) fL MCH 30.6 (25.0-35.0) pg MCHC 32.4 (31.0-37.0) g/dL RDW 15.6 H (11.5-15.5) % Plt Count 197 (150-450) k/uL MPV 7.8 Neutrophils % 87 % Lymphocytes % 7 % Monocytes % 5 % Eosinophils % 1 % Basophils % 0 % Neutrophils # 20.4 H (1.3-7.7) k/uL Lymphocytes # 1.5 (1.0-4.8) k/uL Monocytes # 1.2 H (0-1.0) k/uL Eosinophils # 0.1 (0-0.7) k/uL Basophils # 0.0 (0-0.2) k/uL PT 10.5 (9.0-12.0) sec INR 1.0 (<1.2) APTT 26.1 (22.0-30.0) sec Sodium (137-145) mmol/L Potassium (3.5-5.1) mmol/L Chloride (98-107) mmol/L Carbon Dioxide (22-30) mmol/L Anion Gap mmol/L BUN (9-20) mg/dL Creatinine (0.66-1.25) mg/dL Est GFR (CKD-EPI)AfAm (>60 ml/min/1.73 sqM) Est GFR (CKD-EPI)NonAf (>60 ml/min/1.73 sqM) Glucose (74-99) mg/dL Plasma Lactic Acid Catarino (0.7-2.0) mmol/L Calcium (8.4-10.2) mg/dL Magnesium (1.6-2.3) mg/dL Total Bilirubin (0.2-1.3) mg/dL AST (17-59) U/L ALT (4-49) U/L Alkaline Phosphatase (38-126) U/L Troponin I (0.000-0.034) ng/mL Total Protein (6.3-8.2) g/dL Albumin (3.5-5.0) g/dL Urine Color Yellow Urine Appearance Clear (Clear) Urine pH 8.0 (5.0-8.0) Ur Specific [place] 1.020 (1.001-1.035) Urine Protein Trace H (Negative) Urine Glucose (UA) Negative (Negative) Urine Ketones Trace H (Negative) Urine Blood Negative (Negative) Urine Nitrite Negative (Negative) Urine Bilirubin Negative (Negative) Urine Urobilinogen 3.0 (<2.0) mg/dL Ur Leukocyte Esterase Negative (Negative) Valproic Acid ug/mL 03/16/20 03/16/20 03/16/20 Range/Units 14:56 14:56 14:56 WBC (3.8-10.6) k/uL RBC (4.30-5.90) m/uL Hgb (13.0-17.5) gm/dL Hct (39.0-53.0) % MCV (80.0-100.0) fL MCH (25.0-35.0) pg MCHC (31.0-37.0) g/dL RDW (11.5-15.5) % Plt Count (150-450) k/uL MPV Neutrophils % % Lymphocytes % % Monocytes % % Eosinophils % % Basophils % % Neutrophils # (1.3-7.7) k/uL Lymphocytes # (1.0-4.8) k/uL Monocytes # (0-1.0) k/uL Eosinophils # (0-0.7) k/uL Basophils # (0-0.2) k/uL PT (9.0-12.0) sec INR (<1.2) APTT (22.0-30.0) sec Sodium 138 (137-145) mmol/L Potassium 4.2 (3.5-5.1) mmol/L Chloride 105 (98-107) mmol/L Carbon Dioxide 28 (22-30) mmol/L Anion Gap 5 mmol/L BUN 22 H (9-20) mg/dL Creatinine 0.86 (0.66-1.25) mg/dL Est GFR (CKD-EPI)AfAm >90 (>60 ml/min/1.73 sqM) Est GFR (CKD-EPI)NonAf 88 (>60 ml/min/1.73 sqM) Glucose 100 H (74-99) mg/dL Plasma Lactic Acid Catarino 1.2 (0.7-2.0) mmol/L Calcium 8.8 (8.4-10.2) mg/dL Magnesium 2.1 (1.6-2.3) mg/dL Total Bilirubin 0.8 (0.2-1.3) mg/dL AST 35 (17-59) U/L ALT 11 (4-49) U/L Alkaline Phosphatase 81 (38-126) U/L Troponin I <0.012 (0.000-0.034) ng/mL Total Protein 6.3 (6.3-8.2) g/dL Albumin 3.4 L (3.5-5.0) g/dL Urine Color Urine Appearance (Clear) Urine pH (5.0-8.0) Ur Specific [place] (1.001-1.035) Urine Protein (Negative) Urine Glucose (UA) (Negative) Urine Ketones (Negative) Urine Blood (Negative) Urine Nitrite (Negative) Urine Bilirubin (Negative) Urine Urobilinogen (<2.0) mg/dL Ur Leukocyte Esterase (Negative) Valproic Acid 49.9 ug/mL Disposition Clinical Impression: Pneumonia Disposition: ADMITTED IP TO THIS HOSP Referrals: Cheng Kendrick DO [Primary Care Provider] - 1-2 days Time of Disposition: 16:49
[2020-03-16 15:21] LABS: Appearance,Urine Clear (Clear); Bilirubin,Urine Negative (Negative); Blood,Urine Negative (Negative); Color,Urine Yellow; Glucose,Urine (UA) Negative (Negative); Ketones,Urine Trace (Negative); Leukocyte Esterase,Urine Negative (Negative); Nitrite,Urine Negative (Negative); Protein,Urine Trace (Negative)
[2020-03-16 15:33] LABS: ALT 11 U/L (4-49); AST 35 U/L (17-59); African American GFR (CKD) >90 (>60 ml/min/1.73 sqM); Albumin 3.4 g/dL (3.5-5.0); Alkaline Phosphatase 81 U/L (38-126); Anion Gap 5 mmol/L; Blood Urea Nitrogen 22 mg/dL (9-20); Calcium 8.8 mg/dL (8.4-10.2); Carbon Dioxide 28 mmol/L (22-30); Chloride 105 mmol/L (98-107); Glucose 100 mg/dL (74-99); Magnesium 2.1 mg/dL (1.6-2.3); Non-African American GFR(CKD) 88 (>60 ml/min/1.73 sqM); Sodium 138 mmol/L (137-145); Total Bilirubin 0.8 mg/dL (0.2-1.3); Total Protein 6.3 g/dL (6.3-8.2)
--- NOTE | 2020-03-16 15:33 | XR ---
EXAMINATION TYPE: XR chest 2V DATE OF EXAM: 03/16/2020 COMPARISON: 03/05/2020. HISTORY: Weakness. TECHNIQUE: Frontal and lateral views of the chest are obtained. FINDINGS: There is mild bibasilar opacity. No pleural effusion, or pneumothorax seen. The cardiac s ilhouette size is mildly enlarged. The osseous structures are intact. IMPRESSION: Unchanged mild bibasilar opacity, favor atelectasis.
[2020-03-16 15:36] LABS: Partial Thromboplastin Time 26.1 sec (22.0-30.0); Prothrombin Time 10.5 sec (9.0-12.0)
[2020-03-16 15:40] LABS: Valproic Acid (Depakene) 49.9 ug/mL
[2020-03-16 15:41] LABS: Basophils % (A) 0 %; Eosinophils # (A) 0.1 k/uL (0-0.7); Eosinophils % (A) 1 %; HCT 43.8 % (39.0-53.0); HGB 14.2 gm/dL (13.0-17.5); Lymphocytes # (A) 1.5 k/uL (1.0-4.8); Lymphocytes % (A) 7 %; MCH 30.6 pg (25.0-35.0); MCHC 32.4 g/dL (31.0-37.0); MCV 94.3 fL (80.0-100.0); Mean Platelet Volume 7.8; Monocytes # (A) 1.2 k/uL (0-1.0); Monocytes % (A) 5 %; Neutrophils # (A) 20.4 k/uL (1.3-7.7); Neutrophils % (A) 87 %; Platelet Count 197 k/uL (150-450); RBC 4.65 m/uL (4.30-5.90); RDW 15.6 % (11.5-15.5); WBC 23.4 k/uL (3.8-10.6)
[2020-03-16 15:42] LABS: Potassium 4.2 mmol/L (3.5-5.1)
[2020-03-16] MEDS ORDERED: cefTRIAXone IN SWFI 1,000 MG/10 ML SYRINGE IVP STA ×2 (15:58→16:53)
--- NOTE | 2020-03-16 16:43 | XR ---
RESULT: HISTORY: Twisted TECHNIQUE: 3 views of the right ankle were obtained. COMPARISON: None. FINDINGS: There is no acute displaced fracture or dislocation. There is remote posttraumatic changes of the med ial malleolus. There are scattered mild to moderate degenerative changes. The ankle mortise is congru ent. IMPRESSION: No acute displaced fracture.
[2020-03-16] MEDS ORDERED: PNEUMONIA PROTOCOL UTILIZED 1 EACH MISC PO PRN (16:51)
[2020-03-16] MEDS: AZITHROMYCIN 500 MG in SODIUM CHLORIDE 0.9% 250 ML IVPB STA ×2 (17:42→17:52)
[2020-03-16] MEDS: ACETAMINOPHEN TAB 500 MG TAB PO PRN (19:32)
[2020-03-16] MEDS: IPRATROPIUM-ALBUTEROL 3 ML NEB INHALATION SCH (19:58)
[2020-03-17] MEDS: ACETAMINOPHEN TAB 500 MG TAB PO PRN ×2 (01:33→20:47)
[2020-03-17] MEDS: IPRATROPIUM-ALBUTEROL 3 ML NEB INHALATION SCH ×4 (07:56→21:00)
[2020-03-17] MEDS ORDERED: VALPROIC ACID ORAL SOLN 250 MG/5 ML CUP PO SCH (09:00)
--- NOTE | 2020-03-17 09:16 | XR ---
EXAMINATION TYPE: XR chest 1V DATE OF EXAM: 03/17/2020 COMPARISON: 03/16/2020 INDICATION: Pneumonia TECHNIQUE: Single frontal view of the chest is obtained. FINDINGS: The heart size is normal. The pulmonary vasculature is normal. Mild bibasilar infiltrates are present. There is elevation of the right diaphragm. Poor inspiration i s present. IMPRESSION: 1. Evolving mild bibasilar infiltrates with poor inspiration. Continued follow-up is recommended.
[2020-03-17] MEDS: FOLIC ACID 1 MG TAB PO SCH (10:12)
[2020-03-17] MEDS: PRIMIDONE 50 MG TAB PO SCH ×2 (10:12→21:43)
[2020-03-17] MEDS: THIAMINE 100 MG TAB PO SCH (10:13)
[2020-03-17] MEDS: LEVOTHYROXINE 125 MCG TAB PO SCH (10:13)
[2020-03-17] MEDS: MULTIVITAMINS, THERA 1 EACH TAB PO SCH (10:13)
[2020-03-17] MEDS: FLUDROCORTISONE 0.1 MG TAB PO SCH (10:13)
[2020-03-17] MEDS: CARBIDOPA-LEVODOPA 25-100 MG 1 EACH TAB PO SCH ×3 (10:13→20:46)
[2020-03-17] MEDS: NEUPRO 6 MG/24 HR TOPICAL SCH (10:18)
--- NOTE | 2020-03-17 13:15 | P.HPIM ---
History of Present Illness 70-year-old male came in with the complaints of fall patient has been getting weaker and weaker and fell and came back to the hospital. Patient had history of aspiration pneumonia was admitted secondary to aspiration pneumonia had [facility] hospitalizations secondary to that. Patient is found to have leukocytosis and found to have bilateral lower lobe infiltrates at bedtime and azithromycin which will be switched to Zosyn. Patient in the past rate speech therapy evaluations and patient is on modified diet and patient declined PEG tube placement in the past. Patient at this time denied any significant shortness of breath uses 2 L of oxygen is and saturating well on 2 dysfunction denied any nausea vomiting abdominal pain patient denied any syncopal event. Review of Systems REVIEW OF SYSTEMS: CONSTITUTIONAL: No fever, no malaise, no fatigue. HEENT: No recent visual problems or hearing problems. Denied any sore throat. CARDIOVASCULAR: No chest pain, orthopnea, PND, no palpitations, no syncope. PULMONARY: No shortness of breath, no cough, no hemoptysis. GASTROINTESTINAL: No diarrhea, no nausea, no vomiting, no abdominal pain. NEUROLOGICAL: No headaches, no weakness, no numbness. HEMATOLOGICAL: Denies any bleeding or petechiae. GENITOURINARY: Denies any burning micturition, frequency, or urgency. MUSCULOSKELETAL/RHEUMATOLOGICAL: Denies any joint pain, swelling, or any muscle pain. ENDOCRINE: Denies any polyuria or polydipsia. The rest of the 14-point review of systems is negative. Past Medical History Past Medical History: COPD, CVA/TIA, Deep Vein Thrombosis (DVT), Hypertension, Musculoskeletal Disorder, Neurologic Disorder, Pneumonia, Prostate Disorder, Seizure Disorder, Thyroid Disorder Additional Past Medical History / Comment(s): Pt recently admitted to [facility] on 01/23/20 with fall/L gluteal pain/abscess. 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 History of Any Multi-Drug Resistant Organisms: MRSA Date of last positivie culture/infection: 09/30/2014 MDRO Source:: Blood Past Surgical History: Adenoidectomy, Prostate Surgery, Tonsillectomy Additional Past Surgical History / Comment(s): L buttock abscess I&D, BRONCHOSCOPY, SX FOR PROLAPSED RECTUM, TURP, Peg insertion & then removed, osteophytes removed from throat, TEETH EXTRACTED, 12-22-15 MIKE. 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 He ambulates with a walker. His daughter manages his medications. He no longer drives. He gets to appts by his linda or son. His pills need to be crushed and placed in applesauce at times. He has dysphagia at times. His linda ghter has to leave during the day at times and pt and his mother are alone during those times. Pt recently receivied home care thru [facility], but it is done now. Pt has home oxygen but has not been using it the past 3 months and a nebulizer. Smoking Status: Former smoker Past Alcohol Use History: None Reported Additional Past Alcohol Use History / Comment(s): STARTED SMOKING AT AGE 20, QUIT SMOKING 1988 SMOKED 1-2 PPD. PT WAS HEAVY DRINKER IN PAST BUT NONE X 25 PLUS YEARS. Past Drug Use History: None Reported - Past Family History Father Family Medical History: Myocardial Infarction ([place]) Additional Family Medical History / Comment(s): Father at the age of 62 yrs from a [place]. Mother Family Medical History: Myocardial Infarction ([place]) Additional Family Medical History / Comment(s): Mother is 97yrs old. She has a pacemaker. Medications and Allergies Home Medications Medication Instructions Recorded Confirmed Type Levothyroxine Sodium [Synthroid] 125 mcg PO DAILY 06/27/14 03/16/20 History Atorvastatin Calcium [Lipitor] 40 mg PO HS 02/20/17 03/16/20 History Primidone [Mysoline] 50 mg PO BID 02/20/17 03/16/20 History Fludrocortisone [Florinef] 0.1 mg PO DAILY 02/19/18 03/16/20 History Tamsulosin [Flomax] 0.4 mg PO HS 06/20/18 03/16/20 History Donepezil [Aricept] 10 mg PO HS 02/27/19 03/16/20 History traZODone HCL [Desyrel] 50 mg PO HS 02/27/19 03/16/20 History Neupro Patch 6mg/24hr 1 patch TOPICAL DAILY 09/21/19 03/16/20 History Budesonide-Formot 160-4.5 Mcg 2 puff INHALATION RT-BID 30 Days 09/24/19 03/16/20 Rx [Symbicort 160-4.5 Mcg Inhaler] #1 puff Folic Acid 1 mg PO DAILY@1200 30 Days #30 tab 09/24/19 03/16/20 Rx Thiamine [Vitamin B-1] 100 mg PO DAILY 30 Days #30 tab 09/24/19 03/16/20 Rx Glycopyrrolate [Robinul] 1 mg PO HS #3 tab 10/22/19 03/16/20 Rx cloZAPine [Clozaril] 450 mg PO HS #3 tab 10/22/19 03/16/20 Rx Albuterol Nebulized [Ventolin 2.5 mg INHALATION RT-QID PRN 01/23/20 03/16/20 History Nebulized] Multivitamins, Thera [Multivitamin 1 tab PO DAILY 01/23/20 03/16/20 History (formulary)] Carbidopa-Levodopa 25-100 mg 1 tab PO TID 03/16/20 03/16/20 History [Sinemet 25-100 mg] Valproic Acid Oral Soln [Depakene 500 mg PO TID 03/16/20 03/16/20 History Syrup] Allergies Allergy/AdvReac Type Severity Reaction Status Date / Time Iodinated Contrast Media Allergy Unknown Verified 03/16/20 16:58 [Iodinated Contrast- Oral and IV Dye] iohexol Allergy Nausea & Verified 03/16/20 16:58 Vomiting levofloxacin [From Levaquin] Allergy Unknown Verified 03/16/20 16:58 morphine Allergy Confusion Verified 03/16/20 16:58 tromethamine Allergy Nausea & Verified 03/16/20 16:58 Vomiting codeine AdvReac Hallucinati Verified 03/16/20 16:58 ons Physical Exam Vitals: Vital Signs Temp Pulse Pulse Resp BP BP Pulse Ox 11/23/20 12:22 97.6 F 81 113/75 98 03/17/20 12:10 92 03/17/20 11:58 92 03/17/20 08:10 88 03/17/20 08:00 84 03/17/20 05:00 97.5 F L 75 18 119/74 96 03/16/20 23:00 98.4 F 82 18 122/72 100 03/16/20 22:21 98.6 F 83 17 112/68 96 03/16/20 20:09 90 03/16/20 19:59 92 03/16/20 19:17 98.8 F 89 18 122/74 96 03/16/20 18:07 98.1 F 90 16 116/70 96 03/16/20 16:38 95 18 143/75 96 03/16/20 14:53 18 03/16/20 14:38 98.3 F 96 20 136/74 97 Intake and Output 03/16/20 03/17/20 03/17/20 22:59 06:59 14:59 Intake Total 340 Balance 340 Intake: Oral 340 Other: Voiding Method Urinal # Voids 550 Weight 86.727 kg PHYSICAL EXAMINATION: GENERAL: The patient is alert and oriented x3, not in any acute distress. Patient is elderly frail looking HEENT: Pupils are round and equally reacting to light. EOMI. No scleral icterus. No conjunctival pallor. Normocephalic, atraumatic. No pharyngeal erythema. No thyromegaly. CARDIOVASCULAR: S1 and S2 present. No murmurs, rubs, or gallops. PULMONARY: Chest is clear to auscultation, no wheezing or crackles. ABDOMEN: Soft, nontender, nondistended, normoactive bowel sounds. No palpable organomegaly. MUSCULOSKELETAL: No joint swelling or deformity. EXTREMITIES: No cyanosis, clubbing, or pedal edema. NEUROLOGICAL: Gross neurological examination did not reveal any focal deficits. SKIN: No rashes. Results CBC & Chem 7: 03/16/20 14:56 03/16/20 14:56 Labs: Abnormal Lab Results - Last 24 Hours (Table) 03/16/20 03/16/20 03/16/20 Range/Units 14:56 14:56 14:56 WBC 23.4 H (3.8-10.6) k/uL RDW 15.6 H (11.5-15.5) % Neutrophils # 20.4 H (1.3-7.7) k/uL Monocytes # 1.2 H (0-1.0) k/uL BUN 22 H (9-20) mg/dL Glucose 100 H (74-99) mg/dL Albumin 3.4 L (3.5-5.0) g/dL Urine Protein Trace H (Negative) Urine Ketones Trace H (Negative) Thrombosis Risk Factor Assmnt - Choose All That Apply Any of the Below Risk Factors Present?: Yes Each Factor Represents 1 point: Abnormal pulmonary function (COPD), Obesity (BMI >25), Serious lung disease incl. pneumonia (< 1month) Other Risk Factors: Yes Each Risk Factor Represents 3 Points: Age 75 years or older, History of DVT/PE Other congenital or acquired thrombophilia - If yes, enter type in comment: No Thrombosis Risk Factor Assessment Total Risk Factor Score: 9 Thrombosis Risk Factor Assessment Level: High Risk Assessment and Plan Plan: -Fall: Secondary to generalized weakness, physical B occupational therapy evaluation patient may need placement. -Leukocytosis: Possibly secondary to bilateral aspiration pneumonia patient was started on Zosyn, pulmonary will be consulted, speech therapy will be consulted -History of dysphagia declined PEG tube placement in the past -COPD without any significant exacerbation -Hyperthyroidism -Hyperlipidemia -History of CVA in the past -Initial hypertension -GI Prophylaxis with the Pepcid and due to prophylaxis with Lovenox
--- NOTE | 2020-03-17 13:36 | P.CNPUL ---
History of Present Illness Consult date: 03/17/20 Requesting physician: Rob Hood Reason for consult: cough, other Chief complaint: Weakness, falls, cough History of present illness: This is a 70-year-old white male patient who is well-known to our service from previous admissions for complications related to chronic dysphagia, and chronic aspiration. Patient has a history of Parkinson's disease, COPD, previous history of CVA/TIA, DVT, hypertension, esophageal disorder, hypothyroidism, gait dysfunction, frequent falls. Was recently hospitalized for an episode of aspiration, while swallowing a pill, and chest x-ray did not show any evidence of acute process. His chest x-ray at that time showed him increasing retrocardiac density with the possibility of atelectasis. Patient was treated with done antibiotics, his breathing improved, patient was evaluated by speech therapy he had a modified barium swallow and not was noted to aspirate and nectar thick liquids and pured consistencies after swallow. Speech therapy at that time recommended nothing by mouth with consideration of alternative feeding method and possibility of PEG tube placement. The patient declined PEG tube placement and agreed to a modified diet. On 03/16/2020 patient was brought into the emergency department per EMS for evaluation of increasing weakness and having multiple falls at home. he denied injuring himself. Patient has a wet sounding cough, he states that the cough is chronic for him. Denied any shortness of breath, or chest pain, no fever or chills. No nausea vomiting or diarrhea, no urinary symptoms, no abdominal pain, chest x-ray showed unchanged mild bibasilar opacity favoring atelectasis. Right ankle x-rays were completed showing no acute displaced fracture. Patient has been afebrile, he presented liters of oxygen his pulse ox is 96-98%. He is currently on Zosyn for possibility of aspiration pneumonia. Denies any shortness of breath, he appears to be calm and comfortable, he sitting up in a chair eating lunch, his initial blood work showed leukocytosis, with white blood cell count of 23.4, hemoglobin of 14.2," profile was within normal limits, electrolytes were within normal limits And BUN is 22 creatinine 0.86, troponin was less than 0.012, urinalysis with trace protein and trace ketones but no evidence of infection. Review of Systems All systems: negative Constitutional: Reports weakness, Denies chills, Denies fever Eyes: denies blurred vision, denies pain Ears, nose, mouth and throat: Denies headache, Denies sore throat Cardiovascular: Denies chest pain, Denies shortness of breath Respiratory: Reports cough Gastrointestinal: Denies abdominal pain, Denies diarrhea, Denies nausea, Denies vomiting Musculoskeletal: Denies myalgias Integumentary: Denies pruritus, Denies rash Neurological: Reports gait dysfunction, Denies numbness, Denies weakness Psychiatric: Denies anxiety, Denies depression Endocrine: Denies fatigue, Denies weight change Past Medical History Past Medical History: COPD, CVA/TIA, Deep Vein Thrombosis (DVT), Hypertension, M usculoskeletal Disorder, Neurologic Disorder, Pneumonia, Prostate Disorder, Seizure Disorder, Thyroid Disorder Additional Past Medical History / Comment(s): Pt recently admitted to [facility] on 01/23/20 with fall/L gluteal pain/abscess. 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 History of Any Multi-Drug Resistant Organisms: MRSA Date of last positivie culture/infection: 09/30/2014 MDRO Source:: Blood Past Surgical History: Adenoidectomy, Prostate Surgery, Tonsillectomy Additional Past Surgical History / Comment(s): L buttock abscess I&D, BRONCHOSCOPY, SX FOR PROLAPSED RECTUM, TURP, Peg insertion & then removed, osteophytes removed from throat, TEETH EXTRACTED, 8-16 MIKE. 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 He ambulates with a walker. His daughter manages his medications. He no longer drives. He gets to appts by his linda or son. His pills need to be crushed and placed in applesauce at times. He has dysphagia at times. His daughter has to leave during the day at times and pt and his mother are alone during those times. Pt recently receivied home care thru [facility], but it is done now. Pt has home oxygen but has not been using it the past 3 months and a nebulizer. Smoking Status: Former smoker Past Alcohol Use History: None Reported Additional Past Alcohol Use History / Comment(s): STARTED SMOKING AT AGE 20, QUIT SMOKING 1988 SMOKED 1-2 PPD. PT WAS HEAVY DRINKER IN PAST BUT NONE X 25 PLUS YEARS. Past Drug Use History: None Reported - Past Family History Father Family Medical History: Myocardial Infarction ([place]) Additional Family Medical History / Comment(s): Father at the age of 62 yrs from a [place]. Mother Family Medical History: Myocardial Infarction ([place]) Additional Family Medical History / Comment(s): Mother is 97yrs old. She has a pacemaker. Medications and Allergies Home Medications Medication Instructions Recorded Confirmed Type Levothyroxine Sodium [Synthroid] 125 mcg PO DAILY 06/27/14 03/16/20 History Atorvastatin Calcium [Lipitor] 40 mg PO HS 02/20/17 03/16/20 History Primidone [Mysoline] 50 mg PO BID 02/20/17 03/16/20 History Fludrocortisone [Florinef] 0.1 mg PO DAILY 02/19/18 03/16/20 History Tamsulosin [Flomax] 0.4 mg PO HS 06/20/18 03/16/20 History Donepezil [Aricept] 10 mg PO HS 02/27/19 03/16/20 History traZODone HCL [Desyrel] 50 mg PO HS 02/27/19 03/16/20 History Neupro Patch 6mg/24hr 1 patch TOPICAL DAILY 09/21/19 03/16/20 History Budesonide-Formot 160-4.5 Mcg 2 puff INHALATION RT-BID 30 Days 09/24/19 03/16/20 Rx [Symbicort 160-4.5 Mcg Inhaler] #1 puff Folic Acid 1 mg PO DAILY@1200 30 Days #30 tab 09/24/19 03/16/20 Rx Thiamine [Vitamin B-1] 100 mg PO DAILY 30 Days #30 tab 09/24/19 03/16/20 Rx Glycopyrrolate [Robinul] 1 mg PO HS #3 tab 10/22/19 03/16/20 Rx cloZAPine [Clozaril] 450 mg PO HS #3 tab 10/22/19 03/16/20 Rx Albuterol Nebulized [Ventolin 2.5 mg INHALATION RT-QID PRN 01/23/20 03/16/20 History Nebulized] Multivitamins, Thera [Multivitamin 1 tab PO DAILY 01/23/20 03/16/20 History (formulary)] Carbidopa-Levodopa 25-100 mg 1 tab PO TID 03/16/20 03/16/20 History [Sinemet 25-100 mg] Valproic Acid Oral Soln [Depakene 500 mg PO TID 03/16/20 03/16/20 History Syrup] Allergies Allergy/AdvReac Type Severity Reaction Status Date / Time Iodinated Contrast Media Allergy Unknown Verified 03/16/20 16:58 [Iodinated Contrast- Oral and IV Dye] iohexol Allergy Nausea & Verified 03/16/20 16:58 Vomiting levofloxacin [From Levaquin] Allergy Unknown Verified 03/16/20 16:58 morphine Allergy Confusion Verified 03/16/20 16:58 tromethamine Allergy Nausea & Verified 03/16/20 16:58 Vomiting codeine AdvReac Hallucinati Verified 03/16/20 16:58 ons Physical Exam Vitals: Vital Signs Temp Pulse Pulse Resp BP BP Pulse Ox 03/17/20 12:22 97.6 F 81 113/75 98 03/17/20 12:10 92 03/17/20 11:58 92 03/17/20 08:10 88 03/17/20 08:00 84 03/17/20 05:00 97.5 F L 75 18 119/74 96 03/16/20 23:00 98.4 F 82 18 122/72 100 03/16/20 22:21 98.6 F 83 17 112/68 96 03/16/20 20:09 90 03/16/20 19:59 92 03/16/20 19:17 98.8 F 89 18 122/74 96 03/16/20 18:07 98.1 F 90 16 116/70 96 03/16/20 16:38 95 18 143/75 96 03/16/20 14:53 18 03/16/20 14:38 98.3 F 96 20 136/74 97 Intake and Output 03/16/20 03/17/20 03/17/20 22:59 06:59 14:59 Intake Total 340 Balance 340 Intake: Oral 340 Other: Voiding Method Urinal # Voids 550 Weight 86.727 kg GENERAL EXAM: Alert, very pleasant, 70-year-old white male, on room air, with a pulse ox of 98% comfortable in no apparent distress. HEAD: Normocephalic/atraumatic. EYES: Normal reaction of pupils, equal size. Conjunctiva pink, sclera white. NOSE: Clear with pink turbinates. THROAT: No erythema or exudates. NECK: No masses, no JVD, no thyroid enlargement, no adenopathy. CHEST: No chest wall deformity. Symmetrical expansion. LUNGS: Equal air entry with no crackles, wheeze, rhonchi or dullness. CVS: Regular rate and rhythm, normal S1 and S2, no gallops, no murmurs, no rubs ABDOMEN: Soft, nontender. No hepatosplenomegaly, normal bowel sounds, no guarding or rigidity. EXTREMITIES: No clubbing, no edema, no cyanosis, 2+ pulses and upper and lower extremities. MUSCULOSKELETAL: Muscle strength and tone normal. SPINE: No scoliosis or deformity SKIN: No rashes, bruising noted on bilateral upper extremities, and involving the right hand and wrist appears to be old CENTRAL NERVOUS SYSTEM: Alert and oriented -3. No focal deficits, tone is normal in all 4 extremities. PSYCHIATRIC: Alert and oriented -3. Appropriate affect. Intact judgment and insight. Results - Laboratory Findings CBC and BMP: 03/16/20 14:56 03/16/20 14:56 PT/INR, D-dimer PT 10.5 sec (9.0-12.0) 03/16/20 14:56 INR 1.0 (<1.2) 03/16/20 14:56 Abnormal lab findings: Abnormal Labs 03/16/20 03/16/20 03/16/20 14:56 14:56 14:56 WBC 23.4 H RDW 15.6 H Neutrophils # 20.4 H Monocytes # 1.2 H BUN 22 H Glucose 100 H Albumin 3.4 L Urine Protein Trace H Urine Ketones Trace H - Diagnostic Findings Chest x-ray: report reviewed, image reviewed Assessment and Plan Plan: Assessment: #1. Progressive weakness and falls at home #2. Chronic cough, rule out possibility of aspiration pneumonia. Initial chest x-ray showed chronic bibasilar infiltrates, however follow-up chest x-ray shows involving mild bibasilar infiltrates with poor inspiration. When the patient is asymptomatic, covered with Zosyn #3. Chronic right hemidiaphragm paralysis #4. Previous hospitalizations for aspiration pneumonia #5. History of chronic dysphagia, previous PEG tube placement and subsequent removal #6. Silent aspiration on nectar thick liquids noted on last modified barium swallow on 06/14/2018 #7. History of CVA/TIA #8. Parkinson's disease #9. Hypothyroidism #10. Hypertension #11. Anxiety, depression, PTSD #12. Gait dysfunction, frequent falls at home, ambulates with a walker Plan: Continue current medical treatment, current antibiotics, maintain aspiration precautions, speech therapy evaluation was again requested, and today's follow- up chest x-ray has been reviewed showing possibility of evolving bibasilar infiltrates, the patient is asymptomatic, denies any shortness of breath, his cough is chronic related to chronic aspiration. Follow-up chest x-ray in the morning. Will await speech therapy diminishes I performed a history & physical examination of the patient and discussed their management with my nurse practitioner, Harper Craig. I reviewed the nurse practitioner's note and agree with the documented findings and plan of care. Lung sounds are positive for diminished breath sounds at the bases The findings and the impression was discussed with the patient. I attest to the documentation by the nurse practitioner. Time with Patient: Greater than 30
[2020-03-17] MEDS: PIPERACILLIN-TAZOBACTAM 3.375 GM in SODIUM CHLORIDE 0.9% 100 ML IVPB SCH (16:23)
[2020-03-17] MEDS: FAMOTIDINE 20 MG TAB PO SCH (20:47)
[2020-03-17] MEDS: VALPROIC ACID ORAL SOLN 250 MG/5 ML CUP PO SCH (20:48)
[2020-03-17] MEDS ORDERED: ATORVASTATIN 40 MG TAB PO SCH (21:00)
[2020-03-17] MEDS ORDERED: TAMSULOSIN 0.4 MG CAP.ER.24H PO SCH (21:00)
[2020-03-17] MEDS ORDERED: traZODone HCL 50 MG TAB PO SCH (21:00)
[2020-03-17] MEDS: SYMBICORT 160-4.5 MCG INHALER INHALATION SCH ×2 (21:00→21:18)
[2020-03-17] MEDS ORDERED: cloZAPine 100 MG TAB PO SCH (21:00)
[2020-03-17] MEDS ORDERED: DONEPEZIL 10 MG TAB PO SCH (21:00)
[2020-03-17] MEDS ORDERED: GLYCOPYRROLATE 1 MG TAB PO SCH (21:00)
[2020-03-18] MEDS: PIPERACILLIN-TAZOBACTAM 3.375 GM in SODIUM CHLORIDE 0.9% 100 ML IVPB SCH ×3 (00:23→17:31)
[2020-03-18] MEDS: LEVOTHYROXINE 125 MCG TAB PO SCH (05:43)
[2020-03-18 07:24] LABS: HCT 42.4 % (39.0-53.0); HGB 13.7 gm/dL (13.0-17.5); MCH 30.7 pg (25.0-35.0); MCHC 32.2 g/dL (31.0-37.0); MCV 95.1 fL (80.0-100.0); Mean Platelet Volume 7.6; Platelet Count 175 k/uL (150-450); RBC 4.46 m/uL (4.30-5.90); RDW 15.4 % (11.5-15.5); WBC 17.6 k/uL (3.8-10.6)
[2020-03-18] MEDS: FOLIC ACID 1 MG TAB PO SCH (08:20)
[2020-03-18] MEDS: THIAMINE 100 MG TAB PO SCH (08:20)
[2020-03-18] MEDS: MULTIVITAMINS, THERA 1 EACH TAB PO SCH (08:20)
[2020-03-18] MEDS: CARBIDOPA-LEVODOPA 25-100 MG 1 EACH TAB PO SCH ×2 (08:21→15:41)
[2020-03-18] MEDS: FAMOTIDINE 20 MG TAB PO SCH (08:21)
[2020-03-18] MEDS: VALPROIC ACID ORAL SOLN 250 MG/5 ML CUP PO SCH (08:21)
[2020-03-18] MEDS: PRIMIDONE 50 MG TAB PO SCH (08:22)
[2020-03-18] MEDS: FLUDROCORTISONE 0.1 MG TAB PO SCH (08:22)
--- NOTE | 2020-03-18 08:23 | XR ---
EXAMINATION TYPE: XR chest 1V portable DATE OF EXAM: 03/18/2020 Comparison: 03/17/2020 Clinical History: 70-year-old male sob, aspiration possible Findings: Low lung volumes limiting assessment of heart size. Worsening patchy airspace opacity left base. Improving aeration on the right. No sizable effusion. Impression: Worsening airspace disease at the left base. Correlate for infectious or aspiration pneumonitis.
[2020-03-18] MEDS: IPRATROPIUM-ALBUTEROL 3 ML NEB INHALATION SCH ×3 (08:39→15:37)
[2020-03-18] MEDS: SYMBICORT 160-4.5 MCG INHALER INHALATION SCH (08:39)
[2020-03-18] MEDS ORDERED: ENOXAPARIN 40 MG/0.4 ML SYRINGE SQ SCH (09:00)
[2020-03-18 10:53] LABS: Anion Gap 7.6 mmol/L (4.00-12.00); Calcium 8.4 mg/dL (8.7-10.3); Carbon Dioxide 29.4 mmol/L (21.6-31.8); Non-African American GFR(CKD) 75.9 (60.0-200.0); Potassium 3.9 mmol/L (3.5-5.5)
[2020-03-18 11:53] VITALS: BP 107/65; RESP 20; TEMP 98.9
[2020-03-18] MEDS: NEUPRO 6 MG/24 HR TOPICAL SCH (12:05)
--- NOTE | 2020-03-18 14:04 | P.DS ---
Providers Date of admission: 03/16/20 16:51 Expected date of discharge: 03/18/20 Attending physician: Gurdeep Sepulveda Consults: 03/17/20 09:55 Consult Physician Routine Consulting Provider: Tammy Muñoz Consult Reason/Comments: Aspiration Pneumonia Do you want consulting provider notified?: Yes Primary care physician: [facility] Course: Final diagnosis -Fall: Secondary to generalized weakness -Leukocytosis: Possibly secondary to bilateral aspiration pneumonia -History of dysphagia declined PEG tube placement in the past -COPD without any significant exacerbation -Hyperthyroidism -Hyperlipidemia -History of CVA in the past -Essential hypertension -GI Prophylaxis -DVT prophylaxis Discharge disposition Patient is being discharged in a stable condition with guarded prognosis to [facility] for continued PT/OT therapy. Patient will follow-up with primary care provider in the outpatient setting upon discharge. Patient is to continue with Augmentin twice daily for the next 1 week and then may discontinue. Total time taken is greater than 35 minutes. History of present illness This is a 70-year-old male who was recently admitted with recent fall and is becoming or week and difficulty ambulating and was being closely monitored. Patient has a history of aspiration pneumonia secondary to aspiration pneumonitis and has had multiple hospitalizations recently secondary to that. Patient was found to have bilateral lower lobe infiltrates and was initiated on IV antibiotic therapy in the form of Zosyn. Pulmonary evaluated the patient and recommending continuing treatment with Augmentin twice daily for the next one week to complete the course. Was seen and reevaluated by speech therapy recommending regular diet with honey thickened liquids and aspiration precautions along with one-to-one supervision during meals and no straws as patient continues to have difficulty with swallowing. Patient continues to refuse PEG tube placement as he has had one in the past. Currently no reports of chest pain, shortness of breath, or palpitations. Patient is afebrile. No reports of nausea or vomiting and patient is tolerating diet. Patient will be going to [facility] today. On exam vital signs are stable. Temp is 98.9F, pulse is 88, respirations are 20, blood pressure is 107/65, oxygen saturation is 95% on 2 L via nasal cannula. Cardio S1, S2 are muffled. Respiratory system shows diminished breath sounds at the bases with no wheezing or rhonchi noted. Abdomen is soft and nontender. Nervous system shows diffuse weakness. Please refer to medication reconciliation sheet for a list of medications. Patient Condition at Discharge: Stable Plan - Discharge Summary Discharge Rx Participant: No New Discharge Prescriptions: New Amoxic-Pot Clav 600-42.9MG/5Ml [Augmentin 600-42.9 mg/5 ml Liquid] 5 ml PO Q12H 7 Days #75 ml Ipratropium-Albuterol Nebulize [Duoneb 0.5 mg-3 mg/3 ml Soln] 3 ml INHALATION RT-QID ml Famotidine [Pepcid] 20 mg PO BID tab Acetaminophen Tab [Tylenol] 1,000 mg PO Q6HR PRN tab PRN Reason: Fever And/ Or Pain Continue Levothyroxine Sodium [Synthroid] 125 mcg PO DAILY Primidone [Mysoline] 50 mg PO BID Atorvastatin Calcium [Lipitor] 40 mg PO HS Fludrocortisone [Florinef] 0.1 mg PO DAILY Tamsulosin [Flomax] 0.4 mg PO HS Donepezil [Aricept] 10 mg PO HS traZODone HCL [Desyrel] 50 mg PO HS Neupro Patch 6mg/24hr 1 patch TOPICAL DAILY Folic Acid 1 mg PO DAILY@1200 30 Days #30 tab Budesonide-Formot 160-4.5 Mcg [Symbicort 160-4.5 Mcg Inhaler] 2 puff INHALATION RT-BID 30 Days #1 puff Thiamine [Vitamin B-1] 100 mg PO DAILY 30 Days #30 tab cloZAPine [Clozaril] 450 mg PO HS #3 tab Glycopyrrolate [Robinul] 1 mg PO HS #3 tab Albuterol Nebulized [Ventolin Nebulized] 2.5 mg INHALATION RT-QID PRN PRN Reason: Shortness Of Breath Multivitamins, Thera [Multivitamin (formulary)] 1 tab PO DAILY Carbidopa-Levodopa 25-100 mg [Sinemet 25-100 mg] 1 tab PO TID Valproic Acid Oral Soln [Depakene Syrup] 500 mg PO TID Discharge Medication List Levothyroxine Sodium [Synthroid] 125 mcg PO DAILY 06/27/14 [History] Atorvastatin Calcium [Lipitor] 40 mg PO HS 02/20/17 [History] Primidone [Mysoline] 50 mg PO BID 02/20/17 [History] Fludrocortisone [Florinef] 0.1 mg PO DAILY 02/19/18 [History] Tamsulosin [Flomax] 0.4 mg PO HS 06/20/18 [History] Donepezil [Aricept] 10 mg PO HS 02/27/19 [History] traZODone HCL [Desyrel] 50 mg PO HS 02/27/19 [History] Neupro Patch 6mg/24hr 1 patch TOPICAL DAILY 09/21/19 [History] Budesonide-Formot 160-4.5 Mcg [Symbicort 160-4.5 Mcg Inhaler] 2 puff INHALATION RT-BID 30 Days #1 puff 09/24/19 [Rx] Folic Acid 1 mg PO DAILY@1200 30 Days #30 tab 09/24/19 [Rx] Thiamine [Vitamin B-1] 100 mg PO DAILY 30 Days #30 tab 09/24/19 [Rx] Glycopyrrolate [Robinul] 1 mg PO HS #3 tab 10/22/19 [Rx] cloZAPine [Clozaril] 450 mg PO HS #3 tab 10/22/19 [Rx] Albuterol Nebulized [Ventolin Nebulized] 2.5 mg INHALATION RT-QID PRN 01/23/20 [History] Multivitamins, Thera [Multivitamin (formulary)] 1 tab PO DAILY 01/23/20 [History] Carbidopa-Levodopa 25-100 mg [Sinemet 25-100 mg] 1 tab PO TID 03/16/20 [History] Valproic Acid Oral Soln [Depakene Syrup] 500 mg PO TID 03/16/20 [History] Acetaminophen Tab [Tylenol] 1,000 mg PO Q6HR PRN tab 03/18/20 [Rx] Amoxic-Pot Clav 600-42.9MG/5Ml [Augmentin 600-42.9 mg/5 ml Liquid] 5 ml PO Q12H 7 Days #75 ml 03/18/20 [Rx] Famotidine [Pepcid] 20 mg PO BID tab 03/18/20 [Rx] Ipratropium-Albuterol Nebulize [Duoneb 0.5 mg-3 mg/3 ml Soln] 3 ml INHALATION RT-QID ml 03/18/20 [Rx] Follow up Appointment(s)/Referral(s): Cheng Kendrick DO [Primary Care Provider] - 1-2 days Activity/Diet/Wound Care/Special Instructions: Patient is going to [facility] Activity as tolerated Continue with current diet of honey thickened liquids, aspiration cautions, one-to-one supervision, no straws Continue with antibiotics for 7 days and then may discontinue Discharge Disposition: TRANSFER TO SNF/ECF
[2020-03-18] MEDS: ACETAMINOPHEN TAB 500 MG TAB PO PRN (15:41)
[2020-03-18 15:49] VITALS: PULSE 90
--- NOTE | 2020-03-19 21:17 | CDI ---
Documentation Clarification Form Date: 03/20/2020 From: Sandeep Dunbar Phone: If you have a question about this query, please contact Lilo Lin, [employer] at [phone] between 8am and 5pm. Admit Date: 03/16/2020 Discharge Date: 03/18/2020 Patient Name: Aston Camarillo Visit Number: [id number] ATTENTION: The Clinical Documentation Specialists (CDI) and [facility] Coding Staff appreciate your assistance in clarifying documentation. Please respond to the clarification below the line at the bottom and electronically sign. The CDI & [facility] Coding staff will review the response and follow-up if needed. Please note: Queries are made part of the Legal Health Record. If you have any questions, please contact the author of this message via ITS. Dear Rob Pepe MD., The patient presented with Leukocytosis- Possibly secondary to bilateral aspiration pneumonia Chronic cough, rule out possibility of aspiration pneumonia.Initial chest x-ray showed chronic bibasilar infiltrates, however follow-up chest x-ray shows involving mild bibasilar infiltrates with poor inspiration.When the patient is asymptomatic, covered with Zosyn History/Risk Factors: COPD, Depression, Hx of Pneumonia Radiology findings: Unchanged mild bibasilar opacity, favor atelectasis. Vital Signs: 03/17/20 12:22 97.6 F 81 113/75 98 Treatment: 2L O2 Per 03/17 Dr. Tammy naqvi MD notes "His chest x-ray at that time showed him increasing retrocardiac density with the possibility of atelectasis". In your professional opinion, can you please clarify Atelectasis Presence? YES -Present along with Aspiration pneumonia NO Other, please specify Unable to determine MTDD
== END 2020-03-18 17:33 ==
LOC: EC 14:37 → 4SSUR 16:51 → INTOOBSV 16:51 → 6NMEDSUR 22:45 → UNDODISIN 03-18 17:33
PROVIDERS: ADMIT Internal Medicine; ATTEND Internal Medicine
DX: R53.1 Weakness (principal); D72.829 Elevated white blood cell count, unspecified; R13.10 Dysphagia, unspecified; J44.9 Chronic obstructive pulmonary disease, unspecified; E05.90 Thyrotoxicosis, unspecified without thyrotoxic crisis or storm; E78.5 Hyperlipidemia, unspecified; I10 Essential (primary) hypertension; R26.2 Difficulty in walking, not elsewhere classified; R91.8 Other nonspecific abnormal finding of lung field; W19.XXXA Unspecified fall, initial encounter; G40.909 Epilepsy, unspecified, not intractable, without status epilepticus; D64.9 Anemia, unspecified; N40.0 Benign prostatic hyperplasia without lower urinary tract symptoms; M19.90 Unspecified osteoarthritis, unspecified site; E55.9 Vitamin D deficiency, unspecified; M54.30 Sciatica, unspecified side; F43.10 Post-traumatic stress disorder, unspecified; F41.9 Anxiety disorder, unspecified; F32.9 Major depressive disorder, single episode, unspecified; E66.9 Obesity, unspecified; Z68.29 Body mass index [BMI] 29.0-29.9, adult; G20 Parkinson's disease; E03.9 Hypothyroidism, unspecified; R26.9 Unspecified abnormalities of gait and mobility; R05 Cough; J98.6 Disorders of diaphragm; Z86.73 Personal history of transient ischemic attack (TIA), and cerebral infarction without residual deficits; Z87.01 Personal history of pneumonia (recurrent); Z86.718 Personal history of other venous thrombosis and embolism; Z91.81 History of falling; Z86.14 Personal history of Methicillin resistant Staphylococcus aureus infection; Z87.891 Personal history of nicotine dependence; Z82.49 Family history of ischemic heart disease and other diseases of the circulatory system; Z79.890 Hormone replacement therapy; Z79.899 Other long term (current) drug therapy; Z79.51 Long term (current) use of inhaled steroids; Z79.52 Long term (current) use of systemic steroids; Z88.5 Allergy status to narcotic agent; Z88.8 Allergy status to other drugs, medicaments and biological substances; Z88.1 Allergy status to other antibiotic agents; Z91.041 Radiographic dye allergy status; Z86.711 Personal history of pulmonary embolism; Z98.890 Other specified postprocedural states; Z90.89 Acquired absence of other organs
CPT/HCPCS: 96365; 96366 ×2; 96372; 96361; 96375; 99285; 36415; 94640 ×4; 93005; 97530; 97162; 97535; 97166; 92610; 80164; 80053; 80048; 83605; 83735; 84484; 85025; 85027; 85610; 85730; 81003; 87040; 87205; 73610; 71045 ×2; 71046; G0378 ×3; J2543 ×2; J0456; J1650; J0696; S0136; 87070; 96374

== ENCOUNTER 2020-04-29 13:04 | Inpatient (IN) | payer MEDICARE ==
[2020-04-29] MEDS ORDERED: ALBUTEROL HFA INHALER INHALATION STA ×2 (13:17→14:57)
--- NOTE | 2020-04-29 13:26 | ED ---
SOB HPI - General Stated Complaint: Covid+, GRECIA Time Seen by Provider: 04/29/20 13:04 Source: EMS, RN notes reviewed, old records reviewed Mode of arrival: EMS - History of Present Illness Initial Comments: This is a 70-year-old male who is currently residing in a prison history of COPD through laceration disease bipolar disorder thyroid isn't parkinsonism among other medical problems who was found to be covid 19 positive today. He was noted have decreased responsiveness. He normally is on 2 L of oxygen he did seem to improve after being placed on 4 L on BiPAP. He does report was shortness of breath with 96% pulse ox paramedics found that he was 82-84% had x- ray temperature 102.6. He was transferred here for further evaluation and treatment. MD Complaint: shortness of breath - Related Data Home Medications Medication Instructions Recorded Confirmed Levothyroxine Sodium [Synthroid] 125 mcg PO DAILY@0700 06/27/14 04/29/20 Atorvastatin Calcium [Lipitor] 40 mg PO HS@199902/20/17 04/29/20 Primidone [Mysoline] 50 mg PO BID@0700,1600 02/20/17 04/29/20 Fludrocortisone [Florinef] 0.1 mg PO DAILY@0700 02/19/18 04/29/20 Tamsulosin [Flomax] 0.4 mg PO HS@199906/20/18 04/29/20 Donepezil [Aricept] 10 mg PO HS@199902/27/19 04/29/20 traZODone HCL [Desyrel] 50 mg PO HS 02/27/19 04/29/20 Neupro Patch 6mg/24hr 1 patch TOPICAL DAILY@0700 09/21/19 04/29/20 Albuterol Nebulized [Ventolin 2.5 mg INHALATION RT-QID PRN 01/23/20 04/29/20 Nebulized] Multivitamins, Thera [Multivitamin 1 tab PO HS 01/23/20 04/29/20 (formulary)] Carbidopa-Levodopa 25-100 mg 1 tab PO TID@0700,1300,1900 03/16/20 04/29/20 [Sinemet 25-100 mg] Valproic Acid Oral Soln [Depakene 500 mg PO TID@0700,1300,1900 03/16/20 04/29/20 Syrup] Docusate [Colace] 100 mg PO HS@199904/29/20 04/29/20 Folic Acid 1 mg PO HS 04/29/20 04/29/20 Glycopyrrolate [Robinul] 1 mg PO HS@199904/29/20 04/29/20 Lansoprazole [Prevacid] 15 mg PO DAILY 04/29/20 04/29/20 Thiamine [Vitamin B-1] 100 mg PO HS 04/29/20 04/29/20 Previous Rx's Medication Instructions Recorded Budesonide-Formot 160-4.5 Mcg 2 puff INHALATION RT-BID 30 Days 09/24/19 [Symbicort 160-4.5 Mcg Inhaler] #1 puff cloZAPine [Clozaril] 450 mg PO HS #3 tab 10/22/19 Acetaminophen Tab [Tylenol] 1,000 mg PO Q6HR PRN tab 03/18/20 Ipratropium-Albuterol Nebulize 3 ml INHALATION RT-QID ml 03/18/20 [Duoneb 0.5 mg-3 mg/3 ml Soln] Allergies Allergy/AdvReac Type Severity Reaction Status Date / Time Iodinated Contrast Media Allergy Unknown Verified 04/29/20 13:12 [Iodinated Contrast- Oral and IV Dye] levofloxacin [From Levaquin] Allergy Unknown Verified 04/29/20 13:12 codeine AdvReac Hallucinati Verified 04/29/20 13:12 ons iohexol AdvReac Nausea & Verified 04/29/20 13:12 Vomiting morphine AdvReac Confusion Verified 04/29/20 13:12 tromethamine AdvReac Nausea & Verified 04/29/20 13:12 Vomiting Review of Systems ROS Statement: Those systems with pertinent positive or pertinent negative responses have been documented in the HPI. ROS Other: All systems not noted in ROS Statement are negative. Past Medical History Past Medical History: COPD, CVA/TIA, Deep Vein Thrombosis (DVT), Hypertension, Musculoskeletal Disorder, Neurologic Disorder, Pneumonia, Prostate Disorder, Seizure Disorder, Thyroid Disorder Additional Past Medical History / Comment(s): Pt recently admitted to [facility] on 01/23/20 with fall/L gluteal pain/abscess. Other hx: Past L hand injury with compartmental syndrome, parkinson's, dysphagia at times and needs to crush meds and put in applesauce at times, aspiration pneumonia/has had peg tube in the past, home oxygen until recently-no longer wearing, chronic elevated R hemidiaphram, several tia's vs seizures, L leg DVT years ago, Hx. of HEAD INJURY (WAS EDUCATION REP/PART OF BLDG COLLAPSED ON HIM), SCIATICA, DDD, vertigo, hypothyroid, vitamin D deficiency, BPH, anemia, DJD. History of Any Multi-Drug Resistant Organisms: MRSA Date of last positivie culture/infection: 09/30/2014 MDRO Source:: Blood Past Surgical History: Adenoidectomy, Prostate Surgery, Tonsillectomy Additional Past Surgical History / Comment(s): L buttock abscess I&D, BRONCHOSCOPY, SX FOR PROLAPSED RECTUM, TURP, Peg insertion & then removed, osteophytes removed from throat, TEETH EXTRACTED, 12-22-15 MIKE. 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 He ambulates with a walker. His daughter manages his medications. He no longer drives. He gets to appts by his linda or son. His pills need to be crushed and placed in applesauce at times. He has dysphagia at times. His daughter has to leave during the day at times and pt and his mother are alone during those times. Pt recently receivied home care thru [facility], but it is done now. Pt has home oxygen but has not been using it the past 3 months and a nebulizer. Smoking Status: Former smoker Past Alcohol Use History: None Reported Additional Past Alcohol Use History / Comment(s): STARTED SMOKING AT AGE 20, QUIT SMOKING 1988 SMOKED 1-2 PPD. PT WAS HEAVY DRINKER IN PAST BUT NONE X 25 PLUS YEARS. Past Drug Use History: None Reported - Past Family History Father Family Medical History: Myocardial Infarction (PR) Additional Family Medical History / Comment(s): Father at the age of 62 yrs from a PR. Mother Family Medical History: Myocardial Infarction (PR) Additional Family Medical History / Comment(s): Mother is 97yrs old. She has a pacemaker. General Exam - General Exam Comments Initial Comments: This is a well up well-nourished awake lethargic male in obvious respiratory distress General appearance: alert, lethargic Head exam: Present: atraumatic, normocephalic, normal inspection Eye exam: Present: normal appearance, PERRL, EOMI. Absent: scleral icterus, conjunctival injection, periorbital swelling ENT exam: Present: mucous membranes dry Neck exam: Present: normal inspection, full ROM, other. Absent: tenderness, meningismus, lymphadenopathy Respiratory exam: Present: wheezes, accessory muscle use, decreased breath sounds (No stridor JVD or bruits). Absent: respiratory distress, rales, rhonchi, stridor Cardiovascular Exam: Present: normal rhythm, tachycardia, normal heart sounds. Absent: systolic murmur, diastolic murmur, rubs, gallop, clicks GI/Abdominal exam: Present: soft, normal bowel sounds. Absent: distended, tenderness, guarding, rebound, rigid Extremities exam: Present: normal inspection, full ROM, normal capillary refill. Absent: tenderness, pedal edema, joint swelling, calf tenderness Back exam: Present: normal inspection Neurological exam: Present: alert, altered, CN II-XII intact Psychiatric exam: Present: normal mood, other (Unable to fully evaluate) Skin exam: Present: warm, dry, intact, normal color. Absent: rash Course Vital Signs 04/29/20 04/29/20 04/29/20 13:16 13:46 14:27 Temperature 100.1 F H Pulse Rate 105 H 101 H 104 H Respiratory 40 H 36 H 38 H Rate Blood Pressure 143/90 143/90 141/74 O2 Sat by Pulse 91 L 93 L Oximetry 04/29/20 04/29/20 15:17 15:47 Temperature 100.4 F H Pulse Rate 107 H 96 Respiratory 52 H 38 H Rate Blood Pressure 172/86 119/63 O2 Sat by Pulse 93 L 93 L Oximetry - Reevaluation(s) Reevaluation #1: 04/29/20 16:02 Patient didn't initially seem to respond with the initial treatment. Later decompensated more. Reevaluation #2: 04/29/20 16:02 Family did discuss the CODE STATUS patient is to be a no code. Medical Decision Making - Medical Decision Making Patient does have evidence of Covid 19 positive pneumonia, acute respiratory distress, dehydration, rhabdomyolysis - Lab Data Result diagrams: 04/29/20 13:25 04/29/20 13:25 Lab Results 04/29/20 04/29/20 04/29/20 Range/Units 13:25 13:25 13:25 WBC 9.9 (3.8-10.6) k/uL RBC 4.23 L (4.30-5.90) m/uL Hgb 12.7 L (13.0-17.5) gm/dL Hct 40.2 (39.0-53.0) % MCV 95.0 (80.0-100.0) fL MCH 30.0 (25.0-35.0) pg MCHC 31.5 (31.0-37.0) g/dL RDW 15.6 H (11.5-15.5) % Plt Count 148 L (150-450) k/uL MPV 8.6 Neutrophils % (Manual) 57 % Band Neuts % (Manual) 32 % Lymphocytes % (Manual) 8 % Monocytes % (Manual) 2 % Eosinophils % (Manual) 1 % Metamyelocytes % 2 % Neutrophils # (Manual) 8.80 H (1.3-7.7) k/uL Lymphocytes # (Manual) 0.79 L (1.0-4.8) k/uL Monocytes # (Manual) 0.20 (0-1.0) k/uL Eosinophils # (Manual) 0.10 (0-0.7) k/uL Metamyelocytes # (Man) 0.20 H (0) k/uL Nucleated RBCs 0 (0-0) /100 WBC Manual Slide Review Performed Toxic Granulation Present Toxic Vacuolation Present Dohle Bodies Present Poikilocytosis (manual Present Anisocytosis (manual) Present PT 11.2 (9.0-12.0) sec INR 1.1 (<1.2) APTT 29.4 (22.0-30.0) sec D-Dimer 1.01 H (<0.60) mg/L FEU Sample Site ABG pH (7.35-7.45) ABG pCO2 (35-45) mmHg ABG pO2 (83-108) mmHg ABG HCO3 (21-25) mmol/L ABG Total CO2 (19-24) mmol/L ABG O2 Saturation (94-97) % ABG Base Excess mmol/L Kirk Test FiO2 % Sodium 141 (137-145) mmol/L Potassium 4.0 (3.5-5.1) mmol/L Chloride 106 (98-107) mmol/L Carbon Dioxide 28 (22-30) mmol/L Anion Gap 7 mmol/L BUN 42 H (9-20) mg/dL Creatinine 1.04 (0.66-1.25) mg/dL Est GFR (CKD-EPI)AfAm 84 (>60 ml/min/1.73 sqM) Est GFR (CKD-EPI)NonAf 73 (>60 ml/min/1.73 sqM) Glucose 142 H (74-99) mg/dL Lactic Ac Sepsis Rflx Plasma Lactic Acid Catarino (0.7-2.0) mmol/L Calcium 8.0 L (8.4-10.2) mg/dL Magnesium 2.3 (1.6-2.3) mg/dL Total Bilirubin 0.8 (0.2-1.3) mg/dL AST 105 H (17-59) U/L ALT 27 (4-49) U/L Alkaline Phosphatase 72 (38-126) U/L Creatine Kinase 950 H (55-170) U/L Troponin I (0.000-0.034) ng/mL NT-Pro-B Natriuret Pep pg/mL Total Protein 5.9 L (6.3-8.2) g/dL Albumin 3.0 L (3.5-5.0) g/dL Influenza Type A (PCR) (Not Detectd) Influenza Type B (PCR) (Not Detectd) RSV (PCR) (Not Detectd) SARS-CoV-2 (PCR) (Not Detectd) 04/29/20 04/29/20 04/29/20 Range/Units 13:25 13:25 13:25 WBC (3.8-10.6) k/uL RBC (4.30-5.90) m/uL Hgb (13.0-17.5) gm/dL Hct (39.0-53.0) % MCV (80.0-100.0) fL MCH (25.0-35.0) pg MCHC (31.0-37.0) g/dL RDW (11.5-15.5) % Plt Count (150-450) k/uL MPV Neutrophils % (Manual) % Band Neuts % (Manual) % Lymphocytes % (Manual) % Monocytes % (Manual) % Eosinophils % (Manual) % Metamyelocytes % % Neutrophils # (Manual) (1.3-7.7) k/uL Lymphocytes # (Manual) (1.0-4.8) k/uL Monocytes # (Manual) (0-1.0) k/uL Eosinophils # (Manual) (0-0.7) k/uL Metamyelocytes # (Man) (0) k/uL Nucleated RBCs (0-0) /100 WBC Manual Slide Review Toxic Granulation Toxic Vacuolation Dohle Bodies Poikilocytosis (manual Anisocytosis (manual) PT (9.0-12.0) sec INR (<1.2) APTT (22.0-30.0) sec D-Dimer (<0.60) mg/L FEU Sample Site ABG pH (7.35-7.45) ABG pCO2 (35-45) mmHg ABG pO2 (83-108) mmHg ABG HCO3 (21-25) mmol/L ABG Total CO2 (19-24) mmol/L ABG O2 Saturation (94-97) % ABG Base Excess mmol/L Kirk Test FiO2 % Sodium (137-145) mmol/L Potassium (3.5-5.1) mmol/L Chloride (98-107) mmol/L Carbon Dioxide (22-30) mmol/L Anion Gap mmol/L BUN (9-20) mg/dL Creatinine (0.66-1.25) mg/dL Est GFR (CKD-EPI)AfAm (>60 ml/min/1.73 sqM) Est GFR (CKD-EPI)NonAf (>60 ml/min/1.73 sqM) Glucose (74-99) mg/dL Lactic Ac Sepsis Rflx Plasma Lactic Acid Catarino 3.3 H* (0.7-2.0) mmol/L Calcium (8.4-10.2) mg/dL Magnesium (1.6-2.3) mg/dL Total Bilirubin (0.2-1.3) mg/dL AST (17-59) U/L ALT (4-49) U/L Alkaline Phosphatase (38-126) U/L Creatine Kinase (55-170) U/L Troponin I 0.020 (0.000-0.034) ng/mL NT-Pro-B Natriuret Pep 241 pg/mL Total Protein (6.3-8.2) g/dL Albumin (3.5-5.0) g/dL Influenza Type A (PCR) (Not Detectd) Influenza Type B (PCR) (Not Detectd) RSV (PCR) (Not Detectd) SARS-CoV-2 (PCR) (Not Detectd) 04/29/20 04/29/20 04/29/20 Range/Units 13:25 13:48 13:56 WBC (3.8-10.6) k/uL RBC (4.30-5.90) m/uL Hgb (13.0-17.5) gm/dL Hct (39.0-53.0) % MCV (80.0-100.0) fL MCH (25.0-35.0) pg MCHC (31.0-37.0) g/dL RDW (11.5-15.5) % Plt Count (150-450) k/uL MPV Neutrophils % (Manual) % Band Neuts % (Manual) % Lymphocytes % (Manual) % Monocytes % (Manual) % Eosinophils % (Manual) % Metamyelocytes % % Neutrophils # (Manual) (1.3-7.7) k/uL Lymphocytes # (Manual) (1.0-4.8) k/uL Monocytes # (Manual) (0-1.0) k/uL Eosinophils # (Manual) (0-0.7) k/uL Metamyelocytes # (Man) (0) k/uL Nucleated RBCs (0-0) /100 WBC Manual Slide Review Toxic Granulation Toxic Vacuolation Dohle Bodies Poikilocytosis (manual Anisocytosis (manual) PT (9.0-12.0) sec INR (<1.2) APTT (22.0-30.0) sec D-Dimer (<0.60) mg/L FEU Sample Site L radial ABG pH 7.46 H (7.35-7.45) ABG pCO2 36 (35-45) mmHg ABG pO2 52 L* (83-108) mmHg ABG HCO3 26 H (21-25) mmol/L ABG Total CO2 27 H (19-24) mmol/L ABG O2 Saturation 89.1 L (94-97) % ABG Base Excess 2.1 mmol/L Kirk Test Yes FiO2 50 % Sodium (137-145) mmol/L Potassium (3.5-5.1) mmol/L Chloride (98-107) mmol/L Carbon Dioxide (22-30) mmol/L Anion Gap mmol/L BUN (9-20) mg/dL Creatinine (0.66-1.25) mg/dL Est GFR (CKD-EPI)AfAm (>60 ml/min/1.73 sqM) Est GFR (CKD-EPI)NonAf (>60 ml/min/1.73 sqM) Glucose (74-99) mg/dL Lactic Ac Sepsis Rflx Y Plasma Lactic Acid Catarino (0.7-2.0) mmol/L Calcium (8.4-10.2) mg/dL Magnesium (1.6-2.3) mg/dL Total Bilirubin (0.2-1.3) mg/dL AST (17-59) U/L ALT (4-49) U/L Alkaline Phosphatase (38-126) U/L Creatine Kinase (55-170) U/L Troponin I (0.000-0.034) ng/mL NT-Pro-B Natriuret Pep pg/mL Total Protein (6.3-8.2) g/dL Albumin (3.5-5.0) g/dL Influenza Type A (PCR) Not Detected (Not Detectd) Influenza Type B (PCR) Not Detected (Not Detectd) RSV (PCR) Not Detected (Not Detectd) SARS-CoV-2 (PCR) Detected A (Not Detectd) - EKG Data -: EKG Interpreted by Me EKG shows normal: sinus rhythm EKG Comments: Sinus tachycardia 105 [place] interval 132 QRS 136 QT since QTC 352/465 right bundle- branch block pattern - Radiology Data Radiology results: report reviewed (Imaging reviewed bilateral infiltrates more swollen the left than the right CT is nondiagnostic for pulmonary emboli.), i mage reviewed Critical Care Time Critical Care Time: Yes Total Critical Care Time: 44 Critical Care Time: Critical care time includes initial presentation with history physical labs x- rays multiple reevaluation the patient responsive therapy discussion with paramedics on arrival review of old charting was available discussed with Dr. Hood and Dr. Zavala. Documentation the above admission orders Disposition Clinical Impression: COVID-19, Pneumonia, Acute respiratory distress syndrome, Febrile illness, acute, Rhabdomyolysis, Elevated d-dimer, Dehydration Disposition: ADMITTED IP TO THIS [facility] Condition: Serious Referrals: Derek Lemus MD [Primary Care Provider] - 1-2 days
[2020-04-29 13:52] LABS: ABG Base Excess 2.1 mmol/L; ABG HCO3 26 mmol/L (21-25); ABG Oxygen Saturation 89.1 % (94-97); ABG PCO2 36 mmHg (35-45); ABG PH 7.46 (7.35-7.45); ABG TCO2 27 mmol/L (19-24); Allen Test Performed? Yes
[2020-04-29 13:53] LABS: Magnesium 2.3 mg/dL (1.6-2.3); Total Bilirubin 0.8 mg/dL (0.2-1.3); Total Protein 5.9 g/dL (6.3-8.2)
[2020-04-29 13:55] LABS: INR 1.1 (<1.2); Partial Thromboplastin Time 29.4 sec (22.0-30.0); Prothrombin Time 11.2 sec (9.0-12.0)
[2020-04-29 13:57] LABS: ABG PO2 52 mmHg (83-108)
[2020-04-29 14:06] LABS: HCT 40.2 % (39.0-53.0); HGB 12.7 gm/dL (13.0-17.5); MCHC 31.5 g/dL (31.0-37.0); Mean Platelet Volume 8.6; Platelet Count 148 k/uL (150-450); RBC 4.23 m/uL (4.30-5.90); RDW 15.6 % (11.5-15.5); WBC 9.9 k/uL (3.8-10.6)
[2020-04-29 14:09] LABS: D-Dimer 1.01 mg/L FEU (<0.60)
[2020-04-29] MEDS ORDERED: SODIUM CHLORIDE 0.9% 1,000 ML IV STA ×5 (14:09→15:44)
[2020-04-29 14:19] LABS: Band Neutrophils % 32 %; Lymphocytes # (M) 0.79 k/uL (1.0-4.8); Metamyelocytes % 2 %; Neutrophils % (M) 57 %; Nucleated Red Blood Cells 0 /100 WBC (0-0); Total Cells Counted 200
[2020-04-29 14:20] LABS: Anisocytosis (M) Present; Dohle Bodies Present; Poikilocytosis (M) Present; Toxic Granulation Present; Toxic Vacuolation Present
[2020-04-29] MEDS ORDERED: diphenhydrAMINE 50 MG/ML 1 ML VIAL IVP STA (14:41)
[2020-04-29] MEDS ORDERED: methylPREDNISolone SOD SUCCI 125 MG/2 ML VIAL IV STA (14:41)
[2020-04-29] MEDS ORDERED: FAMOTIDINE 20 MG/2 ML VIAL IV STA (14:41)
--- NOTE | 2020-04-29 14:48 | XR ---
EXAMINATION TYPE: XR chest 1V portable DATE OF EXAM: 04/29/2020 COMPARISON: 03/18/2020 INDICATION: Difficulty breathing shortness of breath TECHNIQUE: Single frontal view of the chest is obtained. FINDINGS: The heart size is normal. The pulmonary vasculature is normal. Bibasilar infiltrates are present. Findings are improving from comparison IMPRESSION: 1. Bibasilar infiltrates
[2020-04-29] MEDS ORDERED: DEXAMETHASONE SOD PHOSPHATE 10 MG/ML 1 ML VIAL IV STA (14:57)
[2020-04-29] MEDS ORDERED: ACETAMINOPHEN TAB 325 MG TAB PO STA (14:57)
[2020-04-29] MEDS ORDERED: ACETAMINOPHEN IV (For NPO) 1,000 MG in EMPTY BAG 1 BAG IVPB ONE (15:13)
[2020-04-29] MEDS ORDERED: cefTRIAXone IN SWFI 1,000 MG/10 ML SYRINGE IVP STA (15:26)
[2020-04-29] MEDS ORDERED: ENOXAPARIN 40 MG/0.4 ML SYRINGE SQ ONE (15:30)
--- NOTE | 2020-04-29 15:46 | CT ---
EXAMINATION TYPE: CT angio chest DATE OF EXAM: 04/29/2020 COMPARISON: 09/24/2019 HISTORY: 70-year-old male intermediate probability for pulmonary embolus, shortness of breath. Patien t poor historian. Patient shaking and has difficulty following commands. TECHNIQUE: Contiguous axial scanning of the chest performed with IV Contrast, patient injected with 1 00 mL of Isovue 370. Coronal/sagittal MIP reconstructions performed. CT DLP: 533.6 mGycm Automated exposure control for dose reduction was used. FINDINGS: Heart upper limits of normal in size. No flattening of the interventricular septum or reflux of contr ast into the hepatic veins. The exam is severely degraded as the patient would not hold still and was breathing through the study . No large central embolus within the right main or left main pulmonary arteries. Lobar, segmental, a nd more distal arterial branches are nondiagnostic and emboli in these locations cannot be excluded o n the basis of this exam. Large caliber to the main right and left pulmonary arteries measuring up to 3.0 cm suggesting underly ing pulmonary arterial hypertension. Aorta normal caliber with bovine configuration. Scattered mediastinal lymph nodes measuring up to 9 mm nonspecific. Dependent consolidation within the left greater than right mid and lower lungs. Mild underlying emphy sema. Visualized upper abdomen may show a mildly hydropic gallbladder measuring 5.3 cm wide. Assessment oth erwise nondiagnostic. Bones: Severely limited assessment of the ribs and sternum due to patient breathing. IMPRESSION: 1. ESSENTIALLY NONDIAGNOSTIC ASSESSMENT FOR PULMONARY EMBOLUS. THE PATIENT WOULD NOT HOLD STILL AND W BREATHING THROUGH THE SCAN. NO OBVIOUS CLOT WITHIN THE CENTRAL PORTION OF THE MAIN RIGHT AND LEFT PULMONARY ARTERIES. LOBAR, SEGMENTAL, AND MORE DISTAL ARTERIAL BRANCHES ARE NONDIAGNOSTIC AND EMBOLI HERE CANNOT BE EXCLUDED WITH THIS EXAM. 2. DEPENDENT CONSOLIDATION LEFT GREATER THAN RIGHT MID AND LOWER LUNGS. CONSIDER PNEUMONIA INCLUDING THE POSSIBILITY OF ASPIRATION PNEUMONIA. 3. GALLBLADDER MAY BE HYDROPIC. THIS COULD REFLECT FASTING STATE. IF RIGHT UPPER QUADRANT PAIN OR CON CERN FOR EARLY ACUTE CHOLECYSTITIS, HIDA SCAN CAN BE PERFORMED.
[2020-04-29] MEDS ORDERED: ALBUTEROL HFA INHALER INHALATION PRN (16:02)
--- NOTE | 2020-04-29 17:09 | HP ---
HISTORY AND PHYSICAL DATE OF SERVICE: 04/29/2020 CHIEF COMPLAINT: Shortness of breath. HISTORY OF PRESENT ILLNESS: This 70-year-old gentleman with a past medical history of multiple medical problems, including history of COPD, CVA, TIA, DVT, hypertension, history of DJD, history of pneumonia, prostate disorder, seizure disorder, history of adenoidectomy, being followed by Dr. Lemus in [facility], was complaining of shortness of breath for the past several days. The patient was found to be COVID-19 positive today. The patient also had some change in mental status, decreased responsiveness, with a pulse ox of 96% on 2 L. The patient came to [facility] and was admitted for evaluation and treatment. The initial evaluation showed respiratory alkalosis and PO2 was 52. COVID-19 was positive. Inflammatory markers of COVID were elevated also. Plasma lactic acid is . Chest CTA, which was reviewed personally by me, showed no diagnostic evidence of pulmonary embolism, but it did show significant consolidations bilaterally, right more than the left, suggestive of COVID-19 pneumonia. The patient was admitted for further evaluation and treatment. Evaluation by Pulmonary and Infectious Disease has been sought for possible remdesivir. The patient is unable to give a coherent history because the patient is on BiPAP and extremely short of breath and confused. Most of the history is taken from my discussion with the ER physician, discussion with staff and review of the chart. PAST MEDICAL HISTORY: History of COPD, CVA, TIA, DVT, hypertension, history of DJD, history of seizure disorder, history of prostate disorder. MEDICATIONS: Home medications are reviewed and include Robinul, folic acid, Colace, albuterol, Atrovent, Symbicort, primidone, multivitamins, Lipitor, Flomax. ALLERGIES: IODINATED CONTRAST DYES, LEVAQUIN, CODEINE, IOHEXOL, MORPHINE. Family history, social history and review of systems could not be taken because of the change in mental status. Myocardial infarction in the family per chart. PHYSICAL EXAMINATION: Patient is conscious, confused, extremely short of breath. Afebrile. Pulse 107, blood pressure 172/83, respiration 52, temperature 100.4, pulse ox 93% on BiPAP. HEENT: Conjunctivae normal. NECK: No jugular venous distention. CARDIOVASCULAR SYSTEM: S1, S2 muffled. RESPIRATORY SYSTEM: Breath sounds diminished at the bases. Bilateral scattered rhonchi and crackles. ABDOMEN: Soft, non-tender. LEGS: No edema. No swelling. NERVOUS SYSTEM: Diffusely weak. SKIN: No ulcer, rash, bleeding. JOINTS: No active deforming arthropathy. LABS: WBC 9, hemoglobin 12.7. Other labs are noted. ASSESSMENT: 1. Acute COVID-19 bilateral pneumonia, interstitial viral pneumonia, with acute hypoxic hypercarbic respiratory failure as well as sepsis. 2. Acute metabolic encephalopathy secondary to sepsis, change in mental status. 3. Acute respiratory alkalosis. 4. Elevated D-dimer without any evidence of pulmonary embolism. 5. Anemia, normocytic anemia of chronic disease. 6. Thrombocytopenia. 7. Elevated lactic acid secondary to sepsis. 8. Elevated creatine kinase, inflammatory markers of COVID-19. 9. History of chronic obstructive pulmonary disease. 10.History of cerebrovascular accident, transient ischemic attack. 11.History of deep venous thrombosis. 12.Hypertension. 13.History of pneumonia. 14.History of seizure disorder. 15.History of gluteal pain and abscess. 16.History of left leg deep venous thrombosis. 17.History of adenoidectomy. 18.History of prostate surgery. 19.History of anxiety, depression, post-traumatic stress disorder. 20.Remote history of nicotine dependence. 21.NO CODE, NO CPR, NO VENT. RECOMMENDATIONS AND DISCUSSION: In this 70-year-old gentleman who presented with multiple complex medical issues, we will monitor the patient closely, continue the current medications, continue with symptomatic treatment. Continue with IV steroids and continue with empiric antibiotics, bronchodilators, remdesivir per Infectious Disease and Pulmonary. Guarded prognosis because of multiple complex medical issues. Further recommendations to follow. A copy of this dictation is being forwarded to Dr. Lemus, who is the primary physician. The prognosis is extremely guarded because of multiple complex medical issues. MMODL / IJN: [id number] / MTDD
[2020-04-29] MEDS ORDERED: KETOROLAC 15 MG/ML 1 ML VIAL IVP STA (17:16)
[2020-04-29] MEDS: SYMBICORT 160-4.5 MCG INHALER INHALATION SCH (19:58)
[2020-04-29] MEDS: ALBUTEROL HFA INHALER INHALATION SCH (19:59)
[2020-04-29] MEDS ORDERED: DOCUSATE 100 MG CAP PO SCH (20:00)
[2020-04-29] MEDS ORDERED: DONEPEZIL 10 MG TAB PO SCH (20:00)
[2020-04-29] MEDS ORDERED: TAMSULOSIN 0.4 MG CAP.ER.24H PO SCH (20:00)
[2020-04-29] MEDS ORDERED: GLYCOPYRROLATE 1 MG TAB PO SCH (20:00)
[2020-04-29] MEDS ORDERED: ATORVASTATIN 40 MG TAB PO SCH (20:00)
[2020-04-29] MEDS ORDERED: FOLIC ACID 1 MG TAB PO SCH (21:00)
[2020-04-29] MEDS ORDERED: MULTIVITAMINS, THERA 1 EACH TAB PO SCH (21:00)
[2020-04-29] MEDS ORDERED: ENOXAPARIN 40 MG/0.4 ML SYRINGE SQ SCH (21:00)
[2020-04-29] MEDS ORDERED: cloZAPine 100 MG TAB PO SCH (21:00)
[2020-04-29] MEDS ORDERED: THIAMINE 100 MG TAB PO SCH (21:00)
[2020-04-29] MEDS ORDERED: DOCUSATE ORAL SOLN 100 MG/10 ML CUP PO SCH (21:00)
[2020-04-29] MEDS ORDERED: traZODone HCL 50 MG TAB PO SCH (21:00)
[2020-04-29] MEDS: CARBIDOPA-LEVODOPA 25-100 MG 1 EACH TAB PO SCH (21:17)
[2020-04-29] MEDS ORDERED: DILTIAZEM 125 MG in SODIUM CHLORIDE 0.9% 100 ML IV SCH (23:30)
[2020-04-29] MEDS: ACETAMINOPHEN TAB 500 MG TAB PO PRN (23:53)
[2020-04-29] MEDS: VALPROIC ACID ORAL SOLN 250 MG/5 ML CUP PO SCH (23:54)
[2020-04-30] MEDS ORDERED: HEPARIN SODIUM,PORCINE 5,000 UNIT/ML 1 ML VIAL SQ SCH
[2020-04-30] MEDS: ALBUTEROL HFA INHALER INHALATION SCH ×4 (01:48→15:43)
[2020-04-30 03:08] LABS: Basophils % (A) 0 %; Eosinophils % (A) 0 %; HCT 34.9 % (39.0-53.0); Hypochromasia Slight; Lymphocytes # (A) 0.5 k/uL (1.0-4.8); Lymphocytes % (A) 7 %; MCH 30.3 pg (25.0-35.0); MCHC 31.6 g/dL (31.0-37.0); MCV 95.8 fL (80.0-100.0); Mean Platelet Volume 8.3; Monocytes # (A) 0.1 k/uL (0-1.0); Monocytes % (A) 2 %; Neutrophils # (A) 6.7 k/uL (1.3-7.7); Neutrophils % (A) 91 %; Platelet Count 129 k/uL (150-450); RBC 3.65 m/uL (4.30-5.90); RDW 15.6 % (11.5-15.5); WBC 7.4 k/uL (3.8-10.6)
[2020-04-30 03:41] LABS: African American GFR (CKD) >90 (>60 ml/min/1.73 sqM); Anion Gap 6 mmol/L; Blood Urea Nitrogen 42 mg/dL (9-20); Calcium 7.7 mg/dL (8.4-10.2); Carbon Dioxide 25 mmol/L (22-30); Chloride 112 mmol/L (98-107); Glucose 161 mg/dL (74-99); Non-African American GFR(CKD) 86 (>60 ml/min/1.73 sqM); Sodium 143 mmol/L (137-145)
[2020-04-30] MEDS: CARBIDOPA-LEVODOPA 25-100 MG 1 EACH TAB PO SCH ×2 (06:01→14:04)
[2020-04-30] MEDS: ACETAMINOPHEN TAB 500 MG TAB PO PRN (06:01)
[2020-04-30] MEDS: VALPROIC ACID ORAL SOLN 250 MG/5 ML CUP PO SCH ×2 (06:02→16:09)
[2020-04-30] MEDS ORDERED: LEVOTHYROXINE 125 MCG TAB PO SCH (06:30)
[2020-04-30] MEDS ORDERED: PRIMIDONE 50 MG TAB PO SCH (07:00)
[2020-04-30] MEDS ORDERED: FLUDROCORTISONE 0.1 MG TAB PO SCH (07:00)
[2020-04-30] MEDS ORDERED: NEUPRO 6 MG/24 HR TOPICAL SCH (07:00)
[2020-04-30] MEDS ORDERED: PANTOPRAZOLE SODIUM 40 MG GRANULE PKT PO SCH (07:30)
[2020-04-30] MEDS ORDERED: TIOTROPIUM 2.5 MCG INHALER INHALATION SCH (08:00)
[2020-04-30] MEDS ORDERED: METOPROLOL TARTRATE 25 MG TAB PO SCH (09:00)
[2020-04-30] MEDS ORDERED: DEXAMETHASONE SOD PHOSPHATE 10 MG/ML 1 ML VIAL IV SCH (09:00)
[2020-04-30] MEDS ORDERED: ENOXAPARIN 80 MG/0.8 ML SYRINGE SQ SCH (09:00)
[2020-04-30] MEDS ORDERED: PANTOPRAZOLE 40 MG/10 ML VIAL IV SCH (09:00)
[2020-04-30] MEDS: SYMBICORT 160-4.5 MCG INHALER INHALATION SCH (09:11)
[2020-04-30] MEDS ORDERED: APIXABAN 5 MG TAB PO SCH (09:30)
[2020-04-30] MEDS ORDERED: PIPERACILLIN-TAZOBACTAM 3.375 GM in SODIUM CHLORIDE 0.9% 100 ML IVPB SCH (10:00)
--- NOTE | 2020-04-30 10:39 | P.CRDCN ---
History of Present Illness History of present illness: HISTORY OF PRESENTING ILLNESS This is a pleasant 70-year-old male past medical history significant for Parkinson's disease, CVA, COPD and hypotension. He follows in the office with Dr. Loza. We have been asked to see in consultation for atrial fibrillation. He presented to the hospital from his long-term with symptoms of cough, shortness of breath and hypoxia. He was recently diagnosed with Covid 19. Initial EKG on admission revealed sinus rhythm with right bundle branch block. Telemetry tracings through the night indicate intermittent episodes of atrial fibrillation with variable ventricular rates. He was started on Cardizem infusion. He is seen and examined resting comfortably lying flat in bed on BiPAP. He does answer questions appropriately. She denies symptoms of chest pain. He denies prior history of coronary artery disease. He has never been di agnosed with an arrhythmia in the past. Chest x-ray reveals bibasilar infiltrates. CTA of the chest is negative for pulmonary embolism, depending consolidation left greater than right mid and lower lungs and hydropic gallbladder. Laboratory data reviewed, WBC 7.4, hemoglobin 11, platelets 129, sodium 143, potassium 4.0, creatinine 0.9, d-dimer 1.01, proBNP 241, cardiac enzymes negative 1 and lactic acid 2.9. Crit daily cardiac medications include Florinef 0.1 mg daily and Lipitor 40 mg at bedtime. Most recent echocardiogram obtained in the office in 2018 revealed preserved LV systolic function with ejection fraction 55% with mild mitral regurgitation.. REVIEW OF SYSTEMS At the time of my exam: CONSTITUTIONAL: Denies fever or chills. CARDIOVASCULAR: Complains of shortness of breath. Denies chest pain,orthopnea, PND or palpitations. RESPIRATORY: Denies cough. GASTROINTESTINAL: Denies abdominal pain, diarrhea, constipation, nausea or vomiting. MUSCULOSKELETAL: Denies myalgias. NEUROLOGIC: Denies numbness, tingling or weakness. ENDOCRINE: Denies fatigue, weight change, polydipsia or polyurina. GENITOURINARY: Denies burning, hematuria or urgency with micturation. HEMATOLOGIC: Denies history of anemia or bleeding. PHYSICAL EXAMINATION Blood pressure 128/67 heart rate 110 afebrile and maintaining oxygen saturation on BiPAP. CONSTITUTIONAL: No apparent distress. HEENT: Head is normocephalic. Pupils are equal, round. Sclerae anicteric. Mucous membranes of the mouth are moist. No JVD. No carotid bruit. CHEST EXAMINATION: Scattered rhonchi, no wheezes or rales. No chest wall tenderness is noted on palpation or with deep breathing. HEART EXAMINATION: Irregular rate and rhythm. S1, S2 heard. Systolic ejection murmur at the base, no gallops or rub. ABDOMEN: Soft, nontender. Positive bowel sounds. EXTREMITIES: 2+ peripheral pulses, no lower extremity edema and no calf tenderness. NEUROLOGIC EXAMINATION: Patient is awake, alert and oriented x3. ASSESSMENT New onset atrial fibrillation with variable ventricular rate Covid 19 COPD History of Parkinson's disease History of hypotension PLAN Initiate Eliquis 5 mg twice a day for thromboembolic protection. Initiate Lopressor 25 mg twice a day and discontinue Cardizem infusion. Repeat EKG. Obtain 2D echocardiogram and doppler study to assess cardiac structure and function. Further recommendations to follow based on clinical course. Thank you kindly for this consultation. Nurse Practitioner note has been reviewed, I agree with a documented findings and plan of care. Patient was seen and examined. Past Medical History Past Medical History: COPD, CVA/TIA, Deep Vein Thrombosis (DVT), Hypertension, Musculoskeletal Disorder, Neurologic Disorder, Pneumonia, Prostate Disorder, Seizure Disorder, Thyroid Disorder Additional Past Medical History / Comment(s): Pt recently admitted to [facility] on 01/23/20 with fall/L gluteal pain/abscess. 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 History of Any Multi-Drug Resistant Organisms: MRSA Date of last positivie culture/infection: 09/30/2014 MDRO Source:: Blood Past Surgical History: Adenoidectomy, Prostate Surgery, Tonsillectomy Additional Past Surgical History / Comment(s): L buttock abscess I&D, BRONCHOSCOPY, SX FOR PROLAPSED RECTUM, TURP, Peg insertion & then removed, osteophytes removed from throat, TEETH EXTRACTED, 8-29-16 MIKE. 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 He ambulates with a walker. His daughter manages his medications. He no longer drives. He gets to [facility] by his linda or son. His pills need to be crushed and placed in applesauce at times. He has dysphagia at times. His daughter has to leave during the day at times and pt and his mother are alone during those times. Pt recently receivied home care thru [facility], but it is done now. Pt has home oxygen but has not been using it the past 3 months and a nebulizer. Smoking Status: Former smoker Past Alcohol Use History: None Reported Additional Past Alcohol Use History / Comment(s): STARTED SMOKING AT AGE 20, QUIT SMOKING 1988 SMOKED 1-2 PPD. PT WAS HEAVY DRINKER IN PAST BUT NONE X 25 PLUS YEARS. Past Drug Use History: None Reported - Past Family History Father Family Medical History: Myocardial Infarction (SD) Additional Family Medical History / Comment(s): Father at the age of 62 yrs from a SD. Mother Family Medical History: Myocardial Infarction (SD) Additional Family Medical History / Comment(s): Mother is 97yrs old. She has a pacemaker. Medications and Allergies Home Medications Medication Instructions Recorded Confirmed Type Levothyroxine Sodium [Synthroid] 125 mcg PO DAILY@0700 06/27/14 04/29/20 History Atorvastatin Calcium [Lipitor] 40 mg PO HS@199902/20/17 04/29/20 History Primidone [Mysoline] 50 mg PO BID@0700,1600 02/20/17 04/29/20 History Fludrocortisone [Florinef] 0.1 mg PO DAILY@0700 02/19/18 04/29/20 History Tamsulosin [Flomax] 0.4 mg PO HS@199906/20/18 04/29/20 History Donepezil [Aricept] 10 mg PO HS@199902/27/19 04/29/20 History traZODone HCL [Desyrel] 50 mg PO HS 02/27/19 04/29/20 History Neupro Patch 6mg/24hr 1 patch TOPICAL DAILY@0700 09/21/19 04/29/20 History Budesonide-Formot 160-4.5 Mcg 2 puff INHALATION RT-BID 30 Days 09/24/19 04/29/20 Rx [Symbicort 160-4.5 Mcg Inhaler] #1 puff cloZAPine [Clozaril] 450 mg PO HS #3 tab 10/22/19 04/29/20 Rx Albuterol Nebulized [Ventolin 2.5 mg INHALATION RT-QID PRN 01/23/20 04/29/20 History Nebulized] Multivitamins, Thera [Multivitamin 1 tab PO HS 01/23/20 04/29/20 History (formulary)] Carbidopa-Levodopa 25-100 mg 1 tab PO TID@0700,1300,1900 03/16/20 04/29/20 History [Sinemet 25-100 mg] Valproic Acid Oral Soln [Depakene 500 mg PO TID@0700,1300,1900 03/16/20 04/29/20 History Syrup] Acetaminophen Tab [Tylenol] 1,000 mg PO Q6HR PRN tab 03/18/20 04/29/20 Rx Ipratropium-Albuterol Nebulize 3 ml INHALATION RT-QID ml 03/18/20 04/29/20 Rx [Duoneb 0.5 mg-3 mg/3 ml Soln] Docusate [Colace] 100 mg PO HS@199904/29/20 04/29/20 History Folic Acid 1 mg PO HS 04/29/20 04/29/20 History Glycopyrrolate [Robinul] 1 mg PO HS@199904/29/20 04/29/20 History Lansoprazole [Prevacid] 15 mg PO DAILY 04/29/20 04/29/20 History Thiamine [Vitamin B-1] 100 mg PO HS 04/29/20 04/29/20 History Allergies Allergy/AdvReac Type Severity Reaction Status Date / Time Iodinated Contrast Media Allergy Unknown Verified 04/29/20 13:12 [Iodinated Contrast- Oral and IV Dye] levofloxacin [From Levaquin] Allergy Unknown Verified 04/29/20 13:12 codeine AdvReac Hallucinati Verified 04/29/20 13:12 ons iohexol AdvReac Nausea & Verified 04/29/20 13:12 Vomiting morphine AdvReac Confusion Verified 04/29/20 13:12 tromethamine AdvReac Nausea & Verified 04/29/20 13:12 Vomiting Physical Exam Vitals: Vital Signs Temp Pulse Pulse Resp BP BP Pulse Ox 04/30/20 04:00 98.2 F 110 H 27 H 128/67 98 04/29/20 23:00 98.9 F 121 H 35 H 120/58 96 04/29/20 21:57 98 F 98 32 H 96/62 98 04/29/20 21:20 122 H 30 H 134/92 94 L 04/29/20 21:00 113 H 30 H 96 04/29/20 20:28 98.3 F 89 24 118/62 97 04/29/20 20:00 24 98 04/29/20 18:43 86 26 H 107/61 95 04/29/20 17:52 81 27 H 107/67 96 04/29/20 16:45 99 F 93 30 H 101/65 94 L 04/29/20 15:47 96 38 H 119/63 93 L 04/29/20 15:17 100.4 F H 107 H 52 H 172/86 93 L 04/29/20 14:27 104 H 38 H 141/74 93 L 04/29/20 13:46 101 H 36 H 143/90 91 L 04/29/20 13:16 100.1 F H 105 H 40 H 143/90 Intake and Output 04/29/20 04/30/20 04/30/20 22:59 06:59 14:59 Other: # Voids 1 Weight 86.7 kg 88.5 kg Results 04/30/20 02:46 04/30/20 02:46 Cardiac Enzymes 04/29/20 04/29/20 Range/Units 13:25 13:25 AST 105 H (17-59) U/L Troponin I 0.020 (0.000-0.034) ng/mL Coagulation 04/29/20 Range/Units 13:25 PT 11.2 (9.0-12.0) sec APTT 29.4 (22.0-30.0) sec CBC 04/29/20 04/30/20 Range/Units 13:25 02:46 WBC 9.9 7.4 (3.8-10.6) k/uL RBC 4.23 L 3.65 L (4.30-5.90) m/uL Hgb 12.7 L 11.0 L (13.0-17.5) gm/dL Hct 40.2 34.9 L (39.0-53.0) % Plt Count 148 L 129 L (150-450) k/uL Comprehensive Metabolic Panel 04/29/20 04/30/20 Range/Units 13:25 02:46 Sodium 141 143 (137-145) mmol/L Potassium 4.0 4.0 (3.5-5.1) mmol/L Chloride 106 112 H (98-107) mmol/L Carbon Dioxide 28 25 (22-30) mmol/L BUN 42 H 42 H (9-20) mg/dL Creatinine 1.04 0.90 (0.66-1.25) mg/dL Glucose 142 H 161 H (74-99) mg/dL Calcium 8.0 L 7.7 L (8.4-10.2) mg/dL AST 105 H (17-59) U/L ALT 27 (4-49) U/L Alkaline Phosphatase 72 (38-126) U/L Total Protein 5.9 L (6.3-8.2) g/dL Albumin 3.0 L (3.5-5.0) g/dL Current Medications Generic Name Dose Route Start Last Admin Trade Name Freq PRN Reason Stop Dose Admin Acetaminophen 1,000 mg 04/29/20 16:02 04/30/20 06:01 Acetaminophen Tab 500 Mg Tab PO 1,000 mg Q6HR PRN Administration Fever and/ or Pain Albuterol Sulfate 2 puff 04/29/20 16:02 Albuterol Hfa Inhaler INHALATION RT-QID PRN Shortness Of Breath Albuterol Sulfate 2 puff 04/29/20 20:00 04/30/20 05:44 Albuterol Hfa Inhaler INHALATION Not Given Q4HR ALEJO Atorvastatin Calcium 40 mg 04/29/20 20:00 04/29/20 21:22 Atorvastatin 40 Mg Tab PO 40 mg HS@2000 ALEJO Administration Budesonide/Formoterol Fumarate 2 puff 04/29/20 20:00 04/29/20 19:58 Symbicort 160-4.5 Mcg Inhaler INHALATION 2 puff RT-BID ALEJO Administration Carbidopa/Levodopa 1 each 04/29/20 19:00 04/30/20 06:01 Carbidopa-Levodopa 25-100 Mg 1 Each Tab PO 1 each TID@0700,1300,1900 ALEJO Administration Clozapine 450 mg 04/29/20 21:00 04/29/20 21:22 Clozapine 100 Mg Tab PO 05/07/20 21:01 450 mg HS ALEJO Administration Dexamethasone Sodium Phosphate 6 mg 04/30/20 09:00 Dexamethasone Sod Phosphate 10 Mg/Ml 1 Ml Vial IV DAILY ALEJO Docusate Sodium 100 mg 04/29/20 21:00 04/29/20 23:55 Docusate Oral Soln 100 Mg/10 Ml Cup PO 100 mg HS@1999 ALEJO Administration Donepezil HCl 10 mg 04/29/20 20:00 04/29/20 21:17 Donepezil 10 Mg Tab PO 10 mg HS@1999 ALEJO Administration Enoxaparin Sodium 80 mg 04/30/20 09:00 Enoxaparin 80 Mg/0.8 Ml Syringe SQ BID ALEJO Fludrocortisone Acetate 0.1 mg 04/30/20 07:00 04/30/20 06:02 Fludrocortisone 0.1 Mg Tab PO 0.1 mg DAILY@0700 ALEJO Administration Folic Acid 1 mg 04/29/20 21:00 04/29/20 21:19 Folic Acid 1 Mg Tab PO 1 mg HS ALEJO Administration Glycopyrrolate 1 mg 04/29/20 20:00 04/29/20 23:54 Glycopyrrolate 1 Mg Tab PO 1 mg HS@1999 ALEJO Administration Ceftriaxone Sodium 2 gm/ 50 mls @ 100 mls/hr 04/30/20 09:00 Sodium Chloride IVPB DAILY ALEJO Diltiazem HCl 125 mg/ Sodium 125 mls @ 5 mls/hr 04/29/20 23:30 04/29/20 23:54 Chloride IV 5 mg/hr .Q24H ALEJO 5 mls/hr Administration 5 MG/HR Levothyroxine Sodium 125 mcg 04/30/20 06:30 04/30/20 06:01 Levothyroxine 125 Mcg Tab PO 125 mcg DAILY@0630 ALEJO Administration Multivitamins 1 each 04/29/20 21:00 04/29/20 21:20 Multivitamins, Thera 1 Each Tab PO 1 each HS ALEJO Administration Non-Formulary Medication 1 patch 04/30/20 07:00 04/30/20 06:02 Neupro Patch 6mg/24hr TOPICAL Not Given DAILY@0700 [facility] Pantoprazole Sodium 40 mg 04/30/20 09:00 Pantoprazole 40 Mg/10 Ml Vial IV DAILY ALEJO Primidone 50 mg 04/30/20 07:00 04/30/20 06:01 Primidone 50 Mg Tab PO 50 mg BID@0700,1600 [facility] Administration Tamsulosin HCl 0.4 mg 04/29/20 20:00 04/29/20 21:01 Tamsulosin 0.4 Mg Cap.Er.24h PO Not Given HS@2000 [facility] Thiamine HCl 100 mg 04/29/20 21:00 04/29/20 21:18 Thiamine 100 Mg Tab PO 100 mg HS [facility] Administration Tiotropium [place] 2 puff 04/30/20 08:00 Tiotropium 2.5 Mcg Inhaler INHALATION RT-DAILY [facility] Trazodone HCl 50 mg 04/29/20 21:00 04/29/20 21:20 Trazodone Hcl 50 Mg Tab PO 50 mg HS ALEJO Administration Valproic Acid 500 mg 04/29/20 19:00 04/30/20 06:02 Valproic Acid Oral Soln 250 Mg/5 Ml Cup PO 500 mg TID@0700,1300,1900 [facility] Administration Intake and Output 04/29/20 04/30/20 04/30/20 22:59 06:59 14:59 Other: # Voids 1 Weight 86.7 kg 88.5 kg 04/30/20 02:46 04/30/20 02:46
[2020-04-30 10:49] VITALS: BP 106/54; TEMP 97.4
--- NOTE | 2020-04-30 11:05 | XR ---
EXAMINATION TYPE: XR chest 1V DATE OF EXAM: 04/30/2020 CLINICAL HISTORY: Dyspnea progress study. TECHNIQUE: Single AP portable upright view of the chest is obtained. COMPARISON: Chest x-ray and CTA chest from one day earlier. FINDINGS: Persistent diminished inspiration with worsening moderate central opacities bilaterally. N o pneumothorax seen bilaterally. Cardiac silhouette size stable and upper limits of normal. Osseous s tructures are intact. IMPRESSION: Correlate for CHF exacerbation or fluid overload state as there is worsening moderate nadira ateral central edema and/or less likely acute infiltrates.
[2020-04-30 12:09] LABS: Glucose,Whole Blood 230 mg/dL (75-99)
[2020-04-30] MEDS ORDERED: ONDANSETRON 4 MG/2 ML VIAL IVP PRN (12:20)
[2020-04-30] MEDS ORDERED: ATROPINE OPHTH SOLN 1% 5ML BTL SUBLINGUAL PRN (12:20)
[2020-04-30] MEDS ORDERED: ACETAMINOPHEN SUPPOSITORY 650 MG SUPP RECTAL PRN (12:20)
[2020-04-30] MEDS ORDERED: MORPHINE SULFATE 2 MG/ML SYRINGE IVP ONE (12:20)
[2020-04-30] MEDS ORDERED: MORPHINE SULFATE 2 MG/ML SYRINGE IV PRN (12:20)
[2020-04-30] MEDS ORDERED: DRY MOUTH SPRAY 44.3 SPRAY/44.3 ML SPRAY MUCOUS MEM PRN (12:20)
[2020-04-30] MEDS ORDERED: IBUPROFEN 400 MG TAB PO PRN (12:20)
[2020-04-30] MEDS ORDERED: SCOPOLAMINE 1.5MG/72HR PATCH TRANSDERM SCH (13:00)
[2020-04-30] MEDS: MORPHINE SULFATE (100 MG/2 ML) 100 MG in SODIUM CHLORIDE 0.9% 100 ML IV SCH ×2 (13:54→13:57)
[2020-04-30] MEDS: LORazepam 2 MG/ML INJ IV PRN (15:25)
--- NOTE | 2020-04-30 16:17 | PN ---
PROGRESS NOTE DATE OF SERVICE: 04/30/2020 This 70-year-old gentleman who was referred from [facility] with acute COVID-19 pneumonia and as well as severe hypoxia, being closely monitored. Patient needed BiPAP at this time. The patient also had change in mental status. The chest x-ray which was done this morning and personally evaluated by me showed extensive bilateral pneumonia, left more than the right and chest CTA showed no evidence of pulmonary embolism. Patient is closely closely monitored. The case was discussed with the family at length. At this time, the family does not want any invasive measures or any other major treatment to prolong the life and opting for hospice treatment care at this time. PAST MEDICAL HISTORY: Reviewed. REVIEW OF SYSTEMS: Could not be taken. CURRENT MEDICATIONS: The current medications are Tylenol, Isopto, Motrin, Ativan, morphine sulfate. Doses are reviewed. PHYSICAL EXAMINATION: The patient is sedated. Pulse of 46, blood pressure is 106/54, respiration 30, temperature 97.4, pulse ox 96% on BiPAP. HEENT: Conjunctivae normal. NECK: No jugular venous distention. CARDIOVASCULAR: S1, S2 muffled. RESPIRATORY: Breath sounds diminished at the bases. A few scattered rhonchi and crackles. ABDOMEN: Soft. Nontender. LEGS: No edema, no swelling. NERVOUS SYSTEM: Diffusely weak. LABS: WBC 7.4, hemoglobin 11, sodium 143, potassium 4. Glucose noted. Lactic acid is 2.9. ASSESSMENT: 1. Acute COVID-19 bilateral pneumonia left more than right interstitial pneumonia with acute hypoxic hypercarbic respiratory failure as well as sepsis, present on admission. 2. Status post BiPAP. 3. Acute metabolic encephalopathy secondary to sepsis, change in mental status. 4. Acute respiratory alkalosis. 5. Elevated D-dimer without any evidence of pulmonary embolism. 6. Anemia, normocytic anemia of chronic disease. 7. Thrombocytopenia. 8. Elevated lactic acid secondary to sepsis. 9. Elevated creatine kinase and inflammatory markers of COVID-19. 10.History of chronic obstructive pulmonary disease. 11.History of cerebrovascular accident, transient ischemic attack. 12.History of deep vein thrombosis. 13.Hypertension. 14.History of pneumonia. 15.History of seizure disorder. 16.History of gluteal pain and abscess. 17.History of left leg deep vein thrombosis. 18.History of adenoidectomy. 19.History of prostate surgery. 20.History of anxiety, depression, posttraumatic stress disorder. 21.Remote history of nicotine dependence. 22.NO CODE, NO CPR, NO VENT. 23.Comfort measures. RECOMMENDATIONS AND DISCUSSION: This 70-year-old gentleman admitted with bilateral COVID-19 pneumonia has taken turn for the worse. The patient had extensive COVID-19 pneumonia causing significant hypoxia and acute respiratory failure. The case discussed with family and the family would like to go with comfort measures, which will be continued at this time. The prognosis extremely guarded because of multiple complex medical issues. Further recommendations to follow. MMODL / IJN: [id number] /
--- NOTE | 2020-04-30 17:12 | ECHOF ---
Referral Reason:new onset afib MEASUREMENTS -------- HEIGHT: 170.2 cm WEIGHT: 88.5 kg BP: 128/67 RVIDd: 3.1 cm (< 3.3) IVSd: 1.3 cm (0.6 - 1.1) LVIDd: 3.9 cm (3.9 - 5.3) LVPWd: 1.3 cm (0.6 - 1.1) IVSs: 1.6 cm LVIDs: 2.6 cm LVPWs: 1.8 cm LA Diam: 3.3 cm (2.7 - 3.8) Ao Diam: 3.6 cm (2.0 - 3.7) AV Cusp: 2.3 cm (1.5 - 2.6) MV EXCURSION: 13.117 mm (> 18.000) MV EF SLOPE: 60 mm/s (70 - 150) EPSS: 0.7 cm RAP: 15.00 mmHg RVSP: 33.31 mmHg FINDINGS -------- Atrial fibrillation. This was a technically adequate study. The left ventricular size is normal. There is mild concentric left ventricular hypertrophy. Overa ll left ventricular systolic function is mildly impaired with, an EF between 45 - 50 %. Inferior ba pastora Hypokinesis The right ventricle is normal in size. The left atrial size is normal. The right atrium is normal in size. Interatrial and interventricular septum intact. The aortic valve is trileaflet and appears structurally normal. There is trace to mild mitral regurgitation. Mild tricuspid regurgitation present. There is borderline pulmonary artery hypertension. The righ t ventricular systolic pressure, as measured by Doppler, is 33.31mmHg. Trace/mild (physiologic) pulmonic regurgitation. The aortic root size is normal. Normal inferior vena cava with less than 50% inspiratory collapse consistent with estimated right atr ial pressure of 15 mmHg. There is no pericardial effusion. CONCLUSIONS -------- 1. The left ventricular size is normal. 2. There is mild concentric left ventricular hypertrophy. 3. Overall left ventricular systolic function is mildly impaired with, an EF between 45 - 50 %. 4. Inferior basal Hypokinesis 5. There is trace to mild mitral regurgitation. 6. Mild tricuspid regurgitation present. 7. There is borderline pulmonary artery hypertension. 8. The right ventricular systolic pressure, as measured by Doppler, is 33.31mmHg. 9. Trace/mild (physiologic) pulmonic regurgitation. 10. Normal inferior vena cava with less than 50% inspiratory collapse consistent with estimated right atrial pressure of 15 mmHg. 11. There is no pericardial effusion. PARBOILER: CEM Gomez
[2020-05-01] MEDS: MORPHINE SULFATE (100 MG/2 ML) 100 MG in SODIUM CHLORIDE 0.9% 100 ML IV SCH ×2 (02:59→12:19)
[2020-05-01 04:20] VITALS: PULSE 108
[2020-05-01] MEDS: LORazepam 2 MG/ML INJ IV PRN ×2 (09:34→15:51)
--- NOTE | 2020-05-01 14:02 | PN ---
PROGRESS NOTE DATE OF SERVICE: 05/01/2020 This 70-year-old gentleman who was admitted with COVID-19 pneumonia is on comfort measures. The patient is on morphine drip with 14 drops per minute. The patient is being sedated. The patient is closely monitored. CT did not show any acute abnormality. PHYSICAL EXAMINATION: On exam, the patient is sedated. Pulse is 108. The patient is on 2 L nasal cannula. HEENT: Conjunctivae normal. NECK: No jugular venous distention. CARDIOVASCULAR: S1, S2 muffled. RESPIRATORY: Breath sounds diminished at the bases. A few scattered rhonchi. ABDOMEN: Soft. NERVOUS SYSTEM: The patient is sedated. LABS: Labs are not available. ASSESSMENT: 1. Acute COVID-19 bilateral pneumonia with left more than the right interstitial pneumonia with acute hypoxic respiratory failure as well as sepsis, present on admission. 2. Status post BiPAP. 3. Acute metabolic encephalopathy secondary to sepsis, change in mental status, present on admission. 4. Acute respiratory alkalosis. 5. Elevated D-dimer without any evidence of acute pulmonary embolism. 6. Anemia, normocytic anemia of chronic disease. 7. Thrombocytopenia. 8. Elevated lactic acid secondary to sepsis. 9. Elevated creatine kinase and inflammatory markers of COVID-19. 10.History of chronic obstructive pulmonary disease. 11.History of cerebrovascular accident, transient ischemic attack. 12.History of deep vein thrombosis. 13.Hypertension. 14.History of pneumonia. 15.History of seizure disorder. 16.History of left leg deep vein thrombosis. 17.History of adenoidectomy. 18.History of prostate surgery. 19.History of anxiety, depression, posttraumatic stress disorder. 20.Remote history of nicotine dependence. 21.NO CODE, NO CPR, NO VENT. 22.Comfort measures. RECOMMENDATIONS AND DISCUSSION: We will continue with comfort measures. Continue with morphine, Ativan p.r.n. Prognosis extremely guarded because of multiple complex medical issues as listed above. Discussed with the family at length. Further recommendations to follow. Multiple comfort measures. MMODL / IJN: [id number] /
[2020-05-01 14:28] VITALS: RESP 14
== END 2020-05-01 20:00 | disposition expired | DRG 871 ==
LOC: EC 13:04 → 3SCARD 16:07
PROVIDERS: ADMIT Internal Medicine; ATTEND Internal Medicine
PROC: 5A09357 Assistance with Respiratory Ventilation, Less than 24 Consecutive Hours, Continuous Positive Airway Pressure (ICD-10-PCS; principal; 2020-04-29)
DX: A41.89 Other specified sepsis (principal); J12.82 Pneumonia due to coronavirus disease 2019; U07.1 COVID-19; G93.41 Metabolic encephalopathy; J80 Acute respiratory distress syndrome; J44.0 Chronic obstructive pulmonary disease with (acute) lower respiratory infection; E87.3 Alkalosis; M62.82 Rhabdomyolysis; Z66 Do not resuscitate; Z51.5 Encounter for palliative care; I10 Essential (primary) hypertension; G40.909 Epilepsy, unspecified, not intractable, without status epilepticus; G20 Parkinson's disease; E03.9 Hypothyroidism, unspecified; M19.90 Unspecified osteoarthritis, unspecified site; F43.10 Post-traumatic stress disorder, unspecified; F31.9 Bipolar disorder, unspecified; M54.30 Sciatica, unspecified side; N40.0 Benign prostatic hyperplasia without lower urinary tract symptoms; F41.9 Anxiety disorder, unspecified; E86.0 Dehydration; D69.6 Thrombocytopenia, unspecified; I45.10 Unspecified right bundle-branch block; D63.8 Anemia in other chronic diseases classified elsewhere; Z86.14 Personal history of Methicillin resistant Staphylococcus aureus infection; Z90.89 Acquired absence of other organs; Z98.890 Other specified postprocedural states; Z82.49 Family history of ischemic heart disease and other diseases of the circulatory system; Z79.899 Other long term (current) drug therapy; Z79.890 Hormone replacement therapy; Z79.52 Long term (current) use of systemic steroids; Z79.51 Long term (current) use of inhaled steroids; Z88.1 Allergy status to other antibiotic agents; Z88.5 Allergy status to narcotic agent; Z88.8 Allergy status to other drugs, medicaments and biological substances; Z91.041 Radiographic dye allergy status; Z86.73 Personal history of transient ischemic attack (TIA), and cerebral infarction without residual deficits; Z87.891 Personal history of nicotine dependence; Z87.01 Personal history of pneumonia (recurrent); Z86.718 Personal history of other venous thrombosis and embolism
CPT/HCPCS: 36415; 36600; 71045; 71275; 80048; 80053; 82550; 82805; 83605; 83735; 83880; 84484; 85025; 85379; 85610; 85730; 87040; 87636; 93005; 93306; 94640; 94660; 96361; 96372; 96374; 96375; 99291